=== PATIENT | male | born 1955 | race Caucasian/White ===

== ENCOUNTER 2017-06-29 19:22 | Inpatient (IN) | payer MEDICAID ==
[2017-06-29] MEDS ORDERED: SODIUM CHLORIDE 0.9% 500 ML IV STA (19:36)
[2017-06-29] MEDS ORDERED: MORPHINE SULFATE 4 MG/ML SYRINGE IV STA (19:36)
--- NOTE | 2017-06-29 19:41 | ED ---
Chest Pain HPI <Lit Ndiaye - Last Filed: 06/29/17 22:00> - General Source: EMS, RN notes reviewed, old records reviewed Mode of arrival: EMS Limitations: no limitations <Zaria Junior - Last Filed: 06/29/17 22:45> - General Chief Complaint: Chest Pain Stated Complaint: chest pain Time Seen by Provider: 06/29/17 19:25 - History of Present Illness Initial Comments: 62-year-old male presenting to the emergency Department chief complaint chest pain started this afternoon. Patient reports it started around 3:00. He did take one nitro at home. Patient reports that the edge off of the pain. He states that it still persists. He does wear oxygen consistently and he does have a history of COPD and is consistently short of breath. He states that he feels like he is slightly increased with his labored breathing. He denies any nausea or vomiting. He states he is not diaphoretic. He states that he called EMS and they do given 3 nitro. He states that that did relieve the pain again. Patient also was given oral doses of aspirin. Patient reports that he has a pacer placed by physician in the [facility]. He states that was done in 2012. He also has history of cancer and is undergoing chemo. History of Cancer , chest pain, COPD, diabetes and MIs. History of Left upper lobe lung cancer. Last chemo treatment was at the end of May 2017. (Zaria Junior) - Related Data Home Medications Medication Instructions Recorded Confirmed Aspirin 81 mg PO DAILY 06/29/17 06/29/17 Glucosam/Diogo-Msm1/C/Sahil/Bosw 1 tab PO BID 06/29/17 06/29/17 [Glucosamine-Chondroitin Tablet] Magnesium Oxide [Mag-Ox] 400 mg PO BID 06/29/17 06/29/17 Mometasone/Formoterol [Dulera 200 2 puff INHALATION RT-BID 06/29/17 06/29/17 Mcg/5 Mcg Inhaler] Allergies Allergy/AdvReac Type Severity Reaction Status Date / Time No Known Allergies Allergy Verified 06/29/17 20:44 Review of Systems ROS Other: All systems not noted in ROS Statement are negative. <Lit Ndiaye - Last Filed: 06/29/17 22:00> ROS Other: All systems not noted in ROS Statement are negative. <Zaria Junior - Last Filed: 06/29/17 22:45> ROS Statement: Those systems with pertinent positive or pertinent negative responses have been documented in the HPI. EKG Findings - EKG Comments: EKG Findings:: EKG performed at 1927 shows ventricular paced rhythm. Ventricular rate of 70 bpm. OK interval was undetected. QRS duration 122 ms. QT QTc is 418/451 ms. EKG performed then again at 2048 shows sinus tachycardia with first-degree AV block. Indeterminate axis. Pulmonary disease pattern noted. Right ventricular hypertrophy. ST wave abnormality noted in the inferior leads. Ventricular rate of 114 bpm. OK interval 11/24/1959 milliseconds. QRS duration 14 ms. QT QTc is 2:30/317. <Zaria Junior - Last Filed: 06/29/17 22:45> Past Medical History Past Medical History: Cancer, Chest Pain / Angina, COPD, Diabetes Mellitus, Myocardial Infarction (SD) Additional Past Medical History / Comment(s): stent placed 2009 History of Any Multi-Drug Resistant Organisms: MRSA Past Surgical History: AICD, Pacemaker Past Psychological History: No Psychological Hx Reported Smoking Status: Never smoker Past Alcohol Use History: None Reported Past Drug Use History: None Reported <Zaria Junior - Last Filed: 06/29/17 22:45> General Exam <Lit Ndiaye - Last Filed: 06/29/17 22:00> Limitations: no limitations General appearance: alert, in no apparent distress Head exam: Present: atraumatic, normocephalic, normal inspection Eye exam: Present: normal appearance, PERRL, EOMI. Absent: scleral icterus, conjunctival injection, periorbital swelling ENT exam: Present: normal exam, mucous membranes moist Neck exam: Present: normal inspection. Absent: tenderness, meningismus, lymphadenopathy Respiratory exam: Present: wheezes (bilateral wheezing), other (PT on oxygen. ) . Absent: normal lung sounds bilaterally, respiratory distress, rales, rhonchi , stridor Cardiovascular Exam: Present: regular rate, normal rhythm, normal heart sounds. Absent: systolic murmur, diastolic murmur, rubs, gallop, clicks GI/Abdominal exam: Present: soft, normal bowel sounds. Absent: distended, tenderness, guarding, rebound, rigid Extremities exam: Present: normal inspection, full ROM, normal capillary refill. Absent: tenderness, pedal edema, joint swelling, calf tenderness Back exam: Present: normal inspection Neurological exam: Present: alert, oriented X3, CN II-XII intact Psychiatric exam: Present: normal affect, normal mood Skin exam: Present: warm, dry, intact, normal color. Absent: rash <Zaria Junior - Last Filed: 06/29/17 22:45> - General Exam Comments Initial Comments: 62-year-old male. (Zaria Junior) Chest Pain MDM <Lit Ndiaye - Last Filed: 06/29/17 22:00> <Zaria Junior - Last Filed: 06/29/17 22:45> - [facility] Medical decision-making. Patient has a fever 102.9. History of lung cancer. D -dimer elevated at 4.1, CT to rule out PE pending. Patient presents septic, IV antibiotic started Levaquin, vancomycin. Case discussed with Dr. Mason , hospitalist and discussed the case with Dr. Frazier for ICU management. Dr. Ndiaye (Lit Ndiaye) This 21-year-old male chief complaint of increased chest pain. Patient's laboratory was reviewed. He does have a history of lung cancer. Noted significant anemia of [place] white blood count of 1.4. Patient's hemoglobin of 7.5. Patient was given blood transfusion. Patient's chest x-ray showed no acute cardiopulmonary process. He did have an elevated d-dimer 4.4. He received a CT MOLINA. Patient CT angios chest is negative for PE. Patient's temperature was reevaluated and was 102.9. Patient given Motrin Tylenol. Sepsis protocol was initiated. Patient's case was discussed with Dr. Ndiaye. He reviewed all the EKGs with me. Patient was given multiple rounds of nitro and morphine for the pain. Patient initial troponin was negative. We will admit the patient to ICU. He did request transferring down to [facility] however he is unstable to do so at this time. Patient was started on IV Levaquin and vancomycin. Discussed erythema the patient patient's family. Patient is admitted. He will receive breathing treatments as well. (Zaria Junior) Disposition <Lit Ndiaye - Last Filed: 06/29/17 22:00> Time of Disposition: 22:45 <Zaria Junior - Last Filed: 08/08/17 22:45> Clinical Impression: Sepsis, Anemia, Chest pain, Lung cancer Disposition: ADMITTED IP TO THIS HOSP Condition: Stable Referrals: Nonstaff,Physician [Primary Care Provider] - 1-2 days
[2017-06-29 20:16] LABS: Anisocytosis Moderate; Appearance,Urine Clear (Clear); Bilirubin,Urine Negative (Negative); CH 34.8; CHCM 34.7; Glucose,Urine (UA) 4+ (Negative); HCT 22.5 % (39.0-53.0); HDW 3.87; HGB 7.5 gm/dL (13.0-17.5); Ketones,Urine Trace (Negative); Leukocyte Esterase,Urine Negative (Negative); MCH 33.7 pg (25.0-35.0); MCHC 33.4 g/dL (31.0-37.0); MCV 100.7 fL (80.0-100.0); Macrocytosis Moderate; Mean Platelet Volume 11.4; Nitrite,Urine Negative (Negative); Poikilocytosis Slight; Protein,Urine Trace (Negative); RBC 2.23 m/uL (4.30-5.90); RDW 20.6 % (11.5-15.5); Specific Gravity,Urine 1.021 (1.001-1.035); UA Billing (MACRO vs. MICRO) CHEM; WBC (Perox) 1.34
[2017-06-29 20:18] LABS: WBC 1.4 k/uL (3.8-10.6)
[2017-06-29] MEDS ORDERED: ACETAMINOPHEN TAB 500 MG TAB PO STA (20:25)
[2017-06-29 20:27] LABS: ALT 40 U/L (21-72); AST 23 U/L (17-59); Alkaline Phosphatase 88 U/L (38-126); Anion Gap 12 mmol/L; Blood Urea Nitrogen 14 mg/dL (9-20); Calcium 8.9 mg/dL (8.4-10.2); Carbon Dioxide 21 mmol/L (22-30); Chloride 103 mmol/L (98-107); Glucose 181 mg/dL (74-99); Magnesium 1.1 mg/dL (1.6-2.3); Non-African American GFR(MDRD) >60 (>60 ml/min/1.73 sqM); Potassium 3.7 mmol/L (3.5-5.1); Sodium 136 mmol/L (137-145); Total Bilirubin 1.1 mg/dL (0.2-1.3)
[2017-06-29 20:30] LABS: Add Differential Manual Differential
[2017-06-29] MEDS: SODIUM CHLORIDE 0.9% 500 ML IV SCH ×3 (20:35→23:00)
[2017-06-29 20:40] LABS: Nucleated Red Blood Cells 0 /100 WBC (0-0); Total Cells Counted 100
[2017-06-29 20:41] LABS: Manual Review Performed; Ovalocytes Present; Polychromasia Present
--- NOTE | 2017-06-29 20:42 | XR ---
EXAMINATION TYPE: XR chest 2V DATE OF EXAM: 06/29/2017 COMPARISON: NONE HISTORY: Shortness of breath, chest pain, and fever. History of left upper lobe cancer with last chem otherapy treatment and end of May. History also includes COPD. TECHNIQUE: Frontal and lateral views of the chest are obtained. FINDINGS: Right-sided Mediport is seen with its distal tip in the superior vena cava. Dual lead left -sided cardiac device is noted. The known left upper lobe pulmonary carcinoma is not well visualized on this examination. Copious soft tissues partially obscure the left costophrenic angle is no pleural effusion is seen on the lateral image. There is no focal air space opacity, pleural effusion, or pneumothorax seen. The cardiac silhouette size is mildly enlarged. The osseous structures are intact. Degenerative changes of the glenohumeral joints are noted. IMPRESSION: 1. No acute cardiopulmonary process. 2. Right-sided Mediport terminates in the superior vena cava. 3. Known left upper lobe pulmonary carcinoma is not well visualized on this examination.
[2017-06-29] MEDS ORDERED: IPRATROPIUM-ALBUTEROL 3 ML NEB INHALATION STA (20:46)
[2017-06-29 20:47] LABS: Partial Thromboplastin Time 24.9 sec (22.0-30.0); Prothrombin Time 10.6 sec (9.0-12.0)
[2017-06-29] MEDS ORDERED: NITROGLYCERIN OINT 1 INCH/GM PACKET TOPICAL STA (20:47)
[2017-06-29 20:50] LABS: Creatine Kinase MB 0.9 ng/mL (0.0-2.4); Troponin I 0.015 ng/mL (0.000-0.034)
[2017-06-29] MEDS ORDERED: LEVOFLOXACIN 750MG-D5W PMX 750 MG in DEXTROSE/WATER 1 150ML.BAG IVPB STA (20:53)
[2017-06-29] MEDS ORDERED: RX INFO: IV CONTRAST WAS GIVEN 1 EACH MISC MISCELLANE PRN (21:00)
[2017-06-29] MEDS ORDERED: IV VANCOMYCIN PER PHARMACY 1 EACH MISC MISCELLANE PRN (21:26)
[2017-06-29] MEDS ORDERED: VANCOMYCIN 1,750 MG in SODIUM CHLORIDE 0.9% 250 ML IVPB STA (21:30)
[2017-06-29] MEDS ORDERED: IBUPROFEN 800 MG TAB PO STA (22:00)
[2017-06-29] MEDS ORDERED: NALOXONE 0.4 MG/ML 1 ML VIAL IV PRN (22:31)
[2017-06-29] MEDS ORDERED: IPRATROPIUM-ALBUTEROL 3 ML NEB INHALATION PRN (22:31)
[2017-06-29] MEDS ORDERED: ALPRAZolam 0.25 MG TAB PO PRN (22:31)
[2017-06-29] MEDS ORDERED: NITROGLYCERIN SL TABS 0.4 MG TAB SUBLINGUAL PRN (22:35)
--- NOTE | 2017-06-29 22:35 | CT ---
EXAM: CT Angiography Chest With Intravenous Contrast CLINICAL HISTORY: Reason: Pain TECHNIQUE: Axial computed tomographic angiography images of the chest with intravenous contrast using pulmonary embolism protocol. CTDI is 0.17, 10. 84, 10.84, 15.51 mGy and DLP is 593 mGy-cm. This CT exam was performed using one or more of the following dose reduction techniques: automated exposure control, adjustment of the mA and/or kV according to patient size, and/or use of iterative reconstruction technique. MIP reconstructed images were created and reviewed. COMPARISON: CXR 06/29/2017 FINDINGS: Pulmonary arteries: Unremarkable. No pulmonary embolism. Aorta: Mild atherosclerosis. No dissection or aneurysm. Lungs: No consolidation or mass. Bilateral emphysematous changes. Biapical pleural parenchymal scar. Bilateral peribronchial thickening is compatible with airways disease. Pleural space: Unremarkable. No significant effusion. No pneumothorax. Heart: Unremarkable. No cardiomegaly. No significant pericardial effusion. Bones/joints: No acute osseous abnormality. Mild degenerative changes of the spine. Soft tissues: Unremarkable. Lymph nodes: Unremarkable. No enlarged lymph nodes. Tubes, lines and devices: Left chest wall AICD. IMPRESSION: No pulmonary embolus.
[2017-06-30] MEDS: SODIUM CHLORIDE 0.9% 1,000 ML IV SCH ×3 (00:22→16:23)
[2017-06-30] MEDS: ACETAMINOPHEN TAB 325 MG TAB PO PRN ×3 (00:23→16:20)
[2017-06-30] MEDS ORDERED: Magnesium Replacement Protocol 1 EACH MISC MISCELLANE PRN (00:53)
[2017-06-30] MEDS ORDERED: Potassium Replacement Protocol 1 EACH MISC MISCELLANE PRN (00:54)
[2017-06-30] MEDS ORDERED: POTASSIUM CHLORIDE ER 20 MEQ TAB.ER PO SCH (01:00)
[2017-06-30 01:04] LABS: Glucose,Whole Blood 173 mg/dL (75-99)
[2017-06-30] MEDS: MORPHINE SULFATE 4 MG/ML SYRINGE IV PRN ×4 (01:22→16:19)
[2017-06-30] MEDS: MAGNESIUM SULFATE-D5W PMX 1 GM in DEXTROSE/WATER 1 100ML.BAG IVPB SCH ×3 (01:24→03:22)
[2017-06-30 01:31] VITALS: BMI 34.3
[2017-06-30 01:57] LABS: Creatine Kinase MB 1.6 ng/mL (0.0-2.4)
[2017-06-30 02:03] LABS: Troponin I 0.161 ng/mL (0.000-0.034)
[2017-06-30 05:22] LABS: Anisocytosis Moderate; CH 33.3; HCT 22.4 % (39.0-53.0); HDW 3.79; HGB 7.6 gm/dL (13.0-17.5); MCH 33.6 pg (25.0-35.0); MCHC 34.1 g/dL (31.0-37.0); MCV 98.5 fL (80.0-100.0); Macrocytosis Moderate; Mean Platelet Volume 9.2; Poikilocytosis Slight; RBC 2.27 m/uL (4.30-5.90); RDW 20.6 % (11.5-15.5); WBC (Perox) 1.02
[2017-06-30] MEDS: VANCOMYCIN 1,750 MG in SODIUM CHLORIDE 0.9% 250 ML IVPB SCH ×2 (05:33→18:15)
[2017-06-30 05:40] LABS: Anion Gap 7 mmol/L; Blood Urea Nitrogen 11 mg/dL (9-20); Calcium 8.2 mg/dL (8.4-10.2); Carbon Dioxide 22 mmol/L (22-30); Chloride 109 mmol/L (98-107); Cholesterol 141 mg/dL (<200); Glucose 192 mg/dL (74-99); HDL Cholesterol 40 mg/dL (40-60); Magnesium 1.9 mg/dL (1.6-2.3); Non-African American GFR(MDRD) >60 (>60 ml/min/1.73 sqM); Phosphorous 3.3 mg/dL (2.5-4.5); Potassium 4.3 mmol/L (3.5-5.1); Sodium 138 mmol/L (137-145)
[2017-06-30 05:42] LABS: Add Differential Manual Differential
[2017-06-30 05:49] LABS: Manual Review Performed; Nucleated Red Blood Cells 0 /100 WBC (0-0); Total Cells Counted 200
--- NOTE | 2017-06-30 07:19 | XR ---
EXAMINATION TYPE: XR chest 1V DATE OF EXAM: 06/30/2017 COMPARISON: 06/29/2017 HISTORY: 62-year-old male increasing shortness of breath TECHNIQUE: Single frontal view of the chest is obtained. FINDINGS: Right anterior chest wall injection port with catheter tip seen at least to the level of the mid SVC. Left anterior chest wall AICD generator with right atrial, right ventricular, and coronary sinus brenden ds. There is leftward patient rotation which alters the normal cardial mediastinal contours. Heart ap pears normal to upper limits of normal in size. There appears to be a small left pleural effusion wit h some patchy left basilar opacity on the current exam. Mild relative upper lung lucencies and some s ubtle focal left apical opacity could relate to site of patient's prior lung cancer. IMPRESSION: 1. COPD with increasing small left pleural effusion with adjacent atelectasis and/or consolidation. C orrelate for mild CHF as a possible etiology. 2. Some subtle left apical opacity could represent residual changes of patient's recently treated dennys g cancer.
[2017-06-30 07:43] LABS: Glucose,Whole Blood 173 mg/dL (75-99)
[2017-06-30 07:46] LABS: Creatine Kinase MB 3.4 ng/mL (0.0-2.4)
[2017-06-30 07:48] LABS: Troponin I 0.305 ng/mL (0.000-0.034)
[2017-06-30] MEDS: INSULIN LISPRO (humaLOG) 300 UNIT/3 ML VIAL SQ SCH ×4 (08:39→21:24)
[2017-06-30] MEDS: FAMOTIDINE 20 MG/2 ML VIAL IV SCH ×2 (08:45→21:24)
[2017-06-30] MEDS: DOCUSATE 100 MG CAP PO SCH ×2 (08:45→21:24)
[2017-06-30] MEDS ORDERED: ASPIRIN 325 MG TAB PO SCH (09:00)
--- NOTE | 2017-06-30 09:03 | P.CRDCN ---
History of Present Illness Consult date: 06/30/17 Chief complaint: Chest discomfort History of present illness: This is a pleasant 62-year-old gentleman with a past medical history significant for CAD and prior stenting of the LAD with unknown details at this point where the stent was performed by Dr. Ephraim Holbrook at [facility], and the patient continues to follow-up with him at this point, COPD, and small cell lung cancer currently on chemotherapy, presented to the hospital complaining of chest discomfort. The patient was in his usual state of health where he was visiting his daughter when he developed chest discomfort, in the mid of the chest, as a pressure across the chest, without any radiation to the arm or neck or shoulders and with associated symptoms of shortness of breath and sweating. He clearly states that the discomfort reminded him with what he experienced before his heart attack in the past. Later during his admission, the chest discomfort became is sort of pleuritic kind of discomfort. The d-dimer came in to be abnormal but the CTA of the chest showed no PE. The EKG showed by Biv-pacing with nonspecific changes in the anteroseptal leads. The cardiac enzymes were checked and came in to be unremarkable. The blood work showed what it seems to be pancytopenia. Clinically the patient continues to have mild ongoing chest discomfort. Past Medical History Past Medical History: Cancer, Chest Pain / Angina, COPD, Diabetes Mellitus, Myocardial Infarction ([place]) Additional Past Medical History / Comment(s): stent placed 2008 Last Myocardial Infarction Date:: 2008 History of Any Multi-Drug Resistant Organisms: MRSA Date of last positivie culture/infection: 2003 MDRO Source:: pulmonary MRSA Past Surgical History: AICD, Pacemaker Additional Past Surgical History / Comment(s): AICD 07/2015. 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 cell transplant Past Anesthesia/Blood Transfusion Reactions: No Reported Reaction Type of Cardiac Device: Permanent Pacemaker, AICD Device Placement Date:: 2014 Past Psychological History: No Psychological Hx Reported Smoking Status: Never smoker Past Alcohol Use History: None Reported Past Drug Use History: None Reported Medications and Allergies Home Medications Medication Instructions Recorded Confirmed Type Aspirin 81 mg PO DAILY 06/29/17 06/29/17 History Glucosam/Diogo-Msm1/C/Sahil/Bosw 1 tab PO BID 06/29/17 06/29/17 History [Glucosamine-Chondroitin Tablet] Magnesium Oxide [Mag-Ox] 400 mg PO BID 06/29/17 06/29/17 History Mometasone/Formoterol [Dulera 200 2 puff INHALATION RT-BID 06/29/17 06/29/17 History Mcg/5 Mcg Inhaler] Omeprazole 20 mg PO DAILY 06/30/17 06/30/17 History Allergies Allergy/AdvReac Type Severity Reaction Status Date / [facility] Adv[facility]ac Anaphylaxis Verified 06/30/17 00:20 Physical Exam Vitals: Vital Signs Temp Pulse Resp BP Pulse Ox 06/30/17 07:29 98 06/30/17 07:00 69 24 106/56 99 06/30/17 06:00 69 24 128/60 97 06/30/17 05:00 69 24 117/57 97 06/30/17 04:00 98.1 F 69 23 120/57 97 06/30/17 03:10 98.2 F 69 20 120/57 98 06/30/17 03:00 69 20 119/50 96 06/30/17 02:00 69 20 134/53 96 06/30/17 01:00 101.6 F H 69 24 134/53 97 06/30/17 00:37 101.4 F H 109 H 24 117/58 101 H 06/30/17 00:25 101.6 F H 101 H 24 126/58 99 06/30/17 00:15 102.2 F H 109 H 24 116/53 06/30/17 00:07 102.2 F H 93 24 128/62 99 06/29/17 23:57 101.8 F H 69 24 129/59 100 06/29/17 23:51 100 F H 71 22 124/72 99 06/29/17 23:25 70 06/29/17 23:20 69 06/29/17 22:52 100 F H 92 22 124/57 98 06/29/17 21:43 102.9 F H 72 22 130/60 98 06/29/17 20:45 124 H 06/29/17 20:40 98 22 150/63 100 06/29/17 20:02 69 24 139/60 99 06/29/17 19:48 24 06/29/17 19:25 100.4 F H 70 26 H 135/63 96 Intake and Output 06/29/17 06/30/17 06/30/17 22:59 06:59 14:59 Intake Total 2190 245 Output Total 2200 Balance -10 245 Intake: IV 1495 245 Magnesium Sulfate-D5w Pmx 400 1 gm In Dextrose/Water 1 100ml.bag @ 100 mls/hr IVPB Q1H [facility] Rx#: [id number] Sodium Chloride 0.9% 1, 720 120 000 ml @ 120 mls/hr IV . Q8H20M [facility] Rx#:[id number] Vancomycin 1,750 mg In 375 125 Sodium Chloride 0.9% 250 ml @ 125 mls/hr IVPB Q12H [facility] Rx#:[id number] Blood Product 695 Rc As-3 Unit 310 [id number] Output: Urine 2200 Other: Voiding Method Urinal Weight 98.883 kg 108.6 kg - Constitutional General appearance: no acute distress - Respiratory Respiratory: bilateral: diminished, rales - Cardiovascular Rhythm: regular Heart sounds: normal: S1, S2 Abnormal Heart Sounds: systolic murmur Results 06/30/17 05:00 06/30/17 05:00 Cardiac Enzymes 06/29/17 06/29/17 06/30/17 Range/Units 19:57 19:57 01:13 AST 23 (17-59) U/L CK-MB (CK-2) 0.9 1.6 (0.0-2.4) ng/mL Troponin I 0.015 0.161 H* (0.000-0.034) ng/mL 06/30/17 Range/Units 06:30 AST (17-59) U/L CK-MB (CK-2) 3.4 H* (0.0-2.4) ng/mL Troponin I 0.305 H* (0.000-0.034) ng/mL Coagulation 06/29/17 Range/Units 19:57 PT 10.6 (9.0-12.0) sec APTT 24.9 (22.0-30.0) sec Lipids 06/30/17 Range/Units 05:00 Triglycerides 103 (<150) mg/dL Cholesterol 141 (<200) mg/dL HDL Cholesterol 40 (40-60) mg/dL CBC 06/29/17 06/30/17 Range/Units 19:57 05:00 WBC 1.4 L* 1.0 L* (3.8-10.6) k/uL RBC 2.23 L 2.27 L (4.30-5.90) m/uL Hgb 7.5 L 7.6 L (13.0-17.5) gm/dL Hct 22.5 L 22.4 L (39.0-53.0) % Plt Count 55 L 46 L* (150-450) k/uL Comprehensive Metabolic Panel 06/29/17 06/30/17 Range/Units 19:57 05:00 Sodium 136 L 138 (137-145) mmol/L Potassium 3.7 4.3 (3.5-5.1) mmol/L Chloride 103 109 H (98-107) mmol/L Carbon Dioxide 21 L 22 (22-30) mmol/L BUN 14 11 (9-20) mg/dL Creatinine 0.80 0.80 (0.66-1.25) mg/dL Glucose 181 H 192 H (74-99) mg/dL Calcium 8.9 8.2 L (8.4-10.2) mg/dL AST 23 (17-59) U/L ALT 40 (21-72) U/L Alkaline Phosphatase 88 (38-126) U/L Total Protein 6.0 L (6.3-8.2) g/dL Albumin 3.6 (3.5-5.0) g/dL Current Medications Generic Name Dose Route Start Last Admin Trade Name Freq PRN Reason Stop Dose Admin Acetaminophen 650 mg 06/29/17 22:31 06/30/17 00:23 Tylenol Tab PO 650 mg Q4HR PRN Administration Fever and/or Mild Pain Albuterol/Ipratropium 3 ml 06/29/17 22:31 Duoneb 0.5 Mg-3 Mg/3 Ml Soln INHALATION RT-Q4H PRN Shortness Of Breath Or Wheezing Alprazolam 0.25 mg 06/29/17 22:31 Xanax PO Q6HR PRN Moderate Anxiety Aspirin 325 mg 06/30/17 09:00 06/30/17 08:45 Aspirin PO 325 mg DAILY [facility] Administration Docusate Sodium 100 mg 06/30/17 09:00 06/30/17 08:45 Colace PO 100 mg BID [facility] Administration Famotidine 20 mg 06/30/17 09:00 06/30/17 08:45 Pepcid IV 20 mg Q12HR [facility] Administration Vancomycin HCl 1,750 mg/ 250 mls @ 125 mls/hr 06/30/17 06:00 06/30/17 05:33 Sodium Chloride IVPB 125 mls/hr Q12H [facility] Administration Sodium Chloride 1,000 mls @ 120 mls/hr 06/29/17 22:45 06/30/17 08:46 Saline 0.9% IV 120 mls/hr .Q8H20M [facility] Administration Insulin Human Lispro 0 unit 06/30/17 07:30 06/30/17 08:39 Humalog SQ 2 unit ACHS [facility] Administration Protocol Miscellaneous Information 1 each 06/29/17 21:00 06/29/17 21:15 Rx Info: Iv Contrast Was Given MISCELLANE 07/01/17 21:00 1 each DAILY PRN Administration Per Protocol Miscellaneous Information 1 each 06/30/17 00:53 Magnesium Per Protocol MISCELLANE DAILY PRN Per Protocol Protocol Miscellaneous Information 1 each 06/30/17 00:54 Potassium Per Protocol MISCELLANE DAILY PRN Per Protocol Protocol Morphine Sulfate 4 mg 06/29/17 22:31 06/30/17 08:39 Morphine Sulfate (Inj) IV 4 mg Q2HR PRN Administration Pain Scale 8 to 10 Naloxone HCl 0.2 mg 06/29/17 22:31 Narcan IV Q2M PRN Opioid Reversal Nitroglycerin 0.4 mg 06/29/17 22:35 Nitrostat SUBLINGUAL Q5M PRN Chest Pain Intake and Output 06/29/17 06/30/17 06/30/17 22:59 06:59 14:59 Intake Total 2190 245 Output Total 2200 Balance -10 245 Intake: IV 1495 245 Magnesium Sulfate-D5w Pmx 400 1 gm In Dextrose/Water 1 100ml.bag @ 100 mls/hr IVPB Q1H [facility] Rx#: [id number] Sodium Chloride 0.9% 1, 720 120 000 ml @ 120 mls/hr IV . 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 He was found to have dorado cytopenia. The patient currently is on chemotherapy. The cardiac enzymes were checked and came in to be slightly abnormal and the EKG showed also slight non-specific changes. At this point, and in view of the absence of any severe chest discomfort and the pancytopenia, I recommended proceeding with a conservative medical approach and medical treatment only. I will obtain echocardiogram to assess the LV function and to assess for any wall motion abnormalities. The patient cannot be on any beta ledy in view of the marginally low heart rate as well as marginally low blood pressure. He is on 325 mg by mouth aspirin and I will cut down that in to 81 mg by mouth daily. If the aspirin has to be stopped because of the low platelet count we'll go ahead and do that.
--- NOTE | 2017-06-30 09:15 | P.CONS ---
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 He states his PET scan was clear and he was planned for 2 rounds of chemotherapy and his next one is due next week which will be his last one. Patient resides in [facility] and follows with physicians at [facility] and is wishing to be transferred to that facility. Patient was visiting his daughter in [place] and developed chest pain yesterday afternoon about 3:00. He took one nitroglycerin of his own with some minimal improvement. EMS was called and he was brought into [facility] emergency center for evaluation. EMS did give him 3 nitroglycerin with relief. Patient had some nonspecific changes on his EKG. He is known to have had a myocardial infarction in 2008 and stent placement at that time. He also has history of atrial fibrillation status post AV node ablation and subsequently needed a pacemaker which was upgraded to an AICD in 2015. He denies any problems with his pacemaker site. He does have a port on the right upper anterior chest wall which has not given him any trouble and has been nontender. Patient was found to have a white count of 1.4 and repeat is at 1. Hemoglobin 7.5 and he was transfused 1 unit of packed RBCs. He presented with a temperature of 102.9 and lactic acid was 3.3 and improved to 1.2. Urinalysis was nitrate and leukoesterase negative. Blood cultures are status received. Patient had troponins of 0.015, 0.161, 0.305. Patient has been given 1 dose of IV Levaquin and has been continued on vancomycin. Chest x-ray showed no acute cardiopulmonary process. Patient was admitted to the intensive care unit. Consults are in place with Dr. Frazier for intensive care management, Dr. Dozier from oncology and Dr. Way for cardiology. Patient states that his chest pain has changed in that it is now painful when he takes a deep breath. Review of Systems All systems: negative Constitutional: Denies chills, Denies fever Eyes: denies blurred vision, denies pain Ears, nose, mouth and throat: Denies headache, Denies sore throat Cardiovascular: Reports chest pain, Reports shortness of breath Respiratory: Denies cough Gastrointestinal: Denies abdominal pain, Denies diarrhea, Denies nausea, Denies vomiting Musculoskeletal: Denies myalgias Integumentary: Denies pruritus, Denies rash Neurological: Denies numbness, Denies weakness Psychiatric: Denies anxiety, Denies depression Endocrine: Denies fatigue, Denies weight change Past Medical History Past Medical History: Atrial Fibrillation, Cancer, Chest Pain / Angina, COPD, Diabetes Mellitus, Myocardial Infarction (NH) Additional Past Medical History / Comment(s): stent placed 2008, chronic hypoxic respiratory failure on home O2, Hodgkin's lymphoma status post themselves transplant, atrial fibrillation status post AV node ablation Last Myocardial Infarction Date:: 2008 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 1997 Stem cell transplant, port placement Past Anesthesia/Blood Transfusion Reactions: No Reported Reaction Type of Cardiac Device: Permanent Pacemaker, AICD Device Placement Date:: 2014 Past Psychological History: No Psychological Hx Reported Smoking Status: Former smoker Past Alcohol Use History: None Reported Additional Past Alcohol Use History / Comment(s): patient was a smoker 3 packs per day for 39 years and quit in 2008. He denies any medical marijuana, marijuana, street drug use. He lives at home with his and 3 cats. Past Drug Use History: None Reported Medications and Allergies Home Medications Medication Instructions Recorded Confirmed Type Aspirin 81 mg PO DAILY 06/29/17 06/29/17 History Glucosam/Diogo-Msm1/C/Sahil/Bosw 1 tab PO BID 06/29/17 06/29/17 History [Glucosamine-Chondroitin Tablet] Magnesium Oxide [Mag-Ox] 400 mg PO BID 06/29/17 06/29/17 History Mometasone/Formoterol [Dulera 200 2 puff INHALATION RT-BID 06/29/17 06/29/17 History Mcg/5 Mcg Inhaler] Omeprazole 20 mg PO DAILY 06/30/17 06/30/17 History Allergies Allergy/AdvReac Type Severity Reaction Status Date / Time perflutren [From Definity] AdvReac Anaphylaxis Verified 06/30/17 00:20 Physical Exam Vitals: Vital Signs Temp Pulse Resp BP Pulse Ox 06/30/17 09:00 73 44 H 141/65 97 06/30/17 08:00 69 28 H 128/61 98 06/30/17 07:29 98 06/30/17 07:00 69 24 106/56 99 06/30/17 06:00 69 24 128/60 97 06/30/17 05:00 69 24 117/57 97 06/30/17 04:00 98.1 F 69 23 120/57 97 06/30/17 03:10 98.2 F 69 20 120/57 98 06/30/17 03:00 69 20 119/50 96 06/30/17 02:00 69 20 134/53 96 06/30/17 01:00 101.6 F H 69 24 134/53 97 06/30/17 00:37 101.4 F H 109 H 24 117/58 101 H 06/30/17 00:25 101.6 F H 101 H 24 126/58 99 06/30/17 00:15 102.2 F H 109 H 24 116/53 06/30/17 00:07 102.2 F H 93 24 128/62 99 06/29/17 23:57 101.8 F H 69 24 129/59 100 06/29/17 23:51 100 F H 71 22 124/72 99 06/29/17 23:25 70 06/29/17 23:20 69 06/29/17 22:52 100 F H 92 22 124/57 98 06/29/17 21:43 102.9 F H 72 22 130/60 98 06/29/17 20:45 124 H 06/29/17 20:40 98 22 150/63 100 06/29/17 20:02 69 24 139/60 99 06/29/17 19:48 24 06/29/17 19:25 100.4 F H 70 26 H 135/63 96 Intake and Output 06/29/17 06/30/17 06/30/17 22:59 06:59 14:59 Intake Total 2190 365 Output Total 2200 250 Balance -10 115 Intake: IV 1495 365 Magnesium Sulfate-D5w Pmx 400 1 gm In Dextrose/Water 1 100ml.bag @ 100 mls/hr IVPB Q1H ROSAS Rx#: [id number] Sodium Chloride 0.9% 1, 720 240 000 ml @ 120 mls/hr IV . Q8H20M ROSAS Rx#:[id number] Vancomycin 1,750 mg In 375 125 Sodium Chloride 0.9% 250 ml @ 125 mls/hr IVPB Q12H ROSAS Rx#:[id number] Blood Product 695 Rc As-3 Unit 310 [id number] Output: Urine 2200 250 Other: Voiding Method Urinal Weight 98.883 kg 108.6 kg Gen: This is a 62-year-old male sitting up in the ICU bed. Patient is noted to have [id number] dyspnea with conversation. HEENT: Head is atraumatic, normocephalic. Pupils equal, round. Sclerae is anicteric. conjunctivae slightly pale. Mucous membranes of the mouth are slightly dry. No thrush noted. Dentition is in good order. NECK: short. Supple. No JVD. No lymphadenopathy. No thyromegaly. LUNGS: diminished to the bilateral bases. mild accessory muscle usage and intercostal retractions. HEART: Regular rate and rhythm. No murmur. ABDOMEN: Soft. Bowel sounds are present. No masses. No tenderness. EXTREMITIES: No pedal edema. No calf tenderness.dorsalis pedis is +2 bilaterally.patient has redness to the left forearm just distal to the antecubital area. NEUROLOGICAL: Patient is awake, alert and oriented x3. Cranial nerves 2 through 12 are grossly intact. Results Results: Laboratory Results WBC 1.0 k/uL (3.8-10.6) L* 06/30/17 05:00 RBC 2.27 m/uL (4.30-5.90) L 06/30/17 05:00 Hgb 7.6 gm/dL (13.0-17.5) L 06/30/17 05:00 Hct 22.4 % (39.0-53.0) L 06/30/17 05:00 MCV 98.5 fL (80.0-100.0) 06/30/17 05:00 MCH 33.6 pg (25.0-35.0) 06/30/17 05:00 MCHC 34.1 g/dL (31.0-37.0) 06/30/17 05:00 RDW 20.6 % (11.5-15.5) H 06/30/17 05:00 Plt Count 46 k/uL (150-450) L* 06/30/17 05:00 Neutrophils % (Manual) 6 % 06/30/17 05:00 Band Neutrophils % 16.0 % 06/30/17 05:00 Lymphocytes % (Manual) 60 % 06/30/17 05:00 Monocytes % (Manual) 16 % 06/30/17 05:00 Eosinophils % (Manual) 2 % 06/30/17 05:00 Neutrophils # (Manual) 0.22 k/uL (1.3-7.7) L 06/30/17 05:00 Lymphocytes # (Manual) 0.60 k/uL (1.0-4.8) L 06/30/17 05:00 Monocytes # (Manual) 0.16 k/uL (0-1.0) 06/30/17 05:00 Eosinophils # (Manual) 0.02 k/uL (0-0.7) 06/30/17 05:00 Nucleated RBCs 0 /100 WBC (0-0) 06/30/17 05:00 Manual Slide Review Performed 06/30/17 05:00 Polychromasia Present 06/29/17 19:57 Poikilocytosis Slight 06/30/17 05:00 Poikilocytosis (manual Present 06/30/17 05:00 Anisocytosis Moderate 06/30/17 05:00 Anisocytosis (manual) Present 06/30/17 05:00 Macrocytosis Moderate 06/30/17 05:00 Ovalocytes Present 06/29/17 19:57 PT 10.6 sec (9.0-12.0) 06/29/17 19:57 INR 1.0 (<1.2) 06/29/17 19:57 APTT 24.9 sec (22.0-30.0) 06/29/17 19:57 D-Dimer 4.43 mg/L FEU (<0.60) H 06/29/17 19:57 Sodium 138 mmol/L (137-145) 06/30/17 05:00 Potassium 4.3 mmol/L (3.5-5.1) 06/30/17 05:00 Chloride 109 mmol/L (98-107) H 06/30/17 05:00 Carbon Dioxide 22 mmol/L (22-30) 06/30/17 05:00 Anion Gap 7 mmol/L 06/30/17 05:00 BUN 11 mg/dL (9-20) 06/30/17 05:00 Creatinine 0.80 mg/dL (0.66-1.25) 06/30/17 05:00 Est GFR (MDRD) Af Amer >60 (>60 ml/min/1.73 sqM) 06/30/17 05:00 Est GFR (MDRD) Non-Af >60 (>60 ml/min/1.73 sqM) 06/30/17 05:00 Glucose 192 mg/dL (74-99) H 06/30/17 05:00 POC Glucose (mg/dL) 173 mg/dL (75-99) H 06/30/17 07:40 POC Glu Dobby Loom Fixer ID Hawa Hagen 06/30/17 07:40 Lactic Ac Sepsis Rflx Y 06/29/17 20:29 Plasma Lactic Acid Krystian 1.2 mmol/L (0.7-2.0) 06/30/17 00:00 Calcium 8.2 mg/dL (8.4-10.2) L 06/30/17 05:00 Phosphorus 3.3 mg/dL (2.5-4.5) 06/30/17 05:00 Magnesium 1.9 mg/dL (1.6-2.3) 06/30/17 05:00 Total Bilirubin 1.1 mg/dL (0.2-1.3) 06/29/17 19:57 AST 23 U/L (17-59) 06/29/17 19:57 ALT 40 U/L (21-72) 06/29/17 19:57 Alkaline Phosphatase 88 U/L (38-126) 06/29/17 19:57 Total Creatine Kinase 387 U/L (55-170) H 06/30/17 06:30 CK-MB (CK-2) 3.4 ng/mL (0.0-2.4) H* 06/30/17 06:30 CK-MB (CK-2) Rel Index 0.9 06/30/17 06:30 Troponin I 0.305 ng/mL (0.000-0.034) H* 06/30/17 06:30 NT-Pro-B Natriuret Pep 707 pg/mL 06/29/17 19:57 Total Protein 6.0 g/dL (6.3-8.2) L 06/29/17 19:57 Albumin 3.6 g/dL (3.5-5.0) 06/29/17 19:57 Triglycerides 103 mg/dL (<150) 06/30/17 05:00 Cholesterol 141 mg/dL (<200) 06/30/17 05:00 LDL Cholesterol, Calc 80 mg/dL (0-99) 06/30/17 05:00 HDL Cholesterol 40 mg/dL (40-60) 06/30/17 05:00 Urine Color Yellow 06/29/17 19:57 Urine Appearance Clear (Clear) 06/29/17 19:57 Urine pH 5.0 (5.0-8.0) 06/29/17 19:57 Ur Specific [place] 1.021 (1.001-1.035) 06/29/17 19:57 Urine Protein Trace (Negative) H 06/29/17 19:57 Urine Glucose (UA) 4+ (Negative) H 06/29/17 19:57 Urine Ketones Trace (Negative) H 06/29/17 19:57 Urine Blood Negative (Negative) 06/29/17 19:57 Urine Nitrite Negative (Negative) 06/29/17 19:57 Urine Bilirubin Negative (Negative) 06/29/17 19:57 Urine Urobilinogen 2.0 mg/dL (<2.0) 06/29/17 19:57 Ur Leukocyte Esterase Negative (Negative) 06/29/17 19:57 Blood Type O Positive 06/29/17 19:57 Blood Type Recheck No 06/29/17 19:57 Antibody Screen NEGATIVE 06/29/17 19:57 Crossmatch See Detail 06/29/17 19:57 Spec Expiration Date 07/02/2017 - 5770 06/29/17 19:57 CBC & Chem 7: 06/30/17 05:00 06/30/17 05:00 Labs: Abnormal Lab Results - Last 24 Hours (Table) 06/29/17 06/29/17 06/29/17 Range/Units 19:57 19:57 19:57 WBC 1.4 L* (3.8-10.6) k/uL RBC 2.23 L (4.30-5.90) m/uL Hgb 7.5 L (13.0-17.5) gm/dL Hct 22.5 L (39.0-53.0) % MCV 100.7 H (80.0-100.0) fL RDW 20.6 H (11.5-15.5) % Plt Count 55 L (150-450) k/uL Neutrophils # (Manual) 0.56 L (1.3-7.7) k/uL Lymphocytes # (Manual) 0.70 L (1.0-4.8) k/uL D-Dimer 4.43 H (<0.60) mg/L FEU Sodium 136 L (137-145) mmol/L Chloride (98-107) mmol/L Carbon Dioxide 21 L (22-30) mmol/L Glucose 181 H (74-99) mg/dL POC Glucose (mg/dL) (75-99) mg/dL Plasma Lactic Acid Krystian (0.7-2.0) mmol/L Calcium (8.4-10.2) mg/dL Magnesium 1.1 L (1.6-2.3) mg/dL Total Creatine Kinase (55-170) U/L CK-MB (CK-2) (0.0-2.4) ng/mL Troponin I (0.000-0.034) ng/mL Total Protein 6.0 L (6.3-8.2) g/dL Urine Protein (Negative) Urine Glucose (UA) (Negative) Urine Ketones (Negative) Crossmatch 06/29/17 06/29/17 06/29/17 Range/Units 19:57 19:57 19:57 WBC (3.8-10.6) k/uL RBC (4.30-5.90) m/uL Hgb (13.0-17.5) gm/dL Hct (39.0-53.0) % MCV (80.0-100.0) fL RDW (11.5-15.5) % Plt Count (150-450) k/uL Neutrophils # (Manual) (1.3-7.7) k/uL Lymphocytes # (Manual) (1.0-4.8) k/uL D-Dimer (<0.60) mg/L FEU Sodium (137-145) mmol/L Chloride (98-107) mmol/L Carbon Dioxide (22-30) mmol/L Glucose (74-99) mg/dL POC Glucose (mg/dL) (75-99) mg/dL Plasma Lactic Acid Krystian 3.3 H* (0.7-2.0) mmol/L Calcium (8.4-10.2) mg/dL Magnesium (1.6-2.3) mg/dL Total Creatine Kinase (55-170) U/L CK-MB (CK-2) (0.0-2.4) ng/mL Troponin I (0.000-0.034) ng/mL Total Protein (6.3-8.2) g/dL Urine Protein Trace H (Negative) Urine Glucose (UA) 4+ H (Negative) Urine Ketones Trace H (Negative) Crossmatch See Detail 06/30/17 06/30/17 06/30/17 Range/Units 01:02 01:13 05:00 WBC (3.8-10.6) k/uL RBC (4.30-5.90) m/uL Hgb (13.0-17.5) gm/dL Hct (39.0-53.0) % MCV (80.0-100.0) fL RDW (11.5-15.5) % Plt Count (150-450) k/uL Neutrophils # (Manual) (1.3-7.7) k/uL Lymphocytes # (Manual) (1.0-4.8) k/uL D-Dimer (<0.60) mg/L FEU Sodium (137-145) mmol/L Chloride 109 H (98-107) mmol/L Carbon Dioxide (22-30) mmol/L Glucose 192 H (74-99) mg/dL POC Glucose (mg/dL) 173 H (75-99) mg/dL Plasma Lactic Acid Krystian (0.7-2.0) mmol/L Calcium 8.2 L (8.4-10.2) mg/dL Magnesium (1.6-2.3) mg/dL Total Creatine Kinase 323 H (55-170) U/L CK-MB (CK-2) (0.0-2.4) ng/mL Troponin I 0.161 H* (0.000-0.034) ng/mL Total Protein (6.3-8.2) g/dL Urine Protein (Negative) Urine Glucose (UA) (Negative) Urine Ketones (Negative) Crossmatch 06/30/17 06/30/17 06/30/17 Range/Units 05:00 06:30 07:40 WBC 1.0 L* (3.8-10.6) k/uL RBC 2.27 L (4.30-5.90) m/uL Hgb 7.6 L (13.0-17.5) gm/dL Hct 22.4 L (39.0-53.0) % MCV (80.0-100.0) fL RDW 20.6 H (11.5-15.5) % Plt Count 46 L* (150-450) k/uL Neutrophils # (Manual) 0.22 L (1.3-7.7) k/uL Lymphocytes # (Manual) 0.60 L (1.0-4.8) k/uL D-Dimer (<0.60) mg/L FEU Sodium (137-145) mmol/L Chloride (98-107) mmol/L Carbon Dioxide (22-30) mmol/L Glucose (74-99) mg/dL POC Glucose (mg/dL) 173 H (75-99) mg/dL Plasma Lactic Acid Krystian (0.7-2.0) mmol/L Calcium (8.4-10.2) mg/dL Magnesium (1.6-2.3) mg/dL Total Creatine Kinase 387 H (55-170) U/L CK-MB (CK-2) 3.4 H* (0.0-2.4) ng/mL Troponin I 0.305 H* (0.000-0.034) ng/mL Total Protein (6.3-8.2) g/dL Urine Protein (Negative) Urine Glucose (UA) (Negative) Urine Ketones (Negative) Crossmatch Microbiology - Last 24 Hours (Table) 06/29/17 19:57 Urine Culture - Preliminary Urine,Voided Assessment and Plan Plan: this is a 62-year-old male who presented to the hospital with chest painand followed by tick eradicator. Patient was found to have neutropenic feverwith pancytopenia. Blood culture is in progress as well as urine culture. Patient is currently vancomycin and cefepime added.chest x-ray showing no acute process. There is a consult in place for Dr. Mijares for his small cell lung cancer and he has history of Hodgkin's lymphoma. Continue supportive care. Further recommendations as patient progresses. The above dictated assessment and findings were discussed with Dr. Fritz. The impression and plan of care have been directed as dictated. Charissa Hdz nurse practitioner acting as scribe for Dr. Fritz.
[2017-06-30] MEDS: CEFEPIME 2 GM in SODIUM CHLORIDE 0.9% 50 ML IVPB SCH ×2 (10:22→16:24)
[2017-06-30 11:32] LABS: Glucose,Whole Blood 187 mg/dL (75-99)
[2017-06-30] MEDS: FILGRASTIM-SNDZ 480 MCG/0.8 ML SYRINGE SQ SCH (11:34)
--- NOTE | 2017-06-30 13:44 | P.CNPUL ---
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 The patient apparently has been tolerating his systemic chemotherapy well. According to him he has received 5 sessions of systemic chemotherapy and during the course of the treatment a PET scan was done that showed no significant activity and his lungs. He is known to have COPD. He also has a remote history of Hodgkin's lymphoma stage IV, and was initially treated successfully and ultimately had a recurrence and he underwent a successful stem cell transportation [facility] in [place]. As such she is lymphoma has been essentially treated. He is also known to have coronary artery disease. He has had issues with atrial fibrillation in the past and he has undergone cardiac ablation and currently has a pacer AICD in place and this was inserted thousand and 15. The patient lives and [place] and he was in the area visiting his daughter in [place]. He acutely felt pain across his chest and he also had Reiger's and chills and he came mid with a high-grade temperature to the hospital. He was found to be in profound neutropenia with a white cell count of 1.0. His he was at 7.6 with a platelet count of 46,000. Rest of the electrodes are within normal limits. No headaches. No change in mental status. No cough or sputum production. He has chronic dyspnea related to his COPD. No nausea. No vomiting. No abdominal pain. No dysphagia fevers or urgency. No skin rashes. No open wounds or sores. No cellulitis. He was started on a combination of cefepime and vancomycin. Blood cultures were sent. He remained hemodynamically stable. This morning he is afebrile. He did however have temperatures throughout the night and last temperature spike was earlier this morning when he had a temperature 11.6. No oropharyngeal thrush. He was started on Zarxio regarding his neutropenia. He is also resuscitated IV fluids. He is calm and comfortable. He is resting comfortably in bed. A computed tomography scan of the chest was also done that showed the left upper lobe mass and no previous x-rays or CAT scans are available for comparison. Nondistended adenopathy. No evidence of an acute pneumonia. The patient's EKG was sinus with biventricular pacing. Troponins were minimally elevated at 0.1 and 0.3. Currently is free of any chest pain. Review of Systems Constitutional: Reports fatigue, Reports fever, Reports lethargy, Reports malaise Eyes: denies blurred vision, denies bulging eye, denies decreased vision Ears: deny: decreased hearing, ear discharge, earache Ears, nose, mouth and throat: Denies headache, Denies sore throat Cardiovascular: Reports dyspnea on exertion, Reports shortness of breath Respiratory: Reports dyspnea, Reports wheezing Gastrointestinal: Denies abdominal pain, Denies diarrhea, Denies nausea, Denies vomiting Musculoskeletal: Denies myalgias Musculoskeletal: absent: ankle pain, ankle stiffness, ankle swelling Integumentary: Denies pruritus, Denies rash Neurological: Denies numbness, Denies weakness Psychiatric: Denies anxiety, Denies depression Endocrine: Denies fatigue, Denies weight change Past Medical History Past Medical History: Cancer, Chest Pain / Angina, COPD, Diabetes Mellitus, Myocardial Infarction ([place]) Additional Past Medical History / Comment(s): Small cell lung cancer currently on systemic chemotherapy, Hodgkin's lymphoma status post stem cell transplantation, coronary artery disease with previous coronary stent insertion involving the LAD back in 2008, obesity, COPD, diabetes mellitus, previous history of myocardial infarction, chronic atrial fibrillation and the patient has had cardiac ablation and currently has an AICD in place. Last Myocardial Infarction Date:: 2008 History of Any Multi-Drug Resistant Organisms: MRSA Date of last positivie culture/infection: 2003 MDRO Source:: pulmonary MRSA Past Surgical History: AICD, Pacemaker Additional Past Surgical History / Comment(s): AICD 07/2015. 1997 Stem cell transplant Past Anesthesia/Blood Transfusion Reactions: No Reported Reaction Type of Cardiac Device: Permanent Pacemaker, AICD Device Placement Date:: 2014 Past Psychological History: No Psychological Hx Reported Smoking Status: Never smoker Past Alcohol Use History: None Reported Past Drug Use History: None Reported Medications and Allergies Home Medications Medication Instructions Recorded Confirmed Type Aspirin 81 mg PO DAILY 06/29/17 06/29/17 History Glucosam/Diogo-Msm1/C/Sahil/Bosw 1 tab PO BID 06/29/17 06/29/17 History [Glucosamine-Chondroitin Tablet] Magnesium Oxide [Mag-Ox] 400 mg PO BID 06/29/17 06/29/17 History Mometasone/Formoterol [Dulera 200 2 puff INHALATION RT-BID 06/29/17 06/29/17 History Mcg/5 Mcg Inhaler] Omeprazole 20 mg PO DAILY 06/30/17 06/30/17 History Allergies Allergy/AdvReac Type Severity Reaction Status Date / Time perflutren [From Enabled Employment] AdvReac Anaphylaxis Verified 06/30/17 00:20 Physical Exam Vitals: Vital Signs Temp Pulse Resp BP Pulse Ox 06/30/17 13:00 69 40 H 140/59 94 L 06/30/17 12:00 99.3 F 69 25 H 136/62 95 06/30/17 11:00 98.5 F 69 28 H 171/82 94 L 06/30/17 10:00 70 45 H 153/62 97 06/30/17 09:00 73 44 H 141/65 97 06/30/17 08:00 69 28 H 128/61 98 06/30/17 07:29 98 06/30/17 07:00 69 24 106/56 99 06/30/17 06:00 69 24 128/60 97 06/30/17 05:00 69 24 117/57 97 06/30/17 04:00 98.1 F 69 23 120/57 97 06/30/17 03:10 98.2 F 69 20 120/57 98 06/30/17 03:00 69 20 119/50 96 06/30/17 02:00 69 20 134/53 96 06/30/17 01:00 101.6 F H 69 24 134/53 97 06/30/17 00:37 101.4 F H 109 H 24 117/58 101 H 06/30/17 00:25 101.6 F H 101 H 24 126/58 99 06/30/17 00:15 102.2 F H 109 H 24 116/53 06/30/17 00:07 102.2 F H 93 24 128/62 99 06/29/17 23:57 101.8 F H 69 24 129/59 100 06/29/17 23:51 100 F H 71 22 124/72 99 06/29/17 23:25 70 06/29/17 23:20 69 06/29/17 22:52 100 F H 92 22 124/57 98 06/29/17 21:43 102.9 F H 72 22 130/60 98 06/29/17 20:45 124 H 06/29/17 20:40 98 22 150/63 100 06/29/17 20:02 69 24 139/60 99 06/29/17 19:48 24 06/29/17 19:25 100.4 F H 70 26 H 135/63 96 Intake and Output 06/29/17 06/30/17 06/30/17 22:59 06:59 14:59 Intake Total 2190 1065 Output Total 2200 990 Balance -10 75 Intake: IV 1495 965 Magnesium Sulfate-D5w Pmx 400 1 gm In Dextrose/Water 1 100ml.bag @ 100 mls/hr IVPB Q1H ROSAS Rx#: [id number] Sodium Chloride 0.9% 1, 720 840 000 ml @ 120 mls/hr IV . Q8H20M ROSAS Rx#:[id number] Vancomycin 1,750 mg In 375 125 Sodium Chloride 0.9% 250 ml @ 125 mls/hr IVPB Q12H ROSAS Rx#:[id number] Intake, IV Titration 100 Amount Cefepime 2 gm In Sodium 100 Chloride 0.9% 50 ml @ 100 mls/hr IVPB Q8HR ROSAS Rx# :[id number] Blood Product 695 Rc As-3 Unit 310 [id number] Output: Urine 2200 990 Other: Voiding Method Urinal Urinal Weight 98.883 kg 108.6 kg Patient is obese, comfortable likely distress.Head exam was generally normal. There was no scleral icterus or corneal arcus. Mucous membranes were moist. Neck is short and supple and there is significant crowding of the posterior pharynx. There is no goiter or neck masses.Cardiac exam revealed the PMI to be normally situated and sized. The rhythm was regular and no extrasystoles were noted during several minutes of auscultation. The first and second heart sounds were normal and physiologic splitting of the second heart sound was noted. There were no murmurs, rubs, clicks, or gallops. Lungs sounds are diminished bilaterally along with some prolongation of expiratory phase of breathing. Breath sounds are diminished in the lung bases.Abdominal exam revealed normal bowel sounds. The abdomen was soft, non-tender, and without masses, organomegaly , or appreciable enlargement of the abdominal aorta.Examination of the extremities revealed easily palpable radial, femoral and pedal pulses. There was no cyanosis, clubbing or edema. Results - Laboratory Findings CBC and BMP: 06/30/17 05:00 06/30/17 05:00 PT/INR, D-dimer PT 10.6 sec (9.0-12.0) 06/29/17 19:57 INR 1.0 (<1.2) 06/29/17 19:57 D-Dimer 4.43 mg/L FEU (<0.60) H 06/29/17 19:57 Abnormal lab findings: Abnormal Labs 06/29/17 06/29/17 06/29/17 19:57 19:57 19:57 WBC 1.4 L* RBC 2.23 L Hgb 7.5 L Hct 22.5 L MCV 100.7 H RDW 20.6 H Plt Count 55 L Neutrophils # (Manual) 0.56 L Lymphocytes # (Manual) 0.70 L D-Dimer 4.43 H Sodium 136 L Chloride Carbon Dioxide 21 L Glucose 181 H POC Glucose (mg/dL) Plasma Lactic Acid Krystian Calcium Magnesium 1.1 L Total Creatine Kinase CK-MB (CK-2) Troponin I Total Protein 6.0 L Urine Protein Urine Glucose (UA) Urine Ketones Crossmatch 06/29/17 06/29/17 06/29/17 19:57 19:57 19:57 WBC RBC Hgb Hct MCV RDW Plt Count Neutrophils # (Manual) Lymphocytes # (Manual) D-Dimer Sodium Chloride Carbon Dioxide Glucose POC Glucose (mg/dL) Plasma Lactic Acid Krystian 3.3 H* Calcium Magnesium Total Creatine Kinase CK-MB (CK-2) Troponin I Total Protein Urine Protein Trace H Urine Glucose (UA) 4+ H Urine Ketones Trace H Crossmatch See Detail 06/30/17 06/30/17 06/30/17 01:02 01:13 05:00 WBC RBC Hgb Hct MCV RDW Plt Count Neutrophils # (Manual) Lymphocytes # (Manual) D-Dimer Sodium Chloride 109 H Carbon Dioxide Glucose 192 H POC Glucose (mg/dL) 173 H Plasma Lactic Acid Krystian Calcium 8.2 L Magnesium Total Creatine Kinase 323 H CK-MB (CK-2) Troponin I 0.161 H* Total Protein Urine Protein Urine Glucose (UA) Urine Ketones Crossmatch 06/30/17 06/30/17 06/30/17 05:00 06:30 07:40 WBC 1.0 L* RBC 2.27 L Hgb 7.6 L Hct 22.4 L MCV RDW 20.6 H Plt Count 46 L* Neutrophils # (Manual) 0.22 L Lymphocytes # (Manual) 0.60 L D-Dimer Sodium Chloride Carbon Dioxide Glucose POC Glucose (mg/dL) 173 H Plasma Lactic Acid Krystian Calcium Magnesium Total Creatine Kinase 387 H CK-MB (CK-2) 3.4 H* Troponin I 0.305 H* Total Protein Urine Protein Urine Glucose (UA) Urine Ketones Crossmatch 06/30/17 11:30 WBC RBC Hgb Hct MCV RDW Plt Count Neutrophils # (Manual) Lymphocytes # (Manual) D-Dimer Sodium Chloride Carbon Dioxide Glucose POC Glucose (mg/dL) 187 H Plasma Lactic Acid Krystian Calcium Magnesium Total Creatine Kinase CK-MB (CK-2) Troponin I Total Protein Urine Protein Urine Glucose (UA) Urine Ketones Crossmatch - Diagnostic Findings Chest x-ray: image reviewed CT scan - chest: image reviewed Assessment and Plan Plan: Assessment 1 neutropenic fever, currently under investigation. Rule out underlying septicemia. Cultures of been sent and the patient was started on broad- spectrum antibiotics and currently is on a combination of cefepime and vancomycin. The patient is also on Zarxio. 2 small cell lung cancer currently on systemic chemotherapy 3 COPD 4 coronary artery disease. The patient chest pain at time of admission. Yet his presentation was not typical of an acute cardiac event or an acute myocardial infarction. Troponins were minimally elevated at 0.1 and 0.3 respectively. Currently free of any chest pain. The patient has had previous angioplasty and stenting of the LAD. 5 history of chronic and if ablation status post cardiac ablation, status post placement of a pacer/AICD in 2014 6 obesity 7 hypertension 8 hyperlipidemia 9 Hodgkin's lymphoma status post stem cell transplantation in patient is currently in remission Plan Proceed with fluid resuscitation PEEP proceed with combination of cefepime and vancomycin. Cefepime is being given at 2 g every 8 hours. Pharmacy to dose vancomycin. Blood cultures. Urine cultures. CAT scan of the chest was noted. Oncology consultation. Zarxio for neutropenia. Monitor hemoglobin. Patient showed interest to be transferred to the care of [facility] where his rn bsn and oncologist and lead trainer are present. I do not have any objection for the transfer, and I think the patient is stable for transfer if he wishes to proceed with that.
[2017-06-30 18:03] LABS: Glucose,Whole Blood 180 mg/dL (75-99)
--- NOTE | 2017-06-30 18:26 | P.HPIM ---
History of Present Illness H&P Date: 06/30/17 Chief Complaint: Fever This is a 62-year-old patient of prior. 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 PET scan did not show any other additional activity done recently. Chronic stable medical conditions include atrial fibrillation with ablation, COPD, diabetes, coronary artery the with stent in 2008, home oxygen Hodgkin's lymphoma in the past. Patient's lung cancer stages to a and it is small cell type. Patient felt sharp chest pain and developed fever of fever and chills there's no change in mental status no cough no urinary symptoms hence he was admitted to the hospital patient's found to be significantly neutropenic and admitted to the intensive care unit for close monitoring. GEN.: Diet febrile EYES: None HEENT: None NECK: None RESPIRATORY: Short of breath] CARDIOVASCULAR: None GASTROINTESTINAL: None GENITOURINARY: None MUSCULOSKELETAL: None LYMPHATICS: None HEMATOLOGICAL: None PSYCHIATRY: None NEUROLOGICAL: None Past medical history: Atrial fibrillation with ablation, COPD, diabetes, coronary artery disease with stent in 2008, home oxygen, Hodgkin's lymphoma Past surgical history: AICD, AV herbert ablation later fibrillation, stem cell transplant Social history: Patient smoked 3 packs a day for 39 years stopping 2008. . Family history: Reviewed, noncardiac presentation VITAL SIGNS: 101.6, 69, 24, 134/53, 97% on 3 L GENERAL: Well-built, BMI 34.4, sitting up tired appearing. EYES: Pupils equal. Conjunctiva normal. HEENT: External appearance of nose and ears normal, oral cavity grossly normal. NECK: JVD not raised; masses not palpable. HEART: First and second heart sounds are normal; no edema. LUNGS: Respiratory rate increased, decreased breath sounds. ABDOMEN: Soft, nontender, liver spleen not palpable, no masses palpable. LYMPHATICS: No lymph nodes palpable in the axilla and neck. PSYCH: Alert and oriented x3; mood and affect normal. NEUROLOGICAL: Cranial nerves grossly intact; no facial asymmetry, power and sensation grossly intact. Investigations: White count 1.4, hemoglobin 7.5, platelets 55, potassium 3.7, renal function normal, lactic acid 3.3 Checks x-ray shows hyperinflation Chest CTA shows hyperinflation Assessment: Febrile neutropenia in a patient getting chemotherapy for small cell lung cancer localized to the left lung Underlying atrial fibrillation with paced rhythm -COPD in an ex-smoker -Diabetes mellitus type 2 off medications -Coronary artery disease with stent in 2008 -Chronic hypoxic respiratory failure on home oxygen -Lung cancer left upper lobe stage IIa small cell type -Troponin leak probably where hemodynamic mismatch not acute microinfarction Pancytopenia from chemotherapy Plan: Patient is put on IV cefepime and IV vancomycin. Consultation to ID and pulmonary was done. Care was discussed with the patient. Home medications will be resumed. Past Medical History Past Medical History: Atrial Fibrillation, Cancer, Chest Pain / Angina, COPD, Diabetes Mellitus, Myocardial Infarction ([place]) Additional Past Medical History / Comment(s): stent placed 2008, chronic hypoxic respiratory failure on home O2, Hodgkin's lymphoma status post themselves transplant, atrial fibrillation status post AV node ablation Last Myocardial Infarction Date:: 2008 History of Any Multi-Drug Resistant Organisms: MRSA Date of last positivie culture/infection: 2003 MDRO Source:: pulmonary MRSA Past Surgical History: AICD, Pacemaker Additional Past Surgical History / Comment(s): AV node ablation for atrial fibrillation, pacemaker upgraded to AICD 07/2015. 1997 Stem cell transplant, port placement Past Anesthesia/Blood Transfusion Reactions: No Reported Reaction Type of Cardiac Device: Permanent Pacemaker, AICD Device Placement Date:: 2014 Past Psychological History: No Psychological Hx Reported Smoking Status: Former smoker Past Alcohol Use History: None Reported Additional Past Alcohol Use History / Comment(s): patient was a smoker 3 packs per day for 39 years and quit in 2008. He denies any medical marijuana, marijuana, street drug use. He lives at home with his and 3 cats. Past Drug Use History: None Reported Medications and Allergies Home Medications Medication Instructions Recorded Confirmed Type Aspirin 81 mg PO DAILY 06/29/17 06/29/17 History Glucosam/Diogo-Msm1/C/Sahil/Bosw 1 tab PO BID 06/29/17 06/29/17 History [Glucosamine-Chondroitin Tablet] Magnesium Oxide [Mag-Ox] 400 mg PO BID 06/29/17 06/29/17 History Mometasone/Formoterol [Dulera 200 2 puff INHALATION RT-BID 06/29/17 06/29/17 History Mcg/5 Mcg Inhaler] Omeprazole 20 mg PO DAILY 06/30/17 06/30/17 History Allergies Allergy/AdvReac Type Severity Reaction Status Date / Time perflutren [From Definity] AdvReac Anaphylaxis Verified 06/30/17 00:20 Results CBC & Chem 7: 06/30/17 05:00 06/30/17 05:00 Thrombosis Risk Factor Assmnt - Choose All That Apply Each Factor Represents 1 point: Sepsis (< 1month) Each Risk Factor Represents 2 Points: Age 61-74 years, Central venous access Other congenital or acquired thrombophilia - If yes, enter type in comment: No Thrombosis Risk Factor Assessment Total Risk Factor Score: 5 Thrombosis Risk Factor Assessment Level: High Risk
[2017-06-30] MEDS ORDERED: ONDANSETRON 4 MG/2 ML VIAL IVP PRN (18:33)
--- NOTE | 2017-06-30 19:22 | P.CONS ---
History of Present Illness - Reason for Consult Consult date: 06/30/17 Neutropenic sepsis. Lung cancer on chemotherapy - History of Present Illness The patient is a 62-year-old gentleman, with multiple medical problems. He has a history of Hodgkin's lymphoma, diagnosed many years ago which initially went into remission with chemotherapy. He subsequently had a relapse and was treated with salvage chemotherapy and autologous bone marrow transplant. He was then found to have limited stage small cell lung cancer in December 2016. He was treated with concurrent chemoradiation, with the chemotherapy regimen consisting of SENIOR C SOFTWARE ENGINEER-16 and carboplatin. After completion of concurrent chemo radiation, chemotherapy was continued with the plan for a total of 6 cycles. He has completed 5 cycles with cycle #5 being administered about 11 days ago. The patient is receiving his treatment at [facility] under the care of Dr. Nguyễn. He does not think that he received Neulasta, or Neupogen after his last chemotherapy. The patient came into the emergency room, as he was generally feeling unwell over the last couple of days. He then developed progressive shortness of breath over that same period of time, along with some mid chest discomfort. He then developed a fever with shaking chills. In the emergency room, he was noted to have a T-max of 102.9. White count was 1000. A cardiac enzymes subsequently turned positive, with troponin is 0.3-0.4 range. The patient was also noted to have increasing respiratory rate, and hypoxia. He was therefore admitted to the ICU, after being initiated on IV antibiotics. Consult was placed for further evaluation and recommendations. The patient stated that he has gotten growth factors during his treatment on a when necessary basis. He denies any history of admission for sepsis, during his current treatment regimen. Review of Systems Constitutional: Reports chills, Reports fatigue, Reports fever, Reports poor appetite, Reports weakness Eyes: denies blurred vision, denies pain Ears: deny: decreased hearing, ear discharge, earache, tinnitus Ears, nose, mouth and throat: Denies headache, Denies sore throat Cardiovascular: Reports chest pain, Reports shortness of breath Respiratory: Reports dyspnea, Reports pain Gastrointestinal: Denies abdominal pain, Denies diarrhea, Denies nausea, Denies vomiting Genitourinary: Reports as per HPI (No specific complaints) Musculoskeletal: Reports muscle weakness Integumentary: Denies pruritus, Denies rash Psychiatric: Denies anxiety, Denies depression Endocrine: Denies fatigue, Denies weight change Hematologic/Lymphatic: Reports as per HPI (History of Hodgkin's lymphoma, with treatment course as noted in the HPI) Past Medical History Past Medical History: Atrial Fibrillation, Cancer, Chest Pain / Angina, COPD, Diabetes Mellitus, Myocardial Infarction ([place]) Additional Past Medical History / Comment(s): stent placed 2008, chronic hypoxic respiratory failure on home O2, Hodgkin's lymphoma status post themselves transplant, atrial fibrillation status post AV node ablation Last Myocardial Infarction Date:: 2008 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 1997 Stem cell transplant, port placement Past Anesthesia/Blood Transfusion Reactions: No Reported Reaction Type of Cardiac Device: Permanent Pacemaker, AICD Device Placement Date:: 2014 Past Psychological History: No Psychological Hx Reported Smoking Status: Former smoker Past Alcohol Use History: None Reported Additional Past Alcohol Use History / Comment(s): patient was a smoker 3 packs per day for 39 years and quit in 2008. He denies any medical marijuana, marijuana, street drug use. He lives at home with his and 3 cats. Past Drug Use History: None Reported Medications and Allergies Home Medications Medication Instructions Recorded Confirmed Type Aspirin 81 mg PO DAILY 06/29/17 06/29/17 History Glucosam/Diogo-Msm1/C/Sahil/Bosw 1 tab PO BID 06/29/17 06/29/17 History [Glucosamine-Chondroitin Tablet] Magnesium Oxide [Mag-Ox] 400 mg PO BID 06/29/17 06/29/17 History Mometasone/Formoterol [Dulera 200 2 puff INHALATION RT-BID 06/29/17 06/29/17 History Mcg/5 Mcg Inhaler] Omeprazole 20 mg PO DAILY 06/30/17 06/30/17 History Allergies Allergy/AdvReac Type Severity Reaction Status Date / Time perflutren [From Definity] AdvReac Anaphylaxis Verified 06/30/17 00:20 Physical Exam Vitals: Vital Signs Temp Pulse Resp BP Pulse Ox 06/30/17 17:00 69 30 H 133/65 95 06/30/17 16:37 95 06/30/17 16:00 69 29 H 146/54 95 06/30/17 15:00 69 25 H 128/56 95 06/30/17 14:00 71 28 H 148/65 95 06/30/17 13:00 69 40 H 140/59 94 L 06/30/17 12:00 99.3 F 69 40 H 136/62 95 06/30/17 11:00 98.5 F 69 28 H 171/82 94 L 06/30/17 10:00 70 45 H 153/62 97 06/30/17 09:00 73 44 H 141/65 97 06/30/17 08:00 69 28 H 128/61 98 06/30/17 07:29 98 06/30/17 07:00 69 24 106/56 99 06/30/17 06:00 69 24 128/60 97 06/30/17 05:00 69 24 117/57 97 06/30/17 04:00 98.1 F 69 23 120/57 97 06/30/17 03:10 98.2 F 69 20 120/57 98 06/30/17 03:00 69 20 119/50 96 06/30/17 02:00 69 20 134/53 96 06/30/17 01:00 101.6 F H 69 24 134/53 97 06/30/17 00:37 101.4 F H 109 H 24 117/58 101 H 06/30/17 00:25 101.6 F H 101 H 24 126/58 99 06/30/17 00:15 102.2 F H 109 H 24 116/53 06/30/17 00:07 102.2 F H 93 24 128/62 99 06/29/17 23:57 101.8 F H 69 24 129/59 100 06/29/17 23:51 100 F H 71 22 124/72 99 06/29/17 23:25 70 06/29/17 23:20 69 06/29/17 22:52 100 F H 92 22 124/57 98 06/29/17 21:43 102.9 F H 72 22 130/60 98 06/29/17 20:45 124 H 06/29/17 20:40 98 22 150/63 100 06/29/17 20:02 69 24 139/60 99 06/29/17 19:48 24 06/29/17 19:25 100.4 F H 70 26 H 135/63 96 Intake and Output 06/30/17 06/30/17 06/30/17 06:59 14:59 22:59 Intake Total 2190 1185 360 Output Total 2200 1190 320 Balance -10 -5 40 Intake: IV 1495 1085 240 Magnesium Sulfate-D5w Pmx 400 1 gm In Dextrose/Water 1 100ml.bag @ 100 mls/hr IVPB Q1H ROSAS Rx#: [id number] Sodium Chloride 0.9% 1, 720 960 240 000 ml @ 120 mls/hr IV . Q8H20M ROSAS Rx#:[id number] Vancomycin 1,750 mg In 375 125 Sodium Chloride 0.9% 250 ml @ 125 mls/hr IVPB Q12H ROSAS Rx#:[id number] Intake, IV Titration 100 120 Amount Cefepime 2 gm In Sodium 100 Chloride 0.9% 50 ml @ 100 mls/hr IVPB Q8HR ROSAS Rx# :[id number] Sodium Chloride 0.9% 1, 120 000 ml @ 120 mls/hr IV . Q8H20M ROSAS Rx#:[id number] Blood Product 695 Rc As-3 Unit 310 [id number] Output: Urine 2200 1190 320 Other: Voiding Method Urinal Urinal Urinal Weight 108.6 kg - Constitutional General appearance: mild distress - EENT Eyes: EOMI, PERRLA ENT: hearing grossly normal, normal oropharynx - Neck Neck: no lymphadenopathy - Respiratory Respiratory: bilateral: CTA - Cardiovascular Rhythm: regular Heart sounds: normal: S1, S2 - Gastrointestinal General gastrointestinal: normal bowel sounds, soft - Integumentary Integumentary: normal - Neurologic Neurologic: CNII-XII intact - Musculoskeletal Musculoskeletal: generalized weakness, strength equal bilaterally - Psychiatric Psychiatric: A&O x's 3, appropriate affect Results CBC & Chem 7: 06/30/17 05:00 06/30/17 05:00 Labs: Abnormal Lab Results - Last 24 Hours (Table) 06/29/17 06/29/17 06/29/17 Range/Units 19:57 19:57 19:57 WBC 1.4 L* (3.8-10.6) k/uL RBC 2.23 L (4.30-5.90) m/uL Hgb 7.5 L (13.0-17.5) gm/dL Hct 22.5 L (39.0-53.0) % MCV 100.7 H (80.0-100.0) fL RDW 20.6 H (11.5-15.5) % Plt Count 55 L (150-450) k/uL Neutrophils # (Manual) 0.56 L (1.3-7.7) k/uL Lymphocytes # (Manual) 0.70 L (1.0-4.8) k/uL D-Dimer 4.43 H (<0.60) mg/L FEU Sodium 136 L (137-145) mmol/L Chloride (98-107) mmol/L Carbon Dioxide 21 L (22-30) mmol/L Glucose 181 H (74-99) mg/dL POC Glucose (mg/dL) (75-99) mg/dL Plasma Lactic Acid Krystian (0.7-2.0) mmol/L Calcium (8.4-10.2) mg/dL Magnesium 1.1 L (1.6-2.3) mg/dL Total Creatine Kinase (55-170) U/L CK-MB (CK-2) (0.0-2.4) ng/mL Troponin I (0.000-0.034) ng/mL Total Protein 6.0 L (6.3-8.2) g/dL Urine Protein (Negative) Urine Glucose (UA) (Negative) Urine Ketones (Negative) Crossmatch 06/29/17 06/29/17 06/29/17 Range/Units 19:57 19:57 19:57 WBC (3.8-10.6) k/uL RBC (4.30-5.90) m/uL Hgb (13.0-17.5) gm/dL Hct (39.0-53.0) % MCV (80.0-100.0) fL RDW (11.5-15.5) % Plt Count (150-450) k/uL Neutrophils # (Manual) (1.3-7.7) k/uL Lymphocytes # (Manual) (1.0-4.8) k/uL D-Dimer (<0.60) mg/L FEU Sodium (137-145) mmol/L Chloride (98-107) mmol/L Carbon Dioxide (22-30) mmol/L Glucose (74-99) mg/dL POC Glucose (mg/dL) (75-99) mg/dL Plasma Lactic Acid Krystian 3.3 H* (0.7-2.0) mmol/L Calcium (8.4-10.2) mg/dL Magnesium (1.6-2.3) mg/dL Total Creatine Kinase (55-170) U/L CK-MB (CK-2) (0.0-2.4) ng/mL Troponin I (0.000-0.034) ng/mL Total Protein (6.3-8.2) g/dL Urine Protein Trace H (Negative) Urine Glucose (UA) 4+ H (Negative) Urine Ketones Trace H (Negative) Crossmatch See Detail 06/30/17 06/30/17 06/30/17 Range/Units 01:02 01:13 05:00 WBC (3.8-10.6) k/uL RBC (4.30-5.90) m/uL Hgb (13.0-17.5) gm/dL Hct (39.0-53.0) % MCV (80.0-100.0) fL RDW (11.5-15.5) % Plt Count (150-450) k/uL Neutrophils # (Manual) (1.3-7.7) k/uL Lymphocytes # (Manual) (1.0-4.8) k/uL D-Dimer (<0.60) mg/L FEU Sodium (137-145) mmol/L Chloride 109 H (98-107) mmol/L Carbon Dioxide (22-30) mmol/L Glucose 192 H (74-99) mg/dL POC Glucose (mg/dL) 173 H (75-99) mg/dL Plasma Lactic Acid Krystian (0.7-2.0) mmol/L Calcium 8.2 L (8.4-10.2) mg/dL Magnesium (1.6-2.3) mg/dL Total Creatine Kinase 323 H (55-170) U/L CK-MB (CK-2) (0.0-2.4) ng/mL Troponin I 0.161 H* (0.000-0.034) ng/mL Total Protein (6.3-8.2) g/dL Urine Protein (Negative) Urine Glucose (UA) (Negative) Urine Ketones (Negative) Crossmatch 06/30/17 06/30/17 06/30/17 Range/Units 05:00 06:30 07:40 WBC 1.0 L* (3.8-10.6) k/uL RBC 2.27 L (4.30-5.90) m/uL Hgb 7.6 L (13.0-17.5) gm/dL Hct 22.4 L (39.0-53.0) % MCV (80.0-100.0) fL RDW 20.6 H (11.5-15.5) % Plt Count 46 L* (150-450) k/uL Neutrophils # (Manual) 0.22 L (1.3-7.7) k/uL Lymphocytes # (Manual) 0.60 L (1.0-4.8) k/uL D-Dimer (<0.60) mg/L FEU Sodium (137-145) mmol/L Chloride (98-107) mmol/L Carbon Dioxide (22-30) mmol/L Glucose (74-99) mg/dL POC Glucose (mg/dL) 173 H (75-99) mg/dL Plasma Lactic Acid Krystian (0.7-2.0) mmol/L Calcium (8.4-10.2) mg/dL Magnesium (1.6-2.3) mg/dL Total Creatine Kinase 387 H (55-170) U/L CK-MB (CK-2) 3.4 H* (0.0-2.4) ng/mL Troponin I 0.305 H* (0.000-0.034) ng/mL Total Protein (6.3-8.2) g/dL Urine Protein (Negative) Urine Glucose (UA) (Negative) Urine Ketones (Negative) Crossmatch 06/30/17 06/30/17 Range/Units 11:30 18:01 WBC (3.8-10.6) k/uL RBC (4.30-5.90) m/uL Hgb (13.0-17.5) gm/dL Hct (39.0-53.0) % MCV (80.0-100.0) fL RDW (11.5-15.5) % Plt Count (150-450) k/uL Neutrophils # (Manual) (1.3-7.7) k/uL Lymphocytes # (Manual) (1.0-4.8) k/uL D-Dimer (<0.60) mg/L FEU Sodium (137-145) mmol/L Chloride (98-107) mmol/L Carbon Dioxide (22-30) mmol/L Glucose (74-99) mg/dL POC Glucose (mg/dL) 187 H 180 H (75-99) mg/dL Plasma Lactic Acid Krystian (0.7-2.0) mmol/L Calcium (8.4-10.2) mg/dL Magnesium (1.6-2.3) mg/dL Total Creatine Kinase (55-170) U/L CK-MB (CK-2) (0.0-2.4) ng/mL Troponin I (0.000-0.034) ng/mL Total Protein (6.3-8.2) g/dL Urine Protein (Negative) Urine Glucose (UA) (Negative) Urine Ketones (Negative) Crossmatch Microbiology - Last 24 Hours (Table) 06/29/17 19:57 Urine Culture - Preliminary Urine,Voided Chest x-ray: report reviewed CT scan - chest: report reviewed Assessment and Plan (1) Neutropenic sepsis Narrative/Plan: The patient is presenting with signs of sepsis, with high fever, chills, as well as tachypnea and hypoxia. This is in the setting of significant neutropenia, due to chemotherapy for lung cancer. The patient does not have any localizing symptoms, or signs by clinical exam and radiologic studies. Cultures are negative so far. He has appropriately been started on broad- spectrum antibiotic coverage, with vancomycin (given that he has a port), as well as high-dose Levaquin. Fever pattern is starting to improve. He did not receive growth factors, after his last chemotherapy, and these will be instituted to hasten white cell recovery. Continue to monitor cultures, and adjust antibiotics if needed. Status: Acute (2) Anemia Narrative/Plan: The patient's hemoglobin was 7.6, again due to chemotherapy effect. There is no evidence of any obvious bleeding. Given the patient's symptomatology, with chest pain and increased respiratory rate, as well as positive troponins, it is reasonable to transfuse him. After 1 unit, the patient states that he does feel better. Continue to monitor and transfuse again if needed. Based on his symptoms, we may use a threshold hemoglobin higher than 7 going forward, to initiate transfusion Status: Acute (3) Lung cancer Narrative/Plan: The patient was recently diagnosed with limited stage small cell lung cancer, and was treated with chemoradiation as noted. His regimen is S[employer]ER-16 and carboplatin, and he has completed the, current phase of treatment, as well as 5 out of a planned 6 cycles of chemotherapy. Prior to this episode, he states that his tolerance has been reasonable. It appears that he has had an excellent response, with really no measurable disease noted on chest x-ray or computed tomography scan done this admission. After resolution of the acute problem, he will continue follow-up with Dr. Nguyễn for further management. Status: Acute
[2017-06-30 21:10] LABS: Glucose,Whole Blood 170 mg/dL (75-99)
[2017-06-30] MEDS: MAGNESIUM OXIDE 400 MG TAB PO SCH (21:23)
--- NOTE | 2017-06-30 22:03 | P.CON ---
Consult Note - . Consult date: 06/30/17 Assessment/Plan:: This is a 62-year-old male who has past medical history of Hodgkin's lymphoma stage IV B status post stem cell transplant in the past and most recently he has under treatment for small cell lung cancer of the left upper lobe. He states his PET scan was clear and he was planned for 2 rounds of chemotherapy and his next one is due next week which will be his last one. Patient resides in [facility] and follows with physicians at [facility] and is wishing to be transferred to that facility. Patient was visiting his daughter in [place] and developed chest pain yesterday afternoon about 3:00. He took one nitroglycerin of his own with some minimal improvement. EMS was called and he was brought into [facility] emergency center for evaluation. EMS did give him 3 nitroglycerin with relief. Patient had some nonspecific changes on his EKG. He is known to have had a myocardial infarction in 2008 and stent placement at that time. He also has history of atrial fibrillation status post AV node ablation and subsequently needed a pacemaker which was upgraded to an AICD in 2014. He denies any problems with his pacemaker site. He does have a port on the right upper anterior chest wall which has not given him any trouble and has been nontender. Patient was found to have a white count of 1.4 and repeat is at 1. Hemoglobin 7.5 and he was transfused 1 unit of packed RBCs. He presented with a temperature of 102.9 and lactic acid was 3.3 and improved to 1.2. Urinalysis was nitrate and leukoesterase negative. Blood cultures are status received. Patient had troponins of 0.015, 0.161, 0.305. Patient has been given 1 dose of IV Levaquin and has been continued on vancomycin. Chest x-ray showed no acute cardiopulmonary process. Patient was admitted to the intensive care unit. Consults are in place with Dr. Frazier for intensive care management, Dr. Mijares from oncology and Dr. Way for cardiology. Patient states that his chest pain has changed in that it is now painful when he takes a deep breath. Please see consult note as dictated by nurse practitioner Charissa Wilder. This pleasant 62-year-old male has extensive history as noted. He is status post stem cell transplant for his Hodgkin's lymphoma. Did well until the onset of his lung carcinoma. He is evidence of small cell carcinoma stage IIB and is receiving radiation therapy and chemotherapy. He is around 5 of 6 of his carboplatin and etoposide. He's been tolerating quite well until now the onset of his significant febrile neutropenia. He also had significant chest pain. This has stabilized at this time. The patient does have a pleuritic component to his chest pain. It is possible that he is having pain related to radiation changes to his chest where he had the external beam radiation therapy. Imaging studies do not show juwan pneumonia. Evidence of some changes that are consistent with prior radiation therapy. At this time antibiotic therapy continues with cefepime and vancomycin for his febrile neutropenia without a significant source of infection at this time. He has received growth factors. Hopefully will have rapid recovery of his neutropenia, cultures will be monitored and plans for outpatient antibiotic therapy can be made [place]man in the next 48 hours. I agree with evaluation, assessment and plan as dictated by nurse practitioner Mrs. Charissa Hdz.
[2017-07-01] MEDS: CEFEPIME 2 GM in SODIUM CHLORIDE 0.9% 50 ML IVPB SCH ×4 (01:23→23:36)
[2017-07-01] MEDS: ACETAMINOPHEN TAB 325 MG TAB PO PRN ×3 (02:00→15:43)
[2017-07-01] MEDS: VANCOMYCIN 1,750 MG in SODIUM CHLORIDE 0.9% 250 ML IVPB SCH ×2 (05:49→18:14)
[2017-07-01] MEDS: SYMBICORT 160-4.5 MCG INHALER INHALATION SCH ×2 (07:04→18:52)
--- NOTE | 2017-07-01 07:24 | ECHOF ---
Referral Reason:MT MEASUREMENTS -------- HEIGHT: 182.9 cm WEIGHT: 108.4 kg BP: 141/65 IVSd: 1.2 cm (0.6 - 1.1) LVIDd: 5.5 cm (3.9 - 5.3) LVPWd: 1.2 cm (0.6 - 1.1) IVSs: 1.9 cm LVIDs: 4.6 cm LVPWs: 1.0 cm Ao Diam: 3.3 cm (2.0 - 3.7) AV Cusp: 2.3 cm (1.5 - 2.6) LA Diam: 3.6 cm (2.7 - 3.8) MV EXCURSION: 15.618 mm (> 18.000) MV EF SLOPE: 115 mm/s (70 - 150) EPSS: 0.8 cm MV E Delvin: 1.13 m/s MV DecT: 228 ms MV A Delvin: 0.97 m/s MV E/A Ratio: 1.17 RAP: 15.00 mmHg RVSP: 42.70 mmHg FINDINGS -------- Sinus rhythm with extra systolic beats. This was a technically difficult study with suboptimal views. There is mild concentric left ventricular hypertrophy. There is severe global hypokinesis of LV . Overall left ventricular systolic function is severely impaired with, an EF between 20 - 25 %. The right ventricle is normal in size and function. The left atrium is normal in size. The right atrium is normal in size. Aortic valve is trileaflet and is mildly thickened. The mitral valve leaflets are mildly thickened. Mild mitral regurgitation is present. Mild tricuspid regurgitation present. There is mild pulmonary hypertension. The right ventricular systolic pressure, as measured by Doppler, is 42.70mmHg. Pulmonic valve appears structurally normal. The aortic root size is normal. The inferior vena cava is mildly dilated. There is a small, generalized pericardial effusion present. CONCLUSIONS -------- 1. Sinus rhythm with extra systolic beats. 2. The mitral valve leaflets are mildly thickened. 3. Mild mitral regurgitation is present. 4. Mild tricuspid regurgitation present. 5. There is mild pulmonary hypertension. 6. The right ventricular systolic pressure, as measured by Doppler, is 42.70mmHg. 7. Pulmonic valve appears structurally normal. 8. The aortic root size is normal. 9. The inferior vena cava is mildly dilated. 10. There is a small, generalized pericardial effusion present. 11. This was a technically difficult study with suboptimal views. 12. There is mild concentric left ventricular hypertrophy. 13. There is severe global hypokinesis of LV . 14. Overall left ventricular systolic function is severely impaired with, an EF between 20 - 25 %. 15. The right ventricle is normal in size and function. 16. The left atrium is normal in size. 17. The right atrium is normal in size. 18. Aortic valve is trileaflet and is mildly thickened. CARDIOLOGY NURSE: Fe Sauer RDCS
[2017-07-01] MEDS: PANTOPRAZOLE 40 MG TABLET PO SCH (07:25)
[2017-07-01 07:43] LABS: Glucose,Whole Blood 147 mg/dL (75-99)
[2017-07-01] MEDS: FAMOTIDINE 20 MG/2 ML VIAL IV SCH (08:02)
[2017-07-01] MEDS: ASPIRIN 81 MG CHEW PO SCH (08:03)
[2017-07-01] MEDS: MAGNESIUM OXIDE 400 MG TAB PO SCH ×2 (08:03→21:02)
[2017-07-01] MEDS: DOCUSATE 100 MG CAP PO SCH ×2 (08:03→21:02)
[2017-07-01] MEDS: SODIUM CHLORIDE 0.9% 1,000 ML IV SCH ×2 (08:04→16:17)
[2017-07-01] MEDS: INSULIN LISPRO (humaLOG) 300 UNIT/3 ML VIAL SQ SCH ×4 (08:07→21:02)
[2017-07-01 08:19] LABS: Anion Gap 6 mmol/L; Blood Urea Nitrogen 6 mg/dL (9-20); Calcium 8.5 mg/dL (8.4-10.2); Carbon Dioxide 24 mmol/L (22-30); Chloride 108 mmol/L (98-107); Glucose 139 mg/dL (74-99); Magnesium 1.3 mg/dL (1.6-2.3); Non-African American GFR(MDRD) >60 (>60 ml/min/1.73 sqM); Phosphorous 2.5 mg/dL (2.5-4.5); Potassium 4.1 mmol/L (3.5-5.1); Sodium 138 mmol/L (137-145)
[2017-07-01 08:31] LABS: Anisocytosis Moderate; CH 33.8; CHCM 34.1; HCT 26.6 % (39.0-53.0); HDW 3.77; HGB 8.9 gm/dL (13.0-17.5); MCH 33.3 pg (25.0-35.0); MCHC 33.3 g/dL (31.0-37.0); MCV 99.9 fL (80.0-100.0); Macrocytosis Moderate; Mean Platelet Volume 10.4; Poikilocytosis Slight; RBC 2.66 m/uL (4.30-5.90); RDW 21.1 % (11.5-15.5); WBC 2.3 k/uL (3.8-10.6); WBC (Perox) 2.37
--- NOTE | 2017-07-01 09:55 | XR ---
EXAMINATION TYPE: XR chest 1V DATE OF EXAM: 07/01/2017 COMPARISON: Prior chest x-ray 06/30/2017 HISTORY: Increasing shortness of breath TECHNIQUE: Single frontal view of the chest is obtained. FINDINGS: The patient is rotated. Right-sided Port-A-Cath is again noted. Intracardiac defibrillator leads are stable. Heart size may be accentuated by rotation. No evident pneumothorax or sizable effu summer. Patchy basilar density is stable. Pulmonary vascularity and dada not significantly changed. IMPRESSION: No significant interval change. Emphysema. There may be some basilar atelectasis. Cardio megaly. Follow-up as indicated.
[2017-07-01 10:50] LABS: Add Differential Manual Differential
[2017-07-01 10:58] LABS: Band Neutrophils % 14.5 %; Manual Review Performed; Metamyelocytes % 1 %; Myelocytes % 1 %; Nucleated Red Blood Cells 0 /100 WBC (0-0); Total Cells Counted 200
[2017-07-01] MEDS: FILGRASTIM-SNDZ 480 MCG/0.8 ML SYRINGE SQ SCH (11:30)
[2017-07-01 12:26] LABS: Glucose,Whole Blood 141 mg/dL (75-99)
--- NOTE | 2017-07-01 14:22 | P.PN ---
Subjective This is a pleasant 62-year-old male with a past medical history significant for CAD and prior stenting of the LAD per Dr. Holbrook and [place]. The patient also has an BIV-ICD pacemaker in place. He also is currently undergoing chemotherapy for small cell lung cancer, he just completed radiation last month. He has been worked up and ruled out out of PE. We are seeing today as a follow-up. An echocardiogram was performed and shows a hypokinetic left ventricle with decreased ejection fraction of 20-25%. The patient states his previous echocardiogram indicated an EF of 35%. Upon examination he states he is still having ongoing chest discomfort on deep inspiration and cough. Objective - Vital Signs Vital signs: Vital Signs Temp 99.1 F 07/01/17 07:00 Pulse 69 07/01/17 07:00 Resp 20 07/01/17 07:00 BP 137/68 07/01/17 07:00 Pulse Ox 96 07/01/17 07:00 Intake & Output 06/30/17 07/01/17 07/01/17 18:59 06:59 18:59 Intake Total 1545 240 Output Total 1510 450 600 Balance 35 -210 -600 Intake: IV 1325 Sodium Chloride 0.9% 1, 1200 000 ml @ 120 mls/hr IV . Q8H20M ROSAS Rx#:[id number] Vancomycin 1,750 mg In 125 Sodium Chloride 0.9% 250 ml @ 125 mls/hr IVPB Q12H ROSAS Rx#:[id number] Intake, IV Titration 220 Amount Cefepime 2 gm In Sodium 100 Chloride 0.9% 50 ml @ 100 mls/hr IVPB Q8HR ROSAS Rx# :[id number] Sodium Chloride 0.9% 1, 120 000 ml @ 120 mls/hr IV . Q8H20M ROSAS Rx#:[id number] Oral 240 Output: Urine 1510 450 600 Other: Voiding Method Urinal Urinal Urinal # Voids 1 - Exam GENERAL: Well-appearing, well-nourished and in no acute distress. NECK: Supple without JVD or thyromegaly. LUNGS: Breath sounds diminished bilaterally with no wheezes, rales or rhonchi. HEART: Regular rate and rhythm with systolic murmurs, no rubs or gallops. S1 and S2 heard. ABDOMEN: Soft, nontender, normoactive bowel sounds. EXTREMITIES: Normal range of motion, no edema. No clubbing or cyanosis. Peripheral pulses intact and strong. - Labs CBC & Chem 7: 07/01/17 07:49 07/01/17 07:49 Labs: Abnormal Lab Results - Last 24 Hours (Table) 06/30/17 06/30/17 07/01/17 Range/Units 18:01 20:58 07:34 WBC (3.8-10.6) k/uL RBC (4.30-5.90) m/uL Hgb (13.0-17.5) gm/dL Hct (39.0-53.0) % RDW (11.5-15.5) % Plt Count (150-450) k/uL Neutrophils # (Manual) (1.3-7.7) k/uL Lymphocytes # (Manual) (1.0-4.8) k/uL Chloride (98-107) mmol/L BUN (9-20) mg/dL Glucose (74-99) mg/dL POC Glucose (mg/dL) 180 H 170 H 147 H (75-99) mg/dL Magnesium (1.6-2.3) mg/dL 07/01/17 07/01/17 07/01/17 Range/Units 07:49 07:49 12:20 WBC 2.3 L (3.8-10.6) k/uL RBC 2.66 L (4.30-5.90) m/uL Hgb 8.9 L (13.0-17.5) gm/dL Hct 26.6 L (39.0-53.0) % RDW 21.1 H (11.5-15.5) % Plt Count 59 L (150-450) k/uL Neutrophils # (Manual) 1.06 L (1.3-7.7) k/uL Lymphocytes # (Manual) 0.85 L (1.0-4.8) k/uL Chloride 108 H (98-107) mmol/L BUN 6 L (9-20) mg/dL Glucose 139 H (74-99) mg/dL POC Glucose (mg/dL) 141 H (75-99) mg/dL Magnesium 1.3 L (1.6-2.3) mg/dL Microbiology - Last 24 Hours (Table) 06/29/17 21:44 Blood Culture - Preliminary Blood No Growth after 24 hours 06/29/17 19:57 Urine Culture - Final Urine,Voided 06/29/17 19:57 Blood Culture - Preliminary Blood No Growth after 24 hours Assessment and Plan Plan: ASSESSMENT 1. Known coronary artery disease 2. Small cell lung cancer on home O2 currently undergoing chemotherapy 3. Chronic stable systolic heart failure 4. Pancytopenia PLAN Decreased LV function I would recommend starting Lasix 20 mg by mouth twice a day at this time. We'll decrease his fluid infusion to 50 mL/h. From a cardiac standpoint this patient does not appear to be having an active acute coronary syndrome. His symptoms are most likely secondary to his lung cancer. Upon discharge he should follow-up with Dr. Holbrook. Nurse Practitioner note has been reviewed, I agree with a documented findings and plan of care. Patient was seen and examined.
[2017-07-01] MEDS: FUROSEMIDE 20 MG TAB PO SCH (16:17)
[2017-07-01] MEDS ORDERED: VANCOMYCIN TROUGH DUE 1 EACH MISC MISCELLANE ONE (17:00)
--- NOTE | 2017-07-01 17:13 | P.PN ---
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 The patient apparently has been tolerating his systemic chemotherapy well. According to him he has received 5 sessions of systemic chemotherapy and during the course of the treatment a PET scan was done that showed no significant activity and his lungs. He is known to have COPD. He also has a remote history of Hodgkin's lymphoma stage IV, and was initially treated successfully and ultimately had a recurrence and he underwent a successful stem cell transportation [facility] in [place]. As such she is lymphoma has been essentially treated. He is also known to have coronary artery disease. He has had issues with atrial fibrillation in the past and he has undergone cardiac ablation and currently has a pacer AICD in place and this was inserted thousand and 15. The patient lives and [place] and he was in the area visiting his daughter in [place]. He acutely felt pain across his chest and he also had Reiger's and chills and he came mid with a high-grade temperature to the hospital. He was found to be in profound neutropenia with a white cell count of 1.0. His he was at 7.6 with a platelet count of 46,000. Rest of the electrodes are within normal limits. No headaches. No change in mental status. No cough or sputum production. He has chronic dyspnea related to his COPD. No nausea. No vomiting. No abdominal pain. No dysphagia fevers or urgency. No skin rashes. No open wounds or sores. No cellulitis. He was started on a combination of cefepime and vancomycin. Blood cultures were sent. He remained hemodynamically stable. This morning he is afebrile. He did however have temperatures throughout the night and last temperature spike was earlier this morning when he had a temperature 11.6. No oropharyngeal thrush. He was started on Zarxio regarding his neutropenia. He is also resuscitated IV fluids. He is calm and comfortable. He is resting comfortably in bed. A computed tomography scan of the chest was also done that showed the left upper lobe mass and no previous x-rays or CAT scans are available for comparison. Nondistended adenopathy. No evidence of an acute pneumonia. The patient's EKG was sinus with biventricular pacing. Troponins were minimally elevated at 0.1 and 0.3. Currently is free of any chest pain. The patient was seen again today in follow-up 07/01/2017 on the regular medical floor. He is awake and alert in no acute distress. He is feeling quite a bit better today as compared to yesterday. Blood and urine cultures revealed no growth. White count is improved to 2.3. He was initiated on Zarxio. Hemoglobin 8.9. Platelet count 59,000. He is continued on vancomycin and cefepime. T-max the past 24 hours was 99.3. Currently 99.1. He is maintaining good O2 saturations in the 90s on room air. He has been hemodynamically stable. No tachycardia, no tachypnea. Today's chest x-ray revealed no significant interval change. There is evidence of emphysema some basilar atelectasis. Objective - Vital Signs Vital signs: Vital Signs Temp 99.1 F 07/01/17 07:00 Pulse 69 07/01/17 07:00 Resp 20 07/01/17 07:00 BP 137/68 07/01/17 07:00 Pulse Ox 96 07/01/17 07:00 Intake & Output 06/30/17 07/01/17 07/01/17 18:59 06:59 18:59 Intake Total 1545 240 400 Output Total 1510 450 600 Balance 35 -210 -200 Intake: IV 1325 400 Sodium Chloride 0.9% 1, 1200 400 000 ml @ 50 mls/hr IV . Q20H [facility] Rx#:[id number] Vancomycin 1,750 mg In 125 Sodium Chloride 0.9% 250 ml @ 125 mls/hr IVPB Q12H [facility] Rx#:[id number] Intake, IV Titration 220 Amount Cefepime 2 gm In Sodium 100 Chloride 0.9% 50 ml @ 100 mls/hr IVPB Q8HR [facility] Rx# :[id number] Sodium Chloride 0.9% 1, 120 000 ml @ 50 mls/hr IV . Q20H [facility] Rx#:[id number] Oral 240 Output: Urine 1510 450 600 Other: Voiding Method Urinal Urinal Urinal # Voids 1 3 - Exam Patient is obese, comfortable likely distress.Head exam was generally normal. There was no scleral icterus or corneal arcus. Mucous membranes were moist. Neck is short and supple and there is significant crowding of the posterior pharynx. There is no goiter or neck masses.Cardiac exam revealed the PMI to be normally situated and sized. The rhythm was regular and no extrasystoles were noted during several minutes of auscultation. The first and second heart sounds were normal and physiologic splitting of the second heart sound was noted. There were no murmurs, rubs, clicks, or gallops. Lungs sounds are diminished bilaterally along with some prolongation of expiratory phase of breathing. Breath sounds are diminished in the lung bases.Abdominal exam revealed normal bowel sounds. The abdomen was soft, non-tender, and without masses, organomegaly , or appreciable enlargement of the abdominal aorta.Examination of the extremities revealed easily palpable radial, femoral and pedal pulses. There was no cyanosis, clubbing or edema. - Labs CBC & Chem 7: 07/01/17 07:49 07/01/17 07:49 Labs: Abnormal Lab Results - Last 24 Hours (Table) 06/30/17 06/30/17 07/01/17 Range/Units 18:01 20:58 07:34 WBC (3.8-10.6) k/uL RBC (4.30-5.90) m/uL Hgb (13.0-17.5) gm/dL Hct (39.0-53.0) % RDW (11.5-15.5) % Plt Count (150-450) k/uL Neutrophils # (Manual) (1.3-7.7) k/uL Lymphocytes # (Manual) (1.0-4.8) k/uL Chloride (98-107) mmol/L BUN (9-20) mg/dL Glucose (74-99) mg/dL POC Glucose (mg/dL) 180 H 170 H 147 H (75-99) mg/dL Magnesium (1.6-2.3) mg/dL 07/01/17 07/01/17 07/01/17 Range/Units 07:49 07:49 12:20 WBC 2.3 L (3.8-10.6) k/uL RBC 2.66 L (4.30-5.90) m/uL Hgb 8.9 L (13.0-17.5) gm/dL Hct 26.6 L (39.0-53.0) % RDW 21.1 H (11.5-15.5) % Plt Count 59 L (150-450) k/uL Neutrophils # (Manual) 1.06 L (1.3-7.7) k/uL Lymphocytes # (Manual) 0.85 L (1.0-4.8) k/uL Chloride 108 H (98-107) mmol/L BUN 6 L (9-20) mg/dL Glucose 139 H (74-99) mg/dL POC Glucose (mg/dL) 141 H (75-99) mg/dL Magnesium 1.3 L (1.6-2.3) mg/dL Microbiology - Last 24 Hours (Table) 06/29/17 21:44 Blood Culture - Preliminary Blood No Growth after 24 hours 06/29/17 19:57 Urine Culture - Final Urine,Voided 06/29/17 19:57 Blood Culture - Preliminary Blood No Growth after 24 hours Assessment and Plan Plan: Assessment 1 neutropenic fever, currently under investigation. Rule out underlying septicemia. Cultures revealed no growth to date, the patient was started on broad-spectrum antibiotics and currently is on a combination of cefepime and vancomycin. The patient is also on Zarxio. 2 small cell lung cancer currently on systemic chemotherapy 3 COPD 4 coronary artery disease. The patient chest pain at time of admission. Yet his presentation was not typical of an acute cardiac event or an acute myocardial infarction. Troponins were minimally elevated at 0.1 and 0.3 respectively. Currently free of any chest pain. The patient has had previous angioplasty and stenting of the LAD. He has noted to have significant only impaired left ventricular systolic function with estimated ejection fraction 20- 25%. There is severe global hypokinesia. Mild pulmonary hypertension with an RVSP 42.7 mmHg. 5 history of chronic atrial fibrillation status post cardiac ablation, status post placement of a pacer/AICD in 2014 6 obesity 7 hypertension 8 hyperlipidemia 9 Hodgkin's lymphoma status post stem cell transplantation in patient is currently in remission Plan: The patient was seen and evaluated by Dr. Frazier. The patient is improved today as compared to yesterday. He is currently stable from the pulmonary and critical care standpoint. ID is on the case regarding his antibiotics. Oncology is on the case as well. Cardiology is on the case as well. Upon discharge the patient plans to follow with his healthcare providers in the [facility].
[2017-07-01 17:55] LABS: Glucose,Whole Blood 153 mg/dL (75-99)
--- NOTE | 2017-07-01 18:41 | P.PN ---
Subjective Date of service 07/01/2017. Progress Note being dictated for Dr. Coley. Interval history: This is a 62-year-old gentleman admitted with febrile neutropenia, COPD, in a patient with recent diagnosis of small cell lung CA, receiving chemotherapy and multiple other medical issues. Yesterday, started on Zarxio. WBC increased to 2.3, hemoglobin 8.9, platelets 59,000. T-max 99.3. Maintained on vancomycin and cefepime .Echo suboptimal, reporting severe global hypokinesis of LV , EF 20-25%. Reports left-sided chest pressure upon coughing, denies chest pain or palpitations. Evaluated by cardiology with recommendations noted. Chest x-ray reporting no significant change, bibasilar atelectasis, emphysema. Objective - Vital Signs Vital signs: Vital Signs Temp 97.9 F 07/01/17 15:00 Pulse 69 07/01/17 15:00 Resp 20 07/01/17 15:00 BP 143/76 07/01/17 15:00 Pulse Ox 97 07/01/17 15:00 Intake & Output 06/30/17 07/01/17 07/01/17 18:59 06:59 18:59 Intake Total 1545 240 400 Output Total 1510 450 600 Balance 35 -210 -200 Intake: IV 1325 400 Sodium Chloride 0.9% 1, 1200 400 000 ml @ 50 mls/hr IV . Q20H [facility] Rx#:[id number] Vancomycin 1,750 mg In 125 Sodium Chloride 0.9% 250 ml @ 125 mls/hr IVPB Q12H [facility] Rx#:[id number] Intake, IV Titration 220 Amount Cefepime 2 gm In Sodium 100 Chloride 0.9% 50 ml @ 100 mls/hr IVPB Q8HR [facility] Rx# :[id number] Sodium Chloride 0.9% 1, 120 000 ml @ 50 mls/hr IV . Q20H [facility] Rx#:[id number] Oral 240 Output: Urine 1510 450 600 Other: Voiding Method Urinal Urinal Urinal # Voids 1 3 - Exam PHYSICAL EXAM: VITAL SIGNS: As above GENERAL: [Sitting up in bed, no acute distress] HEENT: [Pupils equal conjunctiva normal. Oral membranes moist] NECK: [Supple, no JVD] RESPIRATORY EFFORT:[ Normal,] LUNGS: [Diminished, occasional expiratory wheezing,] CARDIOVASCULAR[ regular S1 and S2, no murmurs rubs or gallops, no edema] GI: [Abdomen soft, nontender, positive bowel sounds.] PSYCH: [Alert and oriented -3, mood and affect normal.] NEURO: No focal deficits - Labs CBC & Chem 7: 07/01/17 07:49 07/01/17 07:49 Labs: Abnormal Lab Results - Last 24 Hours (Table) 06/30/17 07/01/17 07/01/17 Range/Units 20:58 07:34 07:49 WBC 2.3 L (3.8-10.6) k/uL RBC 2.66 L (4.30-5.90) m/uL Hgb 8.9 L (13.0-17.5) gm/dL Hct 26.6 L (39.0-53.0) % RDW 21.1 H (11.5-15.5) % Plt Count 59 L (150-450) k/uL Neutrophils # (Manual) 1.06 L (1.3-7.7) k/uL Lymphocytes # (Manual) 0.85 L (1.0-4.8) k/uL Chloride (98-107) mmol/L BUN (9-20) mg/dL Glucose (74-99) mg/dL POC Glucose (mg/dL) 170 H 147 H (75-99) mg/dL Magnesium (1.6-2.3) mg/dL 07/01/17 07/01/17 07/01/17 Range/Units 07:49 12:20 17:51 WBC (3.8-10.6) k/uL RBC (4.30-5.90) m/uL Hgb (13.0-17.5) gm/dL Hct (39.0-53.0) % RDW (11.5-15.5) % Plt Count (150-450) k/uL Neutrophils # (Manual) (1.3-7.7) k/uL Lymphocytes # (Manual) (1.0-4.8) k/uL Chloride 108 H (98-107) mmol/L BUN 6 L (9-20) mg/dL Glucose 139 H (74-99) mg/dL POC Glucose (mg/dL) 141 H 153 H (75-99) mg/dL Magnesium 1.3 L (1.6-2.3) mg/dL Microbiology - Last 24 Hours (Table) 06/29/17 21:44 Blood Culture - Preliminary Blood No Growth after 24 hours 06/29/17 19:57 Urine Culture - Final Urine,Voided 06/29/17 19:57 Blood Culture - Preliminary Blood No Growth after 24 hours Assessment and Plan Plan: Febrile neutropenia in a patient getting chemotherapy for small cell lung cancer localized to the left lung Underlying atrial fibrillation with paced rhythm -COPD in an ex-smoker -Diabetes mellitus type 2 off medications -Coronary artery disease with stent in 2008 -Chronic hypoxic respiratory failure on home oxygen -Lung cancer left upper lobe stage IIa small cell type -Troponin leak probably where hemodynamic mismatch not acute mi Pancytopenia from chemotherapy Plan: Continue on current medication regime ,monitoring and symptomatic treatment. IV fluids decreased. Antibiotics as per infectious disease. Discharge planning in progress pending clearance from ID,pulmonary. Further recommendations to follow. The impression and plan of care has been dictated as directed. : I performed a H&P examination of this patient and discussed the same with the dictator. I agree with the dictator's note. Any additional findings/opinions/ etc. will be noted.
[2017-07-01 20:30] LABS: Glucose,Whole Blood 178 mg/dL (75-99)
--- NOTE | 2017-07-01 20:55 | P.PN ---
Subjective Principal diagnosis: Sepsis This is a 62-year-old male who has past medical history of Hodgkin's lymphoma stage IV B status post stem cell transplant in the past and most recently he has under treatment for small cell lung cancer of the left upper lobe. He states his PET scan was clear and he was planned for 2 rounds of chemotherapy and his next one is due next week which will be his last one. Patient resides in [facility] and follows with physicians at [facility] and is wishing to be transferred to that facility. Patient was visiting his daughter in [place] and developed chest pain yesterday afternoon about 3:00. He took one nitroglycerin of his own with some minimal improvement. EMS was called and he was brought into [facility] emergency [facility] for evaluation. EMS did give him 3 nitroglycerin with relief. Patient had some nonspecific changes on his EKG. He is known to have had a myocardial infarction in 2008 and stent placement at that time. He also has history of atrial fibrillation status post AV node ablation and subsequently needed a pacemaker which was upgraded to an AICD in 2014. He denies any problems with his pacemaker site. He does have a port on the right upper anterior chest wall which has not given him any trouble and has been nontender. Patient was found to have a white count of 1.4 and repeat is at 1. Hemoglobin 7.5 and he was transfused 1 unit of packed RBCs. He presented with a temperature of 102.9 and lactic acid was 3.3 and improved to 1.2. Urinalysis was nitrate and leukoesterase negative. Blood cultures are status received. Patient had troponins of 0.015, 0.161, 0.305. Patient has been given 1 dose of IV Levaquin and has been continued on vancomycin. Chest x-ray showed no acute cardiopulmonary process. Patient was admitted to the intensive care unit. Consults are in place with Dr. Frazier for intensive care management, Dr. Mijares from oncology and Dr. Vasquez for cardiology. Patient states that his chest pain has changed in that it is now painful when he takes a deep breath. He is improved further today. His white blood cell count has increased to 2.3. Fevers have resolved. His other new acute complaints. Cardiology and pulmonary critical care follow-up are in process. Objective - Vital Signs Vital signs: Vital Signs Temp 97.9 F 08/10/17 15:00 Pulse 69 07/01/17 15:00 Resp 20 07/01/17 15:00 BP 143/76 07/01/17 15:00 Pulse Ox 97 07/01/17 15:00 Intake & Output 07/01/17 07/01/17 07/02/17 06:59 18:59 06:59 Intake Total 240 400 Output Total 450 600 Balance -210 -200 Intake: IV 400 Sodium Chloride 0.9% 1, 400 000 ml @ 50 mls/hr IV . Q20H [facility] Rx#:[id number] Oral 240 Output: Urine 450 600 Other: Voiding Method Urinal Urinal # Voids 1 3 - Exam Gen: This is a 62-year-old male sitting up in the ICU bed. Patient is noted to have [id number] dyspnea with conversation. HEENT: Head is atraumatic, normocephalic. Pupils equal, round. Sclerae is anicteric. conjunctivae slightly pale. Mucous membranes of the mouth are slightly dry. No thrush noted. Dentition is in good order. NECK: short. Supple. No JVD. No lymphadenopathy. No thyromegaly. LUNGS: diminished to the bilateral bases. Evidence of good symmetrical air entry few crackles to the left posterior upper zone are noted HEART: Regular rate and rhythm. No murmur. ABDOMEN: Soft. Bowel sounds are present. No masses. No tenderness. EXTREMITIES: No pedal edema. No calf tenderness.dorsalis pedis is +2 bilaterally.patient has redness to the left forearm just distal to the antecubital area. NEUROLOGICAL: Patient is awake, alert and oriented x3. - Labs CBC & Chem 7: 07/01/17 07:49 07/01/17 07:49 Labs: Abnormal Lab Results - Last 24 Hours (Table) 06/30/17 07/01/17 07/01/17 Range/Units 20:58 07:34 07:49 WBC 2.3 L (3.8-10.6) k/uL RBC 2.66 L (4.30-5.90) m/uL Hgb 8.9 L (13.0-17.5) gm/dL Hct 26.6 L (39.0-53.0) % RDW 21.1 H (11.5-15.5) % Plt Count 59 L (150-450) k/uL Neutrophils # (Manual) 1.06 L (1.3-7.7) k/uL Lymphocytes # (Manual) 0.85 L (1.0-4.8) k/uL Chloride (98-107) mmol/L BUN (9-20) mg/dL Glucose (74-99) mg/dL POC Glucose (mg/dL) 170 H 147 H (75-99) mg/dL Magnesium (1.6-2.3) mg/dL 07/01/17 07/01/17 07/01/17 Range/Units 07:49 12:20 17:51 WBC (3.8-10.6) k/uL RBC (4.30-5.90) m/uL Hgb (13.0-17.5) gm/dL Hct (39.0-53.0) % RDW (11.5-15.5) % Plt Count (150-450) k/uL Neutrophils # (Manual) (1.3-7.7) k/uL Lymphocytes # (Manual) (1.0-4.8) k/uL Chloride 108 H (98-107) mmol/L BUN 6 L (9-20) mg/dL Glucose 139 H (74-99) mg/dL POC Glucose (mg/dL) 141 H 153 H (75-99) mg/dL Magnesium 1.3 L (1.6-2.3) mg/dL 07/01/17 Range/Units 20:28 WBC (3.8-10.6) k/uL RBC (4.30-5.90) m/uL Hgb (13.0-17.5) gm/dL Hct (39.0-53.0) % RDW (11.5-15.5) % Plt Count (150-450) k/uL Neutrophils # (Manual) (1.3-7.7) k/uL Lymphocytes # (Manual) (1.0-4.8) k/uL Chloride (98-107) mmol/L BUN (9-20) mg/dL Glucose (74-99) mg/dL POC Glucose (mg/dL) 178 H (75-99) mg/dL Magnesium (1.6-2.3) mg/dL Microbiology - Last 24 Hours (Table) 06/29/17 21:44 Blood Culture - Preliminary Blood No Growth after 24 hours 06/29/17 19:57 Urine Culture - Final Urine,Voided 06/29/17 19:57 Blood Culture - Preliminary Blood No Growth after 24 hours Laboratory Results WBC 2.3 k/uL (3.8-10.6) L 07/01/17 07:49 RBC 2.66 m/uL (4.30-5.90) L 07/01/17 07:49 Hgb 8.9 gm/dL (13.0-17.5) L 07/01/17 07:49 Hct 26.6 % (39.0-53.0) L 07/01/17 07:49 MCV 99.9 fL (80.0-100.0) 07/01/17 07:49 MCH 33.3 pg (25.0-35.0) 07/01/17 07:49 MCHC 33.3 g/dL (31.0-37.0) 07/01/17 07:49 RDW 21.1 % (11.5-15.5) H 07/01/17 07:49 Plt Count 59 k/uL (150-450) L 07/01/17 07:49 Neutrophils % (Manual) 32 % 07/01/17 07:49 Band Neutrophils % 14.5 % 07/01/17 07:49 Lymphocytes % (Manual) 37 % 07/01/17 07:49 Monocytes % (Manual) 13 % 07/01/17 07:49 Eosinophils % (Manual) 2 % 07/01/17 07:49 Basophils % (Manual) 1 % 07/01/17 07:49 Metamyelocytes % 1 % 07/01/17 07:49 Myelocytes % 1 % 07/01/17 07:49 Neutrophils # (Manual) 1.06 k/uL (1.3-7.7) L 07/01/17 07:49 Lymphocytes # (Manual) 0.85 k/uL (1.0-4.8) L 07/01/17 07:49 Monocytes # (Manual) 0.30 k/uL (0-1.0) 07/01/17 07:49 Eosinophils # (Manual) 0.05 k/uL (0-0.7) 07/01/17 07:49 Basophils # (Manual) 0.02 k/uL (0-0.2) 07/01/17 07:49 Nucleated RBCs 0 /100 WBC (0-0) 07/01/17 07:49 Manual Slide Review Performed 07/01/17 07:49 Polychromasia Present 06/29/17 19:57 Poikilocytosis Slight 07/01/17 07:49 Poikilocytosis (manual Present 07/01/17 07:49 Anisocytosis Moderate 07/01/17 07:49 Anisocytosis (manual) Present 06/30/17 05:00 Macrocytosis Moderate 07/01/17 07:49 Ovalocytes Present 06/29/17 19:57 PT 10.6 sec (9.0-12.0) 06/29/17 19:57 INR 1.0 (<1.2) 06/29/17 19:57 APTT 24.9 sec (22.0-30.0) 06/29/17 19:57 D-Dimer 4.43 mg/L FEU (<0.60) H 06/29/17 19:57 Sodium 138 mmol/L (137-145) 07/01/17 07:49 Potassium 4.1 mmol/L (3.5-5.1) 07/01/17 07:49 Chloride 108 mmol/L (98-107) H 07/01/17 07:49 Carbon Dioxide 24 mmol/L (22-30) 07/01/17 07:49 Anion Gap 6 mmol/L 07/01/17 07:49 BUN 6 mg/dL (9-20) L 07/01/17 07:49 Creatinine 0.78 mg/dL (0.66-1.25) 07/01/17 07:49 Est GFR (MDRD) Af Amer >60 (>60 ml/min/1.73 sqM) 07/01/17 07:49 Est GFR (MDRD) Non-Af >60 (>60 ml/min/1.73 sqM) 07/01/17 07:49 Glucose 139 mg/dL (74-99) H 07/01/17 07:49 POC Glucose (mg/dL) 178 mg/dL (75-99) H 07/01/17 20:28 POC Glu Project Manager ID Reid, Shira 07/01/17 20:28 Lactic Ac Sepsis Rflx Y 06/29/17 20:29 Plasma Lactic Acid Krystian 1.2 mmol/L (0.7-2.0) 06/30/17 00:00 Calcium 8.5 mg/dL (8.4-10.2) 07/01/17 07:49 Phosphorus 2.5 mg/dL (2.5-4.5) 07/01/17 07:49 Magnesium 1.3 mg/dL (1.6-2.3) L 07/01/17 07:49 Total Bilirubin 1.1 mg/dL (0.2-1.3) 06/29/17 19:57 AST 23 U/L (17-59) 06/29/17 19:57 ALT 40 U/L (21-72) 06/29/17 19:57 Alkaline Phosphatase 88 U/L (38-126) 06/29/17 19:57 Total Creatine Kinase 387 U/L (55-170) H 06/30/17 06:30 CK-MB (CK-2) 3.4 ng/mL (0.0-2.4) H* 06/30/17 06:30 CK-MB (CK-2) Rel Index 0.9 06/30/17 06:30 Troponin I 0.305 ng/mL (0.000-0.034) H* 06/30/17 06:30 NT-Pro-B Natriuret Pep 707 pg/mL 06/29/17 19:57 Total Protein 6.0 g/dL (6.3-8.2) L 06/29/17 19:57 Albumin 3.6 g/dL (3.5-5.0) 06/29/17 19:57 Triglycerides 103 mg/dL (<150) 06/30/17 05:00 Cholesterol 141 mg/dL (<200) 06/30/17 05:00 LDL Cholesterol, Calc 80 mg/dL (0-99) 06/30/17 05:00 HDL Cholesterol 40 mg/dL (40-60) 06/30/17 05:00 Urine Color Yellow 06/29/17 19:57 Urine Appearance Clear (Clear) 06/29/17 19:57 Urine pH 5.0 (5.0-8.0) 06/29/17 19:57 Ur Specific [place] 1.021 (1.001-1.035) 06/29/17 19:57 Urine Protein Trace (Negative) H 06/29/17 19:57 Urine Glucose (UA) 4+ (Negative) H 06/29/17 19:57 Urine Ketones Trace (Negative) H 06/29/17 19:57 Urine Blood Negative (Negative) 06/29/17 19:57 Urine Nitrite Negative (Negative) 06/29/17 19:57 Urine Bilirubin Negative (Negative) 06/29/17 19:57 Urine Urobilinogen 2.0 mg/dL (<2.0) 06/29/17 19:57 Ur Leukocyte Esterase Negative (Negative) 06/29/17 19:57 Vancomycin Trough 12.0 ug/mL 07/01/17 17:13 Blood Type O Positive 06/29/17 19:57 Blood Type Recheck No 06/29/17 19:57 Antibody Screen NEGATIVE 06/29/17 19:57 Crossmatch See Detail 06/29/17 19:57 Spec Expiration Date 07/02/2017 - 2346 06/29/17 19:57 Microbiology 06/29/17 21:44 Blood Blood Culture - Preliminary No Growth after 24 hours 06/29/17 19:57 Urine,Voided Urine Culture - Final 06/29/17 19:57 Blood Blood Culture - Preliminary No Growth after 24 hours Assessment and Plan (1) Neutropenic sepsis Narrative/Plan: Pleasant 62-year-old male who has a history of prior Hodgkin's lymphoma status post stem cell transplantation is developed small cell lung carcinoma. He is in the midst of his chemotherapy from an outside facility. He received 5 of the 6 cycles of chemotherapy. Was doing well but did have a dose reduction. Is ready completed his prior radiation therapy. At presentation he had significant pancytopenia and fever. At this time he is having some improvement. Fevers resolved. By blood cell count has increased to 2.3. With an absolute neutrophil count above 1000. The patient is improving. His chest discomforts which are pleuritic in nature have improved since yesterday. He is being followed by cardiology and pulmonary critical care. Once he is cleared as long as his fevers resolved tomorrow he can be discharged on oral levofloxacin at 500 mg daily for 7 days. Follow up with his oncologist after discharge. Status: Acute
[2017-07-02] MEDS: SODIUM CHLORIDE 0.9% 1,000 ML IV SCH ×2 (04:13→05:37)
[2017-07-02] MEDS: ACETAMINOPHEN TAB 325 MG TAB PO PRN ×2 (04:16→14:11)
[2017-07-02] MEDS: VANCOMYCIN 1,750 MG in SODIUM CHLORIDE 0.9% 250 ML IVPB SCH (05:37)
[2017-07-02 07:13] LABS: Glucose,Whole Blood 166 mg/dL (75-99)
--- NOTE | 2017-07-02 07:33 | XR ---
EXAMINATION TYPE: XR chest 1V DATE OF EXAM: 07/02/2017 CLINICAL HISTORY: Difficulty breathing progress study. TECHNIQUE: Single AP portable upright view of the chest is obtained. COMPARISON: Chest x-ray from one day earlier. FINDINGS: There is persistent cardiomegaly with multi lead pacemaker/AICD. There is stable right int ernal jugular Mediport catheter. Cardiac silhouette size is stable and upper limits of normal with at herosclerotic thoracic aorta. There is chronic parenchymal change with elevated left hemidiaphragm. T here is no suspicious new focal airspace opacity, pleural effusion, or pneumothorax seen bilaterally. Osseous structures are demineralized. Degenerative changes bilateral glenohumeral joints are noted. IMPRESSION: Overall stable findings, chronic parenchymal change and cardiomegaly without acute pulm onary process.
[2017-07-02 07:36] VITALS: BP 131/65; PULSE 71; RESP 16; TEMP 98.3
[2017-07-02] MEDS: INSULIN LISPRO (humaLOG) 300 UNIT/3 ML VIAL SQ SCH ×2 (08:01→12:32)
[2017-07-02] MEDS: PANTOPRAZOLE 40 MG TABLET PO SCH (08:02)
[2017-07-02] MEDS: MAGNESIUM OXIDE 400 MG TAB PO SCH (08:02)
[2017-07-02] MEDS: FUROSEMIDE 20 MG TAB PO SCH ×2 (08:02→16:44)
[2017-07-02] MEDS: ASPIRIN 81 MG CHEW PO SCH (08:03)
[2017-07-02] MEDS: CEFEPIME 2 GM in SODIUM CHLORIDE 0.9% 50 ML IVPB SCH (08:03)
[2017-07-02] MEDS: DOCUSATE 100 MG CAP PO SCH (08:03)
[2017-07-02 08:08] LABS: Anisocytosis Moderate; CH 33.7; HCT 24.9 % (39.0-53.0); HDW 3.89; HGB 8.3 gm/dL (13.0-17.5); Immature Gran Flag Marked; MCH 33.2 pg (25.0-35.0); MCHC 33.2 g/dL (31.0-37.0); MCV 99.9 fL (80.0-100.0); Macrocytosis Moderate; Mean Platelet Volume 11.2; Poikilocytosis Slight; RBC 2.49 m/uL (4.30-5.90); RDW 20.8 % (11.5-15.5); WBC (Perox) 4.76
[2017-07-02 08:20] LABS: Anion Gap 9 mmol/L; Blood Urea Nitrogen 9 mg/dL (9-20); Calcium 8.5 mg/dL (8.4-10.2); Carbon Dioxide 25 mmol/L (22-30); Chloride 104 mmol/L (98-107); Glucose 155 mg/dL (74-99); Magnesium 1.2 mg/dL (1.6-2.3); Non-African American GFR(MDRD) >60 (>60 ml/min/1.73 sqM); Phosphorous 2.8 mg/dL (2.5-4.5); Potassium 3.7 mmol/L (3.5-5.1); Sodium 138 mmol/L (137-145)
[2017-07-02 09:14] LABS: Add Differential Manual Differential
[2017-07-02 09:19] LABS: Metamyelocytes % 1 %; Nucleated Red Blood Cells 3 /100 WBC (0-0); Total Cells Counted 200; WBC 4.7 k/uL (3.8-10.6)
[2017-07-02 09:20] LABS: Dohle Bodies Present; Manual Review Performed; Polychromasia Present; Toxic Granulation Present
[2017-07-02] MEDS: SYMBICORT 160-4.5 MCG INHALER INHALATION SCH (11:07)
[2017-07-02 11:38] LABS: Glucose,Whole Blood 228 mg/dL (75-99)
--- NOTE | 2017-07-02 12:08 | P.DS ---
Providers Date of admission: 06/29/17 23:40 Attending physician: Ed Mason Consults: 06/29/17 22:31 Consult Physician Stat Consulting Provider: Salina Frazier Consult Reason/Comments: ICU, LUNG Cancer, Sepsis, Anemia Do you want consulting provider notified?: Already Contacted Consult Physician Stat Consulting Provider: Ray Fritz Consult Reason/Comments: Sepsis, Lung Cancer Do you want consulting provider notified?: Yes, Notify in am 06/30/17 06:27 Consult Physician Urgent Consulting Provider: Van Mijares Consult Reason/Comments: lung ca Do you want consulting provider notified?: Yes 06/30/17 06:28 Consult Physician Urgent Consulting Provider: Spenser Jerez Consult Reason/Comments: elevated troponins Do you want consulting provider notified?: Yes Primary care physician: Physician Nonstaff Hospital Course: This is a 62-year-old gentleman admitted with febrile neutropenia, COPD, in a patient with recent diagnosis of small cell lung CA, receiving chemotherapy and multiple other medical issues. Yesterday, started on Zarxio. WBC increased to 2.3, hemoglobin 8.9, platelets 59,000. T-max 99.3. Maintained on vancomycin and cefepime .Echo suboptimal, reporting severe global hypokinesis of LV , EF 20 -25%. Reports left-sided chest pressure upon coughing, denies chest pain or palpitations. Evaluated by cardiology with recommendations noted. Chest x-ray reporting no significant change, bibasilar atelectasis, emphysema. 07/02/2017 Patient is feeling much better today that is all the cultures are negative patient will be discharged on levofloxacin 500 daily. Does wear 2 L of onset at home. PHYSICAL EXAMINATION: GENERAL: The patient is alert and oriented x3, not in any acute distress. Well developed, well nourished. HEENT: Pupils are round and equally reacting to light. EOMI. No scleral icterus. No conjunctival pallor. Normocephalic, atraumatic. No pharyngeal erythema. No thyromegaly. CARDIOVASCULAR: S1 and S2 present. No murmurs, rubs, or gallops. PULMONARY: Chest is clear to auscultation, no wheezing or crackles. ABDOMEN: Soft, nontender, nondistended, normoactive bowel sounds. No palpable organomegaly. MUSCULOSKELETAL: No joint swelling or deformity. EXTREMITIES: No cyanosis, clubbing, or pedal edema. NEUROLOGICAL: Gross neurological examination did not reveal any focal deficits. SKIN: No rashes. Febrile neutropenia in a patient getting chemotherapy for small cell lung cancer localized to the left lung Underlying atrial fibrillation with paced rhythm -COPD in an ex-smoker -Diabetes mellitus type 2 off medications -Coronary artery disease with stent in 2008 -Chronic hypoxic respiratory failure on home oxygen -Lung cancer left upper lobe stage IIa small cell type -Troponin leak probably where hemodynamic mismatch not acute mi Pancytopenia from chemotherapy Patient Condition at Discharge: Stable Plan - Discharge Summary New Discharge Prescriptions: New Furosemide [Lasix] 20 mg PO BID@0900,1600 #30 tab Potassium Chloride ER [K-Dur 20] 20 meq PO DAILY #30 tab Albuterol Inhaler [Ventolin Hfa Inhaler] 1 - 2 puff INHALATION Q6HR PRN #1 inhaler PRN Reason: Shortness Of Breath Or Wheezing Tiotropium Napa [Spiriva] 1 cap INHALATION DAILY #1 device Levofloxacin [Levaquin] 500 mg PO DAILY #7 tab Continue Magnesium Oxide [Mag-Ox] 400 mg PO BID Mometasone/Formoterol [Dulera 200 Mcg/5 Mcg Inhaler] 2 puff INHALATION RT-BID Aspirin 81 mg PO DAILY Glucosam/Diogo-Msm1/C/Sahil/Bosw [Glucosamine-Chondroitin Tablet] 1 tab PO BID Omeprazole 20 mg PO DAILY Discharge Medication List Aspirin 81 mg PO DAILY 06/29/17 [History] Glucosam/Diogo-Msm1/C/Sahil/Bosw [Glucosamine-Chondroitin Tablet] 1 tab PO BID 07/08 [History] Magnesium Oxide [Mag-Ox] 400 mg PO BID 06/29/17 [History] Mometasone/Formoterol [Dulera 200 Mcg/5 Mcg Inhaler] 2 puff INHALATION RT-BID [History] Omeprazole 20 mg PO DAILY 06/30/17 [History] Albuterol Inhaler [Ventolin Hfa Inhaler] 1 - 2 puff INHALATION Q6HR PRN #1 inhaler 07/02/17 [Rx] Furosemide [Lasix] 20 mg PO BID@0900,1600 #30 tab 07/02/17 [Rx] Levofloxacin [Levaquin] 500 mg PO DAILY #7 tab 07/02/17 [Rx] Potassium Chloride ER [K-Dur 20] 20 meq PO DAILY #30 tab 07/02/17 [Rx] Tiotropium Napa [Spiriva] 1 cap INHALATION DAILY #1 device 07/02/17 [Rx] Follow up Appointment(s)/Referral(s): Nonstaff,Physician [Primary Care Provider] - 3 Days Activity/Diet/Wound Care/Special Instructions: Antibiotics as per ID. Discharge Disposition: HOME SELF-CARE
[2017-07-02] MEDS: MAGNESIUM SULFATE-D5W PMX 1 GM in DEXTROSE/WATER 1 100ML.BAG IVPB SCH ×3 (12:31→15:11)
[2017-07-02] MEDS: FILGRASTIM-SNDZ 480 MCG/0.8 ML SYRINGE SQ SCH (14:13)
--- NOTE | 2017-07-02 15:09 | P.PN ---
Subjective 62-year-old male patient with a recent diagnosis of small cell lung cancer of the lung, was being treated with systemic chemotherapy through [facility]. The patient apparently has been tolerating his systemic chemotherapy well. According to him he has received 5 sessions of systemic chemotherapy and during the course of the treatment a PET scan was done that showed no significant activity and his lungs. He is known to have COPD. He also has a remote history of Hodgkin's lymphoma stage IV, and was initially treated successfully and ultimately had a recurrence and he underwent a successful stem cell transportation [facility] in [place]. As such she is lymphoma has been essentially treated. He is also known to have coronary artery disease. He has had issues with atrial fibrillation in the past and he has undergone cardiac ablation and currently has a pacer AICD in place and this was inserted thousand and 15. The patient lives and [place] and he was in the area visiting his daughter in [place]. He acutely felt pain across his chest and he also had Reiger's and chills and he came mid with a high-grade temperature to the hospital. He was found to be in profound neutropenia with a white cell count of 1.0. His he was at 7.6 with a platelet count of 46,000. Rest of the electrodes are within normal limits. No headaches. No change in mental status. No cough or sputum production. He has chronic dyspnea related to his COPD. No nausea. No vomiting. No abdominal pain. No dysphagia fevers or urgency. No skin rashes. No open wounds or sores. No cellulitis. He was started on a combination of cefepime and vancomycin. Blood cultures were sent. He remained hemodynamically stable. This morning he is afebrile. He did however have temperatures throughout the night and last temperature spike was earlier this morning when he had a temperature 11.6. No oropharyngeal thrush. He was started on Zarxio regarding his neutropenia. He is also resuscitated IV fluids. He is calm and comfortable. He is resting comfortably in bed. A computed tomography scan of the chest was also done that showed the left upper lobe mass and no previous x-rays or CAT scans are available for comparison. Nondistended adenopathy. No evidence of an acute pneumonia. The patient's EKG was sinus with biventricular pacing. Troponins were minimally elevated at 0.1 and 0.3. Currently is free of any chest pain. The patient was seen again today in follow-up 07/01/2017 on the regular medical floor. He is awake and alert in no acute distress. He is feeling quite a bit better today as compared to yesterday. Blood and urine cultures revealed no growth. White count is improved to 2.3. He was initiated on Zarxio. Hemoglobin 8.9. Platelet count 59,000. He is continued on vancomycin and cefepime. T-max the past 24 hours was 99.3. Currently 99.1. He is maintaining good O2 saturations in the 90s on room air. He has been hemodynamically stable. No tachycardia, no tachypnea. Today's chest x-ray revealed no significant interval change. There is evidence of emphysema some basilar atelectasis. The patient is seen again today 07/02/2017 in follow-up on the regular medical floor. He is awake and alert in no acute distress. He is maintaining good O2 saturations in the high 90s on 2 L/m per nasal cannula. He is afebrile. Hemodynamically stable. His magnesium is being replaced. His current white count is 4.7. Hemoglobin 8.3. Platelet count 64,000. He is feeling nearly back to his baseline. Objective - Vital Signs Vital signs: Vital Signs Temp 98.3 F 07/02/17 07:00 Pulse 71 07/02/17 07:00 Resp 16 07/02/17 07:00 BP 131/65 07/02/17 07:00 Pulse Ox 97 07/02/17 07:00 Intake & Output 07/01/17 07/02/17 07/02/17 18:59 06:59 18:59 Intake Total 400 675 Output Total 600 1700 300 Balance -200 -1025 -300 Intake: IV 400 625 Sodium Chloride 0.9% 1, 400 375 000 ml @ 50 mls/hr IV . Q20H ROSAS Rx#:[id number] Vancomycin 1,750 mg In 250 Sodium Chloride 0.9% 250 ml @ 125 mls/hr IVPB Q12H ROSAS Rx#:[id number] Intake, IV Titration 50 Amount Cefepime 2 gm In Sodium 50 Chloride 0.9% 50 ml @ 100 mls/hr IVPB Q8HR ROSAS Rx# :[id number] Output: Urine 600 1700 300 Other: Voiding Method Urinal Urinal Urinal # Voids 3 - Exam Patient is obese, comfortable likely distress.Head exam was generally normal. There was no scleral icterus or corneal arcus. Mucous membranes were moist. Neck is short and supple and there is significant crowding of the posterior pharynx. There is no goiter or neck masses.Cardiac exam revealed the PMI to be normally situated and sized. The rhythm was regular and no extrasystoles were noted during several minutes of auscultation. The first and second heart sounds were normal and physiologic splitting of the second heart sound was noted. There were no murmurs, rubs, clicks, or gallops. Lungs sounds are diminished bilaterally along with some prolongation of expiratory phase of breathing. Breath sounds are diminished in the lung bases.Abdominal exam revealed normal bowel sounds. The abdomen was soft, non-tender, and without masses, organomegaly , or appreciable enlargement of the abdominal aorta.Examination of the extremities revealed easily palpable radial, femoral and pedal pulses. There was no cyanosis, clubbing or edema. - Labs CBC & Chem 7: 07/02/17 07:05 07/02/17 07:05 Labs: Abnormal Lab Results - Last 24 Hours (Table) 07/01/17 07/01/17 07/02/17 Range/Units 17:51 20:28 07:05 RBC 2.49 L (4.30-5.90) m/uL Hgb 8.3 L (13.0-17.5) gm/dL Hct 24.9 L (39.0-53.0) % RDW 20.8 H (11.5-15.5) % Plt Count 64 L (150-450) k/uL Nucleated RBCs 3 H (0-0) /100 WBC Glucose (74-99) mg/dL POC Glucose (mg/dL) 153 H 178 H (75-99) mg/dL Magnesium (1.6-2.3) mg/dL 07/02/17 07/02/17 07/02/17 Range/Units 07:05 07:08 11:30 RBC (4.30-5.90) m/uL Hgb (13.0-17.5) gm/dL Hct (39.0-53.0) % RDW (11.5-15.5) % Plt Count (150-450) k/uL Nucleated RBCs (0-0) /100 WBC Glucose 155 H (74-99) mg/dL POC Glucose (mg/dL) 166 H 228 H (75-99) mg/dL Magnesium 1.2 L (1.6-2.3) mg/dL Microbiology - Last 24 Hours (Table) 06/29/17 21:44 Blood Culture - Preliminary Blood No Growth after 48 hours 06/29/17 19:57 Blood Culture - Preliminary Blood No Growth after 48 hours Assessment and Plan Plan: Assessment 1 neutropenic fever, currently under investigation. Rule out underlying septicemia. Cultures revealed no growth to date, the patient was started on broad-spectrum antibiotics and currently is on a combination of cefepime and vancomycin. The patient is also on Zarxio. 2 small cell lung cancer currently on systemic chemotherapy 3 COPD, currently inactive and stable. 4 coronary artery disease. The patient chest pain at time of admission. Yet his presentation was not typical of an acute cardiac event or an acute myocardial infarction. Troponins were minimally elevated at 0.1 and 0.3 respectively. Currently free of any chest pain. The patient has had previous angioplasty and stenting of the LAD. He has noted to have significant only impaired left ventricular systolic function with estimated ejection fraction 20- 25%. There is severe global hypokinesia. Mild pulmonary hypertension with an RVSP 42.7 mmHg. 5 history of chronic atrial fibrillation status post cardiac ablation, status post placement of a pacer/AICD in 2014 6 obesity 7 hypertension 8 hyperlipidemia 9 Hodgkin's lymphoma status post stem cell transplantation in patient is currently in remission Plan: The patient was seen and evaluated by Dr. Frazier. He is currently stable from the pulmonary and critical care standpoint. He is cleared for discharge from the pulmonary standpoint. He'll continue to follow-up with his physicians out of [place].
--- NOTE | 2017-07-07 07:55 | CDI ---
In responding to this query, please exercise your independent professional judgment. The [facility] Coding Staff and Clinical Documentation Specialists appreciate your assistance in clarifying documentation, maintaining compliance with coding guidelines, accurately documenting patients condition and capturing severity of illness. The fact that a question is asked does not imply that any particular answer is desired or expected. Communication forms are a method of clarifying documentation and are not made part of the Legal Health Record. Thank you in advance for your clarification. Last Revision, September 2015 [facility] [address] [facility] [place] [address] Documentation Clarification Form Date: 07/07/2017 7:29:00 AM From: Neetu Royer Admit Date: 06/29/2017 11:40:00 PM Patient Name: Robby Crowder Visit Number: [id number] Discharge Date: 07/02/17 Dr. Tana Coley Conflicting documentation has been found in the medical record. Pulmonary, Infectious Disease, Hematology consults all document neutropenic sepsis. History/Risk Factors: Neutropenia due to chemo, Small cell lung cancer undergoing chemotherapy, A Fib, COPD, chronic hypoxic respiratory failure on home oxygen, DM, CAD w stent, Hx Hodgkin's lymphoma Clinical Indicators: Developed fever and chills and neutropenia. 100.4, 70, 26, 135/63. White count 1.4, hgb 7.5. plts 55, lactic acid 3.3 Treatment: IV Vancomycin and Cefepime In your opinion what is the most clinically appropriate diagnosis for this patient? Neutropenic sepsis Febrile Neutropenia due to chemotherapy OTHER explanation of clinical findings Unable to determine (no explanation for clinical findings) Please document addendum in your discharge summary in order to capture severity of illness and risk of mortality. Include clinical findings that support your diagnosis. FYI: Press F11 to launch patient chart. If you have a question about this query, please contact Mony Wick, Device Processing Engineer, [place] at [phone] between 8am and 5pm. BRUCE
== END 2017-07-02 17:40 | disposition home or self-care (01) | DRG 872 ==
LOC: EC 19:22 → 6ICU 23:40 → 5MS5E 06-30 19:06
PROVIDERS: ADMIT Hospitalist; ATTEND Hospitalist
DX: A41.9 Sepsis, unspecified organism (principal); J96.11 Chronic respiratory failure with hypoxia; I27.2 Other secondary pulmonary hypertension; D70.1 Agranulocytosis secondary to cancer chemotherapy; Z94.84 Stem cells transplant status; I50.22 Chronic systolic (congestive) heart failure; I11.0 Hypertensive heart disease with heart failure; C34.12 Malignant neoplasm of upper lobe, left bronchus or lung; J98.11 Atelectasis; Z99.81 Dependence on supplemental oxygen; D70.3 Neutropenia due to infection; I48.2 Chronic atrial fibrillation; R50.81 Fever presenting with conditions classified elsewhere; J44.9 Chronic obstructive pulmonary disease, unspecified; I25.10 Atherosclerotic heart disease of native coronary artery without angina pectoris; T45.1X5A Adverse effect of antineoplastic and immunosuppressive drugs, initial encounter; E78.5 Hyperlipidemia, unspecified; E11.9 Type 2 diabetes mellitus without complications; E66.9 Obesity, unspecified; I25.2 Old myocardial infarction; Z68.34 Body mass index [BMI] 34.0-34.9, adult; Z79.82 Long term (current) use of aspirin; Z79.899 Other long term (current) drug therapy; Z85.71 Personal history of Hodgkin lymphoma; Z95.810 Presence of automatic (implantable) cardiac defibrillator; Z95.5 Presence of coronary angioplasty implant and graft; Z92.3 Personal history of irradiation; Z92.21 Personal history of antineoplastic chemotherapy; Z87.891 Personal history of nicotine dependence
CPT/HCPCS: 36415; 71010; 71020; 71275; 80048; 80053; 80061; 80202; 81003; 82550; 82553; 83605; 83735; 83880; 84100; 84484; 85025; 85379; 85610; 85730; 86850; 86900; 86901; 86920; 87040; 87086; 93005; 93306; 94640

== ENCOUNTER 2022-01-22 10:27 | Inpatient (IN) | payer MEDICAID, MEDICARE ==
--- NOTE | 2022-01-22 11:01 | ED ---
General Adult HPI - General Chief complaint: Shortness of Breath Stated complaint: CHARITY Time Seen by Provider: 01/22/22 10:30 Source: patient, RN notes reviewed, old records reviewed Mode of arrival: EMS Limitations: no limitations - History of Present Illness Initial comments: This is a 67-year-old male presents emergency Department complaining of diffi culty breathing. 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 Patient comes in today stating difficulty breathing and getting a little bit worse he has a history of COPD. Patient denies any chest pain or palpitations. Patient denies any fever chills or cough. Patient denies any abdominal pain patient denies any lightheadedness or dizziness. Patient denies any swelling to his legs or calf tenderness. - Related Data Home Medications Medication Instructions Recorded Confirmed Aspirin 81 mg PO DAILY 06/29/17 01/22/22 Omeprazole 20 mg PO DAILY 06/30/17 01/22/22 Cyclobenzaprine [Flexeril] 10 mg PO HS 01/22/22 01/22/22 Metoprolol Succinate [Toprol XL] 25 mg PO DAILY 01/22/22 01/22/22 Polyethylene Glycol 3350 [Miralax] 17 gm PO DAILY PRN 01/22/22 01/22/22 Pravastatin Sodium [Pravachol] 40 mg PO HS 01/22/22 01/22/22 Sertraline [Zoloft] See Taper PO DAILY 01/22/22 01/22/22 Spironolactone 25 mg PO DAILY 01/22/22 01/22/22 Temazepam [Restoril] 15 mg PO HS 01/22/22 01/22/22 Allergies Allergy/AdvReac Type Severity Reaction Status Date / Time perflutren [From Definity] AdvReac Anaphylaxis Verified 01/22/22 11:40 piperacillin [From Zosyn] AdvReac Anaphylaxis Verified 01/22/22 11:40 tazobactam [From Zosyn] AdvReac Anaphylaxis Verified 01/22/22 11:40 Review of Systems ROS Statement: Those systems with pertinent positive or pertinent negative responses have been documented in the HPI. ROS Other: All systems not noted in ROS Statement are negative. Past Medical History Past Medical History: Atrial Fibrillation, Cancer, Chest Pain / Angina, COPD, Diabetes Mellitus, Myocardial Infarction ([place]) Additional Past Medical History / Comment(s): stent placed 2008, chronic hypoxic respiratory failure on home O2, Hodgkin's lymphoma status post themselves transplant, atrial fibrillation status post AV node ablation Last Myocardial Infarction Date:: 2008 History of Any Multi-Drug Resistant Organisms: MRSA Date of last positivie culture/infection: 2003 MDRO Source:: pulmonary MRSA Past Surgical History: AICD, Pacemaker Additional Past Surgical History / Comment(s): AV node ablation for atrial fibrillation, pacemaker upgraded to AICD 07/2015. 1997 Stem cell transplant, port placement Past Anesthesia/Blood Transfusion Reactions: No Reported Reaction Type of Cardiac Device: Permanent Pacemaker, AICD Device Placement Date:: 2014 Past Psychological History: No Psychological Hx Reported Smoking Status: Former smoker Past Alcohol Use History: None Reported Past Drug Use History: None Reported General Exam - General Exam Comments Initial Comments: GENERAL: Patient is well-developed and well-nourished. Patient is nontoxic and well- hydrated and is in no acute distress. ENT: Neck is soft and supple. No significant lymphadenopathy is noted. Oropharynx is clear. Moist mucous membranes. Neck has full range of motion without eliciting any pain. EYES: The sclera were anicteric and conjunctiva were pink and moist. Extraocular movements were intact and pupils were equal round and reactive to light. Eyelids were unremarkable. PULMONARY: Unlabored respirations. Good breath sounds bilaterally. No audible rales rhonchi or wheezing was noted. CARDIOVASCULAR: There is a regular rate and rhythm without any murmurs gallops or rubs. ABDOMEN: Soft and nontender with normal bowel sounds. SKIN: Skin is clear with no lesions or rashes and otherwise unremarkable. NEUROLOGIC: Patient is alert and oriented x3. Cranial nerves II through XII are grossly intact. Motor and sensory are also intact. Normal speech, volume and content. Symmetrical smile. MUSCULOSKELETAL: Normal extremities with adequate strength and full range of motion. No lower extremity swelling or edema. No calf tenderness. LYMPHATICS: No significant lymphadenopathy is noted PSYCHIATRIC: Normal psychiatric evaluation. Limitations: no limitations Course Vital Signs 01/22/22 01/22/22 10:30 10:36 Temperature 97.9 F Pulse Rate 71 Respiratory 20 20 Rate Blood Pressure 127/99 O2 Sat by Pulse 96 Oximetry Medical Decision Making - Medical Decision Making EKG shows a paced rhythm at a very poor quality EKG at a rate of 69 bpm QRS is 120 QT intervals 419 QTC is 439. Chest x-ray shows pneumonia. Computed tomography scan shows no PE but does show infiltrates consistent with pneumonia. Patient received antibodies emergency department. I spoke with the [facility] hospitalist agreed to admit the patient admitted the patient wrote admitting orders. - Lab Data Result diagrams: 01/22/22 10:53 01/22/22 10:53 Lab Results 01/22/22 01/22/22 01/22/22 Range/Units 10:53 10:53 10:53 WBC 7.2 (3.8-10.6) k/uL RBC 2.86 L (4.30-5.90) m/uL Hgb 10.3 L (13.0-17.5) gm/dL Hct 30.4 L (39.0-53.0) % MCV 106.3 H (80.0-100.0) fL MCH 36.1 H (25.0-35.0) pg MCHC 34.0 (31.0-37.0) g/dL RDW 16.7 H (11.5-15.5) % Plt Count 160 (150-450) k/uL MPV 8.9 Neutrophils % 80 % Lymphocytes % 10 % Monocytes % 5 % Eosinophils % 2 % Basophils % 0 % Neutrophils # 5.7 (1.3-7.7) k/uL Lymphocytes # 0.7 L (1.0-4.8) k/uL Monocytes # 0.4 (0-1.0) k/uL Eosinophils # 0.1 (0-0.7) k/uL Basophils # 0.0 (0-0.2) k/uL Manual Slide Review Performed Hypochromasia Slight Poikilocytosis Slight Anisocytosis Slight Macrocytosis Marked A PT 11.5 (9.0-12.0) sec INR 1.1 (<1.2) APTT 28.9 (22.0-30.0) sec D-Dimer 4.09 H (<0.60) mg/L FEU Sodium (137-145) mmol/L Potassium (3.5-5.1) mmol/L Chloride (98-107) mmol/L Carbon Dioxide (22-30) mmol/L Anion Gap mmol/L BUN (9-20) mg/dL Creatinine (0.66-1.25) mg/dL Est GFR (CKD-EPI)AfAm (>60 ml/min/1.73 sqM) Est GFR (CKD-EPI)NonAf (>60 ml/min/1.73 sqM) Glucose (74-99) mg/dL Lactic Ac Sepsis Rflx Plasma Lactic Acid Krystian (0.7-2.0) mmol/L Calcium (8.4-10.2) mg/dL Magnesium (1.6-2.3) mg/dL Total Bilirubin (0.2-1.3) mg/dL AST (17-59) U/L ALT (4-49) U/L Alkaline Phosphatase (38-126) U/L Troponin I (0.000-0.034) ng/mL Total Protein (6.3-8.2) g/dL Albumin (3.5-5.0) g/dL Coronavirus (PCR) Not Detected (Not Detectd) 01/22/22 01/22/22 01/22/22 Range/Units 10:53 10:53 10:53 WBC (3.8-10.6) k/uL RBC (4.30-5.90) m/uL Hgb (13.0-17.5) gm/dL Hct (39.0-53.0) % MCV (80.0-100.0) fL MCH (25.0-35.0) pg MCHC (31.0-37.0) g/dL RDW (11.5-15.5) % Plt Count (150-450) k/uL MPV Neutrophils % % Lymphocytes % % Monocytes % % Eosinophils % % Basophils % % Neutrophils # (1.3-7.7) k/uL Lymphocytes # (1.0-4.8) k/uL Monocytes # (0-1.0) k/uL Eosinophils # (0-0.7) k/uL Basophils # (0-0.2) k/uL Manual Slide Review Hypochromasia Poikilocytosis Anisocytosis Macrocytosis PT (9.0-12.0) sec INR (<1.2) APTT (22.0-30.0) sec D-Dimer (<0.60) mg/L FEU Sodium 126 L (137-145) mmol/L Potassium 4.7 (3.5-5.1) mmol/L Chloride 94 L (98-107) mmol/L Carbon Dioxide 23 (22-30) mmol/L Anion Gap 9 mmol/L BUN 16 (9-20) mg/dL Creatinine 0.79 (0.66-1.25) mg/dL Est GFR (CKD-EPI)AfAm >90 (>60 ml/min/1.73 sqM) Est GFR (CKD-EPI)NonAf >90 (>60 ml/min/1.73 sqM) Glucose 190 H (74-99) mg/dL Lactic Ac Sepsis Rflx Plasma Lactic Acid Krystian 2.6 H* (0.7-2.0) mmol/L Calcium 8.6 (8.4-10.2) mg/dL Magnesium 1.1 L (1.6-2.3) mg/dL Total Bilirubin 1.3 (0.2-1.3) mg/dL AST 33 (17-59) U/L ALT 22 (4-49) U/L Alkaline Phosphatase 97 (38-126) U/L Troponin I 0.012 (0.000-0.034) ng/mL Total Protein 6.4 (6.3-8.2) g/dL Albumin 3.3 L (3.5-5.0) g/dL Coronavirus (PCR) (Not Detectd) 01/22/22 Range/Units 11:30 WBC (3.8-10.6) k/uL RBC (4.30-5.90) m/uL Hgb (13.0-17.5) gm/dL Hct (39.0-53.0) % MCV (80.0-100.0) fL MCH (25.0-35.0) pg MCHC (31.0-37.0) g/dL RDW (11.5-15.5) % Plt Count (150-450) k/uL MPV Neutrophils % % Lymphocytes % % Monocytes % % Eosinophils % % Basophils % % Neutrophils # (1.3-7.7) k/uL Lymphocytes # (1.0-4.8) k/uL Monocytes # (0-1.0) k/uL Eosinophils # (0-0.7) k/uL Basophils # (0-0.2) k/uL Manual Slide Review Hypochromasia Poikilocytosis Anisocytosis Macrocytosis PT (9.0-12.0) sec INR (<1.2) APTT (22.0-30.0) sec D-Dimer (<0.60) mg/L FEU Sodium (137-145) mmol/L Potassium (3.5-5.1) mmol/L Chloride (98-107) mmol/L Carbon Dioxide (22-30) mmol/L Anion Gap mmol/L BUN (9-20) mg/dL Creatinine (0.66-1.25) mg/dL Est GFR (CKD-EPI)AfAm (>60 ml/min/1.73 sqM) Est GFR (CKD-EPI)NonAf (>60 ml/min/1.73 sqM) Glucose (74-99) mg/dL Lactic Ac Sepsis Rflx Y Plasma Lactic Acid Krystian (0.7-2.0) mmol/L Calcium (8.4-10.2) mg/dL Magnesium (1.6-2.3) mg/dL Total Bilirubin (0.2-1.3) mg/dL AST (17-59) U/L ALT (4-49) U/L Alkaline Phosphatase (38-126) U/L Troponin I (0.000-0.034) ng/mL Total Protein (6.3-8.2) g/dL Albumin (3.5-5.0) g/dL Coronavirus (PCR) (Not Detectd) Disposition Clinical Impression: Pneumonia, Hyponatremia, Dyspnea Disposition: ADMITTED IP TO THIS HOSP Referrals: Maddi Renteria DO [Primary Care Provider] - 1-2 days Time of Disposition: 14:20
[2022-01-22 11:12] LABS: Anisocytosis Slight; Basophils % (A) 0 %; Eosinophils # (A) 0.1 k/uL (0-0.7); Eosinophils % (A) 2 %; HCT 30.4 % (39.0-53.0); HGB 10.3 gm/dL (13.0-17.5); Hypochromasia Slight; Lymphocytes # (A) 0.7 k/uL (1.0-4.8); Lymphocytes % (A) 10 %; MCH 36.1 pg (25.0-35.0); MCV 106.3 fL (80.0-100.0); Macrocytosis Marked; Mean Platelet Volume 8.9; Monocytes # (A) 0.4 k/uL (0-1.0); Monocytes % (A) 5 %; Neutrophils # (A) 5.7 k/uL (1.3-7.7); Neutrophils % (A) 80 %; Platelet Count 160 k/uL (150-450); Poikilocytosis Slight; RBC 2.86 m/uL (4.30-5.90); RDW 16.7 % (11.5-15.5); WBC 7.2 k/uL (3.8-10.6)
--- NOTE | 2022-01-22 11:27 | XR ---
EXAMINATION TYPE: XR chest 2V DATE OF EXAM: 01/22/2022 COMPARISON: X-ray dated 07/02/2017 HISTORY: Difficulty breathing TECHNIQUE: Frontal and lateral views of the chest are obtained. FINDINGS: Left upper chest wall triple lead pacemaker. Heterogeneous patchy opacities are seen in the right low er lung zone and to a lesser extent the lateral aspect of the right midlung zone with a smaller opaci ty in the left upper lung zone. This may suggest pneumonia, please correlate clinically. Follow-up to complete resolution is advised. No sizable pleural effusion or definite pneumothorax. Suspected fibrotic changes in the left lung ape x. Increased cardiac transverse diameter. Right-sided Port-A-Cath with the tip is likely within the S VC. Aortic atherosclerotic calcifications. Degenerative changes of the glenohumeral articulations. IMPRESSION: Bilateral pulmonary infiltration most evident in the right lower lung zone as described above suggest john of pneumonia. Recommend follow-up to complete resolution after proper treatment in 6 weeks. Other incidental findings as described above.
[2022-01-22] MEDS ORDERED: cefTRIAXone IN SWFI 1,000 MG/10 ML SYRINGE IVP STA (11:30)
[2022-01-22 11:31] LABS: ALT 22 U/L (4-49); AST 33 U/L (17-59); African American GFR (CKD) >90 (>60 ml/min/1.73 sqM); Albumin 3.3 g/dL (3.5-5.0); Alkaline Phosphatase 97 U/L (38-126); Anion Gap 9 mmol/L; Blood Urea Nitrogen 16 mg/dL (9-20); Calcium 8.6 mg/dL (8.4-10.2); Carbon Dioxide 23 mmol/L (22-30); Chloride 94 mmol/L (98-107); Glucose 190 mg/dL (74-99); Magnesium 1.1 mg/dL (1.6-2.3); Non-African American GFR(CKD) >90 (>60 ml/min/1.73 sqM); Potassium 4.7 mmol/L (3.5-5.1); Sodium 126 mmol/L (137-145); Total Bilirubin 1.3 mg/dL (0.2-1.3); Total Protein 6.4 g/dL (6.3-8.2)
[2022-01-22] MEDS ORDERED: SODIUM CHLORIDE 0.9% 1,000 ML IV ONE (11:35)
[2022-01-22 11:47] LABS: INR 1.1 (<1.2); Partial Thromboplastin Time 28.9 sec (22.0-30.0); Prothrombin Time 11.5 sec (9.0-12.0)
--- NOTE | 2022-01-22 14:06 | CT ---
EXAMINATION TYPE: CT chest angio for PE DATE OF EXAM: 01/22/2022 COMPARISON: CT dated 06/29/2017 HISTORY: CHARITY, Elevated D-dimer CT DLP: 356.9 mGy.cm. Automated Exposure Control for Dose Reduction was Utilized. TECHNIQUE AND CONTRAST: CTA scan of the thorax is performed with IV Contrast, patient injected with 75 mL of Isovue 370, pulm onary embolism protocol. MIP Images are created on CT scanner and reviewed. FINDINGS: No definite filling defect within the pulmonary trunk, main pulmonary arteries, lobar, segmental and subsegmental branches to suggest pulmonary embolism. Distal subsegmental branches are suboptimally as sessed. The pulmonary trunk measures 3.5 cm suggestive of pulmonary hypertension. Cardiomediastinal shift to the left side with suspected cardiomegaly, please correlate with echocardi ographic results. Left upper chest wall triple lead pacemaker with right-sided Port-A-Cath. Scattered arterial atherosclerotic calcifications with coronary arterial calcifications. Background of severe COPD changes and emphysematous changes. Newly seen multiple areas of pulmonary c onsolidation/infiltration, largest in the posterior aspect of the left upper lobe, along the right hi lum, left lung base and at the central portion of the right middle lobe and adjacent portion of the r ight lower lobe. Other scattered smaller areas of consolidation and reticular nodular infiltrates. Th is could be related to acute inflammatory/infectious process however underlying neoplastic process ca nnot be excluded. Tracheobronchial irregularity yet still patent. No pleural or pericardial effusion. Subcentimeter hil ar and mediastinal lymph nodes, slightly more prominent compared to the previous CT scan, attention f ollow-up. No axillary lymphadenopathy. Fatty infiltration of the pancreas. Diffuse osteopenia. Degene rative changes of the right glenohumeral articulation. Chronic unhealed nondisplaced fracture of the posterior aspect of the right seventh rib. IMPRESSION: No evidence of pulmonary embolism. Severe COPD changes with dilated pulmonary trunk suggestive of pul monary hypertension. The described bilateral pulmonary infiltrations and areas of consolidation could be related to acute inflammatory/infectious process like pneumonia however underlying neoplastic process cannot be exclud ed. If the presentation is that of pneumonia, follow-up to complete resolution should be considered. If n o presentation of pneumonia, further PET scan assessment should be considered. Other incidental findi ngs as described above.
[2022-01-22] MEDS ORDERED: PNEUMONIA PROTOCOL UTILIZED 1 EACH MISC PO PRN (14:20)
[2022-01-22] MEDS ORDERED: AZITHROMYCIN 500 MG in SODIUM CHLORIDE 0.9% 250 ML IVPB STA (14:24)
[2022-01-22] MEDS ORDERED: polyethylene glycoL 3350 17 GM POWD.PACK PO PRN (14:31)
[2022-01-22] MEDS ORDERED: SODIUM CHLORIDE 0.9% 1,000 ML IV STA (14:36)
--- NOTE | 2022-01-22 15:44 | P.HPIM ---
History of Present Illness H&P Date: 01/22/22 Chief Complaint: CHARITY Patient is a 67-year-old male with a known history of esophageal cancer status post radiation treatment, Hodgkin's lymphoma with history of stem cell dewitt splant in 1997 with remission, diabetes type 2 diet-controlled, history of [place], atrial fibrillation status post ablation, chronic CHF with systolic dysfunction ejection fraction 30 to 35% status post AICD placement in 2014, coronary disease with history of stent placement and previous history of smoking presents to ER with complaints of difficulty breathing started overnight. Patient woke up in the morning and felt very short of breath and had trouble catching of breath and shortness of breath with minimal exertion. Denied chest pain. Patient otherwise did have pleuritic pain with deep breathing. Denied any complaints of cough or sputum production. No fever no chills. No headache or dizziness or lightheadedness. Denied leg swelling. Patient was recently admitted to the [facility] and was treated for pneumonia with cephalosporins. Patient was discharged home on 01/10/2022. Chest x-ray showed bilateral pulmonary infiltration most evident in the right lower zone suggestive of pneumonia. CT angiogram of the chest was done showed no evidence of PE. Severe COPD changes with a dilated pulmonary trunk suggestive of pulmonary hypertension. Bilateral pulmonary infiltrates could relate to acute inflammatory/infectious process like pneumonia however underlying neoplastic process cannot be excluded. 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 Laboratory data showed WBC 7.2 hemoglobin 10.3 and MCV 106.3 platelets 160. D-dimer level is 4.09 Sodium 126 potassium 4.7 chloride 94 bicarb is 23 BUN 16 and creatinine 0.79 Lactic acid 2.6 and magnesium 1.1 troponin 0 0.012 and albumin 3.3 liver enzymes are not elevated COVID-19 PCR not detected. Patient is vaccinated against COVID-19. Review of Systems Constitutional: Patient denies any fever or chills . No generalized weakness or weight loss. Abdomen: Patient denied nausea vomiting and diarrhea and abdominal pain. Cardiovascular: Patient denies any chest pain . Positive short of breath no palpitations. No leg swelling Respiratory: Occasional cough with thick whitish sputum production. Does have shortness of breath Neurologic: Patient denied any numbness or tingling headache. Musculoskeletal: Patient denies any complaints of joint swelling or deformity. Skin: Negative Psychiatric: Negative Endocrine: No heat or cold intolerance. No recent weight gain. Genitourinary: No dysuria or hematuria. All other 14 point ROS negative except the above Past Medical History Past Medical History: Atrial Fibrillation, Cancer, Chest Pain / Angina, COPD, Diabetes Mellitus, Myocardial Infarction (TN) Additional Past Medical History / Comment(s): stent placed 2008, chronic hypoxic respiratory failure on home O2, Hodgkin's lymphoma status post themselves transplant, atrial fibrillation status post AV node ablation Last Myocardial Infarction Date:: 2008 History of Any Multi-Drug Resistant Organisms: MRSA Date of last positivie culture/infection: 2003 MDRO Source:: pulmonary MRSA Past Surgical History: AICD, Pacemaker Additional Past Surgical History / Comment(s): AV node ablation for atrial fibr illation, pacemaker upgraded to AICD 07/2015. 1997 Stem cell transplant, port placement Past Anesthesia/Blood Transfusion Reactions: No Reported Reaction Type of Cardiac Device: Permanent Pacemaker, AICD Device Placement Date:: 2014 Past Psychological History: No Psychological Hx Reported Smoking Status: Former smoker Past Alcohol Use History: None Reported Past Drug Use History: None Reported Medications and Allergies Home Medications Medication Instructions Recorded Confirmed Type Aspirin 81 mg PO DAILY 06/29/17 01/22/22 History Omeprazole 20 mg PO DAILY 06/30/17 01/22/22 History Cyclobenzaprine [Flexeril] 10 mg PO HS 01/22/22 01/22/22 History Metoprolol Succinate [Toprol XL] 25 mg PO DAILY 01/22/22 01/22/22 History Polyethylene Glycol 3350 [Miralax] 17 gm PO DAILY PRN 01/22/22 01/22/22 History Pravastatin Sodium [Pravachol] 40 mg PO HS 01/22/22 01/22/22 History Sertraline [Zoloft] See Taper PO DAILY 01/22/22 01/22/22 History Spironolactone 25 mg PO DAILY 01/22/22 01/22/22 History Temazepam [Restoril] 15 mg PO HS 01/22/22 01/22/22 History Allergies Allergy/AdvReac Type Severity Reaction Status Date / Time perflutren [From Definity] AdvReac Anaphylaxis Verified 01/22/22 11:40 piperacillin [From Zosyn] AdvReac Anaphylaxis Verified 01/22/22 11:40 tazobactam [From Zosyn] AdvReac Anaphylaxis Verified 01/22/22 11:40 Physical Exam Vitals: Vital Signs Temp Pulse Resp BP Pulse Ox 01/22/22 10:36 20 01/22/22 10:30 97.9 F 71 20 127/99 96 Intake and Output 01/21/22 01/22/22 01/22/22 22:59 06:59 14:59 Other: Weight 77.111 kg PHYSICAL EXAMINATION: Patient is lying in the bed comfortably, no acute distress, awake alert and oriented.. HEENT: Normocephalic. Neck is supple. Pupils reactive. Nostrils clear. Oral cavity is moist. Neck reveals no JVD, carotid bruits, or thyromegaly. CHEST EXAMINATION: Trachea is central. Symmetrical expansion. Bilateral scattered crackles. No wheezing or rhonchi. Nonlabored breathing.. CARDIAC: Normal S1, S2 with no gallops. No murmurs ABDOMEN: Soft. Bowel sounds normal. No organomegaly. No abdominal bruits. Extremities: reveal no edema. No clubbing or cyanosis Neurologically awake, alert, oriented x3 with well-coordinated movements. No fo sana deficits noted Skin: No rash or skin lesions. Psychiatric: Coperative. Nonsuicidal Musculoskeletal: No joint swelling or deformity. Normal range of motion. Results CBC & Chem 7: 01/22/22 10:53 01/22/22 10:53 Labs: Abnormal Lab Results - Last 24 Hours (Table) 01/22/22 01/22/22 01/22/22 Range/Units 10:53 10:53 10:53 RBC 2.86 L (4.30-5.90) m/uL Hgb 10.3 L (13.0-17.5) gm/dL Hct 30.4 L (39.0-53.0) % MCV 106.3 H (80.0-100.0) fL MCH 36.1 H (25.0-35.0) pg RDW 16.7 H (11.5-15.5) % Lymphocytes # 0.7 L (1.0-4.8) k/uL Macrocytosis Marked A D-Dimer 4.09 H (<0.60) mg/L FEU Sodium 126 L (137-145) mmol/L Chloride 94 L (98-107) mmol/L Glucose 190 H (74-99) mg/dL Plasma Lactic Acid Krystian (0.7-2.0) mmol/L Magnesium 1.1 L (1.6-2.3) mg/dL Albumin 3.3 L (3.5-5.0) g/dL 01/22/22 Range/Units 10:53 RBC (4.30-5.90) m/uL Hgb (13.0-17.5) gm/dL Hct (39.0-53.0) % MCV (80.0-100.0) fL MCH (25.0-35.0) pg RDW (11.5-15.5) % Lymphocytes # (1.0-4.8) k/uL Macrocytosis D-Dimer (<0.60) mg/L FEU Sodium (137-145) mmol/L Chloride (98-107) mmol/L Glucose (74-99) mg/dL Plasma Lactic Acid Krystian 2.6 H* (0.7-2.0) mmol/L Magnesium (1.6-2.3) mg/dL Albumin (3.5-5.0) g/dL Thrombosis Risk Factor Assmnt - DVT/VTE Prophylaxis DVT/VTE Prophylaxis: Pharmacologic Prophylaxis ordered Assessment and Plan Assessment: Shortness of breath likely due to COPD and interstitial infiltrates. Bilateral infiltrates possible pneumonia. Hypovolemic hyponatremia chronic hypoxic respiratory failure History of esophageal cancer status post radiation History of Hodgkin's lymphoma status post stem cell transplant. Chronic atrial fibrillation. Patient was taken off anticoagulation due to low platelets as per patient. Coronary artery disease history of stent placement Chronic systolic CHF ejection fraction 30 to 35% Diabetes type 2 diet controlled History of [place] Previous history of smoking GI and DVT prophylaxis with PPI, heparin subcu Plan: Patient was admitted to hospital with difficulty in breathing with symptoms started overnight. CT angiogram was negative for any pulmonary embolism. Continue with antibiotics in the form of ceftriaxone and azithromycin and follow-up procalcitonin and BNP level. Continue with oxygen supplementation. Patient be continued on home medications including aspirin, statin, metoprolol and Aldactone. Prognosis is guarded. Discussed with the patient and his family at bedside in detail. Time with Patient: Greater than 30
[2022-01-22] MEDS: MAGNESIUM SULFATE-D5W PMX 1 GM in DEXTROSE/WATER 1 100ML.BAG IVPB SCH ×3 (16:23→18:16)
[2022-01-22 16:58] LABS: Glucose,Whole Blood 275 mg/dL (75-99)
[2022-01-22] MEDS: HEPARIN SODIUM,PORCINE/PF 5,000 UNIT/0.5 ML SYRINGE SQ SCH ×2 (17:05→23:20)
[2022-01-22] MEDS: TEMAZEPAM 15 MG CAP PO SCH (19:56)
[2022-01-22] MEDS: PRAVASTATIN SODIUM 40 MG TAB PO SCH (19:56)
[2022-01-23 06:33] LABS: Glucose,Whole Blood 117 mg/dL (75-99)
[2022-01-23] MEDS: INSULIN ASPART (NovoLOG) 100 UNIT/ML VIAL SQ SCH ×4 (06:35→21:31)
[2022-01-23] MEDS: PANTOPRAZOLE 40 MG TABLET PO SCH (06:36)
--- NOTE | 2022-01-23 07:20 | XR ---
EXAMINATION TYPE: XR chest 2V DATE OF EXAM: 01/23/2022 COMPARISON: 01/22/2022 HISTORY: Shortness of breath TECHNIQUE: Frontal and lateral views of the chest are obtained. FINDINGS: Scattered senescent parenchymal changes noted. Hyperinflation compatible with COPD. Patchy right lower lobe infiltrate as well as increased density left suprahilar region. Overall no si gnificant change appreciated. Heart size is stable. Mediastinal structures are stable and grossly unremarkable. No evidence for hilar prominence. Degenerative changes dorsal spine. IMPRESSION: 1. Patchy right lower lobe infiltrate as well as increased density left suprahilar region. Overall no significant change appreciated.
[2022-01-23 07:39] LABS: Basophils % (A) 0 %; Eosinophils % (A) 0 %; HCT 27.4 % (39.0-53.0); HGB 9.3 gm/dL (13.0-17.5); Hypochromasia Slight; Lymphocytes # (A) 0.7 k/uL (1.0-4.8); Lymphocytes % (A) 12 %; MCH 35.9 pg (25.0-35.0); MCHC 33.9 g/dL (31.0-37.0); MCV 105.7 fL (80.0-100.0); Macrocytosis Moderate; Mean Platelet Volume 9.2; Monocytes # (A) 0.4 k/uL (0-1.0); Monocytes % (A) 7 %; Neutrophils # (A) 4.7 k/uL (1.3-7.7); Neutrophils % (A) 78 %; Platelet Count 149 k/uL (150-450); Poikilocytosis Moderate; RBC 2.59 m/uL (4.30-5.90); RDW 15.7 % (11.5-15.5); WBC 6.1 k/uL (3.8-10.6)
[2022-01-23 07:44] LABS: African American GFR (CKD) >90 (>60 ml/min/1.73 sqM); Anion Gap 7 mmol/L; Blood Urea Nitrogen 14 mg/dL (9-20); Calcium 8.5 mg/dL (8.4-10.2); Carbon Dioxide 24 mmol/L (22-30); Chloride 98 mmol/L (98-107); Glucose 116 mg/dL (74-99); Magnesium 1.8 mg/dL (1.6-2.3); Non-African American GFR(CKD) >90 (>60 ml/min/1.73 sqM); Potassium 4.8 mmol/L (3.5-5.1); Sodium 129 mmol/L (137-145)
[2022-01-23] MEDS: IPRATROPIUM-ALBUTEROL 3 ML NEB INHALATION PRN ×2 (07:50→19:43)
[2022-01-23] MEDS ORDERED: AZITHROMYCIN 500 MG in SODIUM CHLORIDE 0.9% 250 ML IVPB SCH (09:00)
[2022-01-23] MEDS: METOPROLOL SUCCINATE (ER) 25 MG TAB.ER.24H PO SCH (09:44)
[2022-01-23] MEDS: ASPIRIN 81 MG PO SCH (09:44)
[2022-01-23] MEDS: HEPARIN SODIUM,PORCINE/PF 5,000 UNIT/0.5 ML SYRINGE SQ SCH ×2 (09:44→16:45)
[2022-01-23] MEDS: SERTRALINE 50 MG TAB PO SCH (09:44)
[2022-01-23] MEDS: SPIRONOLACTONE 25 MG TAB PO SCH (09:44)
[2022-01-23 11:16] LABS: % Iron Saturation 23.61 (15.00-50.00)
[2022-01-23 11:53] LABS: Glucose,Whole Blood 139 mg/dL (75-99)
[2022-01-23] MEDS: CEFEPIME 2 GM in SODIUM CHLORIDE 0.9% 100 ML IVPB SCH ×2 (12:40→21:30)
--- NOTE | 2022-01-23 14:00 | P.CNPUL ---
History of Present Illness Consult date: 01/23/22 Reason for consult: dyspnea History of present illness: This is a 67-year-old male patient and I recently met this patient during a hospitalization at [facility] on 01/07/2022 when he came in with a left lower lobe pneumonia. The patient was treated and the patient was discharged home and he was staying with his daughter in town when he woke up and he felt short of breath and he had trouble catching his breath and he was getting short of breath with minimal amount of activity. Denies having any chest pain. He had some pleurisy. Limited cough. No significant sputum production. No fever. No chills. No headache. No altered mentation. No swelling lower extremities. No Pain or tenderness. He came into the emergency where he was found otherwise second of 7.2 with hemoglobin of 10.3 and a platelet of 160. D-dimer was at 4.09. His sodium level was at 126 with a potassium level of 4.7, chloride is 94 with a bicarb level of 23. Creatinine is at 0.7. Lactic acid level was at 2.6. Troponin was at 0.012. LFTs were nonelevated. COVID 19 testing was negative. The patient has been already vaccinated for COVID 19. The patient was given Rocephin and Zithromax. Chest x-ray showed bilateral pulmonary infiltration and for that reason a computed tomography scan of the chest was done. This was a CT angiogram that showed no evidence of any pulmonary embolism. There was background COPD with some dil atation of the pulmonary trunk suggestive of pulmonary hypertension. There was bilateral pulmonary infiltrates related to infectious or postinfectious changes mainly in the left lower lobe. Some on the right side. There was an area of nodular scar in the left upper lobe probably related to previous malignancy treatment. In summary, this patient is a complicated history. All this physicians are from [facility]. The patient has previous history of lung cancer treated with chemoradiation therapy and the patient continued to have a consolidation mass in the left upper lobe and this was noted on various CAT scans done. Patient also has history of Hodgkin's lymphoma undergone previous bone marrow transplantation and he has been in remission since. 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 He suffers from chronic atrial fibrillation, hyperlipidemia and diabetes mellitus. Furthermore, the the patient was diagnosed having esophageal adenocarcinoma and the patient was treated with a combination of chemoradiation therapy and his last ch emotherapy was approximately 4 weeks ago. The patient was subsequently hospitalized at [facility] where he was presented with worsening shortness of breath and the CAT scan of the chest that was done at that time showed an irregular masslike consolidation of the left upper lobe measuring 2.9 x 3.9 cm in size extending towards the left suprahilar area and there was also consolidation of left lower lobe along with air bronchograms is a small left- sided pleural effusion and some mediastinal lymphadenopathy that was essentially small. The patient had an elevated TROPONIN level. The patient was given IV antibiotics and the patient was covered with IV cefepime and subsequently the patient was discharged home on Ceftin. He took antibiotic for a total of 5 days and then stop. He also completed a prednisone burst taper. I reviewed the most recent CAT scan that was done during this current admission and a compared to today earlier CAT scan of the chest and I appreciate improvement in the left lower lobe consolidation and the various inflammatory changes compared to the previous CAT scans was done at [facility] on 01/06/2022. Patient is currently on 3 L approximately nasal cannula. No chest pain. No significant shortness of breath. Hemodynamically stable. Afebrile. Review of Systems Constitutional: Reports fatigue, Reports poor appetite, Reports weakness, Reports weight loss Eyes: denies as per HPI, denies blurred vision, denies bulging eye, denies decreased vision, denies diplopia, denies discharge, denies dry eye, denies irritation, denies itching, denies pain, denies photophobia, denies loss of peripheral vision, denies loss of vision, denies tunnel vision/blind spots Ears: deny: decreased hearing, ear discharge, earache, tinnitus Ears, nose, mouth and throat: Reports as per HPI Cardiovascular: Reports decreased exercise tolerance, Reports dyspnea on exertion Gastrointestinal: Reports as per HPI, Reports dyspepsia, Reports loss of appetite Genitourinary: Reports as per HPI Musculoskeletal: Reports as per HPI Musculoskeletal: absent: ankle pain, ankle stiffness, ankle swelling Integumentary: Reports as per HPI Neurological: Reports as per HPI Psychiatric: Reports as per HPI Endocrine: Reports as per HPI, Reports fatigue Hematologic/Lymphatic: Reports as per HPI Allergic/Immunologic: Reports as per HPI Past Medical History Past Medical History: Atrial Fibrillation, Cancer, Chest Pain / Angina, COPD, Diabetes Mellitus, Myocardial Infarction ([place]) Additional Past Medical History / Comment(s): stent placed 2008, chronic hypoxic respiratory failure on home O2, Hodgkin's lymphoma status post themselves transplant, atrial fibrillation status post AV node ablation Last Myocardial Infarction Date:: 2008 History of Any Multi-Drug Resistant Organisms: MRSA Date of last positivie culture/infection: 2003 MDRO Source:: pulmonary MRSA Past Surgical History: AICD, Pacemaker Additional Past Surgical History / Comment(s): AV node ablation for atrial fibrillation, pacemaker upgraded to AICD 07/2015. 1997 Stem cell transplant, por t placement Past Anesthesia/Blood Transfusion Reactions: No Reported Reaction Additional Past Anesthesia/Blood Transfusion Reaction / Comment(s): Pt has received blood without reaction. Type of Cardiac Device: Permanent Pacemaker, AICD Device Placement Date:: 2014 Past Psychological History: No Psychological Hx Reported Smoking Status: Former smoker Past Alcohol Use History: None Reported Past Drug Use History: None Reported - Past Family History Father Family Medical History: Hypertension, Myocardial Infarction ([place]), Vascular Disorder Additional Family Medical History / Comment(s): Aortic aneurysm. Mother Family Medical History: Cancer Additional Family Medical History / Comment(s): Pt thinks uterine cancer and colon cancer. Medications and Allergies Home Medications Medication Instructions Recorded Confirmed Type Aspirin 81 mg PO DAILY 06/29/17 01/22/22 History Omeprazole 20 mg PO DAILY 06/30/17 01/22/22 History Cyclobenzaprine [Flexeril] 10 mg PO HS 01/22/22 01/22/22 History Metoprolol Succinate [Toprol XL] 25 mg PO DAILY 01/22/22 01/22/22 History Polyethylene Glycol 3350 [Miralax] 17 gm PO DAILY PRN 01/22/22 01/22/22 History Pravastatin Sodium [Pravachol] 40 mg PO HS 01/22/22 01/22/22 History Sertraline [Zoloft] See Taper PO DAILY 01/22/22 01/22/22 History Spironolactone 25 mg PO DAILY 01/22/22 01/22/22 History Temazepam [Restoril] 15 mg PO HS 01/22/22 01/22/22 History Allergies Allergy/AdvReac Type Severity Reaction Status Date / Time perflutren [From Definity] AdvReac Anaphylaxis Verified 01/22/22 11:40 piperacillin [From Zosyn] AdvReac Anaphylaxis Verified 01/22/22 11:40 tazobactam [From Zosyn] AdvReac Anaphylaxis Verified 01/22/22 11:40 Physical Exam Vitals: Vital Signs Temp Pulse Pulse Resp BP BP Pulse Ox 01/23/22 11:53 98.2 F 63 19 128/74 95 01/23/22 08:05 84 01/23/22 08:00 98.0 F 70 19 114/63 97 01/23/22 07:51 80 01/23/22 06:45 94 L 01/23/22 04:00 97.9 F 70 18 115/67 96 01/23/22 02:00 69 18 01/23/22 00:00 98.1 F 69 18 135/73 97 01/22/22 20:00 98.2 F 72 16 122/73 96 01/22/22 17:13 98.3 F 70 17 123/82 95 01/22/22 15:19 69 18 127/75 100 Intake and Output 01/22/22 01/23/22 01/23/22 22:59 06:59 14:59 Intake Total 240 Output Total 850 Balance -850 240 Intake: Oral 240 Output: Urine 850 Other: Voiding Method Urinal Urinal Urinal Weight 77.111 kg 77.111 kg Gen. appearance the patient is calm comfortable likely distress, currently on 3 liters O2 nasal cannula Head exam was generally normal. There was no scleral icterus or corneal arcus. Mucous membranes were moist. Neck was supple and without jugular venous distension, thyromegaly, or carotid bruits. Carotids were easily palpable bilaterally. There was no adenopathy. Lungs sounds are diminished and the patient has few rales in the lung bases bilaterally more so on the left Abdominal exam revealed normal bowel sounds. The abdomen was soft, non-tender, and without masses, organomegaly, or appreciable enlargement of the abdominal aorta. Examination of the extremities revealed easily palpable radial, femoral and pedal pulses. There was no cyanosis, clubbing or edema. Examination of the skin revealed no evidence of significant rashes, suspicious appearing nevi or other concerning lesions. Neurologically, the patient has weakness in all 4 extremities. He is able to ambulate. No focal neurological deficits. Awake and alert and following commands and answering questions appropriately. Results - Laboratory Findings CBC and BMP: 01/23/22 07:11 01/23/22 07:11 PT/INR, D-dimer PT 11.5 sec (9.0-12.0) 01/22/22 10:53 INR 1.1 (<1.2) 01/22/22 10:53 D-Dimer 4.09 mg/L FEU (<0.60) H 01/22/22 10:53 Abnormal lab findings: Abnormal Labs 01/22/22 01/22/22 01/22/22 10:53 10:53 10:53 RBC 2.86 L Hgb 10.3 L Hct 30.4 L MCV 106.3 H MCH 36.1 H RDW 16.7 H Plt Count Lymphocytes # 0.7 L Macrocytosis Marked A D-Dimer 4.09 H Sodium 126 L Chloride 94 L Glucose 190 H POC Glucose (mg/dL) Plasma Lactic Acid Krystian Magnesium 1.1 L Iron TIBC Transferrin Albumin 3.3 L Procalcitonin 01/22/22 01/22/22 01/22/22 10:53 10:53 16:56 RBC Hgb Hct MCV MCH RDW Plt Count Lymphocytes # Macrocytosis D-Dimer Sodium Chloride Glucose POC Glucose (mg/dL) 275 H Plasma Lactic Acid Krystian 2.6 H* Magnesium Iron TIBC Transferrin Albumin Procalcitonin 0.16 H 01/23/22 01/23/22 01/23/22 06:31 07:11 07:11 RBC 2.59 L Hgb 9.3 L Hct 27.4 L MCV 105.7 H MCH 35.9 H RDW 15.7 H Plt Count 149 L Lymphocytes # 0.7 L Macrocytosis D-Dimer Sodium 129 L Chloride Glucose 116 H POC Glucose (mg/dL) 117 H Plasma Lactic Acid Krystian Magnesium Iron TIBC Transferrin Albumin Procalcitonin 01/23/22 01/23/22 07:11 11:52 RBC Hgb Hct MCV MCH RDW Plt Count Lymphocytes # Macrocytosis D-Dimer Sodium Chloride Glucose POC Glucose (mg/dL) 139 H Plasma Lactic Acid Krystian Magnesium Iron 52 L TIBC 220 L Transferrin 157.0 L Albumin Procalcitonin - Diagnostic Findings Chest x-ray: image reviewed CT scan - chest: image reviewed Assessment and Plan Plan: 1 left lower lobe pneumonia, with some residual pulmonary infiltrates improving compared to the earlier evaluation and the CAT scan of the chest that was done on 01/06/2022 at [facility]. The patient likely had a bacterial infection/pneumonia/aspiration knowing that the patient's pro- calcitonin level was elevated and the patient was given antibiotics and he was discharged home on oral antibiotics with Ceftin. Currently on 3 L of oxygen by nasal cannula. I with his overall condition improved over this past few weeks and the exact reason for recurrent decompensation is not clear. CT abdomen showed no evidence of any pulmonary embolism. Pulmonary infiltrations especially the one in the left lower lobes improving 2 hypoxic respiratory failure, acute currently on 3 L about 2 by nasal cannula 3 COPD currently inactive in stable 4 esophageal cancer post-chemo radiation therapy 5 remote history of lung cancer treated with chemoradiation therapy. The patient has a consolidating mass in the left upper lobe as noted a CAT scan of the chest and there are no previous CAT scan of the chest for comparison. Nevertheless, this abnormality has remained stable since December 2021.. This is likely an area of scar 6 congestion heart failure, post-AICD placement 7 chronic atrial fibrillation 8 hyperlipidemia 9 diabetes mellitus 10 chronic anemia with normocytic treva, likely secondary to systemic chemotherapy 11 chronic hyponatremia 12 history of Hodgkin's lymphoma status post systemic chemotherapy will followed by bone marrow transportation Plan My impression is partially treated left lower lobe pneumonia. Pulmonary infiltration left lung base improved in comparison yet not has not fully recovered. There is likely secondary to bacterial pneumonia/aspiration. Patient has responded to Ceftin in the past. Will do the same treatment for now. Resume all medications. We'll continue to follow.
[2022-01-23 16:30] LABS: Glucose,Whole Blood 164 mg/dL (75-99)
[2022-01-23 20:02] LABS: Glucose,Whole Blood 173 mg/dL (75-99)
[2022-01-23] MEDS: TEMAZEPAM 15 MG CAP PO SCH (21:31)
[2022-01-23] MEDS: PRAVASTATIN SODIUM 40 MG TAB PO SCH (21:31)
--- NOTE | 2022-01-24 01:02 | P.PN ---
Subjective Progress Note Date: 01/23/22 67-year-old male with a known history of esophageal cancer status post radiation treatment, Hodgkin's lymphoma with history of stem cell transplant in 1997 with remission, diabetes type 2 diet-controlled, history of [place], atrial fibrillation status post ablation, chronic CHF with systolic dysfunction ejection fraction 30 to 35% status post AICD placement in 2014, coronary disease with history of stent placement and previous history of smoking presents to ER with complaints of difficulty breathing started overnight. Patient woke up in the morning and felt very short of breath and had trouble catching of breath and shortness of breath with minimal exertion. Denied chest pain. Patient otherwise did have pleuritic pain with deep breathing. Denied any complaints of cough or sputum production. No fever no chills. No headache or dizziness or lightheadedness. Denied leg swelling. Patient was recently admitted to the [facility] and was treated for pneumonia with cephalosporins. Patient was discharged home on 01/10/2022. Chest x-ray showed bilateral pulmonary infiltration most evident in the right lower zone suggestive of pneumonia. CT angiogram of the chest was done showed no evidence of PE. Severe COPD changes with a dilated pulmonary trunk suggestive of pulmonary hypertension. Bilateral pulmonary infiltrates could relate to acute inflammatory/infectious process like pneumonia however underlying neoplastic process cannot be excluded. Objective - Vital Signs Vital signs: Vital Signs Temp 98.0 F 01/23/22 08:00 Pulse 84 01/23/22 08:05 Resp 19 01/23/22 08:00 BP 114/63 01/23/22 08:00 Pulse Ox 97 01/23/22 08:00 Intake & Output 01/22/22 01/23/22 01/23/22 18:59 06:59 18:59 Intake Total 240 Output Total 850 Balance -850 240 Weight 77.111 kg Intake: Oral 240 Output: Urine 850 Other: Voiding Method Urinal Urinal - Exam Patient is lying in the bed comfortably, no acute distress, awake alert and oriented.. HEENT: Normocephalic. Neck is supple. Pupils reactive. Nostrils clear. Oral cavity is moist. Neck reveals no JVD, carotid bruits, or thyromegaly. CHEST EXAMINATION: Trachea is central. Symmetrical expansion. Bilateral scattered crackles. No wheezing or rhonchi. Nonlabored breathing.. CARDIAC: Normal S1, S2 with no gallops. No murmurs ABDOMEN: Soft. Bowel sounds normal. No organomegaly. No abdominal bruits. Extremities: reveal no edema. No clubbing or cyanosis Neurologically awake, alert, oriented x3 with well-coordinated movements. No focal deficits noted Skin: No rash or skin lesions. - Labs CBC & Chem 7: 01/23/22 07:11 01/23/22 07:11 Labs: Abnormal Lab Results - Last 24 Hours (Table) 01/22/22 01/22/22 01/22/22 Range/Units 10:53 10:53 10:53 RBC 2.86 L (4.30-5.90) m/uL Hgb 10.3 L (13.0-17.5) gm/dL Hct 30.4 L (39.0-53.0) % MCV 106.3 H (80.0-100.0) fL MCH 36.1 H (25.0-35.0) pg RDW 16.7 H (11.5-15.5) % Plt Count (150-450) k/uL Lymphocytes # 0.7 L (1.0-4.8) k/uL Macrocytosis Marked A D-Dimer 4.09 H (<0.60) mg/L FEU Sodium 126 L (137-145) mmol/L Chloride 94 L (98-107) mmol/L Glucose 190 H (74-99) mg/dL POC Glucose (mg/dL) (75-99) mg/dL Plasma Lactic Acid Krystian (0.7-2.0) mmol/L Magnesium 1.1 L (1.6-2.3) mg/dL Albumin 3.3 L (3.5-5.0) g/dL Procalcitonin (0.02-0.09) ng/mL 01/22/22 01/22/22 01/22/22 Range/Units 10:53 10:53 16:56 RBC (4.30-5.90) m/uL Hgb (13.0-17.5) gm/dL Hct (39.0-53.0) % MCV (80.0-100.0) fL MCH (25.0-35.0) pg RDW (11.5-15.5) % Plt Count (150-450) k/uL Lymphocytes # (1.0-4.8) k/uL Macrocytosis D-Dimer (<0.60) mg/L FEU Sodium (137-145) mmol/L Chloride (98-107) mmol/L Glucose (74-99) mg/dL POC Glucose (mg/dL) 275 H (75-99) mg/dL Plasma Lactic Acid Krystian 2.6 H* (0.7-2.0) mmol/L Magnesium (1.6-2.3) mg/dL Albumin (3.5-5.0) g/dL Procalcitonin 0.16 H (0.02-0.09) ng/mL 01/23/22 01/23/22 01/23/22 Range/Units 06:31 07:11 07:11 RBC 2.59 L (4.30-5.90) m/uL Hgb 9.3 L (13.0-17.5) gm/dL Hct 27.4 L (39.0-53.0) % MCV 105.7 H (80.0-100.0) fL MCH 35.9 H (25.0-35.0) pg RDW 15.7 H (11.5-15.5) % Plt Count 149 L (150-450) k/uL Lymphocytes # 0.7 L (1.0-4.8) k/uL Macrocytosis D-Dimer (<0.60) mg/L FEU Sodium 129 L (137-145) mmol/L Chloride (98-107) mmol/L Glucose 116 H (74-99) mg/dL POC Glucose (mg/dL) 117 H (75-99) mg/dL Plasma Lactic Acid Krystian (0.7-2.0) mmol/L Magnesium (1.6-2.3) mg/dL Albumin (3.5-5.0) g/dL Procalcitonin (0.02-0.09) ng/mL Assessment and Plan Assessment: Shortness of breath likely due to COPD and interstitial infiltrates. Bilateral infiltrates possible pneumonia. Hypovolemic hyponatremia chronic hypoxic respiratory failure History of esophageal cancer status post radiation History of Hodgkin's lymphoma status post stem cell transplant. Chronic atrial fibrillation. Patient was taken off anticoagulation due to low platelets as per patient. Coronary artery disease history of stent placement Chronic systolic CHF ejection fraction 30 to 35% Diabetes type 2 diet controlled History of [place] Previous history of smoking GI and DVT prophylaxis with PPI, heparin subcu Plan: Patient was admitted to hospital with difficulty in breathing with symptoms started overnight. CT angiogram was negative for any pulmonary embolism. Continue with antibiotics in the form of ceftriaxone and azithromycin and follow-up procalcitonin and BNP level. Continue with oxygen supplementation. Patient be continued on home medications including aspirin, statin, metoprolol and Aldactone. Prognosis is guarded.
[2022-01-24] MEDS: HEPARIN SODIUM,PORCINE/PF 5,000 UNIT/0.5 ML SYRINGE SQ SCH ×4 (02:58→23:54)
[2022-01-24] MEDS: CEFEPIME 2 GM in SODIUM CHLORIDE 0.9% 100 ML IVPB SCH ×3 (04:12→20:04)
[2022-01-24 06:03] LABS: Glucose,Whole Blood 113 mg/dL (75-99)
[2022-01-24] MEDS: INSULIN ASPART (NovoLOG) 100 UNIT/ML VIAL SQ SCH ×4 (06:05→20:00)
[2022-01-24] MEDS: PANTOPRAZOLE 40 MG TABLET PO SCH (06:21)
[2022-01-24] MEDS: IPRATROPIUM-ALBUTEROL 3 ML NEB INHALATION PRN (07:57)
[2022-01-24] MEDS: SPIRONOLACTONE 25 MG TAB PO SCH (09:00)
[2022-01-24] MEDS: ASPIRIN 81 MG PO SCH (09:00)
[2022-01-24] MEDS: SERTRALINE 50 MG TAB PO SCH (09:00)
[2022-01-24] MEDS: METOPROLOL SUCCINATE (ER) 25 MG TAB.ER.24H PO SCH (09:00)
[2022-01-24] MEDS: IPRATROPIUM-ALBUTEROL 3 ML NEB INHALATION SCH ×2 (11:20→21:20)
[2022-01-24 11:36] LABS: Glucose,Whole Blood 206 mg/dL (75-99)
[2022-01-24] MEDS ORDERED: IPRATROPIUM-ALBUTEROL 3 ML NEB INHALATION SCH (12:00)
[2022-01-24] MEDS: guaiFENesin 600 MG TABLET.ER PO SCH ×2 (12:18→20:04)
--- NOTE | 2022-01-24 14:15 | P.PN ---
<Lacie Waldrop - Last Filed: 01/24/22 14:06> Subjective Progress Note Date: 01/24/22 This is a 67-year-old male patient and I recently met this patient during a hospitalization at [facility] on 01/07/2022 when he came in with a left lower lobe pneumonia. The patient was treated and the patient was discharged home and he was staying with his daughter in town when he woke up and he felt short of breath and he had trouble catching his breath and he was getting short of breath with minimal amount of activity. Denies having any chest pain. He had some pleurisy. Limited cough. No significant sputum production. No fever. No chills. No headache. No altered mentation. No swelling lower extremities. No Pain or tenderness. He came into the emergency where he was found otherwise second of 7.2 with hemoglobin of 10.3 and a platelet of 160. D-dimer was at 4.09. His sodium level was at 126 with a potassium level of 4.7, chloride is 94 with a bicarb level of 23. Creatinine is at 0.7. Lactic acid level was at 2.6. Troponin was at 0.012. LFTs were nonelevated. COVID 19 testing was negative. The patient has been already vaccinated for COVID 19. The patient was given Rocephin and Zithromax. Chest x-ray showed bilateral pulmonary infiltration and for that reason a computed tomography scan of the chest was done. This was a CT angiogram that showed no evidence of any pulmonary embolism. There was background COPD with some dilatation of the pulmonary trunk suggestive of pulmonary hypertension. There was bilateral pulmonary infiltrates related to infectious or postinfectious changes mainly in the left lower lobe. Some on the right side. There was an area of nodular scar in the left upper lobe probably related to previous malignancy treatment. In summary, this patient is a complicated history. All this physicians are from [facility]. The patient has previous history of lung cancer treated with chemoradiation therapy and the patient continued to have a consolidation mass in the left upper lobe and this was noted on various CAT scans done. Patient also has history of Hodgkin's lymphoma undergone previous bone marrow transplantation and he has been in remission since. 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 He suffers from chronic atrial fibrillation, hyperlipidemia and diabetes mellitus. Furthermore, the the patient was diagnosed having esophageal adenocarcinoma and the patient was treated with a combination of chemoradiation therapy and his last chemotherapy was approximately 4 weeks ago. The patient was subsequently hospitalized at [facility] where he was presented with worsening s hortness of breath and the CAT scan of the chest that was done at that time showed an irregular masslike consolidation of the left upper lobe measuring 2.9 x 3.9 cm in size extending towards the left suprahilar area and there was also consolidation of left lower lobe along with air bronchograms is a small left- sided pleural effusion and some mediastinal lymphadenopathy that was essentially small. The patient had an elevated TROPONIN level. The patient was given IV antibiotics and the patient was covered with IV cefepime and subsequently the patient was discharged home on Ceftin. He took antibiotic for a total of 5 days and then stop. He also completed a prednisone burst taper. I reviewed the most recent CAT scan that was done during this current admission and a compared to today earlier CAT scan of the chest and I appreciate improvement in the left lower lobe consolidation and the various inflammatory changes compared to the previous CAT scans was done at [facility] on 01/06/2022. Patient is currently on 3 L approximately nasal cannula. No chest pain. No significant shortness of breath. Hemodynamically stable. Afebrile. The patient is seen today 01/24/2022 in follow-up on the selective care unit. He is currently sitting up in a chair at the bedside. We've no acute distress. Breathing a bit easier today compared to yesterday. His main complaint is that of lower extremity weakness. Blood culture reveals no growth to date. Sputum culture reveals no growth. Glucose 113. He is continued on DuoNeb inhalations, Mucinex. Antibiotics in the form of cefepime. Heparin for DVT prophylaxis. Objective - Vital Signs Vital signs: Vital Signs Temp 97.7 F 01/23/22 20:00 Pulse 76 01/24/22 07:57 Resp 16 01/24/22 04:00 BP 114/66 01/24/22 04:00 Pulse Ox 90 L 01/24/22 07:57 Intake & Output 01/23/22 01/24/22 01/24/22 18:59 06:59 18:59 Intake Total 240 1125 358 Output Total 600 1250 200 Balance -360 -125 158 Weight 77.111 kg Intake: Intake, IV Titration 100 Amount Cefepime 2 gm In Sodium 100 Chloride 0.9% 100 ml @ 25 mls/hr IVPB Q8H [facility] Rx#: [id number] Oral 240 1025 358 Output: Urine 600 1250 200 Other: Voiding Method Urinal Urinal # Voids 2 - Exam GENERAL EXAM: Alert, pleasant 67-year-old gentleman, up in a chair at the bedside, on room air, comfortable in no apparent distress. HEAD: Normocephalic. EYES: Normal reaction of pupils, equal size. NOSE: Clear with pink turbinates. THROAT: No erythema or exudates. NECK: No masses, no JVD. CHEST: No chest wall deformity. LUNGS: Equal air entry with bilateral scattered rhonchi. CVS: S1 and S2 normal with no audible murmur, regular rhythm. ABDOMEN: No hepatosplenomegaly, normal bowel sounds, no guarding or rigidity. SPINE: No scoliosis or deformity SKIN: No rashes CENTRAL NERVOUS SYSTEM: No focal deficits, tone is normal in all 4 extremities. EXTREMITIES: There is no peripheral edema. No clubbing, no cyanosis. Peripheral pulses are intact. - Labs CBC & Chem 7: 01/23/22 07:11 01/23/22 07:11 Labs: Abnormal Lab Results - Last 24 Hours (Table) 01/23/22 01/23/22 01/24/22 Range/Units 16:22 19:58 06:02 POC Glucose (mg/dL) 164 H 173 H 113 H (75-99) mg/dL 01/24/22 Range/Units 11:34 POC Glucose (mg/dL) 206 H (75-99) mg/dL Microbiology - Last 24 Hours (Table) 01/22/22 10:53 Blood Culture - Preliminary Blood No Growth after 48 hours 01/22/22 11:00 Blood Culture - Preliminary Blood No Growth after 48 hours 01/23/22 07:57 Gram Stain - Preliminary Sputum Sputum Culture - Preliminary Assessment and Plan Assessment: 1 left lower lobe pneumonia, with some residual pulmonary infiltrates improving compared to the earlier evaluation and the CAT scan of the chest that was done on 01/06/2022 at [facility]. The patient likely had a bacterial infection/pneumonia/aspiration knowing that the patient's pro- calcitonin level was elevated and the patient was given antibiotics and he was discharged home on oral antibiotics with Ceftin. Currently on 3 L of oxygen by nasal cannula. In regards to his overall condition improved over this past few weeks and the exact reason for recurrent decompensation is not clear. CT abdomen showed no evidence of any pulmonary embolism. Pulmonary infiltrations especially the one in the left lower lobes improving 2 hypoxic respiratory failure, acute currently on 3 L about 2 by nasal cannula 3 COPD currently inactive in stable 4 esophageal cancer post-chemo radiation therapy 5 remote history of lung cancer treated with chemoradiation therapy. The patient has a consolidating mass in the left upper lobe as noted a CAT scan of the chest and there are no previous CAT scan of the chest for comparison. Nevertheless, this abnormality has remained stable since December 2021. This is likely an area of scar 6 congestion heart failure, post-AICD placement 7 chronic atrial fibrillation 8 hyperlipidemia 9 diabetes mellitus 10 chronic anemia with normocytic treva, likely secondary to systemic chemotherapy 11 chronic hyponatremia 12 history of Hodgkin's lymphoma status post systemic chemotherapy will followed by bone marrow transportation Plan: The patient was seen and evaluated Improved from the pulmonary standpoint Continues with generalized weakness Increase his activity as tolerated Continue cefepime, bronchodilators Follow-up chest x-ray in a.m. The patient does have [facility] home care We will continue to follow I have personally seen and examined the patient, performed the documentation and the assessment and plan as written. Number of minutes spent on the visit: 10. <Salina Frazier - Last Filed: 01/24/22 14:41> Objective - Vital Signs Vital signs: Vital Signs Temp 97.7 F 01/23/22 20:00 Pulse 76 01/24/22 07:57 Resp 16 01/24/22 04:00 BP 114/66 01/24/22 04:00 Pulse Ox 90 L 01/24/22 07:57 Intake & Output 01/23/22 01/24/22 01/24/22 18:59 06:59 18:59 Intake Total 240 1125 358 Output Total 600 1250 200 Balance -360 -125 158 Weight 77.111 kg Intake: Intake, IV Titration 100 Amount Cefepime 2 gm In Sodium 100 Chloride 0.9% 100 ml @ 25 mls/hr IVPB Q8H [facility] Rx#: [id number] Oral 240 1025 358 Output: Urine 600 1250 200 Other: Voiding Method Urinal Urinal # Voids 2 - Labs CBC & Chem 7: 01/23/22 07:11 01/23/22 07:11 Labs: Abnormal Lab Results - Last 24 Hours (Table) 01/23/22 01/23/22 01/24/22 Range/Units 16:22 19:58 06:02 POC Glucose (mg/dL) 164 H 173 H 113 H (75-99) mg/dL 01/24/22 Range/Units 11:34 POC Glucose (mg/dL) 206 H (75-99) mg/dL Microbiology - Last 24 Hours (Table) 01/22/22 10:53 Blood Culture - Preliminary Blood No Growth after 48 hours 01/22/22 11:00 Blood Culture - Preliminary Blood No Growth after 48 hours 01/23/22 07:57 Gram Stain - Preliminary Sputum Sputum Culture - Preliminary Assessment and Plan Assessment: I have personally seen and examined the patient and reviewed the documentation. I performed a joint evaluation with the nurse practitioner in this evaluation was done more than 20 minutes. I fully agree with the documentation above and the plan of care.
--- NOTE | 2022-01-24 15:59 | P.PN ---
Subjective Principal diagnosis: Left lower lobe pneumonia Acute hypoxic respiratory failure 67-year-old male with a known history of esophageal cancer status post radiation treatment, Hodgkin's lymphoma with history of stem cell transplant in 1997 with remission, diabetes type 2 diet-controlled, history of VT, atrial fibrillation status post ablation, chronic CHF with systolic dysfunction ejection fraction 30 to 35% status post AICD placement in 2014, coronary disease with history of stent placement and previous history of smoking presents to ER with complaints of difficulty breathing started overnight. Patient woke up in the morning and felt very short of breath and had trouble catching of breath and shortness of breath with minimal exertion. Denied chest pain. Patient otherwise did have pleuritic pain with deep breathing. Denied any complaints of cough or sputum production. No fever no chills. No headache or dizziness or lightheadedness. Denied leg swelling. Patient was recently admitted to the [facility] and was treated for pneumonia with cephalosporins. Patient was discharged home on 01/10/2022. Chest x-ray showed bilateral pulmonary infiltration most evident in the right lower zone suggestive of pneumonia. CT angiogram of the chest was done showed no evidence of PE. Severe COPD changes with a dilated pulmonary trunk suggestive of pulmonary hypertension. Bilateral pulmonary infiltrates could relate to acute inflammatory/infectious process like pneumonia however underlying neoplastic process cannot be excluded. 01/24/2022 Patient is seen and evaluated in room at bedside in selective care unit; continues to complain of shortness of breath Vital signs are reviewed temperature 97.7, pulse 76, respirations 16 and blood pressure 114/66; O2 saturation of 90% Blood culture reveals no growth to date. Sputum culture reveals no growth. Glucose 113. He is continued on DuoNeb inhalations, Mucinex. Antibiotics in the form of cefepime. Heparin for DVT prophylaxis. Pulmonary on board and recommending repeat chest x-ray; recommendations to foll ow Patient continues to complain of lower extremity weakness; we will consult PT and OT for evaluation and recommendations Objective - Vital Signs Vital signs: Vital Signs Temp 97.7 F 01/23/22 20:00 Pulse 76 01/24/22 07:57 Resp 16 01/24/22 04:00 BP 114/66 01/24/22 04:00 Pulse Ox 90 L 01/24/22 07:57 Intake & Output 01/23/22 01/24/22 01/24/22 18:59 06:59 18:59 Intake Total 240 1125 118 Output Total 600 1250 Balance -360 -125 118 Weight 77.111 kg Intake: Intake, IV Titration 100 Amount Cefepime 2 gm In Sodium 100 Chloride 0.9% 100 ml @ 25 mls/hr IVPB Q8H [facility] Rx#: [id number] Oral 240 1025 118 Output: Urine 600 1250 Other: Voiding Method Urinal Urinal # Voids 2 - Exam Patient is lying in the bed comfortably, no acute distress, awake alert and oriented.. HEENT: Normocephalic. Neck is supple. Pupils reactive. Nostrils clear. Oral cavity is moist. Neck reveals no JVD, carotid bruits, or thyromegaly. CHEST EXAMINATION: Trachea is central. Symmetrical expansion. Bilateral scattered crackles. No wheezing or rhonchi. Nonlabored breathing.. CARDIAC: Normal S1, S2 with no gallops. No murmurs ABDOMEN: Soft. Bowel sounds normal. No organomegaly. No abdominal bruits. Extremities: reveal no edema. No clubbing or cyanosis Neurologically awake, alert, oriented x3 with well-coordinated movements. No focal deficits noted Skin: No rash or skin lesions. - Labs CBC & Chem 7: 01/23/22 07:11 01/23/22 07:11 Labs: Abnormal Lab Results - Last 24 Hours (Table) 01/23/22 01/23/22 01/23/22 Range/Units 11:52 16:22 19:58 POC Glucose (mg/dL) 139 H 164 H 173 H (75-99) mg/dL 01/24/22 Range/Units 06:02 POC Glucose (mg/dL) 113 H (75-99) mg/dL Microbiology - Last 24 Hours (Table) 01/23/22 07:57 Gram Stain - Preliminary Sputum Sputum Culture - Preliminary 01/22/22 10:53 Blood Culture - Preliminary Blood No Growth after 24 hours 01/22/22 11:00 Blood Culture - Preliminary Blood No Growth after 24 hours Assessment and Plan Assessment: Shortness of breath likely due to COPD and interstitial infiltrates. Bilateral infiltrates possible pneumonia. Hypovolemic hyponatremia chronic hypoxic respiratory failure History of esophageal cancer status post radiation History of Hodgkin's lymphoma status post stem cell transplant. Chronic atrial fibrillation. Patient was taken off anticoagulation due to low platelets as per patient. Coronary artery disease history of stent placement Chronic systolic CHF ejection fraction 30 to 35% Diabetes type 2 diet controlled History of VT Previous history of smoking GI and DVT prophylaxis with PPI, heparin subcu Plan: Patient was admitted to hospital with difficulty in breathing with symptoms started overnight. CT angiogram was negative for any pulmonary embolism. Continue with antibiotics in the form of ceftriaxone and azithromycin and fo llow-up procalcitonin and BNP level. Continue with oxygen supplementation. Patient be continued on home medications including aspirin, statin, metoprolol and Aldactone. Prognosis is guarded.
[2022-01-24 16:19] LABS: Glucose,Whole Blood 99 mg/dL (75-99)
[2022-01-24] MEDS: TEMAZEPAM 15 MG CAP PO SCH (20:04)
[2022-01-24] MEDS: PRAVASTATIN SODIUM 40 MG TAB PO SCH (20:04)
[2022-01-24 20:20] LABS: Glucose,Whole Blood 142 mg/dL (75-99)
[2022-01-25] MEDS: CEFEPIME 2 GM in SODIUM CHLORIDE 0.9% 100 ML IVPB SCH ×3 (04:26→21:18)
[2022-01-25] MEDS: INSULIN ASPART (NovoLOG) 100 UNIT/ML VIAL SQ SCH ×4 (05:48→21:19)
[2022-01-25 05:52] LABS: Glucose,Whole Blood 124 mg/dL (75-99)
[2022-01-25] MEDS: PANTOPRAZOLE 40 MG TABLET PO SCH (06:32)
[2022-01-25] MEDS: IPRATROPIUM-ALBUTEROL 3 ML NEB INHALATION SCH ×3 (07:42→19:02)
[2022-01-25] MEDS: SPIRONOLACTONE 25 MG TAB PO SCH (08:51)
[2022-01-25] MEDS: guaiFENesin 600 MG TABLET.ER PO SCH ×2 (08:51→21:19)
[2022-01-25] MEDS: SERTRALINE 50 MG TAB PO SCH (08:51)
[2022-01-25] MEDS: HEPARIN SODIUM,PORCINE/PF 5,000 UNIT/0.5 ML SYRINGE SQ SCH ×2 (08:51→16:53)
[2022-01-25] MEDS: ASPIRIN 81 MG PO SCH (08:51)
[2022-01-25] MEDS: METOPROLOL SUCCINATE (ER) 25 MG TAB.ER.24H PO SCH (08:52)
[2022-01-25 08:57] LABS: Glucose,Whole Blood 196 mg/dL (75-99)
[2022-01-25 09:16] LABS: HCT 28.9 % (39.0-53.0); Hypochromasia Slight; MCH 35.8 pg (25.0-35.0); MCHC 34.6 g/dL (31.0-37.0); MCV 103.6 fL (80.0-100.0); Macrocytosis Slight; Mean Platelet Volume 9.7; Platelet Count 158 k/uL (150-450); Poikilocytosis Moderate; RBC 2.79 m/uL (4.30-5.90); RDW 15.9 % (11.5-15.5); WBC 4.7 k/uL (3.8-10.6)
[2022-01-25 09:34] LABS: African American GFR (CKD) >90 (>60 ml/min/1.73 sqM); Anion Gap 9 mmol/L; Blood Urea Nitrogen 12 mg/dL (9-20); Calcium 8.5 mg/dL (8.4-10.2); Carbon Dioxide 19 mmol/L (22-30); Chloride 96 mmol/L (98-107); Glucose 164 mg/dL (74-99); Non-African American GFR(CKD) >90 (>60 ml/min/1.73 sqM); Potassium 4.6 mmol/L (3.5-5.1); Sodium 124 mmol/L (137-145)
[2022-01-25] MEDS: SODIUM CHLORIDE 0.9% 1,000 ML IV SCH ×2 (10:35→21:19)
--- NOTE | 2022-01-25 10:41 | CT ---
EXAMINATION TYPE: CT brain wo con DATE OF EXAM: 01/25/2022 COMPARISON: None HISTORY: altered mental status, Concern for CVA vs Brain mets. Lymphoma CT DLP: [address] of the brain was performed. The ventricles, basal cisterns and sulci overlying the cerebral convexities demonstrate mild enlargem ent. There is no evidence for intracranial hemorrhage or sulcal effacement. There is decreased attenuation about the periventricular white matter and deep white matter of both c erebral hemispheres, compatible with chronic small vessel ischemia. Differential diagnosis does inclu de demyelination. No mass effects are seen.No midline shift. Osseous calvarium is intact. If symptoms persist consider MRI. IMPRESSION: 1. Age related atrophic and chronic small vessel ischemic change without acute intracranial process s een at this time.
--- NOTE | 2022-01-25 10:42 | CT ---
EXAMINATION TYPE: CT angio head neck DATE OF EXAM: 01/25/2022 COMPARISON: None HISTORY: altered mental status, Concern for CVA vs Brain mets. Lymphoma CT DLP: 458.4 mGycm CONTRAST: Performed with IV Contrast, patient injected with 65 mL of Isovue 370. Combination Contrast CTA cervical carotids and [place] CTA cervical carotids with 3-D recons truction Contrast CTA of the cervical carotids was performed 3-D reconstruction imaging obtained at a separate workstation. Right carotid system: Mild plaque is seen of the right common carotid artery. There is mild plaque a lso noted at the carotid bulb and proximal ICA. No significant diameter reduction. ECA is patent. Right vertebral artery appears unremarkable. Left carotid system: Mild plaque is seen of the left common carotid artery. There is mild plaque als o noted at the carotid bulb and proximal ICA. No significant diameter reduction. ECA is patent. Lef t vertebral artery appears unremarkable. Left upper lobe infiltrate of uncertain etiology. IMPRESSION: 1. No significant diameter reduction to account for the patient's symptoms. CTA [place] with 3-D reconstruction Contrast CTA of the [place] was performed 3-D reconstruction imaging obtained at a separate workstation. Vertebrobasilar system as well as intracranial portions of the internal carotid arteries and their ma janay tributaries are patent. I do not see evidence for sizable aneurysm or vascular malformation. Pl ease note MRI provides greater sensitivity and specificity. Visualized brain appears grossly unremar kable. IMPRESSION: 1. No significant abnormality. NASCET criteria was used in interpretation of this exam?
[2022-01-25 10:54] LABS: ABG Base Excess 1.4 mmol/L; ABG HCO3 23 mmol/L (21-25); ABG PCO2 23 mmHg (35-45); ABG TCO2 24 mmol/L (19-24); Allen Test Performed? Yes
[2022-01-25 10:59] LABS: Basophils # (M) 0.05 k/uL (0-0.2); Eosinophils # (M) 0.14 k/uL (0-0.7); Lymphocytes # (M) 0.94 k/uL (1.0-4.8); Monocytes # (M) 0.52 k/uL (0-1.0); Myelocytes # (M) 0.05 k/uL (0); Myelocytes % 1 %; Neutrophils % (M) 66 %; Nucleated Red Blood Cells 0 /100 WBC (0-0); Total Cells Counted 200
[2022-01-25 11:02] LABS: ABG PO2 124 mmHg (83-108)
[2022-01-25 11:27] LABS: Glucose,Whole Blood 144 mg/dL (75-99)
--- NOTE | 2022-01-25 12:14 | XR ---
EXAMINATION TYPE: XR chest 1V DATE OF EXAM: 01/25/2022 HISTORY: Shortness of breath. COMPARISON: 01/23/2022 TECHNIQUE: Single view of the chest is submitted. FINDINGS: Demonstrated are scattered senescent parenchymal change. Improving reticulonodular densities right lower lobe. The heart is stable. Hilar and mediastinal structures are within normal limits. Degenerative changes are seen of the dorsal spine. IMPRESSION: 1. Improving reticulonodular densities right lower lobe.
--- NOTE | 2022-01-25 13:07 | P.PN ---
Subjective Progress Note Date: 01/25/22 This is a 67-year-old male patient and I recently met this patient during a hospitalization at [facility] on 01/07/2022 when he came in with a left lower lobe pneumonia. The patient was treated and the patient was discharged home and he was staying with his daughter in town when he woke up and he felt short of breath and he had trouble catching his breath and he was getting short of breath with minimal amount of activity. Denies having any chest pain. He had some pleurisy. Limited cough. No significant sputum production. No fever. No chills. No headache. No altered mentation. No swelling lower extremities. No Pain or tenderness. He came into the emergency where he was found otherwise second of 7.2 with hemoglobin of 10.3 and a platelet of 160. D-dimer was at 4.09. His sodium level was at 126 with a potassium level of 4.7, chloride is 94 with a bicarb level of 23. Creatinine is at 0.7. Lactic acid level was at 2.6. Troponin was at 0.012. LFTs were none levated. COVID 19 testing was negative. The patient has been already vaccinated for COVID 19. The patient was given Rocephin and Zithromax. Chest x-ray showed bilateral pulmonary infiltration and for that reason a computed tomography scan of the chest was done. This was a CT angiogram that showed no evidence of any pulmonary embolism. There was background COPD with some dilatation of the pulmonary trunk suggestive of pulmonary hypertension. There was bilateral pulmonary infiltrates related to infectious or postinfectious changes mainly in the left lower lobe. Some on the right side. There was an area of nodular scar in the left upper lobe probably related to previous malignancy treatment. In summary, this patient is a complicated history. All this physicians are from [facility]. The patient has previous history of lung cancer treated with chemoradiation therapy and the patient continued to have a consolidation mass in the left upper lobe and this was noted on various CAT scans done. Patient also has history of Hodgkin's lymphoma undergone previous bone marrow tr ansplantation and he has been in remission since. 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 He suffers from chronic atrial fibrillation, hyperlipidemia and diabetes mellitus. Furthermore, the the patient was diagnosed having esophageal adenocarcinoma and the patient was treated with a combination of chemoradiation therapy and his last chemotherapy was approximately 4 weeks ago. The patient was subsequently hospitalized at [facility] where he was presented with worsening shortness of breath and the CAT scan of the chest that was done at that time showed an irregular masslike consolidation of the left upper lobe measuring 2.9 x 3.9 cm in size extending towards the left suprahilar area and there was also consolidation of left lower lobe along with air bronchograms is a small left- sided pleural effusion and some mediastinal lymphadenopathy that was essentially small. The patient had an elevated TROPONIN level. The patient was given IV antibiotics and the patient was covered with IV cefepime and subsequently the patient was discharged home on Ceftin. He took antibiotic for a total of 5 days and then stop. He also completed a prednisone burst taper. I reviewed the most recent CAT scan that was done during this current admission and a compared to today earlier CAT scan of the chest and I appreciate improvement in the left l ower lobe consolidation and the various inflammatory changes compared to the previous CAT scans was done at [facility] on 01/06/2022. Patient is currently on 3 L approximately nasal cannula. No chest pain. No significant shortness of breath. Hemodynamically stable. Afebrile. The patient is seen today 01/24/2022 in follow-up on the selective care unit. He is currently sitting up in a chair at the bedside. We've no acute distress. Breathing a bit easier today compared to yesterday. His main complaint is that of lower extremity weakness. Blood culture reveals no growth to date. Sputum culture reveals no growth. Glucose 113. He is continued on DuoNeb inhalations, Mucinex. Antibiotics in the form of cefepime. Heparin for DVT prophylaxis. . 01/25/2022, the patient is essentially the same. Relatively doing well. No significant complaints in terms of his breathing. Nevertheless, the patient is having generalized weakness and fatigue. The same time, his sodium level has dropped as the patient has underlying CHF. His sodium level was down to 124. Based on that, the patient was on IV fluids by the medical team. Patient is currently on normal saline infusion at the rate of 75 mL an hour. I think it's low sodium level is probably due to his underlying cardiomyopathy. 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 He remains on IV cefepime as broad-spectrum antibiotic coverage. I ordered a repeat chest x-ray on this patient and a chest x-ray showed improvement in the lung densities specially in the lung bases. There are degenerative changes of the dorsal spine. Objective - Vital Signs Vital signs: Vital Signs Temp 98.0 F 01/25/22 12:38 Pulse 73 01/25/22 12:38 Resp 19 01/25/22 12:38 BP 110/64 01/25/22 12:38 Pulse Ox 97 01/25/22 12:38 Intake & Output 01/24/22 01/25/22 01/25/22 18:59 06:59 18:59 Intake Total 598 485 236 Output Total 200 950 175 Balance 398 -465 61 Intake: Oral 598 485 236 Output: Urine 200 950 175 Other: Voiding Method Urinal Urinal # Voids 1 # Bowel Movements 1 - Exam GENERAL EXAM: Alert, pleasant 67-year-old gentleman, up in a chair at the bedside, on room air, comfortable in no apparent distress. The patient remains on 2 L of oxygen by nasal cannula HEAD: Normocephalic. EYES: Normal reaction of pupils, equal size. NOSE: Clear with pink turbinates. THROAT: No erythema or exudates. NECK: No masses, no JVD. CHEST: No chest wall deformity. LUNGS: Equal air entry with bilateral scattered rhonchi. CVS: S1 and S2 normal with no audible murmur, regular rhythm. ABDOMEN: No hepatosplenomegaly, normal bowel sounds, no guarding or rigidity. SPINE: No scoliosis or deformity SKIN: No rashes CENTRAL NERVOUS SYSTEM: No focal deficits, tone is normal in all 4 extremities. EXTREMITIES: There is no peripheral edema. No clubbing, no cyanosis. Peripheral pulses are intact. - Labs CBC & Chem 7: 01/25/22 08:41 01/25/22 11:42 Labs: Abnormal Lab Results - Last 24 Hours (Table) 01/24/22 01/25/22 01/25/22 Range/Units 20:00 05:44 08:41 RBC 2.79 L (4.30-5.90) m/uL Hgb 10.0 L (13.0-17.5) gm/dL Hct 28.9 L (39.0-53.0) % MCV 103.6 H (80.0-100.0) fL MCH 35.8 H (25.0-35.0) pg RDW 15.9 H (11.5-15.5) % Lymphocytes # (Manual) 0.94 L (1.0-4.8) k/uL Myelocytes # (Manual) 0.05 H (0) k/uL ABG pH (7.35-7.45) ABG pCO2 (35-45) mmHg ABG pO2 (83-108) mmHg ABG O2 Saturation (94-97) % Sodium (137-145) mmol/L Chloride (98-107) mmol/L Carbon Dioxide (22-30) mmol/L Glucose (74-99) mg/dL POC Glucose (mg/dL) 142 H 124 H (75-99) mg/dL 01/25/22 01/25/22 01/25/22 Range/Units 08:41 08:55 10:41 RBC (4.30-5.90) m/uL Hgb (13.0-17.5) gm/dL Hct (39.0-53.0) % MCV (80.0-100.0) fL MCH (25.0-35.0) pg RDW (11.5-15.5) % Lymphocytes # (Manual) (1.0-4.8) k/uL Myelocytes # (Manual) (0) k/uL ABG pH 7.60 H* (7.35-7.45) ABG pCO2 23 L (35-45) mmHg ABG pO2 124 H (83-108) mmHg ABG O2 Saturation 100.0 H (94-97) % Sodium 124 L (137-145) mmol/L Chloride 96 L (98-107) mmol/L Carbon Dioxide 19 L (22-30) mmol/L Glucose 164 H (74-99) mg/dL POC Glucose (mg/dL) 196 H (75-99) mg/dL 01/25/22 01/25/22 Range/Units 11:26 11:42 RBC (4.30-5.90) m/uL Hgb (13.0-17.5) gm/dL Hct (39.0-53.0) % MCV (80.0-100.0) fL MCH (25.0-35.0) pg RDW (11.5-15.5) % Lymphocytes # (Manual) (1.0-4.8) k/uL Myelocytes # (Manual) (0) k/uL ABG pH (7.35-7.45) ABG pCO2 (35-45) mmHg ABG pO2 (83-108) mmHg ABG O2 Saturation (94-97) % Sodium 123 L (137-145) mmol/L Chloride (98-107) mmol/L Carbon Dioxide (22-30) mmol/L Glucose (74-99) mg/dL POC Glucose (mg/dL) 144 H (75-99) mg/dL Microbiology - Last 24 Hours (Table) 01/23/22 07:57 Gram Stain - Final Sputum Sputum Culture - Final 01/22/22 10:53 Blood Culture - Preliminary Blood No Growth after 48 hours 01/22/22 11:00 Blood Culture - Preliminary Blood No Growth after 48 hours Assessment and Plan Plan: 1 left lower lobe pneumonia, with some residual pulmonary infiltrates improving compared to the earlier evaluation and the CAT scan of the chest that was done on 01/06/2022 at [facility]. The patient likely had a bacterial infection/pneumonia/aspiration knowing that the patient's pro- calcitonin level was elevated and the patient was given antibiotics and he was discharged home on oral antibiotics with Ceftin. Currently on 2 L of oxygen by nasal cannula. I with his overall condition improved over this past few weeks and the exact reason for recurrent decompensation is not clear. CT angiogram showed no evidence of any pulmonary embolism. Pulmonary infiltrations espec ially the one in the left lower lobes improving. The patient's chest x-ray from today is further showing improvement in the bibasilar pulmonary infiltrates. The patient remains on O2 at 2 L per minute nasal cannula. The patient remains on IV cefepime. No reported aspiration. 2 acute hypoxic respiratory failure, on 2 L O2 nasal cannula 3 COPD currently inactive in stable 4 esophageal cancer post-chemo radiation therapy 5 remote history of lung cancer treated with chemoradiation therapy. The patient has a consolidating mass in the left upper lobe as noted a CAT scan of the chest and there are no previous CAT scan of the chest for comparison. Nevertheless, this abnormality has remained stable since December 2021.. This is likely an area of scar 6 congestion heart failure, post-AICD placement 7 chronic atrial fibrillation 8 hyperlipidemia 9 diabetes mellitus 10 chronic anemia with normocytic treva, likely secondary to systemic chemotherapy 11 chronic hyponatremia, sodium level down to 124 12 history of Hodgkin's lymphoma status post systemic chemotherapy will followed by bone marrow transportation Plan Fluid restriction Continue IV cefepime Increase mobility as tolerated Aspiration precautions and monitor sodium level We'll follow
--- NOTE | 2022-01-25 14:32 | P.CNNES ---
History of Present Illness Consult date: 01/25/22 Requesting physician: Rose Marie Macias Reason for Consult: altered mental status History of Present Illness: This is a 67-year-old gentleman with medical history of lung cacer and had chemothrapy and radiation therapy, Hodgkin's lymphoma undergone bone marrow transplantation and chemotherapy, chemotherapy induced CHF and cardiomypathy, AICD, atrial fibrillation, DM, hyperlpidemia, chronic hyponatremia who presented to the emergency department on 01/22/2022 for difficulty breathing. Neurologist consulted for altered mental status. It seems that the patient had recent pneumonia at an outside facility on 01/06/2022 and that presented the complaining of difficulty breathing. The nurse felt there was a delay in patient answering questions and the left pupil was larger than left but both were reactive. No seizure like activity. Nurse stated she did not notice any focal weakness. Per the patient he denies of any focal weakness, numbness, difficulty getting his medication out. He denies of any headache, nausea or vomiting. He did state that he took his sleeping medication (Temazepam) overnight that is why he was somewhat sleepy today in the AM but feels more awake today. Regarding his left eye being more dilated than right is that he said he had cataract surgery on left and was not told if his left eye was more dilated but denies of visual disturbance or deficit. Patient is on home medication of aspirin 81 mg, spironolactone, Flexeril and pravastatin 40mg qhs. In this hospital stay it was felt that the patient has left lower lobe pneumonia. As a result the patient the altered mentation imaging is ordered by primary team. 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 CT angiography of the head and neck was reported as no significant abnormality. It seems that the patient has history of lung cancer and received chemotherapy and radiation therapy in the past as well as the patient has esophageal cancer post chemotherapy and radiation therapy patient also has history of Hodgkin's lymphoma status post systemic chemotherapy followed by bone marrow transplantation. Some of the other work-up in the hospital consisted of: Initial Vitals: BP 127/99, HR 71, RR 20, temp 97.9F oral, and pulse oxygen 96% on 4L NC. Patient has been afebrile during this visit. Wbc is 7.2. No leukocytosis during this visit. Sodium is 126 on presenation and most current is 123. HbA1c is 4.5 ammonia level <9.0 Vitamin B12: 548 TSH: 2.860 Coronavirus PCR is not detected. PT, PTT and INR is within normal. NIH stroke scale is 0 per nurse. Review of Systems Review of system: The 12 point system was reviewed and apparent positive and negative per HPI. Past Medical History Past Medical History: Atrial Fibrillation, Cancer, Chest Pain / Angina, COPD, Diabetes Mellitus, Myocardial Infarction (NH) Additional Past Medical History / Comment(s): stent placed 2008, chronic hypoxic respiratory failure on home O2, Hodgkin's lymphoma status post themselves transplant, atrial fibrillation status post AV node ablation Last Myocardial Infarction Date:: 2008 History of Any Multi-Drug Resistant Organisms: MRSA Date of last positivie culture/infection: 2003 MDRO Source:: pulmonary MRSA Past Surgical History: AICD, Pacemaker Additional Past Surgical History / Comment(s): AV node ablation for atrial fibrillation, pacemaker upgraded to AICD 07/2015. 1997 Stem cell transplant, port placement Past Anesthesia/Blood Transfusion Reactions: No Reported Reaction Additional Past Anesthesia/Blood Transfusion Reaction / Comment(s): Pt has received blood without reaction. Type of Cardiac Device: Permanent Pacemaker, AICD Device Placement Date:: 2014 Past Psychological History: No Psychological Hx Reported Smoking Status: Former smoker Past Alcohol Use History: None Reported Past Drug Use History: None Reported - Past Family History Father Family Medical History: Hypertension, Myocardial Infarction (NH), Vascular Disorder Additional Family Medical History / Comment(s): Aortic aneurysm. Mother Family Medical History: Cancer Additional Family Medical History / Comment(s): Pt thinks uterine cancer and colon cancer. Medications and Allergies Home Medications Medication Instructions Recorded Confirmed Type Aspirin 81 mg PO DAILY 06/29/17 01/22/22 History Omeprazole 20 mg PO DAILY 06/30/17 01/22/22 History Cyclobenzaprine [Flexeril] 10 mg PO HS 01/22/22 01/22/22 History Metoprolol Succinate [Toprol XL] 25 mg PO DAILY 01/22/22 01/22/22 History Polyethylene Glycol 3350 [Miralax] 17 gm PO DAILY PRN 01/22/22 01/22/22 History Pravastatin Sodium [Pravachol] 40 mg PO HS 01/22/22 01/22/22 History Sertraline [Zoloft] See Taper PO DAILY 01/22/22 01/22/22 History Spironolactone 25 mg PO DAILY 01/22/22 01/22/22 History Temazepam [Restoril] 15 mg PO HS 01/22/22 01/22/22 History Allergies Allergy/AdvReac Type Severity Reaction Status Date / Time perflutren [From Definity] AdvReac Anaphylaxis Verified 01/22/22 11:40 piperacillin [From Zosyn] AdvReac Anaphylaxis Verified 01/22/22 11:40 tazobactam [From Zosyn] AdvReac Anaphylaxis Verified 01/22/22 11:40 Physical Examination - Vital Signs Vital Signs: Vital Signs Temp Pulse Pulse Resp BP Pulse Ox 01/25/22 12:38 98.0 F 73 19 110/64 97 01/25/22 11:18 76 01/25/22 11:06 76 01/25/22 07:54 72 01/25/22 07:42 72 01/25/22 04:00 70 16 119/73 91 L 01/25/22 00:00 67 16 115/66 90 L 01/24/22 21:30 80 01/24/22 21:20 76 92 L 01/24/22 20:00 98.2 F 69 16 120/74 94 L 01/24/22 16:00 97.6 F 76 16 116/64 95 01/24/22 14:00 94 L Intake and Output 01/24/22 01/25/22 01/25/22 22:59 06:59 14:59 Intake Total 725 118 Output Total 300 650 175 Balance 425 -650 -57 Intake: Oral 725 118 Output: Urine 300 650 175 Other: Voiding Method Urinal Urinal # Voids 1 # Bowel Movements 1 GENERAL: The patient is lying in bed and is not in acute distress. CHEST: The heart rate is regular rate rhythm. No murmurs to auscultation. LUNG: Clear to auscultation bilaterally no wheezing noted throughout. Not labored breathing. ABDOMEN/GI: Bowel sounds present in all 4 quadrants. No tenderness to palpation throughout. NEUROLOGICAL: Higher mental function: The patient is awake, alert, oriented to self, place and time. Able to identify objects correctly (watch, pen and phone). Patient is following simple commands. No aphasia and no neglect. Cranial nerves: The pupils are round, right is 2-3 while left is 4, and reactive to light. Visual mon are full to confrontation throughout. Extraocular movement, is intact no nystagmus is noted. I did appreciated the residual outcome of his left eye surgery and there appears some juggle movement that is brief with looking to left and was not nystagmus and was able to track throughout. Facial sensation is normal to touch throughout. The facial strength is normal throughout. Hearing is moderately decreased bilaterally to hand rub. Tongue is midline and moved [id number] without any difficulty. No dysarthria is noted. Shoulder shrug is normal bilaterally. Motor: The strength is 5 over 5 throughout. Normal tone and bulk. Cerebellum: Normal finger to nose heel to bateman bilaterally. Sensation: Sensation is normal to touch throughout. Reflexes (right/left): 1+ throughout. Plantars are mute bilaterally. Results - Laboratory Findings CBC and BMP: 01/25/22 08:41 01/25/22 11:42 Abnormal Lab Findings: Abnormal Labs 01/22/22 01/22/22 01/22/22 10:53 10:53 10:53 RBC 2.86 L Hgb 10.3 L Hct 30.4 L MCV 106.3 H MCH 36.1 H RDW 16.7 H Plt Count Lymphocytes # 0.7 L Lymphocytes # (Manual) Myelocytes # (Manual) Macrocytosis Marked A D-Dimer 4.09 H ABG pH ABG pCO2 ABG pO2 ABG O2 Saturation Sodium 126 L Chloride 94 L Carbon Dioxide Glucose 190 H POC Glucose (mg/dL) Plasma Lactic Acid Krystian Magnesium 1.1 L Iron TIBC Transferrin Albumin 3.3 L Procalcitonin 01/22/22 01/22/22 01/22/22 10:53 10:53 16:56 RBC Hgb Hct MCV MCH RDW Plt Count Lymphocytes # Lymphocytes # (Manual) Myelocytes # (Manual) Macrocytosis D-Dimer ABG pH ABG pCO2 ABG pO2 ABG O2 Saturation Sodium Chloride Carbon Dioxide Glucose POC Glucose (mg/dL) 275 H Plasma Lactic Acid Krystian 2.6 H* Magnesium Iron TIBC Transferrin Albumin Procalcitonin 0.16 H 01/23/22 01/23/22 01/23/22 06:31 07:11 07:11 RBC 2.59 L Hgb 9.3 L Hct 27.4 L MCV 105.7 H MCH 35.9 H RDW 15.7 H Plt Count 149 L Lymphocytes # 0.7 L Lymphocytes # (Manual) Myelocytes # (Manual) Macrocytosis D-Dimer ABG pH ABG pCO2 ABG pO2 ABG O2 Saturation Sodium 129 L Chloride Carbon Dioxide Glucose 116 H POC Glucose (mg/dL) 117 H Plasma Lactic Acid Krystian Magnesium Iron TIBC Transferrin Albumin Procalcitonin 01/23/22 01/23/22 01/23/22 07:11 11:52 16:22 RBC Hgb Hct MCV MCH RDW Plt Count Lymphocytes # Lymphocytes # (Manual) Myelocytes # (Manual) Macrocytosis D-Dimer ABG pH ABG pCO2 ABG pO2 ABG O2 Saturation Sodium Chloride Carbon Dioxide Glucose POC Glucose (mg/dL) 139 H 164 H Plasma Lactic Acid Krystian Magnesium Iron 52 L TIBC 220 L Transferrin 157.0 L Albumin Procalcitonin 01/23/22 01/24/22 01/24/22 19:58 06:02 11:34 RBC Hgb Hct MCV MCH RDW Plt Count Lymphocytes # Lymphocytes # (Manual) Myelocytes # (Manual) Macrocytosis D-Dimer ABG pH ABG pCO2 ABG pO2 ABG O2 Saturation Sodium Chloride Carbon Dioxide Glucose POC Glucose (mg/dL) 173 H 113 H 206 H Plasma Lactic Acid Krystian Magnesium Iron TIBC Transferrin Albumin Procalcitonin 01/24/22 01/25/22 01/25/22 20:00 05:44 08:41 RBC 2.79 L Hgb 10.0 L Hct 28.9 L MCV 103.6 H MCH 35.8 H RDW 15.9 H Plt Count Lymphocytes # Lymphocytes # (Manual) 0.94 L Myelocytes # (Manual) 0.05 H Macrocytosis D-Dimer ABG pH ABG pCO2 ABG pO2 ABG O2 Saturation Sodium Chloride Carbon Dioxide Glucose POC Glucose (mg/dL) 142 H 124 H Plasma Lactic Acid Krystian Magnesium Iron TIBC Transferrin Albumin Procalcitonin 01/25/22 01/25/22 01/25/22 08:41 08:55 10:41 RBC Hgb Hct MCV MCH RDW Plt Count Lymphocytes # Lymphocytes # (Manual) Myelocytes # (Manual) Macrocytosis D-Dimer ABG pH 7.60 H* ABG pCO2 23 L ABG pO2 124 H ABG O2 Saturation 100.0 H Sodium 124 L Chloride 96 L Carbon Dioxide 19 L Glucose 164 H POC Glucose (mg/dL) 196 H Plasma Lactic Acid Krystian Magnesium Iron TIBC Transferrin Albumin Procalcitonin 01/25/22 01/25/22 11:26 11:42 RBC Hgb Hct MCV MCH RDW Plt Count Lymphocytes # Lymphocytes # (Manual) Myelocytes # (Manual) Macrocytosis D-Dimer ABG pH ABG pCO2 ABG pO2 ABG O2 Saturation Sodium 123 L Chloride Carbon Dioxide Glucose POC Glucose (mg/dL) 144 H Plasma Lactic Acid Krystian Magnesium Iron TIBC Transferrin Albumin Procalcitonin Assessment and Plan Assessment: * Questionalble Altered mental status seems (delay in response per nurse in AM) due to likely medication effect (he was sleepy since had Temazepam) but on my examination he was appropriate and posssible a component metabolic encephalopathy as well as underlying pneumonia * Left pupils is mildly dilated than right (1-2mm more) but is reactive and denies of headache: Is likely due underlying eye surgery or chemotherapy/radiation therapy. CTA is negative for aneurysm and currently HbA1c is 4.5 * Left lower lobe pneumonia * Chronic Hyponatremia. Not sure about patient baseline sodium but possibly acute on chronic hyponatremia * History of Lung cacer and had chemothrapy and radiation therapy * History of Hodgkin's lymphoma undergone bone marrow transplantation and chemotherapy * chemotherapy induced CHF and cardiomypathy s/p AICD * atrial fibrillation not on anticoagulant * DM * Hyperlpidemia Plan: He had a CT and CTA to review of the head and neck as that which is unremarkable. I will not repeat any imaging since patient was doing well. Cannot get MRI since he has AICD If he does have repeated confusion recommend repeat CT head and routine EEG. Regarding his anisocoria (left > right): Patient is asymptomatic and possible surgical effect vs result of chemotherapy and radiation. Recommend to follow-up with Ophthamology as outpatient. Pulmonology team is on board We'll defer the rest of the medical management to the primary team The plan is discussed with the patient and his nurse. Thank you for the consultation. There is no further neurological work-up. Dr. Morillo will start neurology coverage tomorrow. Please notify him if any further concerns. Christian Aldridge M.D. Neuro-Hospitalist Time with Patient: Greater than 30
[2022-01-25 16:31] LABS: Glucose,Whole Blood 173 mg/dL (75-99)
[2022-01-25 19:25] LABS: Glucose,Whole Blood 205 mg/dL (75-99)
[2022-01-25] MEDS: PRAVASTATIN SODIUM 40 MG TAB PO SCH (21:19)
[2022-01-25] MEDS: TEMAZEPAM 15 MG CAP PO SCH (21:19)
--- NOTE | 2022-01-25 23:49 | P.PN ---
Subjective Progress Note Date: 01/25/22 Principal diagnosis: Left lower lobe pneumonia Acute hypoxic respiratory failure 67-year-old male with a known history of esophageal cancer status post radiation treatment, Hodgkin's lymphoma with history of stem cell transplant in 1997 with remission, diabetes type 2 diet-controlled, history of KS, atrial fibrillation status post ablation, chronic CHF with systolic dysfunction ejection fraction 30 to 35% status post AICD placement in 2014, coronary disease with history of stent placement and previous history of smoking presents to ER with complaints of difficulty breathing started overnight. Patient woke up in the morning and felt very short of breath and had trouble catching of breath and shortness of breath with minimal exertion. Denied chest pain. Patient otherwise did have pleuritic pain with deep breathing. Denied any complaints of cough or sputum production. No fever no chills. No headache or dizziness or lightheadedness. Denied leg swelling. Patient was recently admitted to the [facility] and was treated for pneumonia with cephalosporins. Patient was discharged home on 01/10/2022. Chest x-ray showed bilateral pulmonary infiltration most evident in the right lower zone suggestive of pneumonia. CT angiogram of the chest was done showed no evidence of PE. Severe COPD changes with a dilated pulmonary trunk suggestive of pulmonary hypertension. Bilateral pulmonary infiltrates could relate to acute inflammatory/infectious process like pneumonia however underlying neoplastic process cannot be excluded. 01/24/2022 Patient is seen and evaluated in room at bedside in selective care unit; continues to complain of shortness of breath Vital signs are reviewed temperature 97.7, pulse 76, respirations 16 and blood pressure 114/66; O2 saturation of 90% Blood culture reveals no growth to date. Sputum culture reveals no growth. Glucose 113. He is continued on DuoNeb inhalations, Mucinex. Antibiotics in the form of cefepime. Heparin for DVT prophylaxis. Pulmonary on board and recommending repeat chest x-ray; recommendations to follow Patient continues to complain of lower extremity weakness; we will consult PT and OT for evaluation and recommendations 01/25/2022 Patient is seen and evaluated and discussed with nursing staff Change in mental status is reported by the nursing staff; stat CT head and CTA head and neck is completed and is unremarkable Lba review shows a drop in sodium level down to 123 this morning. Patientw ill be placed on fluid restriction at 1500 cc per 24 hours, start IV fluids IVF in form of NS at 75 cc's per hour; we ell monitor electrolytes closely Neurology consolation is requested for further evaluation in mental status change; Patient remains on IV cefepime for pneumonia; pulmonary recommending continue current antibiotics. Repeat chest ex ray shows improvement Objective - Vital Signs Vital signs: Vital Signs Temp 97.8 F 01/25/22 15:45 Pulse 78 01/25/22 19:12 Resp 19 01/25/22 12:38 BP 130/76 01/25/22 15:45 Pulse Ox 97 01/25/22 15:45 Intake & Output 01/25/22 01/25/22 01/26/22 06:59 18:59 06:59 Intake Total 485 476 Output Total 950 175 0 Balance -465 301 0 Intake: Oral 485 476 Output: Urine 950 175 0 Other: Voiding Method Urinal Urinal # Voids 1 # Bowel Movements 1 - Exam Patient is lying in the bed comfortably, no acute distress, awake alert and oriented.. HEENT: Normocephalic. Neck is supple. Pupils reactive. Nostrils clear. Oral cavity is moist. Neck reveals no JVD, carotid bruits, or thyromegaly. CHEST EXAMINATION: Trachea is central. Symmetrical expansion. Bilateral scattered crackles. No wheezing or rhonchi. Nonlabored breathing.. CARDIAC: Normal S1, S2 with no gallops. No murmurs ABDOMEN: Soft. Bowel sounds normal. No organomegaly. No abdominal bruits. Extremities: reveal no edema. No clubbing or cyanosis Neurologically awake, alert, oriented x3 with well-coordinated movements. No focal deficits noted Skin: No rash or skin lesions. - Labs CBC & Chem 7: 01/25/22 08:41 01/25/22 11:42 Labs: Abnormal Lab Results - Last 24 Hours (Table) 01/25/22 01/25/22 01/25/22 Range/Units 05:44 08:41 08:41 RBC 2.79 L (4.30-5.90) m/uL Hgb 10.0 L (13.0-17.5) gm/dL Hct 28.9 L (39.0-53.0) % MCV 103.6 H (80.0-100.0) fL MCH 35.8 H (25.0-35.0) pg RDW 15.9 H (11.5-15.5) % Lymphocytes # (Manual) 0.94 L (1.0-4.8) k/uL Myelocytes # (Manual) 0.05 H (0) k/uL ABG pH (7.35-7.45) ABG pCO2 (35-45) mmHg ABG pO2 (83-108) mmHg ABG O2 Saturation (94-97) % Sodium 124 L (137-145) mmol/L Chloride 96 L (98-107) mmol/L Carbon Dioxide 19 L (22-30) mmol/L Glucose 164 H (74-99) mg/dL POC Glucose (mg/dL) 124 H (75-99) mg/dL 01/25/22 01/25/22 01/25/22 Range/Units 08:55 10:41 11:26 RBC (4.30-5.90) m/uL Hgb (13.0-17.5) gm/dL Hct (39.0-53.0) % MCV (80.0-100.0) fL MCH (25.0-35.0) pg RDW (11.5-15.5) % Lymphocytes # (Manual) (1.0-4.8) k/uL Myelocytes # (Manual) (0) k/uL ABG pH 7.60 H* (7.35-7.45) ABG pCO2 23 L (35-45) mmHg ABG pO2 124 H (83-108) mmHg ABG O2 Saturation 100.0 H (94-97) % Sodium (137-145) mmol/L Chloride (98-107) mmol/L Carbon Dioxide (22-30) mmol/L Glucose (74-99) mg/dL POC Glucose (mg/dL) 196 H 144 H (75-99) mg/dL 01/25/22 01/25/22 01/25/22 Range/Units 11:42 16:30 19:24 RBC (4.30-5.90) m/uL Hgb (13.0-17.5) gm/dL Hct (39.0-53.0) % MCV (80.0-100.0) fL MCH (25.0-35.0) pg RDW (11.5-15.5) % Lymphocytes # (Manual) (1.0-4.8) k/uL Myelocytes # (Manual) (0) k/uL ABG pH (7.35-7.45) ABG pCO2 (35-45) mmHg ABG pO2 (83-108) mmHg ABG O2 Saturation (94-97) % Sodium 123 L (137-145) mmol/L Chloride (98-107) mmol/L Carbon Dioxide (22-30) mmol/L Glucose (74-99) mg/dL POC Glucose (mg/dL) 173 H 205 H (75-99) mg/dL Microbiology - Last 24 Hours (Table) 01/22/22 10:53 Blood Culture - Preliminary Blood No Growth after 72 hours 01/22/22 11:00 Blood Culture - Preliminary Blood No Growth after 72 hours 01/23/22 07:57 Gram Stain - Final Sputum Sputum Culture - Final Assessment and Plan Assessment: Shortness of breath likely due to COPD and interstitial infiltrates. Bilateral infiltrates possible pneumonia. Hypovolemic hyponatremia chronic hypoxic respiratory failure History of esophageal cancer status post radiation History of Hodgkin's lymphoma status post stem cell transplant. Chronic atrial fibrillation. Patient was taken off anticoagulation due to low platelets as per patient. Coronary artery disease history of stent placement Chronic systolic CHF ejection fraction 30 to 35% Diabetes type 2 diet controlled History of KS Previous history of smoking GI and DVT prophylaxis with PPI, heparin subcu Plan: Patient was admitted to hospital with difficulty in breathing with symptoms started overnight. CT angiogram was negative for any pulmonary embolism. Continue with antibiotics in the form of ceftriaxone and azithromycin and follow-up procalcitonin and BNP level. Continue with oxygen supplementation. Patient be continued on home medications including aspirin, statin, metoprolol and Aldactone. Prognosis is guarded.
[2022-01-26] MEDS: HEPARIN SODIUM,PORCINE/PF 5,000 UNIT/0.5 ML SYRINGE SQ SCH ×4 (01:07→23:07)
[2022-01-26] MEDS: CEFEPIME 2 GM in SODIUM CHLORIDE 0.9% 100 ML IVPB SCH ×3 (04:11→20:48)
[2022-01-26 05:10] LABS: Glucose,Whole Blood 144 mg/dL (75-99)
[2022-01-26] MEDS: INSULIN ASPART (NovoLOG) 100 UNIT/ML VIAL SQ SCH ×4 (06:57→20:48)
[2022-01-26] MEDS: PANTOPRAZOLE 40 MG TABLET PO SCH (06:59)
[2022-01-26] MEDS: SPIRONOLACTONE 25 MG TAB PO SCH (08:38)
[2022-01-26] MEDS: guaiFENesin 600 MG TABLET.ER PO SCH ×2 (08:38→20:48)
[2022-01-26] MEDS: ASPIRIN 81 MG PO SCH (08:38)
[2022-01-26] MEDS: SERTRALINE 50 MG TAB PO SCH (08:38)
[2022-01-26] MEDS: METOPROLOL SUCCINATE (ER) 25 MG TAB.ER.24H PO SCH (08:38)
[2022-01-26 08:54] LABS: African American GFR (CKD) >90 (>60 ml/min/1.73 sqM); Anion Gap 7 mmol/L; Blood Urea Nitrogen 11 mg/dL (9-20); Calcium 8.8 mg/dL (8.4-10.2); Carbon Dioxide 20 mmol/L (22-30); Chloride 95 mmol/L (98-107); Glucose 122 mg/dL (74-99); Magnesium 1.2 mg/dL (1.6-2.3); Non-African American GFR(CKD) >90 (>60 ml/min/1.73 sqM); Potassium 5.1 mmol/L (3.5-5.1); Sodium 122 mmol/L (137-145)
[2022-01-26] MEDS: IPRATROPIUM-ALBUTEROL 3 ML NEB INHALATION SCH ×3 (09:04→19:39)
[2022-01-26 09:06] LABS: Basophils # (A) 0.1 k/uL (0-0.2); Basophils % (A) 1 %; Eosinophils # (A) 0.3 k/uL (0-0.7); Eosinophils % (A) 4 %; HCT 29.8 % (39.0-53.0); HGB 10.2 gm/dL (13.0-17.5); Hypochromasia Slight; Lymphocytes # (A) 1.1 k/uL (1.0-4.8); Lymphocytes % (A) 16 %; MCHC 34.4 g/dL (31.0-37.0); MCV 104.5 fL (80.0-100.0); Macrocytosis Moderate; Mean Platelet Volume 9.8; Monocytes # (A) 0.6 k/uL (0-1.0); Monocytes % (A) 8 %; Neutrophils % (A) 70 %; Platelet Count 184 k/uL (150-450); Poikilocytosis Slight; RBC 2.85 m/uL (4.30-5.90); RDW 15.8 % (11.5-15.5); WBC 7.1 k/uL (3.8-10.6)
[2022-01-26] MEDS ORDERED: Magnesium Replacement Protocol 1 EACH MISC MISCELLANE PRN (09:40)
[2022-01-26] MEDS ORDERED: TEMAZEPAM 7.5 MG CAP PO PRN (10:12)
[2022-01-26] MEDS ORDERED: PROMETHAZINE 25 MG TAB PO PRN (10:14)
[2022-01-26] MEDS: MAGNESIUM SULFATE-D5W PMX 1 GM in DEXTROSE/WATER 1 100ML.BAG IVPB SCH ×3 (10:18→12:30)
[2022-01-26 10:35] LABS: Polychromasia Present
[2022-01-26 12:04] LABS: Glucose,Whole Blood 168 mg/dL (75-99)
--- NOTE | 2022-01-26 12:30 | US ---
EXAMINATION TYPE: US venous doppler duplex LE DATE OF EXAM: 01/26/2022 12:05 PM COMPARISON: NONE CLINICAL HISTORY: leg swelling. Pt denies leg issues, no known prior DVT SIDE PERFORMED: Bilateral TECHNIQUE: The lower extremity deep venous system is examined utilizing real time linear array sonog vitaliy with graded compression, doppler sonography and color-flow sonography. VESSELS IMAGED: Common Femoral Vein Deep Femoral Vein Greater Saphenous Vein * Femoral Vein Popliteal Vein Small Saphenous Vein * Proximal Calf Veins (* superficial vessels) There is normal flow, compressibility, vascular waveforms. Right Leg: Negative for DVT Left Leg: Negative for DVT IMPRESSION: No evident deep venous thrombosis within the lower extremities from the level of the knee s centrally
--- NOTE | 2022-01-26 13:46 | P.PN ---
Subjective Progress Note Date: 01/26/22 Principal diagnosis: Pneumonia. 01/25/2022, the patient is essentially the same. Relatively doing well. No significant complaints in terms of his breathing. Nevertheless, the patient is having generalized weakness and fatigue. The same time, his sodium level has dropped as the patient has underlying CHF. His sodium level was down to 124. Based on that, the patient was on IV fluids by the medical team. Patient is currently on normal saline infusion at the rate of 75 mL an hour. I think it's low sodium level is probably due to his underlying cardiomyopathy. 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 He remains on IV cefepime as broad-spectrum antibiotic coverage. I ordered a repeat chest x-ray on this patient and a chest x-ray showed improvement in the lung densities specially in the lung bases. There are degenerative changes of the dorsal spine. Progress note dated 01/26/2022. 67-year-old male, seen in room 369. The patient has been here in the hospital now for 4 days. The patient states that he is feeling a bit better. He does have generalized weakness and fatigue. He denies any issues with his breathing. He's currently on 2 L with a saturation of 97%. Blood pressure stable 125/54 with a mean of 77. Heart rate 70, respiratory rate 20, and temperature is normal. White count 7.1, hemoglobin 10.2, hematocrit 29.8, platelet count 184,000. Sodium 122, potassium 5.1, chlorides 95, CO2 20, anion gap 7, BUN 11, creatinine 0.74. Microbiologic studies are negative. Dopplers of bilateral lower extremities were negative. Chest x-ray from yesterday shows improving infiltrates, and the right lower lobe. Objective - Vital Signs Vital signs: Vital Signs Temp 98.1 F 01/26/22 12:15 Pulse 74 01/26/22 13:01 Resp 20 01/26/22 12:15 BP 125/54 01/26/22 12:15 Pulse Ox 97 01/26/22 12:15 Intake & Output 01/25/22 01/26/22 01/26/22 18:59 06:59 18:59 Intake Total 476 580 Output Total 175 225 Balance 301 -225 580 Weight 70.8 kg Intake: Intake, IV Titration 100 Amount Cefepime 2 gm In Sodium 100 Chloride 0.9% 100 ml @ 25 mls/hr IVPB Q8H [facility] Rx#: [id number] Oral 476 480 Output: Urine 175 225 Other: Voiding Method Urinal Urinal Urinal # Bowel Movements 1 - Exam No acute distress, oriented 3. Currently on 2 L. Saturations are excellent. No respiratory distress. HEENT examination is grossly unremarkable. Neck supple. Full range of motion. No adenopathy thyromegaly or neck vein distention. Cardiovascular examination reveals regular rhythm rate. S1-S2 normal. No S3 or S4. No discernible murmur noted. Heart sounds are distant. Heart rate 74 bpm. Lungs reveal clear breath sounds. Breath sounds are equal bilaterally. No adventitious lung sounds including wheezes rhonchi or crackles. Abdomen soft bowel sounds are heard. No masses or tenderness. Extremities are intact. No cyanosis clubbing or edema. Skin is without rash or lesion. Neurologic examination is brief but nonfocal. - Labs CBC & Chem 7: 01/26/22 07:08 01/26/22 07:08 Labs: Abnormal Lab Results - Last 24 Hours (Table) 01/25/22 01/25/22 01/26/22 Range/Units 16:30 19:24 04:56 RBC (4.30-5.90) m/uL Hgb (13.0-17.5) gm/dL Hct (39.0-53.0) % MCV (80.0-100.0) fL MCH (25.0-35.0) pg RDW (11.5-15.5) % Sodium (137-145) mmol/L Chloride (98-107) mmol/L Carbon Dioxide (22-30) mmol/L Glucose (74-99) mg/dL POC Glucose (mg/dL) 173 H 205 H 144 H (75-99) mg/dL Osmolality (280-301) mosm/kg Magnesium (1.6-2.3) mg/dL 01/26/22 01/26/22 01/26/22 Range/Units 07:08 07:08 07:08 RBC 2.85 L (4.30-5.90) m/uL Hgb 10.2 L (13.0-17.5) gm/dL Hct 29.8 L (39.0-53.0) % MCV 104.5 H (80.0-100.0) fL MCH 36.0 H (25.0-35.0) pg RDW 15.8 H (11.5-15.5) % Sodium 122 L (137-145) mmol/L Chloride 95 L (98-107) mmol/L Carbon Dioxide 20 L (22-30) mmol/L Glucose 122 H (74-99) mg/dL POC Glucose (mg/dL) (75-99) mg/dL Osmolality 258 L (280-301) mosm/kg Magnesium 1.2 L (1.6-2.3) mg/dL 01/26/22 Range/Units 12:03 RBC (4.30-5.90) m/uL Hgb (13.0-17.5) gm/dL Hct (39.0-53.0) % MCV (80.0-100.0) fL MCH (25.0-35.0) pg RDW (11.5-15.5) % Sodium (137-145) mmol/L Chloride (98-107) mmol/L Carbon Dioxide (22-30) mmol/L Glucose (74-99) mg/dL POC Glucose (mg/dL) 168 H (75-99) mg/dL Osmolality (280-301) mosm/kg Magnesium (1.6-2.3) mg/dL Microbiology - Last 24 Hours (Table) 01/22/22 10:53 Blood Culture - Preliminary Blood No Growth after 96 hours 01/22/22 11:00 Blood Culture - Preliminary Blood No Growth after 96 hours 01/23/22 07:57 Gram Stain - Final Sputum Sputum Culture - Final Assessment and Plan Assessment: History of left lower lobe pneumonia, with recent admission to [facility]. No evidence of pulmonary embolism on CT angiogram. Mild acute hypoxemic respiratory failure, currently on 2 L O2. COPD, inactive. Esophageal cancer, status post chemoradiation. Remote history of lung cancer, treated with chemoradiation. History of CHF, status post AICD placement. Chronic atrial fibrillation. Hyperlipidemia. Diabetes mellitus. Chronic anemia. Chronic hyponatremia. History of Hodgkin's lymphoma, status post systemic chemotherapy followed by black ne marrow transplantation. Plan: Plan dated 01/26/2022. Currently, the patient appears to be doing reasonably well. Chest x-ray from yesterday shows improving infiltrates. Dopplers of the bilateral lower extremities were negative for DVT. The patient remains on antibiotics in the f orm of cefepime. We will continue to follow make recommendations where appropriate. Prognosis is guarded. The patient does have an extensive past medical history. Time with Patient: Less than 30
[2022-01-26 16:51] LABS: Glucose,Whole Blood 163 mg/dL (75-99)
[2022-01-26] MEDS: SODIUM CHLORIDE 0.9% 1,000 ML IV SCH (17:52)
[2022-01-26 20:31] LABS: Glucose,Whole Blood 158 mg/dL (75-99)
[2022-01-26] MEDS: MELATONIN 5 MG TABLET PO SCH (20:48)
[2022-01-26] MEDS: PRAVASTATIN SODIUM 40 MG TAB PO SCH (20:48)
--- NOTE | 2022-01-26 23:44 | P.PN ---
Subjective 67-year-old male with a known history of esophageal cancer status post radiation treatment, Hodgkin's lymphoma with history of stem cell transplant in 1997 with remission, diabetes type 2 diet-controlled, history of MT, atrial fibrillation status post ablation, chronic CHF with systolic dysfunction ejection fraction 30 to 35% status post AICD placement in 2014, coronary disease with history of stent placement and previous history of smoking presents to ER with complaints of difficulty breathing started overnight. Patient woke up in the morning and felt very short of breath and had trouble catching of breath and shortness of breath with minimal exertion. Denied chest pain. Patient otherwise did have pleuritic pain with deep breathing. Denied any complaints of cough or sputum production. No fever no chills. No headache or dizziness or lightheadedness. Denied leg swelling. Patient was recently admitted to the [facility] and was treated for pneumonia with cephalosporins. Patient was discharged home on 01/10/2022. Chest x-ray showed bilateral pulmonary infiltration most evident in the right lower zone suggestive of pneumonia. CT angiogram of the chest was done showed no evidence of PE. Severe COPD changes with a dilated pulmonary trunk suggestive of pulmonary hypertension. Bilateral pulmonary infiltrates could relate to acute inflammatory/infectious process like pneumonia however underlying neoplastic process cannot be excluded. 01/24/2022 Patient is seen and evaluated in room at bedside in selective care unit; continues to complain of shortness of breath Vital signs are reviewed temperature 97.7, pulse 76, respirations 16 and blood pressure 114/66; O2 saturation of 90% Blood culture reveals no growth to date. Sputum culture reveals no growth. Glucose 113. He is continued on DuoNeb inhalations, Mucinex. Antibiotics in the form of cefepime. Heparin for DVT prophylaxis. Pulmonary on board and recommending repeat chest x-ray; recommendations to follow Patient continues to complain of lower extremity weakness; we will consult PT and OT for evaluation and recommendations 01/25/2022 Patient is seen and evaluated and discussed with nursing staff Change in mental status is reported by the nursing staff; stat CT head and CTA head and neck is completed and is unremarkable Lba review shows a drop in sodium level down to 123 this morning. Patientw ill be placed on fluid restriction at 1500 cc per 24 hours, start IV fluids IVF in form of NS at 75 cc's per hour; we ell monitor electrolytes closely Neurology consolation is requested for further evaluation in mental status change; Patient remains on IV cefepime for pneumonia; pulmonary recommending continue current antibiotics. Repeat chest ex ray shows improvement Subjective: This is the first day I am taking care of the patient. 01/26/2022 Patient is a pleasant 67 years old male who presents with right lower lobe pneumonia versus bilateral pneumonia suspected secondary to aspiration currently covered with cefepime 2 g with pulmonary team about the case and patient reasonably doing well regarding his respiratory status, he has history of esophageal cancer status post chemoradiotherapy and remote history of lung cancer, patient informed with the importance of outpatient follow-up with his clinical veterinarian to make sure resolution of pneumonia, pleasant looking excluded and patient informed and he agrees. He had periods of confusion overnight, so Restoril was stopped and placed on melatonin as needed. Also Phenergan is given for nausea. 2. Sodium is 122, urine OSMOLALITY and sodium were ordered and showed elevated at concentrated urine which was likely go with SIADH therefore I felt it was stopped at the patient was placed on fluid restriction with nephrology team consulted. Monitor sodium of the morning Patient is with mental status changes improvement however he still confused, he knows he is in [facility] but he could not tell the date. He knows the month and year and the president name.. Patient has chronic left pupil dilatation with possible previ ous eye surgery. Patient is with little diarrhea and is not eating well. Patient is not on home oxygen. Patient states last time she was able to walk fine was October 2021, Asst. she has exertional dyspnea which restricts his movement Patient follow-up with clinical veterinarian Dr. underwood and ventricular enema, as well as his oncologist Dr.rona bradley (pt is not sure of spelling!!). Patient has the contact information at home. Objective - Vital Signs Vital signs: Vital Signs Temp 98.1 F 01/26/22 12:15 Pulse 74 01/26/22 13:01 Resp 20 01/26/22 12:15 BP 125/54 01/26/22 12:15 Pulse Ox 97 01/26/22 12:15 Intake & Output 01/25/22 01/26/22 01/26/22 18:59 06:59 18:59 Intake Total 476 580 Output Total 175 225 Balance 301 -225 580 Weight 70.8 kg Intake: Intake, IV Titration 100 Amount Cefepime 2 gm In Sodium 100 Chloride 0.9% 100 ml @ 25 mls/hr IVPB Q8H [facility] Rx#: [id number] Oral 476 480 Output: Urine 175 225 Other: Voiding Method Urinal Urinal Urinal # Bowel Movements 1 - Exam GENERAL: The patient is alert and oriented x3, not in any acute distress. Well developed, well nourished. HEENT: Pupils are round and equally reacting to light. EOMI. No scleral icterus. No conjunctival pallor. Normocephalic, atraumatic. No pharyngeal erythema. No thyromegaly. CARDIOVASCULAR: S1 and S2 present. No murmurs, rubs, or gallops. PULMONARY: Chest is clear to auscultation, no wheezing or crackles. ABDOMEN: Soft, nontender, nondistended, normoactive bowel sounds. No palpable organomegaly. MUSCULOSKELETAL: No joint swelling or deformity. EXTREMITIES: No cyanosis, clubbing, or pedal edema. NEUROLOGICAL: Gross neurological examination did not reveal any focal deficits. SKIN: No rashes. no petechiae. - Labs CBC & Chem 7: 01/26/22 07:08 01/26/22 07:08 Labs: Abnormal Lab Results - Last 24 Hours (Table) 01/25/22 01/26/22 01/26/22 Range/Units 19:24 04:56 07:08 RBC 2.85 L (4.30-5.90) m/uL Hgb 10.2 L (13.0-17.5) gm/dL Hct 29.8 L (39.0-53.0) % MCV 104.5 H (80.0-100.0) fL MCH 36.0 H (25.0-35.0) pg RDW 15.8 H (11.5-15.5) % Sodium (137-145) mmol/L Chloride (98-107) mmol/L Carbon Dioxide (22-30) mmol/L Glucose (74-99) mg/dL POC Glucose (mg/dL) 205 H 144 H (75-99) mg/dL Osmolality (280-301) mosm/kg Magnesium (1.6-2.3) mg/dL 01/26/22 01/26/22 01/26/22 Range/Units 07:08 07:08 12:03 RBC (4.30-5.90) m/uL Hgb (13.0-17.5) gm/dL Hct (39.0-53.0) % MCV (80.0-100.0) fL MCH (25.0-35.0) pg RDW (11.5-15.5) % Sodium 122 L (137-145) mmol/L Chloride 95 L (98-107) mmol/L Carbon Dioxide 20 L (22-30) mmol/L Glucose 122 H (74-99) mg/dL POC Glucose (mg/dL) 168 H (75-99) mg/dL Osmolality 258 L (280-301) mosm/kg Magnesium 1.2 L (1.6-2.3) mg/dL Microbiology - Last 24 Hours (Table) 01/22/22 10:53 Blood Culture - Preliminary Blood No Growth after 96 hours 01/22/22 11:00 Blood Culture - Preliminary Blood No Growth after 96 hours Assessment and Plan Assessment: Bilateral infiltrates possible pneumonia. Aspiration pneumonia suspected hyponatremia, most likely secondary to SIADH chronic hypoxic respiratory failure History of esophageal cancer status post radiation Remote history of lung cancer History of Hodgkin's lymphoma status post stem cell transplant. History of Chronic atrial fibrillation. Patient not on anticoagulation Coronary artery disease history of stent placement Chronic systolic CHF ejection fraction 30 to 35% Diabetes type 2 diet controlled History of MT Previous history of smoking Plan: 67 years old male who presents with bilateral pneumonia on antibiotic with history of esophageal cancer and hyponatremia Continue with antibiotic and pulmonary team on the case. currently he is on cefepime. Discontinue normal saline, with the patient on a fluid restriction, monitor so dium. Nephrology consult. Continue with aspirin 81 mg subcu heparin Neurology consult on the case. Labs and medication were reviewed.. Continue same treatment. Continue with symptomatic treatment. Resume home medication. Monitor lytes and vitals. DVT and GI prophylaxis. Further recommendations as per clinical course of the patient DVT prophylaxis: Subcutaneous heparin GI Prophylaxis: Ppi PT/OT: Pending Prognosis is guarded
[2022-01-27] MEDS: CEFEPIME 2 GM in SODIUM CHLORIDE 0.9% 100 ML IVPB SCH ×3 (03:48→22:34)
[2022-01-27 06:19] LABS: Glucose,Whole Blood 94 mg/dL (75-99)
[2022-01-27] MEDS: INSULIN ASPART (NovoLOG) 100 UNIT/ML VIAL SQ SCH ×4 (06:22→20:20)
[2022-01-27] MEDS: PANTOPRAZOLE 40 MG TABLET PO SCH (06:23)
[2022-01-27] MEDS: IPRATROPIUM-ALBUTEROL 3 ML NEB INHALATION SCH ×3 (07:55→20:35)
[2022-01-27] MEDS: SERTRALINE 50 MG TAB PO SCH (09:11)
[2022-01-27] MEDS: SPIRONOLACTONE 25 MG TAB PO SCH (09:12)
[2022-01-27] MEDS: guaiFENesin 600 MG TABLET.ER PO SCH (09:12)
[2022-01-27] MEDS: HEPARIN SODIUM,PORCINE/PF 5,000 UNIT/0.5 ML SYRINGE SQ SCH ×3 (09:12→23:27)
[2022-01-27] MEDS: ASPIRIN 81 MG PO SCH (09:12)
[2022-01-27] MEDS: METOPROLOL SUCCINATE (ER) 25 MG TAB.ER.24H PO SCH (09:12)
[2022-01-27 09:31] LABS: African American GFR (CKD) >90 (>60 ml/min/1.73 sqM); Anion Gap 5 mmol/L; Blood Urea Nitrogen 10 mg/dL (9-20); Calcium 8.3 mg/dL (8.4-10.2); Carbon Dioxide 22 mmol/L (22-30); Chloride 92 mmol/L (98-107); Glucose 104 mg/dL (74-99); Magnesium 1.4 mg/dL (1.6-2.3); Non-African American GFR(CKD) >90 (>60 ml/min/1.73 sqM); Potassium 4.8 mmol/L (3.5-5.1)
[2022-01-27 09:33] LABS: Basophils # (A) 0.1 k/uL (0-0.2); Basophils % (A) 1 %; Eosinophils # (A) 0.3 k/uL (0-0.7); Eosinophils % (A) 5 %; HCT 30.8 % (39.0-53.0); HGB 10.5 gm/dL (13.0-17.5); Hypochromasia Slight; Lymphocytes % (A) 16 %; MCH 35.5 pg (25.0-35.0); MCHC 34.1 g/dL (31.0-37.0); MCV 104.1 fL (80.0-100.0); Macrocytosis Moderate; Mean Platelet Volume 9.4; Monocytes # (A) 0.6 k/uL (0-1.0); Monocytes % (A) 10 %; Neutrophils # (A) 4.2 k/uL (1.3-7.7); Neutrophils % (A) 66 %; Platelet Count 172 k/uL (150-450); Poikilocytosis Moderate; RBC 2.96 m/uL (4.30-5.90); RDW 15.9 % (11.5-15.5); WBC 6.4 k/uL (3.8-10.6)
[2022-01-27 09:38] LABS: Sodium 119 mmol/L (137-145)
[2022-01-27 11:39] LABS: Glucose,Whole Blood 136 mg/dL (75-99)
--- NOTE | 2022-01-27 11:42 | P.PN ---
Subjective Progress Note Date: 01/27/22 Principal diagnosis: Pneumonia. 01/25/2022, the patient is essentially the same. Relatively doing well. No significant complaints in terms of his breathing. Nevertheless, the patient is having generalized weakness and fatigue. The same time, his sodium level has dropped as the patient has underlying CHF. His sodium level was down to 124. Based on that, the patient was on IV fluids by the medical team. Patient is currently on normal saline infusion at the rate of 75 mL an hour. I think it's low sodium level is probably due to his underlying cardiomyopathy. 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 He remains on IV cefepime as broad-spectrum antibiotic coverage. I ordered a repeat chest x-ray on this patient and a chest x-ray showed improvement in the lung densities specially in the lung bases. There are degenerative changes of the dorsal spine. Progress note dated 01/26/2022. 67-year-old male, seen in room 369. The patient has been here in the hospital now for 4 days. The patient states that he is feeling a bit better. He does have generalized weakness and fatigue. He denies any issues with his breathing. He's currently on 2 L with a saturation of 97%. Blood pressure stable 125/54 with a mean of 77. Heart rate 70, respiratory rate 20, and temperature is normal. White count 7.1, hemoglobin 10.2, hematocrit 29.8, platelet count 184,000. Sodium 122, potassium 5.1, chlorides 95, CO2 20, anion gap 7, BUN 11, creatinine 0.74. Microbiologic studies are negative. Dopplers of bilateral lower extremities were negative. Chest x-ray from yesterday shows improving infiltrates, and the right lower lobe. Progress note dated 01/27/2022. 67-year-old male, again seen in room 369. Currently, the patient's on 2 L nasal cannula. Is getting saline at 10 mL an hour. The patient is stable from the pulmonary standpoint. He is complaining of nausea. I did ask for his nurse, Makenna, to come see him and give him something for nausea. He denies any chest pain or chest discomfort. He denies being short of breath. White count 6.4, hemoglobin 10.5, hematocrit 30.8, and platelet count 172,000. Sodium 119, potassium 4.8, chlorides 92, CO2 22, anion gap 5, BUN 10, creatinine 0.61. The patient is currently on cefepime, and did receive Tolvaptan by nephrology. Microbiology is currently on negative. Venous Doppler studies of lower extremities, were negative. Objective - Vital Signs Vital signs: Vital Signs Temp 98.6 F 01/27/22 04:00 Pulse 72 01/27/22 08:06 Resp 18 01/27/22 04:00 BP 129/81 01/27/22 04:00 Pulse Ox 98 01/27/22 04:00 Intake & Output 01/26/22 01/27/22 01/27/22 18:59 06:59 18:59 Intake Total 1360 240 Output Total 225 550 Balance 1135 -550 240 Intake: Intake, IV Titration 400 Amount Cefepime 2 gm In Sodium 100 Chloride 0.9% 100 ml @ 25 mls/hr IVPB Q8H ROSAS Rx#: [id number] Magnesium Sulfate-D5w Pmx 300 1 gm In Dextrose/Water 1 100ml.bag @ 100 mls/hr IVPB Q1H ROSAS Rx#: [id number] Oral 960 240 Output: Urine 225 550 Other: Voiding Method Urinal # Voids 1 1 # Bowel Movements 1 - Exam No acute distress, oriented 3. Currently on 2 L. Saturations are excellent. No respiratory distress. Saturations are 98%. HEENT examination is grossly unremarkable. Neck supple. Full range of motion. No adenopathy thyromegaly or neck vein distention. Cardiovascular examination reveals regular rhythm rate. S1-S2 normal. No S3 or S4. No discernible murmur noted. Heart sounds are distant. Heart rate 72 bpm. Lungs reveal clear breath sounds. Breath sounds are equal bilaterally. No adventitious lung sounds including wheezes rhonchi or crackles. Abdomen soft bowel sounds are heard. No masses or tenderness. Extremities are intact. No cyanosis clubbing or edema. Skin is without rash or lesion. Neurologic examination is brief but nonfocal. - Labs CBC & Chem 7: 01/27/22 08:20 01/27/22 08:20 Labs: Abnormal Lab Results - Last 24 Hours (Table) 01/23/22 01/26/22 01/26/22 Range/Units 07:11 07:08 12:03 RBC (4.30-5.90) m/uL Hgb (13.0-17.5) gm/dL Hct (39.0-53.0) % MCV (80.0-100.0) fL MCH (25.0-35.0) pg RDW (11.5-15.5) % Sodium (137-145) mmol/L Chloride (98-107) mmol/L Creatinine (0.66-1.25) mg/dL Glucose (74-99) mg/dL POC Glucose (mg/dL) 168 H (75-99) mg/dL Osmolality 258 L (280-301) mosm/kg Calcium (8.4-10.2) mg/dL Magnesium (1.6-2.3) mg/dL RBC Folate 793 H (280 - 791) ng/mL 01/26/22 01/26/22 01/27/22 Range/Units 16:50 20:30 08:20 RBC (4.30-5.90) m/uL Hgb (13.0-17.5) gm/dL Hct (39.0-53.0) % MCV (80.0-100.0) fL MCH (25.0-35.0) pg RDW (11.5-15.5) % Sodium 119 L* (137-145) mmol/L Chloride 92 L (98-107) mmol/L Creatinine 0.61 L (0.66-1.25) mg/dL Glucose 104 H (74-99) mg/dL POC Glucose (mg/dL) 163 H 158 H (75-99) mg/dL Osmolality (280-301) mosm/kg Calcium 8.3 L (8.4-10.2) mg/dL Magnesium 1.4 L (1.6-2.3) mg/dL RBC Folate (280 - 791) ng/mL 01/27/22 Range/Units 08:20 RBC 2.96 L (4.30-5.90) m/uL Hgb 10.5 L (13.0-17.5) gm/dL Hct 30.8 L (39.0-53.0) % MCV 104.1 H (80.0-100.0) fL MCH 35.5 H (25.0-35.0) pg RDW 15.9 H (11.5-15.5) % Sodium (137-145) mmol/L Chloride (98-107) mmol/L Creatinine (0.66-1.25) mg/dL Glucose (74-99) mg/dL POC Glucose (mg/dL) (75-99) mg/dL Osmolality (280-301) mosm/kg Calcium (8.4-10.2) mg/dL Magnesium (1.6-2.3) mg/dL RBC Folate (280 - 791) ng/mL Microbiology - Last 24 Hours (Table) 01/22/22 10:53 Blood Culture - Preliminary Blood No Growth after 96 hours 01/22/22 11:00 Blood Culture - Preliminary Blood No Growth after 96 hours Assessment and Plan Assessment: History of left lower lobe pneumonia, with recent admission to [facility]. No evidence of pulmonary embolism on CT angiogram. Mild acute hypoxemic respiratory failure, currently on 2 L O2. COPD, inactive. Esophageal cancer, status post chemoradiation. Remote history of lung cancer, treated with chemoradiation. History of CHF, status post AICD placement. Chronic atrial fibrillation. Hyperlipidemia. Diabetes mellitus. Chronic anemia. Chronic hyponatremia, being evaluated and treated by nephrology. History of Hodgkin's lymphoma, status post systemic chemotherapy followed by bone marrow transplantation. Plan: Plan dated 01/26/2022. Currently, the patient appears to be doing reasonably well. Chest x-ray from yesterday shows improving infiltrates. Dopplers of the bilateral lower extremities were negative for DVT. The patient remains on antibiotics in the form of cefepime. We will continue to follow make recommendations where appropriate. Prognosis is guarded. The patient does have an extensive past medical history. Plan dated 01/27/2022. Currently, from the pulmonary standpoint, the patient's doing well. His saturations are 98% on 2 L. The patient is on saline at 10 mL an hour. His complaint today was that of nausea. He was given Tolvaptan by nephrology, for his chronic hyponatremia. Labs, x-rays, and medications are reviewed. The patient remains on cefepime. Microbiologic studies are thus far negative. We will continue to follow make recommendations where appropriate. Time with Patient: Less than 30
[2022-01-27] MEDS ORDERED: TOLVAPTAN 15 MG 1/2 TABLET PO ONE (12:00)
--- NOTE | 2022-01-27 14:20 | P.PN ---
Subjective 67-year-old male with a known history of esophageal cancer status post radiation treatment, Hodgkin's lymphoma with history of stem cell transplant in 1997 with remission, diabetes type 2 diet-controlled, history of DE, atrial fibrillation status post ablation, chronic CHF with systolic dysfunction ejection fraction 30 to 35% status post AICD placement in 2014, coronary disease with history of stent placement and previous history of smoking presents to ER with complaints of difficulty breathing started overnight. Patient woke up in the morning and felt very short of breath and had trouble catching of breath and shortness of breath with minimal exertion. Denied chest pain. Patient otherwise did have pleuritic pain with deep breathing. Denied any complaints of cough or sputum production. No fever no chills. No headache or dizziness or lightheadedness. Denied leg swelling. Patient was recently admitted to the [facility] and was treated for pneumonia with cephalosporins. Patient was discharged home on 01/10/2022. Chest x-ray showed bilateral pulmonary infiltration most evident in the right lower zone suggestive of pneumonia. CT angiogram of the chest was done showed no evidence of PE. Severe COPD changes with a dilated pulmonary trunk suggestive of pulmonary hypertension. Bilateral pulmonary infiltrates could relate to acute inflammatory/infectious process like pneumonia however underlying neoplastic process cannot be excluded. 01/24/2022 Patient is seen and evaluated in room at bedside in selective care unit; continues to complain of shortness of breath Vital signs are reviewed temperature 97.7, pulse 76, respirations 16 and blood pressure 114/66; O2 saturation of 90% Blood culture reveals no growth to date. Sputum culture reveals no growth. Glucose 113. He is continued on DuoNeb inhalations, Mucinex. Antibiotics in the form of cefepime. Heparin for DVT prophylaxis. Pulmonary on board and recommending repeat chest x-ray; recommendations to follow Patient continues to complain of lower extremity weakness; we will consult PT and OT for evaluation and recommendations 01/25/2022 Patient is seen and evaluated and discussed with nursing staff Change in mental status is reported by the nursing staff; stat CT head and CTA head and neck is completed and is unremarkable Lba review shows a drop in sodium level down to 123 this morning. Patientw ill be placed on fluid restriction at 1500 cc per 24 hours, start IV fluids IVF in form of NS at 75 cc's per hour; we ell monitor electrolytes closely Neurology consolation is requested for further evaluation in mental status change; Patient remains on IV cefepime for pneumonia; pulmonary recommending continue current antibiotics. Repeat chest ex ray shows improvement Subjective: This is the first day I am taking care of the patient. 01/26/2022 Patient is a pleasant 67 years old male who presents with right lower lobe pneumonia versus bilateral pneumonia suspected secondary to aspiration currently covered with cefepime 2 g with pulmonary team about the case and patient reasonably doing well regarding his respiratory status, he has history of esophageal cancer status post chemoradiotherapy and remote history of lung cancer, patient informed with the importance of outpatient follow-up with his piece goods packer to make sure resolution of pneumonia, pleasant looking excluded and patient informed and he agrees. He had periods of confusion overnight, so Restoril was stopped and placed on melatonin as needed. Also Phenergan is given for nausea. 2. Sodium is 122, urine OSMOLALITY and sodium were ordered and showed elevated at concentrated urine which was likely go with SIADH therefore I felt it was stopped at the patient was placed on fluid restriction with nephrology team consulted. Monitor sodium of the morning Patient is with mental status changes improvement however he still confused, he knows he is in [facility] but he could not tell the date. He knows the month and year and the president name.. Patient has chronic left pupil dilatation with possible previ ous eye surgery. Patient is with little diarrhea and is not eating well. Patient is not on home oxygen. Patient states last time she was able to walk fine was October 2021, Asst. she has exertional dyspnea which restricts his movement Patient follow-up with piece goods packer Dr. underwood and ventricular enema, as well as his oncologist Dr.rona bradley (pt is not sure of spelling!!). Patient has the contact information at home. 01/27/2022 Patient is complaining of from nausea with no vomiting, he states that prevents him from eating. No abdominal pain. No diarrhea. Actually his last bowel m ovement was 2-3 days ago. He is fully awake and oriented and looks like her mentation is back to baseline. No dyspnea or coughing. No chest pain. No fever. Remains on cefepime for possible pneumonia with pulmonary team on the case. Sodium today is up to 119, otr hazmat company driver input is appreciated, he was given 1 dose of the samsca, we will keep monitoring sodium closely today and tomorrow Objective - Vital Signs Vital signs: Vital Signs Temp 98.6 F 01/27/22 04:00 Pulse 72 01/27/22 08:06 Resp 18 01/27/22 04:00 BP 129/81 01/27/22 04:00 Pulse Ox 98 01/27/22 04:00 Intake & Output 01/26/22 01/27/22 01/27/22 18:59 06:59 18:59 Intake Total 1360 240 Output Total 225 550 Balance 1135 -550 240 Intake: Intake, IV Titration 400 Amount Cefepime 2 gm In Sodium 100 Chloride 0.9% 100 ml @ 25 mls/hr IVPB Q8H ROSAS Rx#: [id number] Magnesium Sulfate-D5w Pmx 300 1 gm In Dextrose/Water 1 100ml.bag @ 100 mls/hr IVPB Q1H ROSAS Rx#: [id number] Oral 960 240 Output: Urine 225 550 Other: Voiding Method Urinal # Voids 1 1 # Bowel Movements 1 - Exam GENERAL: The patient is alert and oriented x3, not in any acute distress. Well developed, well nourished. HEENT: Pupils are round and equally reacting to light. EOMI. No scleral icterus. No conjunctival pallor. Normocephalic, atraumatic. No pharyngeal erythema. No thyromegaly. CARDIOVASCULAR: S1 and S2 present. No murmurs, rubs, or gallops. PULMONARY: Chest is clear to auscultation, no wheezing or crackles. ABDOMEN: Soft, nontender, nondistended, normoactive bowel sounds. No palpable organomegaly. MUSCULOSKELETAL: No joint swelling or deformity. EXTREMITIES: No cyanosis, clubbing, or pedal edema. NEUROLOGICAL: Gross neurological examination did not reveal any focal deficits. SKIN: No rashes. no petechiae. - Labs CBC & Chem 7: 01/27/22 08:20 01/27/22 08:20 Labs: Abnormal Lab Results - Last 24 Hours (Table) 01/23/22 01/26/22 01/26/22 Range/Units 07:11 07:08 12:03 RBC (4.30-5.90) m/uL Hgb (13.0-17.5) gm/dL Hct (39.0-53.0) % MCV (80.0-100.0) fL MCH (25.0-35.0) pg RDW (11.5-15.5) % Sodium (137-145) mmol/L Chloride (98-107) mmol/L Creatinine (0.66-1.25) mg/dL Glucose (74-99) mg/dL POC Glucose (mg/dL) 168 H (75-99) mg/dL Osmolality 258 L (280-301) mosm/kg Calcium (8.4-10.2) mg/dL Magnesium (1.6-2.3) mg/dL RBC Folate 793 H (280 - 791) ng/mL 01/26/22 01/26/22 01/27/22 Range/Units 16:50 20:30 08:20 RBC (4.30-5.90) m/uL Hgb (13.0-17.5) gm/dL Hct (39.0-53.0) % MCV (80.0-100.0) fL MCH (25.0-35.0) pg RDW (11.5-15.5) % Sodium 119 L* (137-145) mmol/L Chloride 92 L (98-107) mmol/L Creatinine 0.61 L (0.66-1.25) mg/dL Glucose 104 H (74-99) mg/dL POC Glucose (mg/dL) 163 H 158 H (75-99) mg/dL Osmolality (280-301) mosm/kg Calcium 8.3 L (8.4-10.2) mg/dL Magnesium 1.4 L (1.6-2.3) mg/dL RBC Folate (280 - 791) ng/mL 01/27/22 Range/Units 08:20 RBC 2.96 L (4.30-5.90) m/uL Hgb 10.5 L (13.0-17.5) gm/dL Hct 30.8 L (39.0-53.0) % MCV 104.1 H (80.0-100.0) fL MCH 35.5 H (25.0-35.0) pg RDW 15.9 H (11.5-15.5) % Sodium (137-145) mmol/L Chloride (98-107) mmol/L Creatinine (0.66-1.25) mg/dL Glucose (74-99) mg/dL POC Glucose (mg/dL) (75-99) mg/dL Osmolality (280-301) mosm/kg Calcium (8.4-10.2) mg/dL Magnesium (1.6-2.3) mg/dL RBC Folate (280 - 791) ng/mL Microbiology - Last 24 Hours (Table) 01/22/22 10:53 Blood Culture - Preliminary Blood No Growth after 96 hours 01/22/22 11:00 Blood Culture - Preliminary Blood No Growth after 96 hours Assessment and Plan Assessment: Bilateral infiltrates possible pneumonia. Aspiration pneumonia suspected hyponatremia, most likely secondary to SIADH chronic hypoxic respiratory failure History of esophageal cancer status post radiation Remote history of lung cancer History of Hodgkin's lymphoma status post stem cell transplant. History of Chronic atrial fibrillation. Patient not on anticoagulation Coronary artery disease history of stent placement Chronic systolic CHF ejection fraction 30 to 35% Diabetes type 2 diet controlled History of DE Previous history of smoking Plan: 67 years old male who presents with bilateral pneumonia on antibiotic with history of esophageal cancer and hyponatremia Continue with antibiotic and pulmonary team on the case. currently he is on cefepime. Patient will need to follow up with piece goods packer upon discharge. Risks including but not limited cancer are explained to the patient He is status post [facility] 1, otr hazmat company driver on the case. Monitor sodium closely. Keep off IV fluids Continue with aspirin 81 mg subcu heparin Neurology consult on the case. Labs and medication were reviewed.. Continue same treatment. Continue with symptomatic treatment. Resume home medication. Monitor lytes and vitals. DVT and GI prophylaxis. Further recommendations as per clinical course of the patient DVT prophylaxis: Subcutaneous heparin GI Prophylaxis: Ppi PT/OT: Home health care, ordered Prognosis is guarded
--- NOTE | 2022-01-27 16:19 | CONS ---
CONSULTATION REASON FOR CONSULT: Hyponatremia. HISTORY OF PRESENT ILLNESS: Patient is a 67-year-old male who was admitted to the hospital with complaints of he was recently treated for pneumonia about 2 to 3 weeks ago. Patient was noted to have serum sodium of 126 on initial admission. It appears that he received IV fluids, and sodium had improved to 129, but further decreased to 124, and today it is 119. Blood pressure has not been low, mostly staying about 130 to 120 mmHg. Review of previous labs shows no hyponatremia previously. Patient has an underlying history of esophageal cancer, status post radiation therapy, history of non-Hodgkin's lymphoma with a stem cell transplant in 1997 with remission. PAST MEDICAL HISTORY: Atrial fibrillation, COPD, type 2 diabetes, coronary artery disease, history of PR, chronic hypoxic respiratory failure, maintained on home O2, history of Hodgkin's lymphoma, status post stem cell transplant, history of atrial fibrillation, status post AV node ablation and pacemaker placement. SOCIAL HISTORY: Patient is a former smoker. No history of drug abuse or alcohol abuse. MEDICATIONS: Medications prior to admission included aspirin, omeprazole, Flexeril, Toprol, MiraLAX, Pravachol, Zoloft, spironolactone, Restoril. ALLERGIES: ALLERGIES INCLUDE ZOSYN (causes anaphylaxis) and PERFLUTREN (also causes anaphylaxis). PHYSICAL EXAMINATION: Patient is comfortable, awake. He is not in any acute distress. Blood pressure is 129/81 this morning, heart rate 72 per minute. Patient is afebrile. Examination of the heart: S1, S2. Examination of the lungs: Bilateral breath sounds are heard. Abdomen is soft, nontender. Examination of lower extremities shows no significant edema. STUDENT WORKER exam grossly intact. Labs show sodium of 119, potassium 4.8, chloride 92, BUN 10, serum creatinine 0.6, hemoglobin 10.5 g/dL. Magnesium 1.4. Urine osmolality 615. ASSESSMENT: 1. Hyponatremia, currently euvolemic and suggestive of SIADH with elevated urine osmolality of 615. Serum sodium also worsened after saline administration, which goes along with SIADH. Patient may have been hypovolemic on initial admission, at which time the sodium had improved from 126 to 129 with saline administration. I will continue to maintain patient off of IV fluids and will give him a dose of tolvaptan and repeat sodium later on today. Patient will be maintained on fluid restriction. 1. Hypomagnesemia. Will replace. 2. History of esophageal cancer . PLAN: Tolvaptan p.o. x1. Repeat sodium later on today. Continue off of IV fluids. Maintain patient on fluid restriction. Encourage increased oral intake, particularly protein. Thank you for this consultation. Will continue to follow the patient with you during his hospitalization. MMODL / IJN: [id number] /
[2022-01-27 16:48] LABS: Glucose,Whole Blood 141 mg/dL (75-99)
[2022-01-27] MEDS: MAGNESIUM SULFATE-D5W PMX 1 GM in DEXTROSE/WATER 1 100ML.BAG IVPB SCH ×3 (18:50→21:33)
[2022-01-27 20:03] LABS: Glucose,Whole Blood 197 mg/dL (75-99)
[2022-01-27] MEDS: PRAVASTATIN SODIUM 40 MG TAB PO SCH (20:20)
[2022-01-27] MEDS: MELATONIN 5 MG TABLET PO SCH (20:20)
[2022-01-28] MEDS: CEFEPIME 2 GM in SODIUM CHLORIDE 0.9% 100 ML IVPB SCH ×3 (04:50→20:22)
[2022-01-28 06:22] LABS: Glucose,Whole Blood 141 mg/dL (75-99)
[2022-01-28] MEDS: PANTOPRAZOLE 40 MG TABLET PO SCH (06:30)
[2022-01-28] MEDS: INSULIN ASPART (NovoLOG) 100 UNIT/ML VIAL SQ SCH ×4 (06:30→20:24)
[2022-01-28 06:57] LABS: Anisocytosis Slight; HCT 32.3 % (39.0-53.0); HGB 10.7 gm/dL (13.0-17.5); Hypochromasia Slight; MCH 35.1 pg (25.0-35.0); MCHC 33.2 g/dL (31.0-37.0); MCV 105.8 fL (80.0-100.0); Macrocytosis Moderate; Mean Platelet Volume 8.7; Platelet Count 197 k/uL (150-450); Poikilocytosis Moderate; RBC 3.05 m/uL (4.30-5.90); RDW 16.7 % (11.5-15.5); WBC 6.5 k/uL (3.8-10.6)
[2022-01-28 07:07] LABS: ALT 15 U/L (4-49); AST 18 U/L (17-59); African American GFR (CKD) >90 (>60 ml/min/1.73 sqM); Albumin 3.3 g/dL (3.5-5.0); Alkaline Phosphatase 104 U/L (38-126); Anion Gap 6 mmol/L; Blood Urea Nitrogen 11 mg/dL (9-20); Calcium 8.9 mg/dL (8.4-10.2); Carbon Dioxide 21 mmol/L (22-30); Chloride 97 mmol/L (98-107); Glucose 124 mg/dL (74-99); Magnesium 1.9 mg/dL (1.6-2.3); Non-African American GFR(CKD) >90 (>60 ml/min/1.73 sqM); Potassium 4.7 mmol/L (3.5-5.1); Sodium 124 mmol/L (137-145); Total Bilirubin 1.1 mg/dL (0.2-1.3); Total Protein 6.4 g/dL (6.3-8.2)
[2022-01-28] MEDS: IPRATROPIUM-ALBUTEROL 3 ML NEB INHALATION SCH ×3 (07:53→20:09)
[2022-01-28] MEDS ORDERED: TOLVAPTAN 15 MG 1/2 TABLET PO ONE (10:00)
[2022-01-28] MEDS: ASPIRIN 81 MG PO SCH (10:09)
[2022-01-28] MEDS: SPIRONOLACTONE 25 MG TAB PO SCH (10:09)
[2022-01-28] MEDS: METOPROLOL SUCCINATE (ER) 25 MG TAB.ER.24H PO SCH (10:09)
[2022-01-28] MEDS: HEPARIN SODIUM,PORCINE/PF 5,000 UNIT/0.5 ML SYRINGE SQ SCH (10:09)
[2022-01-28 10:56] LABS: Eosinophils # (M) 0.13 k/uL (0-0.7); Lymphocytes # (M) 0.52 k/uL (1.0-4.8); Monocytes # (M) 0.46 k/uL (0-1.0); Neutrophils % (M) 83 %; Nucleated Red Blood Cells 0 /100 WBC (0-0); Total Cells Counted 100
[2022-01-28 11:50] LABS: Glucose,Whole Blood 128 mg/dL (75-99)
--- NOTE | 2022-01-28 11:57 | P.PN ---
Subjective Patient is seen for follow-up for hyponatremia. It appears to be mostly SIADH and is currently improved status post tolvaptan which was given yesterday. No significant complaints today. Sodium improved from 120 to 124 today Patient remains off of IV fluids Urine osmolality was 6:15. Objective - Vital Signs Vital signs: Vital Signs Temp 98.0 F 01/28/22 09:50 Pulse 72 01/28/22 11:19 Resp 20 01/28/22 09:50 BP 110/72 01/28/22 09:50 Pulse Ox 97 01/28/22 09:50 Intake & Output 01/27/22 01/28/22 01/28/22 18:59 06:59 18:59 Intake Total 1440 200 50 Output Total 100 600 700 Balance 1340 -400 -650 Weight 70.8 kg 63.5 kg Intake: IV 240 .9@20 240 Oral 1200 200 50 Output: Urine 100 600 700 Other: Voiding Method Urinal Urinal Urinal # Bowel Movements 1 - Exam Patient is comfortable awake not in any acute distress. No significant lower extremity edema noted. - Labs CBC & Chem 7: 01/28/22 06:26 01/28/22 06:26 Labs: Abnormal Lab Results - Last 24 Hours (Table) 01/27/22 01/27/22 01/27/22 Range/Units 15:59 16:44 20:02 RBC (4.30-5.90) m/uL Hgb (13.0-17.5) gm/dL Hct (39.0-53.0) % MCV (80.0-100.0) fL MCH (25.0-35.0) pg RDW (11.5-15.5) % Lymphocytes # (Manual) (1.0-4.8) k/uL Sodium 120 L (137-145) mmol/L Chloride (98-107) mmol/L Carbon Dioxide (22-30) mmol/L Glucose (74-99) mg/dL POC Glucose (mg/dL) 141 H 197 H (75-99) mg/dL Albumin (3.5-5.0) g/dL 01/28/22 01/28/22 01/28/22 Range/Units 06:20 06:26 06:26 RBC 3.05 L (4.30-5.90) m/uL Hgb 10.7 L (13.0-17.5) gm/dL Hct 32.3 L (39.0-53.0) % MCV 105.8 H (80.0-100.0) fL MCH 35.1 H (25.0-35.0) pg RDW 16.7 H (11.5-15.5) % Lymphocytes # (Manual) 0.52 L (1.0-4.8) k/uL Sodium 124 L (137-145) mmol/L Chloride 97 L (98-107) mmol/L Carbon Dioxide 21 L (22-30) mmol/L Glucose 124 H (74-99) mg/dL POC Glucose (mg/dL) 141 H (75-99) mg/dL Albumin 3.3 L (3.5-5.0) g/dL 01/28/22 Range/Units 11:48 RBC (4.30-5.90) m/uL Hgb (13.0-17.5) gm/dL Hct (39.0-53.0) % MCV (80.0-100.0) fL MCH (25.0-35.0) pg RDW (11.5-15.5) % Lymphocytes # (Manual) (1.0-4.8) k/uL Sodium (137-145) mmol/L Chloride (98-107) mmol/L Carbon Dioxide (22-30) mmol/L Glucose (74-99) mg/dL POC Glucose (mg/dL) 128 H (75-99) mg/dL Albumin (3.5-5.0) g/dL Microbiology - Last 24 Hours (Table) 01/22/22 10:53 Blood Culture - Preliminary Blood No Growth after 120 hours 01/22/22 11:00 Blood Culture - Preliminary Blood No Growth after 120 hours Assessment and Plan Assessment: 1. Hyponatremia euvolemic secondary to SIADH with high urine osmolality of 6:15 and worsening of serum sodium after saline administration. Status post Samsca yesterday we'll repeat another dose today. 2. Hypomagnesemia status post replacement 3. History of esophageal cancer status post chemoradiation therapy 4. History of recent left lower lobe pneumonia Plan: Repeat Samsca today. Repeat sodium this afternoon Maintain fluid restriction Encourage increased oral intake particularly protein
--- NOTE | 2022-01-28 12:00 | P.CRDCN ---
History of Present Illness History of present illness: This is a pleasant 67-year-old gentleman with a past medical history significant for CAD and prior stenting of the LAD 2008, persistent atrial fibrillation s/p AV herbert ablation (Not anticoagulation due to thrombocytopenia, Eliquis was discontinued in October 2021), ischemic cardiomyopathy with known EF 20-25% s/p AICD, chronic heart failure with reduced EF, hyperlipidemia, type 2 diabetes mellitus, lung cancer treated with chemoradiation therapy, Hodgkin's lymphoma undergone previous bone marrow transplantation, esophageal adenocarcinoma and the patient was treated with a combination of chemoradiation therapy, cataract surgery on left. Last chemotherapy 4 weeks ago. He follows with Dr. Ephraim Holbrook at [facility]. We have been consulted for chest pain and anticoagulation for atrial fibrillation. Patient initially presented to the emergency department with worsening shortness of breath. Daughter at bedside, she states her father was with her and he has progressively getting more short of breath over the past 2 weeks, worsening shortness of breath morning of admission, dyspnea on exertion and increased generalized fatigue, weight loss. Brought to the ER for further evaluation. Patient has been evaluated by Pulmonary. Diagnosed with left lower lobe pneumonia. Per pulmonary residual pulmonary infiltrates improving compared to the earlier evaluation and the CAT scan of the chest that was done on 01/06/2022 at [facility]. 01/25/2022 neurology was consulted because nursing scheduling patient answering questions and the left pupil was larger than the left but both are reactive. Neurology evaluated the patient and the patient's delayed response was related due to likely medication effect after Temazepam and possible component of metabolic encephalopathy. Eye dilated on the left due to underlying eye surgery vs chemotherapy/radiation. CT was unremarkable. Neurology signed off. In terms of his chest pain, he has anterior bilateral chest discomfort when he takes a deep breath. It is non-radiating, non exertional. It can also be slightl y aggravated by a cough. He denies any diaphoresis, nausea, lightheadedness, dizziness. Troponin was drawn and was <0.012. Of note, patient states he was on Entresto however discontinued per Dr. Holbrook due to hypotension. DIAGNOSTICS EKG reveals V paced rhythm Telemetry V paced HR 60s-70s Laboratory reviewed, WBC 6.5, hemoglobin 10.7, platelets 197, sodium 124, potassium 4.7, BUN 11, serum 0.6, troponin negative 2, magnesium 1.9 Current cardiac medications include metoprolol succinate 25 mg daily, pravastatin 40 mg nightly, spironolactone 25 mg daily REVIEW OF SYSTEMS At the time of my exam: CONSTITUTIONAL: Denies fever or chills. CARDIOVASCULAR: Denies chest pain, shortness of breath, orthopnea, PND or palpitations. RESPIRATORY: Denies cough. GASTROINTESTINAL: Denies abdominal pain, diarrhea, constipation, nausea or vomiting. MUSCULOSKELETAL: Denies myalgias. NEUROLOGIC: Denies numbness, tingling, headacbe or weakness. ENDOCRINE: Denies fatigue, weight change, polydipsia or polyurina. GENITOURINARY: Denies burning, hematuria or urgency with micturation. HEMATOLOGIC: Denies history of anemia or bleeding. PHYSICAL EXAMINATION Blood [id number] HR 63, afebrile, SpO2 95% on 4L nasal cannula CONSTITUTIONAL: No apparent distress. HEENT: Head is normocephalic. Pupils are equal, round. Sclerae anicteric. Mucous membranes of the mouth are moist. No JVD. CHEST EXAMINATION: Lungs are diminished left lower and upper lobe, clear to auscultation on the right upper and lower lobes to auscultation.There is chest wall tenderness is noted with deep breathing. HEART EXAMINATION: Regular rate and rhythm. S1, S2 heard. Systolic ejection mumur at apex ABDOMEN: Soft, nontender. Positive bowel sounds. EXTREMITIES: 2+ peripheral pulses, no lower extremity edema and no calf tenderness. NEUROLOGIC EXAMINATION: Patient is awake, alert and oriented x3. ASSESSMENT Chest pain, appears pleuritic in nature Left lower lobe Pneumonia Persistent atrial fibrillation [id number] score 4, Eliquis held in October due to thrombocytopenia s/p prior AV herbert ablation Lung cancer treated with chemoradiation therapy Hodgkin's lymphoma undergone previous bone marrow transplantation Esophageal adenocarcinoma and the patient was treated with a combination of chemoradiation therapy Coronary artery disease and prior stenting of the LAD 2008, Ischemic cardiomyopathy with known EF 20-25% s/p AICD Chronic heart failure with reduced EF Hyperlipidemia Type 2 diabetes mellitus Hyponatremia, evaluated by nephrology likely SIADH Anemia, stable PLAN Patient had a recent echocardiogram in 08/2021, will obtain records, patient is allergic to definity. Will obtain records Hemoglobin is stable, Plts within normal limits. We will restart Eliquis 5mg BID and monitor patient We recommend patient follow up with Dr. Holbrook in regards to restarting Entresto. He states he is scheduled to see Dr. Holbrook on Wednesday Pulmonary following Further recommendations based on clinical course Nurse practitioner note has been reviewed by physician. Signing provider agrees with the documented findings, assessment, and plan of care. Past Medical History Past Medical History: Atrial Fibrillation, Cancer, Chest Pain / Angina, COPD, Diabetes Mellitus, Myocardial Infarction (AL) Additional Past Medical History / Comment(s): stent placed 2008, chronic hypoxic respiratory failure on home O2, Hodgkin's lymphoma status post themselves transplant, atrial fibrillation status post AV node ablation Last Myocardial Infarction Date:: 2008 History of Any Multi-Drug Resistant Organisms: MRSA Date of last positivie culture/infection: 2003 MDRO Source:: pulmonary MRSA Past Surgical History: AICD, Pacemaker Additional Past Surgical History / Comment(s): AV node ablation for atrial fibrillation, pacemaker upgraded to AICD 07/2015. 1997 Stem cell transplant, port placement Past Anesthesia/Blood Transfusion Reactions: No Reported Reaction Additional Past Anesthesia/Blood Transfusion Reaction / Comment(s): Pt has received blood without reaction. Type of Cardiac Device: Permanent Pacemaker, AICD Device Placement Date:: 2014 Past Psychological History: No Psychological Hx Reported Smoking Status: Former smoker Past Alcohol Use History: None Reported Past Drug Use History: None Reported - Past Family History Father Family Medical History: Hypertension, Myocardial Infarction (AL), Vascular Disorder Additional Family Medical History / Comment(s): Aortic aneurysm. Mother Family Medical History: Cancer Additional Family Medical History / Comment(s): Pt thinks uterine cancer and colon cancer. Medications and Allergies Home Medications Medication Instructions Recorded Confirmed Type Aspirin 81 mg PO DAILY 06/29/17 01/22/22 History Omeprazole 20 mg PO DAILY 06/30/17 01/22/22 History Cyclobenzaprine [Flexeril] 10 mg PO HS 01/22/22 01/22/22 History Metoprolol Succinate [Toprol XL] 25 mg PO DAILY 01/22/22 01/22/22 History Polyethylene Glycol 3350 [Miralax] 17 gm PO DAILY PRN 01/22/22 01/22/22 History Pravastatin Sodium [Pravachol] 40 mg PO HS 01/22/22 01/22/22 History Sertraline [Zoloft] See Taper PO DAILY 01/22/22 01/22/22 History Spironolactone 25 mg PO DAILY 01/22/22 01/22/22 History Temazepam [Restoril] 15 mg PO HS 01/22/22 01/22/22 History Allergies Allergy/AdvReac Type Severity Reaction Status Date / Time perflutren [From Definity] AdvReac Anaphylaxis Verified 01/22/22 11:40 piperacillin [From Zosyn] AdvReac Anaphylaxis Verified 01/22/22 11:40 tazobactam [From Zosyn] AdvReac Anaphylaxis Verified 01/22/22 11:40 Physical Exam Vitals: Vital Signs Temp Pulse Pulse Resp BP Pulse Ox 01/28/22 08:05 96 01/28/22 07:54 100 01/28/22 04:00 98 F 68 20 146/60 98 01/28/22 00:00 71 18 114/71 97 01/27/22 20:20 98.4 F 71 20 135/70 97 01/27/22 18:03 98.1 F 70 22 130/69 100 01/27/22 18:02 100 01/27/22 14:00 70 01/27/22 12:00 97.2 F L 70 146/70 97 Intake and Output 01/27/22 01/28/22 01/28/22 22:59 06:59 14:59 Intake Total 720 200 50 Output Total 600 700 Balance 720 -400 -650 Intake: IV 240 .9@20 240 Oral 480 200 50 Output: Urine 600 700 Other: Voiding Method Urinal Weight 63.5 kg Results 01/28/22 06:26 01/28/22 06:26 Cardiac Enzymes 01/28/22 Range/Units 06:26 AST 18 (17-59) U/L CBC 01/27/22 01/28/22 Range/Units 08:20 06:26 WBC 6.4 6.5 (3.8-10.6) k/uL RBC 2.96 L 3.05 L (4.30-5.90) m/uL Hgb 10.5 L 10.7 L (13.0-17.5) gm/dL Hct 30.8 L 32.3 L (39.0-53.0) % Plt Count 172 197 (150-450) k/uL Comprehensive Metabolic Panel 01/27/22 01/27/22 01/28/22 Range/Units 08:20 15:59 06:26 Sodium 119 L* 120 L 124 L (137-145) mmol/L Potassium 4.8 4.7 (3.5-5.1) mmol/L Chloride 92 L 97 L (98-107) mmol/L Carbon Dioxide 22 21 L (22-30) mmol/L BUN 10 11 (9-20) mg/dL Creatinine 0.61 L 0.66 (0.66-1.25) mg/dL Glucose 104 H 124 H (74-99) mg/dL Calcium 8.3 L 8.9 (8.4-10.2) mg/dL AST 18 (17-59) U/L ALT 15 (4-49) U/L Alkaline Phosphatase 104 (38-126) U/L Total Protein 6.4 (6.3-8.2) g/dL Albumin 3.3 L (3.5-5.0) g/dL Current Medications Generic Name Dose Route Start Last Admin Trade Name Freq PRN Reason Stop Dose Admin Albuterol/Ipratropium 3 ml 01/24/22 13:00 01/28/22 07:53 Ipratropium-Albuterol 3 Ml Neb INHALATION 3 ml RT-TID ROSAS Administration Aspirin 81 mg 01/23/22 09:00 01/27/22 09:12 Aspirin 81 Mg PO 81 mg DAILY ROSAS Administration Heparin Sodium (Porcine) 5,000 unit 01/22/22 16:00 01/27/22 23:27 Heparin Sodium,Porcine/Pf 5,000 Unit/0.5 Ml Syringe SQ 5,000 unit Q8HR ROSAS Administration Cefepime HCl 2 gm/ Sodium 100 mls @ 25 mls/hr 01/23/22 12:00 01/28/22 04:50 Chloride IVPB 25 mls/hr Q8H ROSAS Administration Protocol Insulin Aspart 0 unit 01/23/22 07:30 01/28/22 06:30 Insulin Aspart (Novolog) 100 Unit/Ml Vial SQ 1 unit ACHS ROSAS Administration Protocol Melatonin 5 mg 01/26/22 21:00 01/27/22 20:20 Melatonin 5 Mg Tablet PO 5 mg HS ROSAS Administration Metoprolol Succinate 25 mg 01/23/22 09:00 01/27/22 09:12 Metoprolol Succinate (Er) 25 Mg Tab.Er.24h PO 25 mg DAILY ROSAS Administration Miscellaneous Information 1 each 01/22/22 14:20 Pneumonia Protocol Utilized 1 Each Misc PO ONCE PRN Per Protocol Miscellaneous Information 1 each 01/26/22 09:40 Magnesium Replacement Protocol 1 Each Misc MISCELLANE DAILY PRN Per Protocol Protocol Pantoprazole Sodium 40 mg 01/23/22 07:30 01/28/22 06:30 Pantoprazole 40 Mg Tablet PO 40 mg [id number] ROSAS Administration Polyethylene Glycol 17 gm 01/22/22 14:31 Polyethylene Glycol 3350 17 Gm Powd.Pack PO DAILY PRN Constipation Pravastatin Sodium 40 mg 01/22/22 21:00 01/27/22 20:20 Pravastatin Sodium 40 Mg Tab PO 40 mg HS ROSAS Administration Promethazine HCl 12.5 mg 01/26/22 10:14 01/27/22 10:40 Promethazine 25 Mg Tab PO 12.5 mg Q6HR PRN Administration Nausea Spironolactone 25 mg 01/23/22 09:00 01/27/22 09:12 Spironolactone 25 Mg Tab PO 25 mg DAILY ROSAS Administration Tolvaptan 15 mg 01/28/22 09:21 Tolvaptan 15 Mg 1/2 Tablet PO 01/28/22 09:22 ONCE ONE Intake and Output 01/27/22 01/28/22 01/28/22 22:59 06:59 14:59 Intake Total 720 200 50 Output Total 600 700 Balance 720 -400 -650 Intake: IV 240 .9@20 240 Oral 480 200 50 Output: Urine 600 700 Other: Voiding Method Urinal Weight 63.5 kg 01/28/22 06:26 01/28/22 06:26
--- NOTE | 2022-01-28 12:26 | P.PN ---
Subjective Progress Note Date: 01/28/22 Principal diagnosis: Pneumonia. 01/25/2022, the patient is essentially the same. Relatively doing well. No significant complaints in terms of his breathing. Nevertheless, the patient is having generalized weakness and fatigue. The same time, his sodium level has dropped as the patient has underlying CHF. His sodium level was down to 124. Based on that, the patient was on IV fluids by the medical team. Patient is currently on normal saline infusion at the rate of 75 mL an hour. I think it's low sodium level is probably due to his underlying cardiomyopathy. 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 He remains on IV cefepime as broad-spectrum antibiotic coverage. I ordered a repeat chest x-ray on this patient and a chest x-ray showed improvement in the lung densities specially in the lung bases. There are degenerative changes of the dorsal spine. Progress note dated 01/26/2022. 67-year-old male, seen in room 369. The patient has been here in the hospital now for 4 days. The patient states that he is feeling a bit better. He does have generalized weakness and fatigue. He denies any issues with his breathing. He's currently on 2 L with a saturation of 97%. Blood pressure stable 125/54 with a mean of 77. Heart rate 70, respiratory rate 20, and temperature is normal. White count 7.1, hemoglobin 10.2, hematocrit 29.8, platelet count 184,000. Sodium 122, potassium 5.1, chlorides 95, CO2 20, anion gap 7, BUN 11, creatinine 0.74. Microbiologic studies are negative. Dopplers of bilateral lower extremities were negative. Chest x-ray from yesterday shows improving infiltrates, and the right lower lobe. Progress note dated 01/27/2022. 67-year-old male, again seen in room 369. Currently, the patient's on 2 L nasal cannula. Is getting saline at 10 mL an hour. The patient is stable from the pulmonary standpoint. He is complaining of nausea. I did ask for his nurse, Makenna, to come see him and give him something for nausea. He denies any chest pain or chest discomfort. He denies being short of breath. White count 6.4, hemoglobin 10.5, hematocrit 30.8, and platelet count 172,000. Sodium 119, potassium 4.8, chlorides 92, CO2 22, anion gap 5, BUN 10, creatinine 0.61. The patient is currently on cefepime, and did receive Tolvaptan by nephrology. Microbiology is currently on negative. Venous Doppler studies of lower extremities, were negative. Progress note dated 01/28/2022. 67-year-old male, again seen in room 369. His daughter is at the bedside. Currently, he's on between 2-3 L nasal cannula. He's not receiving any IV fluids. He appears to be relatively comfortable in his breathing. He did admit to some shortness of breath earlier in the day. White count 6.5, hemoglobin 10.7, hematocrit 32.3, platelet count 197,000. Sodium 124, potassium 4.7, chlorides 97, CO2 21, anion gap 6, BUN 11, creatinine 0.66. Doppler studies of the lower semis were negative. Microbiologic studies including blood and sputum sampling has been negative thus far. Objective - Vital Signs Vital signs: Vital Signs Temp 98.0 F 01/28/22 09:50 Pulse 72 01/28/22 11:19 Resp 16 01/28/22 11:10 BP 120/71 01/28/22 11:10 Pulse Ox 95 01/28/22 11:10 Intake & Output 01/27/22 01/28/22 01/28/22 18:59 06:59 18:59 Intake Total 1440 200 50 Output Total 100 600 700 Balance 1340 -400 -650 Weight 70.8 kg 63.5 kg Intake: IV 240 .9@20 240 Oral 1200 200 50 Output: Urine 100 600 700 Other: Voiding Method Urinal Urinal Urinal # Bowel Movements 1 - Exam No acute distress, oriented 3. Currently on 3 L. Saturations are excellent. No respiratory distress. Saturations are 95 %. HEENT examination is grossly unremarkable. Neck supple. Full range of motion. No adenopathy thyromegaly or neck vein distention. Cardiovascular examination reveals regular rhythm rate. S1-S2 normal. No S3 or S4. No discernible murmur noted. Heart sounds are distant. Heart rate 72 bpm. Lungs reveal mostly clear breath sounds. Breath sounds are equal bilaterally. Mild scattered rhonchi are noted. No wheezes or crackles. Abdomen soft bowel sounds are heard. No masses or tenderness. Extremities are intact. No cyanosis clubbing or edema. Skin is without rash or lesion. Neurologic examination is brief but nonfocal. - Labs CBC & Chem 7: 01/28/22 06:26 01/28/22 06:26 Labs: Abnormal Lab Results - Last 24 Hours (Table) 01/27/22 01/27/22 01/27/22 Range/Units 15:59 16:44 20:02 RBC (4.30-5.90) m/uL Hgb (13.0-17.5) gm/dL Hct (39.0-53.0) % MCV (80.0-100.0) fL MCH (25.0-35.0) pg RDW (11.5-15.5) % Lymphocytes # (Manual) (1.0-4.8) k/uL Sodium 120 L (137-145) mmol/L Chloride (98-107) mmol/L Carbon Dioxide (22-30) mmol/L Glucose (74-99) mg/dL POC Glucose (mg/dL) 141 H 197 H (75-99) mg/dL Albumin (3.5-5.0) g/dL 01/28/22 01/28/22 01/28/22 Range/Units 06:20 06:26 06:26 RBC 3.05 L (4.30-5.90) m/uL Hgb 10.7 L (13.0-17.5) gm/dL Hct 32.3 L (39.0-53.0) % MCV 105.8 H (80.0-100.0) fL MCH 35.1 H (25.0-35.0) pg RDW 16.7 H (11.5-15.5) % Lymphocytes # (Manual) 0.52 L (1.0-4.8) k/uL Sodium 124 L (137-145) mmol/L Chloride 97 L (98-107) mmol/L Carbon Dioxide 21 L (22-30) mmol/L Glucose 124 H (74-99) mg/dL POC Glucose (mg/dL) 141 H (75-99) mg/dL Albumin 3.3 L (3.5-5.0) g/dL 01/28/22 Range/Units 11:48 RBC (4.30-5.90) m/uL Hgb (13.0-17.5) gm/dL Hct (39.0-53.0) % MCV (80.0-100.0) fL MCH (25.0-35.0) pg RDW (11.5-15.5) % Lymphocytes # (Manual) (1.0-4.8) k/uL Sodium (137-145) mmol/L Chloride (98-107) mmol/L Carbon Dioxide (22-30) mmol/L Glucose (74-99) mg/dL POC Glucose (mg/dL) 128 H (75-99) mg/dL Albumin (3.5-5.0) g/dL Microbiology - Last 24 Hours (Table) 01/22/22 10:53 Blood Culture - Preliminary Blood No Growth after 120 hours 01/22/22 11:00 Blood Culture - Preliminary Blood No Growth after 120 hours Assessment and Plan Assessment: History of left lower lobe pneumonia, with recent admission to [facility]. No evidence of pulmonary embolism on CT angiogram. Mild acute hypoxemic respiratory failure, currently on 3 L O2. COPD, inactive. Esophageal cancer, status post chemoradiation. Remote history of lung cancer, treated with chemoradiation. History of CHF, status post AICD placement. Chronic atrial fibrillation. Hyperlipidemia. Diabetes mellitus. Chronic anemia. Chronic hyponatremia, being evaluated and treated by nephrology. History of Hodgkin's lymphoma, status post systemic chemotherapy followed by bone marrow transplantation. Plan: Plan dated 01/26/2022. Currently, the patient appears to be doing reasonably well. Chest x-ray from yesterday shows improving infiltrates. Dopplers of the bilateral lower extremities were negative for DVT. The patient remains on antibiotics in the form of cefepime. We will continue to follow make recommendations where appropriate. Prognosis is guarded. The patient does have an extensive past medical history. Plan dated 01/27/2022. Currently, from the pulmonary standpoint, the patient's doing well. His saturations are 98% on 2 L. The patient is on saline at 10 mL an hour. His complaint today was that of nausea. He was given Tolvaptan by nephrology, for his chronic hyponatremia. Labs, x-rays, and medications are reviewed. The patient remains on cefepime. Microbiologic studies are thus far negative. We will continue to follow make recommendations where appropriate. Plan dated 01/28/2022. Currently, his respiratory status appears to be stable. He did mention that he was a bit short of breath earlier today. His sodium has come up nicely. He remains on antibiotics in the form of cefepime. The patient was started on antibiotics on January 23. To follow make recommendations where appropriate. Most recent chest x-ray showed improvement. A follow-up chest x-ray will be ordered. Additional recommendations and suggestions are forthcoming. Time with Patient: Less than 30
[2022-01-28 16:41] LABS: Glucose,Whole Blood 145 mg/dL (75-99)
--- NOTE | 2022-01-28 18:21 | XR ---
EXAMINATION TYPE: XR chest 2V DATE OF EXAM: 01/28/2022 COMPARISON: 01/25/2022 HISTORY: CHF/dyspnea. TECHNIQUE: Frontal and lateral views of the chest are obtained. FINDINGS: There is unchanged mild right basilar reticulonodular opacity. Stable right IJ catheter an d left AICD. Left upper lobe scarring again seen. No pleural effusion, or pneumothorax seen. The car diac silhouette size is within normal limits. The osseous structures are intact. IMPRESSION: No significant interval change. Persistent mild right basilar reticulonodular opacity.
[2022-01-28] MEDS: APIXABAN 5 MG TAB PO SCH (20:22)
[2022-01-28] MEDS: MELATONIN 5 MG TABLET PO SCH (20:22)
[2022-01-28] MEDS: PRAVASTATIN SODIUM 40 MG TAB PO SCH (20:22)
[2022-01-28 20:24] LABS: Glucose,Whole Blood 192 mg/dL (75-99)
--- NOTE | 2022-01-28 21:20 | P.PN ---
Subjective 67-year-old male with a known history of esophageal cancer status post radiation treatment, Hodgkin's lymphoma with history of stem cell transplant in 1997 with remission, diabetes type 2 diet-controlled, history of NH, atrial fibrillation status post ablation, chronic CHF with systolic dysfunction ejection fraction 30 to 35% status post AICD placement in 2014, coronary disease with history of stent placement and previous history of smoking presents to ER with complaints of difficulty breathing started overnight. Patient woke up in the morning and felt very short of breath and had trouble catching of breath and shortness of breath with minimal exertion. Denied chest pain. Patient otherwise did have pleuritic pain with deep breathing. Denied any complaints of cough or sputum production. No fever no chills. No headache or dizziness or lightheadedness. Denied leg swelling. Patient was recently admitted to the [facility] and was treated for pneumonia with cephalosporins. Patient was discharged home on 01/10/2022. Chest x-ray showed bilateral pulmonary infiltration most evident in the right lower zone suggestive of pneumonia. CT angiogram of the chest was done showed no evidence of PE. Severe COPD changes with a dilated pulmonary trunk suggestive of pulmonary hypertension. Bilateral pulmonary infiltrates could relate to acute inflammatory/infectious process like pneumonia however underlying neoplastic process cannot be excluded. 01/24/2022 Patient is seen and evaluated in room at bedside in selective care unit; continues to complain of shortness of breath Vital signs are reviewed temperature 97.7, pulse 76, respirations 16 and blood pressure 114/66; O2 saturation of 90% Blood culture reveals no growth to date. Sputum culture reveals no growth. Glucose 113. He is continued on DuoNeb inhalations, Mucinex. Antibiotics in the form of cefepime. Heparin for DVT prophylaxis. Pulmonary on board and recommending repeat chest x-ray; recommendations to follow Patient continues to complain of lower extremity weakness; we will consult PT and OT for evaluation and recommendations 01/25/2022 Patient is seen and evaluated and discussed with nursing staff Change in mental status is reported by the nursing staff; stat CT head and CTA head and neck is completed and is unremarkable Lba review shows a drop in sodium level down to 123 this morning. Patientw ill be placed on fluid restriction at 1500 cc per 24 hours, start IV fluids IVF in form of NS at 75 cc's per hour; we ell monitor electrolytes closely Neurology consolation is requested for further evaluation in mental status change; Patient remains on IV cefepime for pneumonia; pulmonary recommending continue current antibiotics. Repeat chest ex ray shows improvement Subjective: This is the first day I am taking care of the patient. 01/26/2022 Patient is a pleasant 67 years old male who presents with right lower lobe pneumonia versus bilateral pneumonia suspected secondary to aspiration currently covered with cefepime 2 g with pulmonary team about the case and patient reasonably doing well regarding his respiratory status, he has history of esophageal cancer status post chemoradiotherapy and remote history of lung cancer, patient informed with the importance of outpatient follow-up with his welfare supervisor to make sure resolution of pneumonia, pleasant looking excluded and patient informed and he agrees. He had periods of confusion overnight, so Restoril was stopped and placed on melatonin as needed. Also Phenergan is given for nausea. 2. Sodium is 122, urine OSMOLALITY and sodium were ordered and showed elevated at concentrated urine which was likely go with SIADH therefore I felt it was stopped at the patient was placed on fluid restriction with nephrology team consulted. Monitor sodium of the morning Patient is with mental status changes improvement however he still confused, he knows he is in [facility] but he could not tell the date. He knows the month and year and the president name.. Patient has chronic left pupil dilatation with possible previ ous eye surgery. Patient is with little diarrhea and is not eating well. Patient is not on home oxygen. Patient states last time she was able to walk fine was October 2021, Asst. she has exertional dyspnea which restricts his movement Patient follow-up with welfare supervisor Dr. underwood and ventricular enema, as well as his oncologist Dr.rona bradley (pt is not sure of spelling!!). Patient has the contact information at home. 01/27/2022 Patient is complaining of from nausea with no vomiting, he states that prevents him from eating. No abdominal pain. No diarrhea. Actually his last bowel m ovement was 2-3 days ago. He is fully awake and oriented and looks like her mentation is back to baseline. No dyspnea or coughing. No chest pain. No fever. Remains on cefepime for possible pneumonia with pulmonary team on the case. Sodium today is up to 119, combat systems engineer input is appreciated, he was given 1 dose of the samsca, we will keep monitoring sodium closely today and tomorrow 01/28/2022 Patient was feeling weak this morning and tired, his daughters are at bedside was there and discussed the case with her upon patient recommendation. We discussed his problem of hyponatremia, they agreed. Also had some pressure in his chest and he has history of A. fib on Eliquis which was held 2 months ago because of thrombocytopenia, currently platelet count is normal and Eliquis is retracted per cardiology's recommendation. He remains on cefepime for pneumonia which looks improving per pulmonary team. Objective - Vital Signs Vital signs: Vital Signs Temp 98.0 F 01/28/22 09:50 Pulse 72 01/28/22 11:19 Resp 20 01/28/22 09:50 BP 110/72 01/28/22 09:50 Pulse Ox 97 01/28/22 09:50 Intake & Output 01/27/22 01/28/22 01/28/22 18:59 06:59 18:59 Intake Total 1440 200 50 Output Total 100 600 700 Balance 1340 -400 -650 Weight 70.8 kg 63.5 kg Intake: IV 240 .9@20 240 Oral 1200 200 50 Output: Urine 100 600 700 Other: Voiding Method Urinal Urinal Urinal # Bowel Movements 1 - Exam GENERAL: The patient is alert and oriented x3, not in any acute distress. Well developed, well nourished. HEENT: Pupils are round and equally reacting to light. EOMI. No scleral icterus. No conjunctival pallor. Normocephalic, atraumatic. No pharyngeal erythema. No thyromegaly. CARDIOVASCULAR: S1 and S2 present. No murmurs, rubs, or gallops. PULMONARY: Chest is clear to auscultation, no wheezing or crackles. ABDOMEN: Soft, nontender, nondistended, normoactive bowel sounds. No palpable organomegaly. MUSCULOSKELETAL: No joint swelling or deformity. EXTREMITIES: No cyanosis, clubbing, or pedal edema. NEUROLOGICAL: Gross neurological examination did not reveal any focal deficits. SKIN: No rashes. no petechiae. - Labs CBC & Chem 7: 01/28/22 06:26 01/28/22 15:53 Labs: Abnormal Lab Results - Last 24 Hours (Table) 01/27/22 01/27/22 01/27/22 Range/Units 11:36 15:59 16:44 RBC (4.30-5.90) m/uL Hgb (13.0-17.5) gm/dL Hct (39.0-53.0) % MCV (80.0-100.0) fL MCH (25.0-35.0) pg RDW (11.5-15.5) % Lymphocytes # (Manual) (1.0-4.8) k/uL Sodium 120 L (137-145) mmol/L Chloride (98-107) mmol/L Carbon Dioxide (22-30) mmol/L Glucose (74-99) mg/dL POC Glucose (mg/dL) 136 H 141 H (75-99) mg/dL Albumin (3.5-5.0) g/dL 01/27/22 01/28/22 01/28/22 Range/Units 20:02 06:20 06:26 RBC (4.30-5.90) m/uL Hgb (13.0-17.5) gm/dL Hct (39.0-53.0) % MCV (80.0-100.0) fL MCH (25.0-35.0) pg RDW (11.5-15.5) % Lymphocytes # (Manual) (1.0-4.8) k/uL Sodium 124 L (137-145) mmol/L Chloride 97 L (98-107) mmol/L Carbon Dioxide 21 L (22-30) mmol/L Glucose 124 H (74-99) mg/dL POC Glucose (mg/dL) 197 H 141 H (75-99) mg/dL Albumin 3.3 L (3.5-5.0) g/dL 01/28/22 Range/Units 06:26 RBC 3.05 L (4.30-5.90) m/uL Hgb 10.7 L (13.0-17.5) gm/dL Hct 32.3 L (39.0-53.0) % MCV 105.8 H (80.0-100.0) fL MCH 35.1 H (25.0-35.0) pg RDW 16.7 H (11.5-15.5) % Lymphocytes # (Manual) 0.52 L (1.0-4.8) k/uL Sodium (137-145) mmol/L Chloride (98-107) mmol/L Carbon Dioxide (22-30) mmol/L Glucose (74-99) mg/dL POC Glucose (mg/dL) (75-99) mg/dL Albumin (3.5-5.0) g/dL Microbiology - Last 24 Hours (Table) 01/22/22 10:53 Blood Culture - Preliminary Blood No Growth after 120 hours 01/22/22 11:00 Blood Culture - Preliminary Blood No Growth after 120 hours Assessment and Plan Assessment: Bilateral infiltrates possible pneumonia. Aspiration pneumonia suspected hyponatremia, most likely secondary to SIADH chronic hypoxic respiratory failure History of esophageal cancer status post radiation Remote history of lung cancer History of Hodgkin's lymphoma status post stem cell transplant. History of Chronic atrial fibrillation. Patient not on anticoagulation Coronary artery disease history of stent placement Chronic systolic CHF ejection fraction 30 to 35% Diabetes type 2 diet controlled History of NH Previous history of smoking Plan: 67 years old male who presents with bilateral pneumonia on antibiotic with history of esophageal cancer and hyponatremia Continue with antibiotic and pulmonary team on the case. currently he is on cefepime. Patient will need to follow up with welfare supervisor upon discharge. Risks including but not limited cancer are explained to the patient He is status post [facility] 2, combat systems engineer on the case. Monitor sodium closely. Keep off IV fluids Continue with aspirin 81 mg andsubcu heparin Neurology consult on the case. Labs and medication were reviewed.. Continue same treatment. Continue with symptomatic treatment. Resume home medication. Monitor lytes and vitals. DVT and GI prophylaxis. Further recommendations as per clinical course of the patient DVT prophylaxis: Subcutaneous heparin GI Prophylaxis: Ppi PT/OT: Home health care, ordered Prognosis is guarded
[2022-01-29] MEDS: CEFEPIME 2 GM in SODIUM CHLORIDE 0.9% 100 ML IVPB SCH ×3 (03:48→20:27)
[2022-01-29 06:28] LABS: Glucose,Whole Blood 129 mg/dL (75-99)
[2022-01-29] MEDS: PANTOPRAZOLE 40 MG TABLET PO SCH (06:31)
[2022-01-29] MEDS: INSULIN ASPART (NovoLOG) 100 UNIT/ML VIAL SQ SCH ×4 (06:32→20:28)
[2022-01-29] MEDS: IPRATROPIUM-ALBUTEROL 3 ML NEB INHALATION SCH ×3 (08:33→19:51)
[2022-01-29 09:03] LABS: HCT 32.2 % (39.0-53.0); HGB 10.4 gm/dL (13.0-17.5); Hypochromasia Moderate; MCH 34.7 pg (25.0-35.0); MCHC 32.4 g/dL (31.0-37.0); Macrocytosis Moderate; Mean Platelet Volume 9.1; Platelet Count 185 k/uL (150-450); Poikilocytosis Moderate; RBC 3.01 m/uL (4.30-5.90); RDW 15.9 % (11.5-15.5); WBC 6.3 k/uL (3.8-10.6)
[2022-01-29] MEDS: SPIRONOLACTONE 25 MG TAB PO SCH (09:07)
[2022-01-29] MEDS: APIXABAN 5 MG TAB PO SCH ×2 (09:07→20:27)
[2022-01-29] MEDS: METOPROLOL SUCCINATE (ER) 25 MG TAB.ER.24H PO SCH (09:07)
[2022-01-29 09:23] LABS: African American GFR (CKD) >90 (>60 ml/min/1.73 sqM); Anion Gap 8 mmol/L; Blood Urea Nitrogen 17 mg/dL (9-20); Calcium 9.4 mg/dL (8.4-10.2); Carbon Dioxide 20 mmol/L (22-30); Chloride 100 mmol/L (98-107); Glucose 116 mg/dL (74-99); Non-African American GFR(CKD) >90 (>60 ml/min/1.73 sqM); Potassium 5.5 mmol/L (3.5-5.1); Sodium 128 mmol/L (137-145)
[2022-01-29] MEDS ORDERED: TOLVAPTAN 15 MG 1/2 TABLET PO ONE (09:29)
[2022-01-29] MEDS ORDERED: SODIUM ZIRCONIUM CYCLOSILICATE 10 GM PACKET PO ONE (09:45)
[2022-01-29] MEDS: ALPRAZolam 0.25 MG TAB PO PRN (11:30)
[2022-01-29 11:50] LABS: Glucose,Whole Blood 232 mg/dL (75-99)
--- NOTE | 2022-01-29 12:03 | P.PN ---
Subjective Patient is seen for follow-up for hyponatremia. It appears to be mostly SIADH and is currently improved status post tolvaptan. No significant complaints today. Patient is feeling depressed. Sodium improved to 128 today Patient remains off of IV fluids Urine osmolality was 615. Objective - Vital Signs Vital signs: Vital Signs Temp 98.4 F 01/29/22 07:46 Pulse 72 01/29/22 11:54 Resp 18 01/29/22 07:46 BP 117/63 01/29/22 07:46 Pulse Ox 98 01/29/22 08:33 Intake & Output 01/28/22 01/29/22 01/29/22 18:59 06:59 18:59 Intake Total 150 260 Output Total 900 325 Balance -750 -65 Weight 73.8 kg Intake: IV 160 .9@20 160 Intake, IV Titration 100 Amount Cefepime 2 gm In Sodium 100 Chloride 0.9% 100 ml @ 25 mls/hr IVPB Q8H ROSAS Rx#: [id number] Oral 150 Output: Urine 900 325 Other: Voiding Method Urinal Urinal # Voids 1 - Exam Patient is comfortable awake not in any acute distress. Examination of the heart S1 and S2 Examination lungs bilateral breath sounds are heard Abdomen is soft nontender No significant lower extremity edema noted. OPERATIONS SPECIALIST exam shows patient is moving all 4 extremities - Labs CBC & Chem 7: 01/29/22 07:55 01/29/22 07:55 Labs: Abnormal Lab Results - Last 24 Hours (Table) 01/28/22 01/28/22 01/28/22 Range/Units 15:53 16:40 20:22 RBC (4.30-5.90) m/uL Hgb (13.0-17.5) gm/dL Hct (39.0-53.0) % MCV (80.0-100.0) fL RDW (11.5-15.5) % Sodium 126 L (137-145) mmol/L Potassium (3.5-5.1) mmol/L Carbon Dioxide (22-30) mmol/L Glucose (74-99) mg/dL POC Glucose (mg/dL) 145 H 192 H (75-99) mg/dL 01/29/22 01/29/22 01/29/22 Range/Units 06:27 07:55 07:55 RBC 3.01 L (4.30-5.90) m/uL Hgb 10.4 L (13.0-17.5) gm/dL Hct 32.2 L (39.0-53.0) % MCV 107.0 H (80.0-100.0) fL RDW 15.9 H (11.5-15.5) % Sodium 128 L (137-145) mmol/L Potassium 5.5 H (3.5-5.1) mmol/L Carbon Dioxide 20 L (22-30) mmol/L Glucose 116 H (74-99) mg/dL POC Glucose (mg/dL) 129 H (75-99) mg/dL 01/29/22 Range/Units 11:49 RBC (4.30-5.90) m/uL Hgb (13.0-17.5) gm/dL Hct (39.0-53.0) % MCV (80.0-100.0) fL RDW (11.5-15.5) % Sodium (137-145) mmol/L Potassium (3.5-5.1) mmol/L Carbon Dioxide (22-30) mmol/L Glucose (74-99) mg/dL POC Glucose (mg/dL) 232 H (75-99) mg/dL Microbiology - Last 24 Hours (Table) 01/22/22 10:53 Blood Culture - Final Blood No Growth after 144 hours 01/22/22 11:00 Blood Culture - Final Blood No Growth after 144 hours Assessment and Plan Assessment: 1. Hyponatremia euvolemic secondary to SIADH with high urine osmolality of 6:15 and worsening of serum sodium after saline administration. Status post Samsca. 2. Hypomagnesemia status post replacement 3. History of esophageal cancer status post chemoradiation therapy 4. History of recent left lower lobe pneumonia 5. Hyperkalemia, blood sugars are not significantly elevated. Rule out urine retention. No active GI bleed noted. Serum creatinine remains at 0.8 mg/dL. Also check random cortisol level to rule out adrenal insufficiency Plan: Repeat Samsca today. Lokelma 10 g by mouth today for hyperkalemia Maintain fluid restriction Encourage increased oral intake particularly protein
--- NOTE | 2022-01-29 12:10 | P.PN ---
Subjective 67-year-old male with a known history of esophageal cancer status post radiation treatment, Hodgkin's lymphoma with history of stem cell transplant in 1997 with remission, diabetes type 2 diet-controlled, history of [place], atrial fibrillation status post ablation, chronic CHF with systolic dysfunction ejection fraction 30 to 35% status post AICD placement in 2014, coronary disease with history of stent placement and previous history of smoking presents to ER with complaints of difficulty breathing started overnight. Patient woke up in the morning and felt very short of breath and had trouble catching of breath and shortness of breath with minimal exertion. Denied chest pain. Patient otherwise did have pleuritic pain with deep breathing. Denied any complaints of cough or sputum production. No fever no chills. No headache or dizziness or lightheadedness. Denied leg swelling. Patient was recently admitted to the [facility] and was treated for pneumonia with cephalosporins. Patient was discharged home on 01/10/2022. Chest x-ray showed bilateral pulmonary infiltration most evident in the right lower zone suggestive of pneumonia. CT angiogram of the chest was done showed no evidence of PE. Severe COPD changes with a dilated pulmonary trunk suggestive of pulmonary hypertension. Bilateral pulmonary infiltrates could relate to acute inflammatory/infectious process like pneumonia however underlying neoplastic process cannot be excluded. 01/24/2022 Patient is seen and evaluated in room at bedside in selective care unit; continues to complain of shortness of breath Vital signs are reviewed temperature 97.7, pulse 76, respirations 16 and blood pressure 114/66; O2 saturation of 90% Blood culture reveals no growth to date. Sputum culture reveals no growth. Glucose 113. He is continued on DuoNeb inhalations, Mucinex. Antibiotics in the form of cefepime. Heparin for DVT prophylaxis. Pulmonary on board and recommending repeat chest x-ray; recommendations to follow Patient continues to complain of lower extremity weakness; we will consult PT and OT for evaluation and recommendations 01/25/2022 Patient is seen and evaluated and discussed with nursing staff Change in mental status is reported by the nursing staff; stat CT head and CTA head and neck is completed and is unremarkable Lba review shows a drop in sodium level down to 123 this morning. Patientw ill be placed on fluid restriction at 1500 cc per 24 hours, start IV fluids IVF in form of NS at 75 cc's per hour; we ell monitor electrolytes closely Neurology consolation is requested for further evaluation in mental status change; Patient remains on IV cefepime for pneumonia; pulmonary recommending continue current antibiotics. Repeat chest ex ray shows improvement Subjective: This is the first day I am taking care of the patient. 01/26/2022 Patient is a pleasant 67 years old male who presents with right lower lobe pneumonia versus bilateral pneumonia suspected secondary to aspiration currently covered with cefepime 2 g with pulmonary team about the case and patient reasonably doing well regarding his respiratory status, he has history of esophageal cancer status post chemoradiotherapy and remote history of lung cancer, patient informed with the importance of outpatient follow-up with his advanced developer to make sure resolution of pneumonia, pleasant looking excluded and patient informed and he agrees. He had periods of confusion overnight, so Restoril was stopped and placed on melatonin as needed. Also Phenergan is given for nausea. 2. Sodium is 122, urine OSMOLALITY and sodium were ordered and showed elevated at concentrated urine which was likely go with SIADH therefore I felt it was stopped at the patient was placed on fluid restriction with nephrology team consulted. Monitor sodium of the morning Patient is with mental status changes improvement however he still confused, he knows he is in [facility] but he could not tell the date. He knows the month and year and the president name.. Patient has chronic left pupil dilatation with possible previ ous eye surgery. Patient is with little diarrhea and is not eating well. Patient is not on home oxygen. Patient states last time she was able to walk fine was October 2021, Asst. she has exertional dyspnea which restricts his movement Patient follow-up with advanced developer Dr. underwood and ventricular enema, as well as his oncologist Dr.rona bradley (pt is not sure of spelling!!). Patient has the contact information at home. 01/27/2022 Patient is complaining of from nausea with no vomiting, he states that prevents him from eating. No abdominal pain. No diarrhea. Actually his last bowel m ovement was 2-3 days ago. He is fully awake and oriented and looks like her mentation is back to baseline. No dyspnea or coughing. No chest pain. No fever. Remains on cefepime for possible pneumonia with pulmonary team on the case. Sodium today is up to 119, window repairer input is appreciated, he was given 1 dose of the samsca, we will keep monitoring sodium closely today and tomorrow 01/28/2022 Patient was feeling weak this morning and tired, his daughters are at bedside was there and discussed the case with her upon patient recommendation. We discussed his problem of hyponatremia, they agreed. Also had some pressure in his chest and he has history of A. fib on Eliquis which was held 2 months ago because of thrombocytopenia, currently platelet count is normal and Eliquis is retracted per cardiology's recommendation. He remains on cefepime for pneumonia which looks improving per pulmonary team. 01/30/2012 Patient more awake and alert today looks more comfortable than yesterday, he still looks anxious although better than yesterday. Small dose of Xanax is provided when necessary for him. He denies any chest pain or dyspnea or coughing. He states that he feels generally weak so we ask physical therapy to reexamine him again today. His potassium improving slowly up to 128 which is still not normal yet are close to normal therefore received 1 dose of samsca today as well as one dose of lokelma for high K 5.5 today as well. Cardiology input is appreciated he is resumed back on Eliquis Pulmonary team on the case and chest x-ray yesterday showed persistent basilar opacity, definitely patient is recommended to follow-up with his advanced developer as an outpatient, both the patient and daughter are aware risk of cancer recurrence. First daughter wants to consult oncology however later on she agrees him following up with his own oncologist as an outpatient. Objective - Vital Signs Vital signs: Vital Signs Temp 98.4 F 01/29/22 07:46 Pulse 72 01/29/22 11:54 Resp 18 01/29/22 07:46 BP 117/63 01/29/22 07:46 Pulse Ox 98 01/29/22 08:33 Intake & Output 01/28/22 01/29/22 01/29/22 18:59 06:59 18:59 Intake Total 150 260 Output Total 900 325 Balance -750 -65 Weight 73.8 kg Intake: IV 160 .9@20 160 Intake, IV Titration 100 Amount Cefepime 2 gm In Sodium 100 Chloride 0.9% 100 ml @ 25 mls/hr IVPB Q8H ROSAS Rx#: [id number] Oral 150 Output: Urine 900 325 Other: Voiding Method Urinal Urinal # Voids 1 - Exam GENERAL: The patient is alert and oriented x3, not in any acute distress. Well developed, well nourished. HEENT: Pupils are round and equally reacting to light. EOMI. No scleral icterus. No conjunctival pallor. Normocephalic, atraumatic. No pharyngeal erythema. No thyromegaly. CARDIOVASCULAR: S1 and S2 present. No murmurs, rubs, or gallops. PULMONARY: Chest is clear to auscultation, no wheezing or crackles. ABDOMEN: Soft, nontender, nondistended, normoactive bowel sounds. No palpable organomegaly. MUSCULOSKELETAL: No joint swelling or deformity. EXTREMITIES: No cyanosis, clubbing, or pedal edema. NEUROLOGICAL: Gross neurological examination did not reveal any focal deficits. SKIN: No rashes. no petechiae. - Labs CBC & Chem 7: 01/29/22 07:55 01/29/22 07:55 Labs: Abnormal Lab Results - Last 24 Hours (Table) 01/28/22 01/28/22 01/28/22 Range/Units 15:53 16:40 20:22 RBC (4.30-5.90) m/uL Hgb (13.0-17.5) gm/dL Hct (39.0-53.0) % MCV (80.0-100.0) fL RDW (11.5-15.5) % Sodium 126 L (137-145) mmol/L Potassium (3.5-5.1) mmol/L Carbon Dioxide (22-30) mmol/L Glucose (74-99) mg/dL POC Glucose (mg/dL) 145 H 192 H (75-99) mg/dL 01/29/22 01/29/22 01/29/22 Range/Units 06:27 07:55 07:55 RBC 3.01 L (4.30-5.90) m/uL Hgb 10.4 L (13.0-17.5) gm/dL Hct 32.2 L (39.0-53.0) % MCV 107.0 H (80.0-100.0) fL RDW 15.9 H (11.5-15.5) % Sodium 128 L (137-145) mmol/L Potassium 5.5 H (3.5-5.1) mmol/L Carbon Dioxide 20 L (22-30) mmol/L Glucose 116 H (74-99) mg/dL POC Glucose (mg/dL) 129 H (75-99) mg/dL 01/29/22 Range/Units 11:49 RBC (4.30-5.90) m/uL Hgb (13.0-17.5) gm/dL Hct (39.0-53.0) % MCV (80.0-100.0) fL RDW (11.5-15.5) % Sodium (137-145) mmol/L Potassium (3.5-5.1) mmol/L Carbon Dioxide (22-30) mmol/L Glucose (74-99) mg/dL POC Glucose (mg/dL) 232 H (75-99) mg/dL Microbiology - Last 24 Hours (Table) 01/22/22 10:53 Blood Culture - Final Blood No Growth after 144 hours 01/22/22 11:00 Blood Culture - Final Blood No Growth after 144 hours Assessment and Plan Assessment: Bilateral infiltrates possible pneumonia. Aspiration pneumonia suspected hyponatremia, most likely secondary to SIADH chronic hypoxic respiratory failure History of esophageal cancer status post radiation Remote history of lung cancer History of Hodgkin's lymphoma status post stem cell transplant. History of Chronic atrial fibrillation. Patient not on anticoagulation Coronary artery disease history of stent placement Chronic systolic CHF ejection fraction 30 to 35% Diabetes type 2 diet controlled History of [place] Previous history of smoking Plan: 67 years old male who presents with bilateral pneumonia on antibiotic with history of esophageal cancer and hyponatremia Continue with antibiotic and pulmonary team on the case. currently he is on cefepime. Patient will need to follow up with advanced developer upon discharge. Risks including but not limited cancer are explained to the patient He is [facility] and [facility] , follow up Na and K levels, window repairer on the case. Keep off IV fluids Ne reevaluation by physical therapist is requested nurology consult on the case. Labs and medication were reviewed.. Continue same treatment. Continue with symptomatic treatment. Resume home medication. Monitor lytes and vitals. DVT and GI prophylaxis. Further recommendations as per clinical course of the patient DVT prophylaxis: Subcutaneous heparin GI Prophylaxis: Ppi PT/OT: Home health care, ordered Prognosis is guarded
--- NOTE | 2022-01-29 12:31 | P.PN ---
Subjective This is a pleasant 67-year-old gentleman with a past medical history significant for CAD and prior stenting of the LAD 2008, persistent atrial fibrillation s/p AV herbert ablation (Not anticoagulation due to thrombocytopenia, Eliquis was discontinued in October 2021), ischemic cardiomyopathy with known EF 20-25% s/p AICD, chronic heart failure with reduced EF, hyperlipidemia, type 2 diabetes mellitus, lung cancer treated with chemoradiation therapy, Hodgkin's lymphoma undergone previous bone marrow transplantation, esophageal adenocarcinoma and the patient was treated with a combination of chemoradiation therapy, cataract surgery on left. Last chemotherapy 4 weeks ago. He follows with Dr. Ephraim Holbrook at [facility]. We have been consulted for chest pain and anticoagulation for atrial fibrillation. Patient initially presented to the emergency department with worsening shortness of breath. Daughter at bedside, she states her father was with her and he has progressively getting more short of breath over the past 2 weeks, worsening shortness of breath morning of admission, dyspnea on exertion and increased generalized fatigue, weight loss. Brought to the ER for further evaluation. Patient has been evaluated by Pulmonary. Diagnosed with left lower lobe pneumonia. Per pulmonary residual pulmonary infiltrates improving compared to the earlier evaluation and the CAT scan of the chest that was done on 01/06/2022 at [facility]. 01/25/2022 neurology was consulted because nursing scheduling patient answering questions and the left pupil was larger than the left but both are reactive. Neurology evaluated the patient and the patient's delayed response was related due to likely medication effect after Temazepam and possible component of metabolic encephalopathy. Eye dilated on the left due to underlying eye surgery vs chemotherapy/radiation. CT was unremarkable. Neurology signed off. In terms of his chest pain, he has anterior bilateral chest discomfort when he takes a deep breath. It is non-radiating, non exertional. It can also be slightly aggravated by a cough. He denies any diaphoresis, nausea, lightheadedness, dizziness. Troponin was drawn and was <0.012. Of note, patient states he was on Entresto however discontinued per Dr. Holbrook due to hypotension. 01/29/2022 Patient seen and examined at bedside, continues to feel short of breath especially with activity. No chest pain. Eliquis has been restarted. Records obtained from [employer] [employer] [facility]: Echocardiogram 12/09/2021 revealed an EF of 3540%, trace mitral regurgitation, mild tricuspid regurgi tation Labs, WBC 6.3, hemoglobin 10.4, platelets 185, sodium 128, potassium 5.5, BUN 17, serum creatinine 0.8 PHYSICAL EXAMINATION Vitals reviewed CONSTITUTIONAL: No apparent distress. HEENT: Neck Supple. No JVD. CHEST EXAMINATION: Lungs are diminished left lower and upper lobe, clear to auscultation on the right upper and lower lobes to auscultation HEART EXAMINATION: Regular rate and rhythm. S1, S2 heard. Systolic ejection mumur at apex ABDOMEN: Soft, nontender. Positive bowel sounds. EXTREMITIES: 2+ peripheral pulses, no lower extremity edema and no calf tenderness. NEUROLOGIC EXAMINATION: Patient is awake, alert and oriented x3. ASSESSMENT Chest pain, appears pleuritic in nature Left lower lobe Pneumonia Persistent atrial fibrillation [id number] score 4, Eliquis held in October due to thrombocytopenia s/p prior AV herbert ablation in 2014 History of inappropriate AICD discharge as a result of A fib with RVR Lung cancer treated with chemoradiation therapy Hodgkin's lymphoma undergone previous bone marrow transplantation Esophageal adenocarcinoma and the patient was treated with a combination of chemoradiation therapy Coronary artery disease and prior stenting of the LAD 2008, Ischemic cardiomyopathy s/p AICD Chronic heart failure with reduced EF Hyperlipidemia Type 2 diabetes mellitus Hyponatremia, evaluated by nephrology likely SIADH, improving Anemia, stable PLAN Patient had a recent echocardiogram in 12/09/2021, revealed an EF of 3540% Hemoglobin is stable, Plts within normal limits. We will continue Eliquis 5mg BID We recommend patient follow up with Dr. Holbrook in regards to restarting Entresto. Pulmonary following No changes at this time from a cardiology perspective Nurse practitioner note has been reviewed by physician. Signing provider agrees with the documented findings, assessment, and plan of care. Objective - Vital Signs Vital signs: Vital Signs Temp 98.4 F 01/29/22 07:46 Pulse 72 01/29/22 11:54 Resp 18 01/29/22 07:46 BP 117/63 01/29/22 07:46 Pulse Ox 98 01/29/22 08:33 Intake & Output 01/28/22 01/29/22 01/29/22 18:59 06:59 18:59 Intake Total 150 260 120 Output Total 900 325 Balance -750 -65 120 Weight 73.8 kg Intake: IV 160 .9@20 160 Intake, IV Titration 100 Amount Cefepime 2 gm In Sodium 100 Chloride 0.9% 100 ml @ 25 mls/hr IVPB Q8H [facility] Rx#: [id number] Oral 150 120 Output: Urine 900 325 Other: Voiding Method Urinal Urinal # Voids 1 1 - Labs CBC & Chem 7: 01/29/22 07:55 01/29/22 07:55 Labs: Abnormal Lab Results - Last 24 Hours (Table) 01/28/22 01/28/22 01/28/22 Range/Units 15:53 16:40 20:22 RBC (4.30-5.90) m/uL Hgb (13.0-17.5) gm/dL Hct (39.0-53.0) % MCV (80.0-100.0) fL RDW (11.5-15.5) % Sodium 126 L (137-145) mmol/L Potassium (3.5-5.1) mmol/L Carbon Dioxide (22-30) mmol/L Glucose (74-99) mg/dL POC Glucose (mg/dL) 145 H 192 H (75-99) mg/dL 01/29/22 01/29/22 01/29/22 Range/Units 06:27 07:55 07:55 RBC 3.01 L (4.30-5.90) m/uL Hgb 10.4 L (13.0-17.5) gm/dL Hct 32.2 L (39.0-53.0) % MCV 107.0 H (80.0-100.0) fL RDW 15.9 H (11.5-15.5) % Sodium 128 L (137-145) mmol/L Potassium 5.5 H (3.5-5.1) mmol/L Carbon Dioxide 20 L (22-30) mmol/L Glucose 116 H (74-99) mg/dL POC Glucose (mg/dL) 129 H (75-99) mg/dL 01/29/22 Range/Units 11:49 RBC (4.30-5.90) m/uL Hgb (13.0-17.5) gm/dL Hct (39.0-53.0) % MCV (80.0-100.0) fL RDW (11.5-15.5) % Sodium (137-145) mmol/L Potassium (3.5-5.1) mmol/L Carbon Dioxide (22-30) mmol/L Glucose (74-99) mg/dL POC Glucose (mg/dL) 232 H (75-99) mg/dL Microbiology - Last 24 Hours (Table) 01/22/22 10:53 Blood Culture - Final Blood No Growth after 144 hours 01/22/22 11:00 Blood Culture - Final Blood No Growth after 144 hours
--- NOTE | 2022-01-29 12:46 | P.PN ---
Subjective Progress Note Date: 01/29/22 Principal diagnosis: Pneumonia. 01/25/2022, the patient is essentially the same. Relatively doing well. No significant complaints in terms of his breathing. Nevertheless, the patient is having generalized weakness and fatigue. The same time, his sodium level has dropped as the patient has underlying CHF. His sodium level was down to 124. Based on that, the patient was on IV fluids by the medical team. Patient is currently on normal saline infusion at the rate of 75 mL an hour. I think it's low sodium level is probably due to his underlying cardiomyopathy. 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 He remains on IV cefepime as broad-spectrum antibiotic coverage. I ordered a repeat chest x-ray on this patient and a chest x-ray showed improvement in the lung densities specially in the lung bases. There are degenerative changes of the dorsal spine. Progress note dated 01/26/2022. 67-year-old male, seen in room 369. The patient has been here in the hospital now for 4 days. The patient states that he is feeling a bit better. He does have generalized weakness and fatigue. He denies any issues with his breathing. He's currently on 2 L with a saturation of 97%. Blood pressure stable 125/54 with a mean of 77. Heart rate 70, respiratory rate 20, and temperature is normal. White count 7.1, hemoglobin 10.2, hematocrit 29.8, platelet count 184,000. Sodium 122, potassium 5.1, chlorides 95, CO2 20, anion gap 7, BUN 11, creatinine 0.74. Microbiologic studies are negative. Dopplers of bilateral lower extremities were negative. Chest x-ray from yesterday shows improving infiltrates, and the right lower lobe. Progress note dated 01/27/2022. 67-year-old male, again seen in room 369. Currently, the patient's on 2 L nasal cannula. Is getting saline at 10 mL an hour. The patient is stable from the pulmonary standpoint. He is complaining of nausea. I did ask for his nurse, Makenna, to come see him and give him something for nausea. He denies any chest pain or chest discomfort. He denies being short of breath. White count 6.4, hemoglobin 10.5, hematocrit 30.8, and platelet count 172,000. Sodium 119, potassium 4.8, chlorides 92, CO2 22, anion gap 5, BUN 10, creatinine 0.61. The patient is currently on cefepime, and did receive Tolvaptan by nephrology. Microbiology is currently on negative. Venous Doppler studies of lower extremities, were negative. Progress note dated 01/28/2022. 67-year-old male, again seen in room 369. His daughter is at the bedside. Currently, he's on between 2-3 L nasal cannula. He's not receiving any IV fluids. He appears to be relatively comfortable in his breathing. He did admit to some shortness of breath earlier in the day. White count 6.5, hemoglobin 10.7, hematocrit 32.3, platelet count 197,000. Sodium 124, potassium 4.7, chlorides 97, CO2 21, anion gap 6, BUN 11, creatinine 0.66. Doppler studies of the lower semis were negative. Microbiologic studies including blood and sputum sampling has been negative thus far. Progress note dated 01/29/2022. 67-year-old male, again seen in room 369 currently, the patient's on room air. Saturations are 93-94%. The patient is not receiving any IV fluids. He does admit to being short of breath on exertion. Current laboratory data includes a white count 6.3, hemoglobin 10.4, hematocrit 32.2, and platelet count 185,000. Sodium 128, improved from 124, potassium 5.5, chlorides 100, CO2 20, anion gap 8, BUN 17, and creatinine 0.86. Cortisol level was quite low at 13. Microbiologic studies are thus far all negative. Chest x-ray continues to show a minimal infiltrate at the right base. The patient remains on Maxipime. Objective - Vital Signs Vital signs: Vital Signs Temp 98.4 F 01/29/22 07:46 Pulse 72 01/29/22 11:54 Resp 18 01/29/22 07:46 BP 117/63 01/29/22 07:46 Pulse Ox 98 01/29/22 08:33 Intake & Output 01/28/22 01/29/22 01/29/22 18:59 06:59 18:59 Intake Total 150 260 120 Output Total 900 325 Balance -750 -65 120 Weight 73.8 kg Intake: IV 160 .9@20 160 Intake, IV Titration 100 Amount Cefepime 2 gm In Sodium 100 Chloride 0.9% 100 ml @ 25 mls/hr IVPB Q8H [facility] Rx#: [id number] Oral 150 120 Output: Urine 900 325 Other: Voiding Method Urinal Urinal # Voids 1 1 - Exam No acute distress, oriented 3. Currently on room air. Saturations are in the low 90s. No respiratory distress. HEENT examination is grossly unremarkable. Neck supple. Full range of motion. No adenopathy thyromegaly or neck vein distention. Cardiovascular examination reveals regular rhythm rate. S1-S2 normal. No S3 or S4. No discernible murmur noted. Heart sounds are distant. Heart rate 80 bpm. Lungs reveal mostly clear breath sounds. Breath sounds are equal bilaterally. Mild scattered rhonchi are noted. No wheezes or crackles. Abdomen soft bowel sounds are heard. No masses or tenderness. Extremities are intact. No cyanosis clubbing or edema. Skin is without rash or lesion. Neurologic examination is brief but nonfocal. - Labs CBC & Chem 7: 01/29/22 07:55 01/29/22 07:55 Labs: Abnormal Lab Results - Last 24 Hours (Table) 01/28/22 01/28/22 01/28/22 Range/Units 15:53 16:40 20:22 RBC (4.30-5.90) m/uL Hgb (13.0-17.5) gm/dL Hct (39.0-53.0) % MCV (80.0-100.0) fL RDW (11.5-15.5) % Sodium 126 L (137-145) mmol/L Potassium (3.5-5.1) mmol/L Carbon Dioxide (22-30) mmol/L Glucose (74-99) mg/dL POC Glucose (mg/dL) 145 H 192 H (75-99) mg/dL 01/29/22 01/29/22 01/29/22 Range/Units 06:27 07:55 07:55 RBC 3.01 L (4.30-5.90) m/uL Hgb 10.4 L (13.0-17.5) gm/dL Hct 32.2 L (39.0-53.0) % MCV 107.0 H (80.0-100.0) fL RDW 15.9 H (11.5-15.5) % Sodium 128 L (137-145) mmol/L Potassium 5.5 H (3.5-5.1) mmol/L Carbon Dioxide 20 L (22-30) mmol/L Glucose 116 H (74-99) mg/dL POC Glucose (mg/dL) 129 H (75-99) mg/dL 01/29/22 Range/Units 11:49 RBC (4.30-5.90) m/uL Hgb (13.0-17.5) gm/dL Hct (39.0-53.0) % MCV (80.0-100.0) fL RDW (11.5-15.5) % Sodium (137-145) mmol/L Potassium (3.5-5.1) mmol/L Carbon Dioxide (22-30) mmol/L Glucose (74-99) mg/dL POC Glucose (mg/dL) 232 H (75-99) mg/dL Microbiology - Last 24 Hours (Table) 01/22/22 10:53 Blood Culture - Final Blood No Growth after 144 hours 01/22/22 11:00 Blood Culture - Final Blood No Growth after 144 hours Assessment and Plan Assessment: History of left lower lobe pneumonia, with recent admission to [facility]. No evidence of pulmonary embolism on CT angiogram. Possible adrenal insufficiency. Mild acute hypoxemic respiratory failure, currently on 3 L O2. COPD, inactive. Esophageal cancer, status post chemoradiation. Remote history of lung cancer, treated with chemoradiation. History of CHF, status post AICD placement. Chronic atrial fibrillation. Hyperlipidemia. Diabetes mellitus. Chronic anemia. Chronic hyponatremia, being evaluated and treated by nephrology. History of Hodgkin's lymphoma, status post systemic chemotherapy followed by bone marrow transplantation. Plan: Plan dated 01/26/2022. Currently, the patient appears to be doing reasonably well. Chest x-ray from yesterday shows improving infiltrates. Dopplers of the bilateral lower extremities were negative for DVT. The patient remains on antibiotics in the form of cefepime. We will continue to follow make recommendations where appropriate. Prognosis is guarded. The patient does have an extensive past medical history. Plan dated 01/27/2022. Currently, from the pulmonary standpoint, the patient's doing well. His saturations are 98% on 2 L. The patient is on saline at 10 mL an hour. His complaint today was that of nausea. He was given Tolvaptan by nephrology, for his chronic hyponatremia. Labs, x-rays, and medications are reviewed. The patient remains on cefepime. Microbiologic studies are thus far negative. We will continue to follow make recommendations where appropriate. Plan dated 01/28/2022. Currently, his respiratory status appears to be stable. He did mention that he was a bit short of breath earlier today. His sodium has come up nicely. He remains on antibiotics in the form of cefepime. The patient was started on antibiotics on January 23. To follow make recommendations where appropriate. Most recent chest x-ray showed improvement. A follow-up chest x-ray will be ordered. Additional recommendations and suggestions are forthcoming. Plan dated 01/29/2022. The patient remains on cefepime. Chest x-ray reveals a minimal infiltrate and/or atelectasis at the right lung base. The patient's sodium has come up very nicely. The patient on room air, saturating about 92 or 93%. His most recent chest x-ray was reviewed. We will continue to follow make recommendations where appropriate. Because of his very low cortisol level, I'll add Cortef, 20 mg in the morning, and 10 mg in the evening. The patient may have a component of adrenal sufficiency. Time with Patient: Less than 30
[2022-01-29 16:36] LABS: Glucose,Whole Blood 116 mg/dL (75-99)
[2022-01-29 20:27] LABS: Glucose,Whole Blood 202 mg/dL (75-99)
[2022-01-29] MEDS: HYDROCORTISONE 10 MG TAB PO SCH (20:27)
[2022-01-29] MEDS: PRAVASTATIN SODIUM 40 MG TAB PO SCH (20:27)
[2022-01-29] MEDS: MELATONIN 5 MG TABLET PO SCH (20:27)
[2022-01-30] MEDS: CEFEPIME 2 GM in SODIUM CHLORIDE 0.9% 100 ML IVPB SCH (04:09)
[2022-01-30 06:02] LABS: Glucose,Whole Blood 141 mg/dL (75-99)
[2022-01-30] MEDS: PANTOPRAZOLE 40 MG TABLET PO SCH (06:02)
[2022-01-30] MEDS: ALPRAZolam 0.25 MG TAB PO PRN (06:02)
[2022-01-30] MEDS: INSULIN ASPART (NovoLOG) 100 UNIT/ML VIAL SQ SCH ×2 (06:05→13:25)
[2022-01-30 08:05] LABS: African American GFR (CKD) >90 (>60 ml/min/1.73 sqM); Anion Gap 8 mmol/L; Blood Urea Nitrogen 17 mg/dL (9-20); Calcium 9.6 mg/dL (8.4-10.2); Carbon Dioxide 24 mmol/L (22-30); Chloride 101 mmol/L (98-107); Glucose 125 mg/dL (74-99); Magnesium 1.3 mg/dL (1.6-2.3); Non-African American GFR(CKD) 83 (>60 ml/min/1.73 sqM); Potassium 5.2 mmol/L (3.5-5.1); Sodium 133 mmol/L (137-145)
[2022-01-30] MEDS: IPRATROPIUM-ALBUTEROL 3 ML NEB INHALATION SCH ×2 (08:54→11:55)
[2022-01-30] MEDS: APIXABAN 5 MG TAB PO SCH (10:11)
[2022-01-30] MEDS: METOPROLOL SUCCINATE (ER) 25 MG TAB.ER.24H PO SCH (10:11)
[2022-01-30] MEDS: SPIRONOLACTONE 25 MG TAB PO SCH (10:11)
[2022-01-30] MEDS: HYDROCORTISONE 10 MG TAB PO SCH (10:12)
[2022-01-30] MEDS: MAGNESIUM SULFATE-D5W PMX 1 GM in DEXTROSE/WATER 1 100ML.BAG IVPB SCH ×2 (10:12→13:24)
--- NOTE | 2022-01-30 10:57 | P.PN ---
Subjective Progress Note Date: 01/30/22 Principal diagnosis: Pneumonia. 01/25/2022, the patient is essentially the same. Relatively doing well. No significant complaints in terms of his breathing. Nevertheless, the patient is having generalized weakness and fatigue. The same time, his sodium level has dropped as the patient has underlying CHF. His sodium level was down to 124. Based on that, the patient was on IV fluids by the medical team. Patient is currently on normal saline infusion at the rate of 75 mL an hour. I think it's low sodium level is probably due to his underlying cardiomyopathy. 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 He remains on IV cefepime as broad-spectrum antibiotic coverage. I ordered a repeat chest x-ray on this patient and a chest x-ray showed improvement in the lung densities specially in the lung bases. There are degenerative changes of the dorsal spine. Progress note dated 01/26/2022. 67-year-old male, seen in room 369. The patient has been here in the hospital now for 4 days. The patient states that he is feeling a bit better. He does have generalized weakness and fatigue. He denies any issues with his breathing. He's currently on 2 L with a saturation of 97%. Blood pressure stable 125/54 with a mean of 77. Heart rate 70, respiratory rate 20, and temperature is normal. White count 7.1, hemoglobin 10.2, hematocrit 29.8, platelet count 184,000. Sodium 122, potassium 5.1, chlorides 95, CO2 20, anion gap 7, BUN 11, creatinine 0.74. Microbiologic studies are negative. Dopplers of bilateral lower extremities were negative. Chest x-ray from yesterday shows improving infiltrates, and the right lower lobe. Progress note dated 01/27/2022. 67-year-old male, again seen in room 369. Currently, the patient's on 2 L nasal cannula. Is getting saline at 10 mL an hour. The patient is stable from the pulmonary standpoint. He is complaining of nausea. I did ask for his nurse, Makenna, to come see him and give him something for nausea. He denies any chest pain or chest discomfort. He denies being short of breath. White count 6.4, hemoglobin 10.5, hematocrit 30.8, and platelet count 172,000. Sodium 119, potassium 4.8, chlorides 92, CO2 22, anion gap 5, BUN 10, creatinine 0.61. The patient is currently on cefepime, and did receive Tolvaptan by nephrology. Microbiology is currently on negative. Venous Doppler studies of lower extremities, were negative. Progress note dated 01/28/2022. 67-year-old male, again seen in room 369. His daughter is at the bedside. Currently, he's on between 2-3 L nasal cannula. He's not receiving any IV fluids. He appears to be relatively comfortable in his breathing. He did admit to some shortness of breath earlier in the day. White count 6.5, hemoglobin 10.7, hematocrit 32.3, platelet count 197,000. Sodium 124, potassium 4.7, chlorides 97, CO2 21, anion gap 6, BUN 11, creatinine 0.66. Doppler studies of the lower semis were negative. Microbiologic studies including blood and sputum sampling has been negative thus far. Progress note dated 01/29/2022. 67-year-old male, again seen in room 369 currently, the patient's on room air. Saturations are 93-94%. The patient is not receiving any IV fluids. He does admit to being short of breath on exertion. Current laboratory data includes a white count 6.3, hemoglobin 10.4, hematocrit 32.2, and platelet count 185,000. Sodium 128, improved from 124, potassium 5.5, chlorides 100, CO2 20, anion gap 8, BUN 17, and creatinine 0.86. Cortisol level was quite low at 13. Microbiologic studies are thus far all negative. Chest x-ray continues to show a minimal infiltrate at the right base. The patient remains on Maxipime. Progress note dated 01/30/2022. 67-year-old male, again seen in room 369. The patient's currently on room air. He is getting saline at 20 mL an hour. The nurse tells me, that the patient could be discharged home today. He denies shortness breath, cough, wheezing, or phlegm production. He also denies any chest pain or chest discomfort. Labs today include a sodium 133, potassium 5.2, chlorides 101, CO2 24, anion gap 8, BUN 17, and creatinine 0.96. Magnesium is a bit low at 1.3. Sputum and blood sampling are negative. Objective - Vital Signs Vital signs: Vital Signs Temp 97.4 F L 01/30/22 09:57 Pulse 70 01/30/22 09:57 Resp 16 01/30/22 09:57 BP 137/68 01/30/22 09:57 Pulse Ox 94 L 01/30/22 09:57 Intake & Output 01/29/22 01/30/22 01/30/22 18:59 06:59 18:59 Intake Total 248 260 Output Total 300 300 Balance -52 -40 Weight 73.8 kg Intake: IV 10 160 .9@20 160 Invasive Line 1 10 Intake, IV Titration 100 Amount Cefepime 2 gm In Sodium 100 Chloride 0.9% 100 ml @ 25 mls/hr IVPB Q8H [facility] Rx#: [id number] Oral 238 Output: Urine 300 300 Other: Voiding Method Urinal # Voids 1 1 # Bowel Movements 1 - Exam No acute distress, oriented 3. Currently on room air. Saturation is 94%. No conversational dyspnea or use of accessory muscles. HEENT examination is grossly unremarkable. Neck supple. Full range of motion. No adenopathy thyromegaly or neck vein distention. Cardiovascular examination reveals regular rhythm rate. S1-S2 normal. No S3 or S4. No discernible murmur noted. Heart sounds are distant. Heart rate 70 bpm. Lungs reveal mostly clear breath sounds. Breath sounds are equal bilaterally. Mild scattered rhonchi are noted. No wheezes or crackles. Abdomen soft bowel sounds are heard. No masses or tenderness. Extremities are intact. No cyanosis clubbing or edema. Skin is without rash or lesion. Neurologic examination is brief but nonfocal. - Labs CBC & Chem 7: 01/29/22 07:55 01/30/22 06:58 Labs: Abnormal Lab Results - Last 24 Hours (Table) 01/29/22 01/29/22 01/29/22 Range/Units 11:49 16:32 20:25 Sodium (137-145) mmol/L Potassium (3.5-5.1) mmol/L Glucose (74-99) mg/dL POC Glucose (mg/dL) 232 H 116 H 202 H (75-99) mg/dL Magnesium (1.6-2.3) mg/dL 01/30/22 01/30/22 Range/Units 06:01 06:58 Sodium 133 L (137-145) mmol/L Potassium 5.2 H (3.5-5.1) mmol/L Glucose 125 H (74-99) mg/dL POC Glucose (mg/dL) 141 H (75-99) mg/dL Magnesium 1.3 L (1.6-2.3) mg/dL Assessment and Plan Assessment: History of left lower lobe pneumonia, with recent admission to [facility]. No evidence of pulmonary embolism on CT angiogram. Possible adrenal insufficiency. Mild acute hypoxemic respiratory failure, currently on 3 L O2. COPD, inactive. Esophageal cancer, status post chemoradiation. Remote history of lung cancer, treated with chemoradiation. History of CHF, status post AICD placement. Chronic atrial fibrillation. Hyperlipidemia. Diabetes mellitus. Chronic anemia. Chronic hyponatremia, being evaluated and treated by nephrology. History of Hodgkin's lymphoma, status post systemic chemotherapy followed by bone marrow transplantation. Plan: Plan dated 01/26/2022. Currently, the patient appears to be doing reasonably well. Chest x-ray from yesterday shows improving infiltrates. Dopplers of the bilateral lower e xtremities were negative for DVT. The patient remains on antibiotics in the form of cefepime. We will continue to follow make recommendations where appropriate. Prognosis is guarded. The patient does have an extensive past medical history. Plan dated 01/27/2022. Currently, from the pulmonary standpoint, the patient's doing well. His saturations are 98% on 2 L. The patient is on saline at 10 mL an hour. His complaint today was that of nausea. He was given Tolvaptan by nephrology, for his chronic hyponatremia. Labs, x-rays, and medications are reviewed. The patient remains on cefepime. Microbiologic studies are thus far negative. We will continue to follow make recommendations where appropriate. Plan dated 01/28/2022. Currently, his respiratory status appears to be stable. He did mention that he was a bit short of breath earlier today. His sodium has come up nicely. He r emains on antibiotics in the form of cefepime. The patient was started on antibiotics on January 23. To follow make recommendations where appropriate. Most recent chest x-ray showed improvement. A follow-up chest x-ray will be ordered. Additional recommendations and suggestions are forthcoming. Plan dated 01/29/2022. The patient remains on cefepime. Chest x-ray reveals a minimal infiltrate an d/or atelectasis at the right lung base. The patient's sodium has come up very nicely. The patient on room air, saturating about 92 or 93%. His most recent chest x-ray was reviewed. We will continue to follow make recommendations where appropriate. Because of his very low cortisol level, I'll add Cortef, 20 mg in the morning, and 10 mg in the evening. The patient may have a component of adre nal sufficiency. Plan dated 01/30/2022. The patient appears to be doing much better. He is on room air. Saturations are 94%. Yesterday, we added Cortef, 10 mg twice a day, because of a low cortis ol level. The patient may have adrenal insufficiency. The patient is doing much better. Clinically he looks much better. The patient has been on cefepime since January 23. Antibiotics can be discontinued. We will continue to follow up should the patient not be discharged. Overall prognosis remains guarded. No additional recommendations are made at this time. Time with Patient: Less than 30
[2022-01-30 11:37] LABS: Glucose,Whole Blood 219 mg/dL (75-99)
[2022-01-30 12:15] VITALS: PULSE 70
[2022-01-30] MEDS ORDERED: MULTIVITAMINS, THERA 1 EACH TAB PO SCH (12:15)
--- NOTE | 2022-01-30 13:07 | P.PN ---
Subjective This is a pleasant 67-year-old gentleman with a past medical history significant for CAD and prior stenting of the LAD 2008, persistent atrial fibrillation s/p AV herbert ablation (Not anticoagulation due to thrombocytopenia, Eliquis was discontinued in October 2021), ischemic cardiomyopathy with known EF 20-25% s/p AICD, chronic heart failure with reduced EF, hyperlipidemia, type 2 diabetes mellitus, lung cancer treated with chemoradiation therapy, Hodgkin's lymphoma undergone previous bone marrow transplantation, esophageal adenocarcinoma and the patient was treated with a combination of chemoradiation therapy, cataract surgery on left. Last chemotherapy 4 weeks ago. He follows with Dr. Ephraim Holbrook at [facility]. We have been consulted for chest pain and anticoagulation for atrial fibrillation. Patient initially presented to the emergency department with worsening shortness of breath. Daughter at bedside, she states her father was with her and he has progressively getting more short of breath over the past 2 weeks, worsening shortness of breath morning of admission, dyspnea on exertion and increased generalized fatigue, weight loss. Brought to the ER for further evaluation. Patient has been evaluated by Pulmonary. Diagnosed with left lower lobe pneumonia. Per pulmonary residual pulmonary infiltrates improving compared to the earlier evaluation and the CAT scan of the chest that was done on 01/06/2022 at [facility]. 01/25/2022 neurology was consulted because nursing scheduling patient answering questions and the left pupil was larger than the left but both are reactive. Neurology evaluated the patient and the patient's delayed response was related due to likely medication effect after Temazepam and possible component of metabolic encephalopathy. Eye dilated on the left due to underlying eye surgery vs chemotherapy/radiation. CT was unremarkable. Neurology signed off. In terms of his chest pain, he has anterior bilateral chest discomfort when he takes a deep breath. It is non-radiating, non exertional. It can also be slightly aggravated by a cough. He denies any diaphoresis, nausea, lightheadedness, dizziness. Troponin was drawn and was <0.012. Of note, patient states he was on Entresto however discontinued per Dr. Holbrook due to hypotension. 01/30/2022 Patient seen and examined at bedside, feeling better this morning. Breathing improved. No chest pain. Eliquis has been restarted. He has been weaned to room air. Records obtained from [employer] [facility]: Echocardiogram 12/09/2021 revealed an EF of 3540%, trace mitral regurgitation, mild tricuspid regurgitation Labs, sodium 133, potassium 5.2, BUN 17, serum creatinine 0.9, magnesium 1.30 PHYSICAL EXAMINATION Vitals reviewed CONSTITUTIONAL: No apparent distress. HEENT: Neck Supple. No JVD. CHEST EXAMINATION: Lungs are diminished left lower and upper lobe, clear to auscultation on the right upper and lower lobes to auscultation HEART EXAMINATION: Regular rate and rhythm. S1, S2 heard. Systolic ejection mumur at apex ABDOMEN: Soft, nontender. Positive bowel sounds. EXTREMITIES: 2+ peripheral pulses, no lower extremity edema and no calf tenderness. NEUROLOGIC EXAMINATION: Patient is awake, alert and oriented x3. ASSESSMENT Chest pain, appears pleuritic in nature Left lower lobe Pneumonia Persistent atrial fibrillation [id number] score 4, Eliquis held in October due to thrombocytopenia s/p prior AV herbert ablation in 2014 History of inappropriate AICD discharge as a result of A fib with RVR Lung cancer treated with chemoradiation therapy Hodgkin's lymphoma undergone previous bone marrow transplantation Esophageal adenocarcinoma and the patient was treated with a combination of chemoradiation therapy Coronary artery disease and prior stenting of the LAD 2008, Ischemic cardiomyopathy s/p AICD Chronic heart failure with reduced EF Hyperlipidemia Type 2 diabetes mellitus Hyponatremia, evaluated by nephrology likely SIADH, improving Anemia, stable PLAN Patient had a recent echocardiogram in 12/09/2021, revealed an EF of 3540% Hemoglobin is stable, Plts within normal limits. We will continue Eliquis 5mg BID We recommend patient follow up with Dr. Holbrook in regards to restarting Entresto. Pulmonary following No changes at this time from a cardiology perspective. Follow up with Dr. Holbrook in 1-2 weeks. Nurse practitioner note has been reviewed by physician. Signing provider agrees with the documented findings, assessment, and plan of care. Objective - Vital Signs Vital signs: Vital Signs Temp 97.4 F L 01/30/22 09:57 Pulse 70 01/30/22 12:03 Resp 16 01/30/22 09:57 BP 137/68 01/30/22 09:57 Pulse Ox 94 L 01/30/22 09:57 Intake & Output 01/29/22 01/30/22 01/30/22 18:59 06:59 18:59 Intake Total 248 260 720 Output Total 300 300 Balance -52 -40 720 Weight 73.8 kg Intake: IV 10 160 .9@20 160 Invasive Line 1 10 Intake, IV Titration 100 Amount Cefepime 2 gm In Sodium 100 Chloride 0.9% 100 ml @ 25 mls/hr IVPB Q8H [facility] Rx#: [id number] Oral 238 720 Output: Urine 300 300 Other: Voiding Method Urinal # Voids 1 1 # Bowel Movements 1 - Labs CBC & Chem 7: 01/29/22 07:55 01/30/22 06:58 Labs: Abnormal Lab Results - Last 24 Hours (Table) 01/29/22 01/29/22 01/30/22 Range/Units 16:32 20:25 06:01 Sodium (137-145) mmol/L Potassium (3.5-5.1) mmol/L Glucose (74-99) mg/dL POC Glucose (mg/dL) 116 H 202 H 141 H (75-99) mg/dL Magnesium (1.6-2.3) mg/dL 01/30/22 01/30/22 Range/Units 06:58 11:35 Sodium 133 L (137-145) mmol/L Potassium 5.2 H (3.5-5.1) mmol/L Glucose 125 H (74-99) mg/dL POC Glucose (mg/dL) 219 H (75-99) mg/dL Magnesium 1.3 L (1.6-2.3) mg/dL
--- NOTE | 2022-01-30 13:44 | P.PN ---
Subjective Patient is seen for follow-up for hyponatremia. It appears to be mostly SIADH and is currently improved status post tolvaptan. No significant complaints today. Patient is feeling depressed. Sodium improved to 133 today Patient remains off of IV fluids Urine osmolality was 615. Objective - Vital Signs Vital signs: Vital Signs Temp 97.4 F L 01/30/22 12:00 Pulse 70 01/30/22 12:03 Resp 18 01/30/22 12:00 BP 115/59 01/30/22 12:00 Pulse Ox 93 L 01/30/22 12:00 Intake & Output 01/29/22 01/30/22 01/30/22 18:59 06:59 18:59 Intake Total 248 260 960 Output Total 300 300 Balance -52 -40 960 Weight 73.8 kg Intake: IV 10 160 .9@20 160 Invasive Line 1 10 Intake, IV Titration 100 Amount Cefepime 2 gm In Sodium 100 Chloride 0.9% 100 ml @ 25 mls/hr IVPB Q8H [facility] Rx#: [id number] Oral 238 960 Output: Urine 300 300 Other: Voiding Method Urinal # Voids 1 1 1 # Bowel Movements 1 - Exam Patient is comfortable awake not in any acute distress. Examination of the heart S1 and S2 Examination lungs bilateral breath sounds are heard Abdomen is soft nontender No significant lower extremity edema noted. [employer] exam shows patient is moving all 4 extremities - Labs CBC & Chem 7: 01/29/22 07:55 01/30/22 06:58 Labs: Abnormal Lab Results - Last 24 Hours (Table) 01/29/22 01/29/22 01/30/22 Range/Units 16:32 20:25 06:01 Sodium (137-145) mmol/L Potassium (3.5-5.1) mmol/L Glucose (74-99) mg/dL POC Glucose (mg/dL) 116 H 202 H 141 H (75-99) mg/dL Magnesium (1.6-2.3) mg/dL 01/30/22 01/30/22 Range/Units 06:58 11:35 Sodium 133 L (137-145) mmol/L Potassium 5.2 H (3.5-5.1) mmol/L Glucose 125 H (74-99) mg/dL POC Glucose (mg/dL) 219 H (75-99) mg/dL Magnesium 1.3 L (1.6-2.3) mg/dL Assessment and Plan Assessment: 1. Hyponatremia euvolemic secondary to SIADH with high urine osmolality of 6:15 and worsening of serum sodium after saline administration. Status post Samsca. 2. Hypomagnesemia status post replacement 3. History of esophageal cancer status post chemoradiation therapy 4. History of recent left lower lobe pneumonia 5. Hyperkalemia, blood sugars are not significantly elevated. Rule out urine retention. No active GI bleed noted. Serum creatinine remains at 0.8 mg/dL. serum cortisol was ordered which was at 13 which is slightly on the lower side. I will hold off on cosyntropin stimulation test as patient is not significantly hypotensive. Plan: Repeat labs in a.m. Maintain fluid restriction Encourage increased oral intake particularly protein
[2022-01-30 14:16] VITALS: BMI 23.3
[2022-01-30] MEDS ORDERED: MEGESTROL 400 MG/10 ML CUP PO SCH (15:15)
[2022-01-30 16:15] VITALS: BP 134/69; RESP 16; TEMP 97.7
[2022-01-30 16:36] LABS: Glucose,Whole Blood 146 mg/dL (75-99)
[2022-01-30] MEDS ORDERED: INSULIN ASPART (NovoLOG) 100 UNIT/ML VIAL SQ SCH (21:00)
--- NOTE | 2022-01-30 23:05 | P.DS ---
Providers Date of admission: 01/22/22 14:20 Attending physician: Carol Ann Zuniga Consults: 01/22/22 14:20 Consult Physician Routine Consulting Provider: Salina Frazier Consult Reason/Comments: Pneumonia Do you want consulting provider notified?: Yes 01/25/22 10:00 Consult Physician Routine Consulting Provider: Christian Aldridge Consult Reason/Comments: AMS Do you want consulting provider notified?: Yes 01/26/22 11:02 Consult Physician Urgent Consulting Provider: Blank Lopez Consult Reason/Comments: hyponatremia Do you want consulting provider notified?: Yes 01/28/22 08:52 Consult Physician Urgent Consulting Provider: Franco Khan Consult Reason/Comments: chest pressure, h/o a fib ( took off eliquis 2 month ago) Do you want consulting provider notified?: Yes Primary care physician: Maddi Renteria DO Hospital Course: Diagnoses: Bilateral infiltrates possible pneumonia. Resolved and patient finished his treatment. Antibiotics were discontinued upon discharge hyponatremia, most likely secondary to SIADH. Improved upon discharge Chronic atrial fibrillation. Patient not on anticoagulation, he was evaluated by professor of english and Eliquis restarted chronic hypoxic respiratory failure History of esophageal cancer status post radiation Remote history of lung cancer History of Hodgkin's lymphoma status post stem cell transplant. Coronary artery disease history of stent placement Chronic systolic CHF ejection fraction 30 to 35% Diabetes type 2 diet controlled History of MO Previous history of smoking Hospital course: 67-year-old male with a known history of esophageal cancer status post radiation treatment, Hodgkin's lymphoma with history of stem cell transplant in 1997 with remission, diabetes type 2 diet-controlled, history of MO, atrial fibrillation status post ablation, chronic CHF with systolic dysfunction ejection fraction 30 to 35% status post AICD placement in 2014, coronary disease with history of stent placement and previous history of smoking presents to ER with complaints of difficulty breathing started overnight. Chest x-ray showed bilateral pulmonary infiltration most evident in the right lower zone suggestive of pneumonia. CT angiogram of the chest was done showed no evidence of PE. Severe COPD changes with a dilated pulmonary trunk suggestive of pulmonary hypertension. Bilateral pulmonary infiltrates could relate to acute inflammatory/infectious process like pneumonia however underlying neoplastic process cannot be excluded. Patient has been evaluated by division order technician, he was treated with cefepime , he remained stable, on the day of discharge he denies chest pain or dyspnea, she is on room air with oxygen saturation 94%. Today the bedside nurse Dr. Aldridge and he told her patient could be discharged from their perspective as she states. His hospital course complicated with hyponatremia secondary to an ICD edge, sodium went down to 119 received samca x3 and lokelma for hyperkalemia , sodium improved today to 133 potassium came down to 5.5 to 5.2 Also I spoke with the detective bowling alley Dr. Lopez who confirmed to be patient also appeared for discharge. Physical mental status on admission resolved, Restoril was stopped and placed on short course of oral Xanax when necessary 0.25 mg daily. Upon patient and daughter request Patient is awake and alert, he denies any chest pain or dyspnea. No coughing. No abdominal pain or nausea vomiting. He tolerates diet. He's been followed by physical therapist and recommended home with home care which is ordered. Today I discussed the case with both Dr. Blake and later on with Yani, I informed him about the [employer] co-pay of $40.5 and they agreed. Also told me he has some pills at home. Low magnesium replaced. Also I informed them about the Cortef started for his adrenal insufficiency, also he was discharged on insulin sliding scale with glucose expected to cause hyperglycemia. multivitamin tablets is started as well as Megace to help his appetite upon patient and family request with recommendation to follow up as an outpatient Also I called his PCP Dr. Scot Kim and I discussed the case with her in details, she's going to check his NA, potassium, magnesium on his appointment date this coming Saturday 02/03, patient and family aware of the agree. Also patient was instructed to follow up oncologist Dr. Bill and Dr. Yu she is new to [facility] appointment in 1 week Patient was instructed to follow up with his professor of english Dr. Holbrook and told me she has appointment on 02/05. Problems and management plan were discussed with the patient and he verbalized understanding and acceptance Patient was found stable and can be discharged home however he needs follow-up as an outpatient. Patient was instructed to follow up up as an outpatient as above Physical exam Gen: patient is a AAOx3, no distress CVS: S1-S2, RRR, no murmur Lungs: B/L CTA, no wheezing Abdomen: soft, no distention, no tenderness, positive bowel sounds Extremity: no leg edema or induration Time spent more than 35 minutes Plan - Discharge Summary Discharge Rx Participant: No New Discharge Prescriptions: New Apixaban [Eliquis] 5 mg PO BID #60 tab Hydrocortisone [Cortef] 10 mg PO BID #60 tab Melatonin 5 mg PO HS PRN #10 tablet PRN Reason: Insomnia Multivitamins, Thera [Multivitamin (formulary)] 1 each PO DAILY 30 Days #30 tab INSULIN ASPART (NovoLOG) [NovoLOG (formulary)] See Protocol SQ ACHS 30 Days #10 ml ALPRAZolam [Xanax] 0.25 mg PO DAILY PRN 3 Days #3 tab PRN Reason: Anxiety Magnesium Oxide [Mag-Ox] 400 mg PO BID 5 Days #10 tablet Megestrol [Megace] 400 mg PO DAILY 30 Days #150 ml Continue Omeprazole 20 mg PO DAILY Pravastatin Sodium [Pravachol] 40 mg PO HS Spironolactone 25 mg PO DAILY Metoprolol Succinate [Toprol XL] 25 mg PO DAILY Polyethylene Glycol 3350 [Miralax] 17 gm PO DAILY PRN PRN Reason: Constipation Discontinued Aspirin 81 mg PO DAILY Cyclobenzaprine [Flexeril] 10 mg PO HS Sertraline [Zoloft] See Taper PO DAILY Temazepam [Restoril] 15 mg PO HS Discharge Medication List Omeprazole 20 mg PO DAILY 06/30/17 [History] Metoprolol Succinate [Toprol XL] 25 mg PO DAILY 01/22/22 [History] Polyethylene Glycol 3350 [Miralax] 17 gm PO DAILY PRN 01/22/22 [History] Pravastatin Sodium [Pravachol] 40 mg PO HS 01/22/22 [History] Spironolactone 25 mg PO DAILY 01/22/22 [History] ALPRAZolam [Xanax] 0.25 mg PO DAILY PRN 3 Days #3 tab 01/30/22 [Rx] Apixaban [Eliquis] 5 mg PO BID #60 tab 01/30/22 [Rx] Hydrocortisone [Cortef] 10 mg PO BID #60 tab 01/30/22 [Rx] INSULIN ASPART (NovoLOG) [NovoLOG (formulary)] See Protocol SQ ACHS 30 Days #10 ml 01/30/22 [Rx] Magnesium Oxide [Mag-Ox] 400 mg PO BID 5 Days #10 tablet 01/30/22 [Rx] Megestrol [Megace] 400 mg PO DAILY 30 Days #150 ml 01/30/22 [Rx] Melatonin 5 mg PO HS PRN #10 tablet 01/30/22 [Rx] Multivitamins, Thera [Multivitamin (formulary)] 1 each PO DAILY 30 Days #30 tab 01/30/22 [Rx] Follow up Appointment(s)/Referral(s): Ousmane Snyder MD [STAFF PHYSICIAN] - 1 Week (Radiation Oncology - no answer, went to voicemail - please call office to schedule appointment) Blank Lopez MD [STAFF PHYSICIAN] - 02/12/22 9:40 am (kidney and electrolyte doctor ) Sigifredo Aldridge DO [Doctor of Osteopathic Medicine] - 1 Week (no answer - please call the office for an appointment) Michelle Bill DO [REFERRING] - (your commercial estimator oncologist - no answer - please call office to schedule appointment) Maxi Holbrook DO [REFERRING] - 02/05/22 1:15 pm (your professor of english - this appointment was already scheduled - at the [facility]) Maddi Renteria DO [Primary Care Provider] - 02/03/22 10:30 am (phone [phone] address: [address] [place] [address], [phone]) [facility] Visiting Nurse, [NON-STAFF] - Patient Instructions/Handouts: Pneumonia (ED) Activity/Diet/Wound Care/Special Instructions: Patient requires glucometer at discharge to manage insulin dependent diabetes. Patient needs to check cbg 3x/day Heart healthy low carbohydrate 1800 kcal per day Activity is restricted till you see your doctor your new medication ""cortef" is a steroid , which usually drives BP and glucose high we recommend to check your glucose 4 times each day , before each meal and at bed time, keep the results in a log book and bring it to your doctor on your appointment date if your glucose is less than 70 or more than 400 then call 911 and come to emergency room your co-pay for Eliquis is $40.50 per month Discharge Disposition: HOME WITH HOME HEALTH SERVICES
== END 2022-01-30 18:28 | disposition home health service (06) | DRG 177 ==
LOC: EC 10:27 → 3SCARD 14:20
PROVIDERS: ADMIT Internal Medicine; ATTEND Internal Medicine
DX: J69.0 Pneumonitis due to inhalation of food and vomit (principal); J96.21 Acute and chronic respiratory failure with hypoxia; E22.2 Syndrome of inappropriate secretion of antidiuretic hormone; E27.40 Unspecified adrenocortical insufficiency; I48.19 Other persistent atrial fibrillation; I50.22 Chronic systolic (congestive) heart failure; I42.8 Other cardiomyopathies; Z94.84 Stem cells transplant status; Z94.81 Bone marrow transplant status; J44.0 Chronic obstructive pulmonary disease with (acute) lower respiratory infection; Z85.118 Personal history of other malignant neoplasm of bronchus and lung; Z92.21 Personal history of antineoplastic chemotherapy; Z92.3 Personal history of irradiation; Z85.01 Personal history of malignant neoplasm of esophagus; Z85.72 Personal history of non-Hodgkin lymphomas; D64.9 Anemia, unspecified; D69.6 Thrombocytopenia, unspecified; E11.9 Type 2 diabetes mellitus without complications; E78.5 Hyperlipidemia, unspecified; E83.42 Hypomagnesemia; E86.1 Hypovolemia; E87.5 Hyperkalemia; H57.04 Mydriasis; I25.10 Atherosclerotic heart disease of native coronary artery without angina pectoris; I25.2 Old myocardial infarction; I25.5 Ischemic cardiomyopathy; T45.1X5A Adverse effect of antineoplastic and immunosuppressive drugs, initial encounter; Z20.822 Contact with and (suspected) exposure to COVID-19; R41.82 Altered mental status, unspecified; T42.4X5A Adverse effect of benzodiazepines, initial encounter; Y92.230 Patient room in hospital as the place of occurrence of the external cause; Z79.82 Long term (current) use of aspirin; Z79.899 Other long term (current) drug therapy; Z80.0 Family history of malignant neoplasm of digestive organs; Z82.49 Family history of ischemic heart disease and other diseases of the circulatory system; Z87.01 Personal history of pneumonia (recurrent); Z87.891 Personal history of nicotine dependence; Z95.810 Presence of automatic (implantable) cardiac defibrillator; Z99.81 Dependence on supplemental oxygen; Z95.5 Presence of coronary angioplasty implant and graft
CPT/HCPCS: 36415; 36600; 70450; 70496; 70498; 71045; 71046; 71275; 80048; 80053; 82140; 82533; 82607; 82747; 82805; 83036; 83540; 83550; 83605; 83735; 83880; 83930; 83935; 84145; 84295; 84300; 84443; 84484; 85025; 85027; 85379; 85610; 85730; 87040; 87070; 87205; 87635; 93005; 93970; 94640; 94760; 96361; 96365; 96375; 99285

== ENCOUNTER 2022-10-25 12:44 | Inpatient (IN) | payer MEDICARE ==
[2022-10-25] MEDS ORDERED: methylPREDNISolone SOD SUCCI 125 MG/2 ML VIAL IV STA (12:49)
[2022-10-25] MEDS ORDERED: IPRATROPIUM-ALBUTEROL 3 ML NEB INHALATION STA (12:49)
--- NOTE | 2022-10-25 13:21 | ED ---
SOB HPI - General Chief Complaint: Shortness of Breath Stated Complaint: Pneumonia Time Seen by Provider: 10/25/22 12:44 Source: patient, EMS, RN notes reviewed Mode of arrival: EMS Limitations: no limitations - History of Present Illness Initial Comments: 67-year-old male history of COPD CHF ATRIAL fibrillation also a history of metastatic lung cancer to liver who presents with complaints of 2 days of intermittent midsternal chest pain he states she's had a cough for about a week or so. He was at [facility] and left AMA several days ago. Back today by EMS complaints of shortness of breath cough with yellow greenish phlegm he's had chills. Patient states he was diagnosed with pneumonia as last hospital stay but did not get any medications. MD Complaint: shortness of breath, cough - Related Data Home Medications Medication Instructions Recorded Confirmed Pravastatin Sodium [Pravachol] 40 mg PO DAILY 01/22/22 10/25/22 Spironolactone 25 mg PO DAILY 01/22/22 10/25/22 Citalopram Hydrobromide [CeleXA] 20 mg PO DAILY 10/25/22 10/25/22 Lactulose 10 gm PO DAILY 10/25/22 10/25/22 Metoprolol Succinate (ER) [Toprol 50 mg PO DAILY 10/25/22 10/25/22 Xl] Mometasone/Formoterol [Dulera 200 2 puff PO RT-BID 10/25/22 10/25/22 Mcg-5 Mcg Inhaler] modafiniL [Provigil] 200 mg PO DAILY 10/25/22 10/25/22 Previous Rx's Medication Instructions Recorded Apixaban [Eliquis] 5 mg PO BID #60 tab 01/30/22 Allergies Allergy/AdvReac Type Severity Reaction Status Date / Time perflutren [From Definity] AdvReac Anaphylaxis Verified 02/09/22 22:54 piperacillin [From Zosyn] AdvReac Anaphylaxis Verified 02/09/22 22:54 tazobactam [From Zosyn] AdvReac Anaphylaxis Verified 02/09/22 22:54 Review of Systems ROS Statement: Those systems with pertinent positive or pertinent negative responses have been documented in the HPI. ROS Other: All systems not noted in ROS Statement are negative. Past Medical History Past Medical History: Atrial Fibrillation, Cancer, Chest Pain / Angina, COPD, Diabetes Mellitus, Myocardial Infarction (CT) Additional Past Medical History / Comment(s): stent placed 2008, chronic hypoxic respiratory failure on home O2, Hodgkin's lymphoma status post themselves transplant, atrial fibrillation status post AV node ablation, cancer mets to liver Last Myocardial Infarction Date:: 2008 History of Any Multi-Drug Resistant Organisms: MRSA Date of last positivie culture/infection: 2003 MDRO Source:: pulmonary MRSA Past Surgical History: AICD, Pacemaker Additional Past Surgical History / Comment(s): AV node ablation for atrial fibrillation, pacemaker upgraded to AICD 07/2015. 1997 Stem cell transplant, port placement Past Anesthesia/Blood Transfusion Reactions: No Reported Reaction Additional Past Anesthesia/Blood Transfusion Reaction / Comment(s): Pt has received blood without reaction. Type of Cardiac Device: Permanent Pacemaker, AICD Device Placement Date:: 2014 Past Psychological History: No Psychological Hx Reported Smoking Status: Former smoker Past Alcohol Use History: None Reported Past Drug Use History: None Reported - Past Family History Father Family Medical History: Hypertension, Myocardial Infarction (CT), Vascular Disorder Additional Family Medical History / Comment(s): Aortic aneurysm. Mother Family Medical History: Cancer Additional Family Medical History / Comment(s): Pt thinks uterine cancer and colon cancer. General Exam - General Exam Comments Initial Comments: This is a well-developed thin appearing male was awake alert oriented 4 Limitations: no limitations General appearance: alert Head exam: Present: atraumatic, normocephalic, normal inspection Eye exam: Present: normal appearance, PERRL, EOMI. Absent: scleral icterus, conjunctival injection, periorbital swelling ENT exam: Present: mucous membranes dry Neck exam: Present: normal inspection, full ROM, other. Absent: tenderness, meningismus, lymphadenopathy Respiratory exam: Present: rhonchi, decreased breath sounds. Absent: respiratory distress, wheezes, rales, stridor Cardiovascular Exam: Present: regular rate, normal rhythm, normal heart sounds. Absent: systolic murmur, diastolic murmur, rubs, gallop, clicks GI/Abdominal exam: Present: soft, normal bowel sounds. Absent: distended, tenderness, guarding, rebound, rigid Extremities exam: Present: full ROM, normal capillary refill, pedal edema, other (Bilateral lower extremity edema with stasis changes and erythema with no increased localized temperature). Absent: tenderness, joint swelling, calf tenderness Back exam: Present: normal inspection Neurological exam: Present: alert, oriented X3, CN II-XII intact Psychiatric exam: Present: normal affect, normal mood Skin exam: Present: warm, dry, intact, normal color. Absent: rash Course Vital Signs 10/25/22 10/25/22 10/25/22 12:46 12:52 13:50 Pulse Rate 69 Respiratory 18 22 20 Rate Blood Pressure 102/75 94/50 O2 Sat by Pulse 98 97 Oximetry 10/25/22 10/25/22 10/25/22 15:40 16:45 17:10 Pulse Rate 70 70 91 Respiratory 18 18 Rate Blood Pressure 111/67 111/67 O2 Sat by Pulse 96 99 Oximetry 10/25/22 17:30 Pulse Rate 92 Respiratory Rate Blood Pressure O2 Sat by Pulse Oximetry Medical Decision Making - Medical Decision Making I did discuss the findings with the patient he is feeling somewhat improved after nebulizer treatment he does demonstrate evidence of hypomagnesemia also bronchitis no definitive pneumonia. He does have the metastatic cancer to his liver. The current findings also are demonstrate evidence of COPD exacerbation patient will be admitted the case was discussed with David Enriquez who is covering Dr. Odell. - Lab Data Result diagrams: 10/25/22 12:56 10/25/22 12:56 Lab Results 10/25/22 10/25/22 10/25/22 Range/Units 12:56 12:56 12:56 WBC 8.2 (3.8-10.6) k/uL RBC 3.30 L (4.30-5.90) m/uL Hgb 10.9 L (13.0-17.5) gm/dL Hct 33.3 L (39.0-53.0) % MCV 100.8 H (80.0-100.0) fL MCH 32.9 (25.0-35.0) pg MCHC 32.7 (31.0-37.0) g/dL RDW 16.4 H (11.5-15.5) % Plt Count 197 (150-450) k/uL MPV 9.9 Neutrophils % 81 % Lymphocytes % 6 % Monocytes % 7 % Eosinophils % 1 % Basophils % 1 % Neutrophils # 6.6 (1.3-7.7) k/uL Lymphocytes # 0.5 L (1.0-4.8) k/uL Monocytes # 0.6 (0-1.0) k/uL Eosinophils # 0.1 (0-0.7) k/uL Basophils # 0.0 (0-0.2) k/uL Hypochromasia Slight Anisocytosis Slight Macrocytosis Slight PT 12.3 H (9.0-12.0) sec INR 1.2 H (<1.2) APTT 77.9 H (22.0-30.0) sec Sodium 132 L (137-145) mmol/L Potassium 4.4 (3.5-5.1) mmol/L Chloride 104 (98-107) mmol/L Carbon Dioxide 22 (22-30) mmol/L Anion Gap 6 mmol/L BUN 19 (9-20) mg/dL Creatinine 0.52 L (0.66-1.25) mg/dL Est GFR (CKD-EPI)AfAm >90 (>60 ml/min/1.73 sqM) Est GFR (CKD-EPI)NonAf >90 (>60 ml/min/1.73 sqM) Glucose 97 (74-99) mg/dL Plasma Lactic Acid Krystian (0.7-2.0) mmol/L Calcium 8.7 (8.4-10.2) mg/dL Magnesium 1.1 L (1.6-2.3) mg/dL Total Bilirubin 1.7 H (0.2-1.3) mg/dL AST 86 H (17-59) U/L ALT 25 (4-49) U/L Alkaline Phosphatase 450 H (38-126) U/L Troponin I (0.000-0.034) ng/mL Total Protein 5.3 L (6.3-8.2) g/dL Albumin 3.0 L (3.5-5.0) g/dL Coronavirus (PCR) (Not Detectd) Influenza Type A RNA (Not Detectd) Influenza Type B (PCR) (Not Detectd) 10/25/22 10/25/22 10/25/22 Range/Units 12:56 12:56 12:56 WBC (3.8-10.6) k/uL RBC (4.30-5.90) m/uL Hgb (13.0-17.5) gm/dL Hct (39.0-53.0) % MCV (80.0-100.0) fL MCH (25.0-35.0) pg MCHC (31.0-37.0) g/dL RDW (11.5-15.5) % Plt Count (150-450) k/uL MPV Neutrophils % % Lymphocytes % % Monocytes % % Eosinophils % % Basophils % % Neutrophils # (1.3-7.7) k/uL Lymphocytes # (1.0-4.8) k/uL Monocytes # (0-1.0) k/uL Eosinophils # (0-0.7) k/uL Basophils # (0-0.2) k/uL Hypochromasia Anisocytosis Macrocytosis PT (9.0-12.0) sec INR (<1.2) APTT (22.0-30.0) sec Sodium (137-145) mmol/L Potassium (3.5-5.1) mmol/L Chloride (98-107) mmol/L Carbon Dioxide (22-30) mmol/L Anion Gap mmol/L BUN (9-20) mg/dL Creatinine (0.66-1.25) mg/dL Est GFR (CKD-EPI)AfAm (>60 ml/min/1.73 sqM) Est GFR (CKD-EPI)NonAf (>60 ml/min/1.73 sqM) Glucose (74-99) mg/dL Plasma Lactic Acid Krystian 1.3 (0.7-2.0) mmol/L Calcium (8.4-10.2) mg/dL Magnesium (1.6-2.3) mg/dL Total Bilirubin (0.2-1.3) mg/dL AST (17-59) U/L ALT (4-49) U/L Alkaline Phosphatase (38-126) U/L Troponin I <0.012 (0.000-0.034) ng/mL Total Protein (6.3-8.2) g/dL Albumin (3.5-5.0) g/dL Coronavirus (PCR) (Not Detectd) Influenza Type A RNA Not Detected (Not Detectd) Influenza Type B (PCR) Not Detected (Not Detectd) 10/25/22 Range/Units 12:56 WBC (3.8-10.6) k/uL RBC (4.30-5.90) m/uL Hgb (13.0-17.5) gm/dL Hct (39.0-53.0) % MCV (80.0-100.0) fL MCH (25.0-35.0) pg MCHC (31.0-37.0) g/dL RDW (11.5-15.5) % Plt Count (150-450) k/uL MPV Neutrophils % % Lymphocytes % % Monocytes % % Eosinophils % % Basophils % % Neutrophils # (1.3-7.7) k/uL Lymphocytes # (1.0-4.8) k/uL Monocytes # (0-1.0) k/uL Eosinophils # (0-0.7) k/uL Basophils # (0-0.2) k/uL Hypochromasia Anisocytosis Macrocytosis PT (9.0-12.0) sec INR (<1.2) APTT (22.0-30.0) sec Sodium (137-145) mmol/L Potassium (3.5-5.1) mmol/L Chloride (98-107) mmol/L Carbon Dioxide (22-30) mmol/L Anion Gap mmol/L BUN (9-20) mg/dL Creatinine (0.66-1.25) mg/dL Est GFR (CKD-EPI)AfAm (>60 ml/min/1.73 sqM) Est GFR (CKD-EPI)NonAf (>60 ml/min/1.73 sqM) Glucose (74-99) mg/dL Plasma Lactic Acid Krystian (0.7-2.0) mmol/L Calcium (8.4-10.2) mg/dL Magnesium (1.6-2.3) mg/dL Total Bilirubin (0.2-1.3) mg/dL AST (17-59) U/L ALT (4-49) U/L Alkaline Phosphatase (38-126) U/L Troponin I (0.000-0.034) ng/mL Total Protein (6.3-8.2) g/dL Albumin (3.5-5.0) g/dL Coronavirus (PCR) Not Detected (Not Detectd) Influenza Type A RNA (Not Detectd) Influenza Type B (PCR) (Not Detectd) - EKG Data -: EKG Interpreted by Me EKG Comments: Pacemaker rhythm EKG read by me rate 70 QRS duration 146 QT since QTC 451/472 this is compared with EKG dated 01/22/22 showing similar configuration. - Radiology Data Radiology results: image reviewed (I did interpret the imaging no definitive evidence of pneumonia however is some evidence of basilar consolidation) Critical Care Time Critical Care Time: Yes Total Critical Care Time: 31 Critical Care Time: Critical care time includes initial presentation with history physical labs straight discussed with paramedics upon arrival. Reevaluation the patient review of old charting was available discussed with the admitting service admission orders neck mentation the above Disposition Clinical Impression: Acute exacerbation of chronic obstructive pulmonary disease, Acute bronchitis, Metastatic cancer, Hypomagnesemia syndrome, Hyponatremia, Chronic anemia Disposition: ADMITTED IP TO THIS HOSP Condition: Fair Referrals: Maddi Renteria DO [Primary Care Provider] - 1-2 days Decision Date: 10/25/22 Decision Time: 18:00
[2022-10-25 14:08] LABS: Anisocytosis Slight; Basophils % (A) 1 %; Eosinophils # (A) 0.1 k/uL (0-0.7); Eosinophils % (A) 1 %; HCT 33.3 % (39.0-53.0); HGB 10.9 gm/dL (13.0-17.5); Hypochromasia Slight; Lymphocytes # (A) 0.5 k/uL (1.0-4.8); Lymphocytes % (A) 6 %; MCH 32.9 pg (25.0-35.0); MCHC 32.7 g/dL (31.0-37.0); MCV 100.8 fL (80.0-100.0); Macrocytosis Slight; Mean Platelet Volume 9.9; Monocytes # (A) 0.6 k/uL (0-1.0); Monocytes % (A) 7 %; Neutrophils # (A) 6.6 k/uL (1.3-7.7); Neutrophils % (A) 81 %; Platelet Count 197 k/uL (150-450); RDW 16.4 % (11.5-15.5); WBC 8.2 k/uL (3.8-10.6)
--- NOTE | 2022-10-25 14:09 | XR ---
EXAMINATION TYPE: XR chest 2V DATE OF EXAM: 10/25/2022 2:00 PM COMPARISON: Chest radiographs from 01/28/2022 TECHNIQUE: XR chest 2V Frontal and lateral views of the chest. CLINICAL INDICATION:Male, 67 years old with history of difficulty breathing; FINDINGS: Lungs/Pleura: Bibasilar atelectasis. No evidence for pneumothorax pleural effusion or focal consolida tion. Pulmonary vascularity: Unremarkable. Heart/mediastinum: Cardiomediastinal silhouette is enlarged and stable. Three lead cardiac conduction device overlying the left hemithorax with lead tips projecting over the right ventricle, right atriu m and coronary sinus. Musculoskeletal: No acute osseous pathology. IMPRESSION: Bibasilar atelectasis unchanged from 01/28/2022. No definitive acute process.
[2022-10-25 14:20] LABS: INR 1.2 (<1.2); Prothrombin Time 12.3 sec (9.0-12.0)
[2022-10-25 14:31] LABS: Partial Thromboplastin Time 77.9 sec (22.0-30.0)
[2022-10-25 14:49] LABS: ALT 25 U/L (4-49); AST 86 U/L (17-59); African American GFR (CKD) >90 (>60 ml/min/1.73 sqM); Alkaline Phosphatase 450 U/L (38-126); Anion Gap 6 mmol/L; Blood Urea Nitrogen 19 mg/dL (9-20); Calcium 8.7 mg/dL (8.4-10.2); Carbon Dioxide 22 mmol/L (22-30); Chloride 104 mmol/L (98-107); Glucose 97 mg/dL (74-99); Magnesium 1.1 mg/dL (1.6-2.3); Non-African American GFR(CKD) >90 (>60 ml/min/1.73 sqM); Potassium 4.4 mmol/L (3.5-5.1); Sodium 132 mmol/L (137-145); Total Bilirubin 1.7 mg/dL (0.2-1.3); Total Protein 5.3 g/dL (6.3-8.2)
[2022-10-25] MEDS ORDERED: ONDANSETRON 4 MG/2 ML VIAL IVP PRN (18:20)
[2022-10-25] MEDS ORDERED: ACETAMINOPHEN TAB 325 MG TAB PO PRN (18:20)
[2022-10-25] MEDS ORDERED: NALOXONE 0.4 MG/ML 1 ML VIAL IV PRN (18:20)
[2022-10-25] MEDS: SODIUM CHLORIDE 0.9% 1,000 ML IV SCH (18:43)
[2022-10-25] MEDS: LEVOFLOXACIN 750MG-D5W PMX 750 MG in DEXTROSE/WATER 1 150ML.BAG IVPB STA ×2 (18:43→21:05)
[2022-10-25] MEDS: MAGNESIUM SULFATE-D5W PMX 1 GM in DEXTROSE/WATER 1 100ML.BAG IVPB SCH ×2 (18:44→20:13)
[2022-10-25] MEDS: SYMBICORT 160-4.5 MCG INHALER INHALATION SCH (20:11)
[2022-10-25] MEDS: APIXABAN 5 MG TAB PO SCH (20:13)
[2022-10-26] MEDS: SYMBICORT 160-4.5 MCG INHALER INHALATION SCH ×2 (08:03→20:04)
[2022-10-26 08:55] LABS: Basophils # (A) 0 X 10*3/uL (0.00-0.10); Basophils % (A) 0 %; Eosinophils # (A) 0 X 10*3/uL (0.04-0.35); Eosinophils % (A) 0 %; HCT 33.7 % (39.6-50.0); HGB 10.5 g/dL (13.0-17.0); Immature Grans, Automated 0.6 %; Lymphocytes # (A) 0.24 X 10*3/uL (0.90-5.00); Lymphocytes % (A) 3.7 %; MCH 31.8 pg (27.0-32.0); MCHC 31.2 g/dL (32.0-37.0); MCV 102.1 fL (80.0-97.0); Mean Platelet Volume 11.5 fL (9.5-12.2); Monocytes # (A) 0.17 X 10*3/uL (0.20-1.00); Monocytes % (A) 2.6 %; NRBC Per 100 WBC 0 /100 WBCS (0.0-0.0); Neutrophils # (A) 6.06 X 10*3/uL (1.80-7.70); Neutrophils % (A) 93.1 %; Platelet Count 228 X 10*3/uL (140-440); RDW 16.3 % (11.5-14.5); WBC 6.51 X 10*3/uL (4.50-10.00)
[2022-10-26] MEDS: PRAVASTATIN SODIUM 40 MG TAB PO SCH (09:15)
[2022-10-26] MEDS: FAMOTIDINE 20 MG/2 ML VIAL IV SCH ×2 (09:15→20:49)
[2022-10-26] MEDS: SPIRONOLACTONE 25 MG TAB PO SCH (09:15)
[2022-10-26] MEDS: APIXABAN 5 MG TAB PO SCH ×2 (09:15→20:49)
[2022-10-26 09:16] LABS: Albumin 3.5 g/dL (3.8-4.9); Albumin/Globulin Ratio 1.84 (1.60-3.17); Anion Gap 13.7 mmol/L (10.00-18.00); BUN/Creat Ratio 26.29 Ratio (12.00-20.00); Bilirubin, Conjugated 0.95 mg/dL (0.20-0.40); Bilirubin,Unconjugated 0.35 mg/dL (0.20-1.00); Blood Urea Nitrogen 18.4 mg/dL (9.0-27.0); Calcium 9.2 mg/dL (8.7-10.3); Carbon Dioxide 19.3 mmol/L (20.0-27.5); Globulin 1.9 g/dL (1.6-3.3); Magnesium 1.3 mg/dL (1.5-2.4); Non-African American GFR(CKD) 98.3 (60.0-200.0); Potassium 5.1 mmol/L (3.5-5.5); Total Bilirubin 1.3 mg/dL (0.30-1.20); Total Protein 5.4 g/dL (6.2-8.2)
[2022-10-26] MEDS: LACTULOSE 20 GM/30 ML CUP PO SCH (09:16)
[2022-10-26] MEDS: CITALOPRAM HYDROBROMIDE 20 MG TAB PO SCH (09:16)
[2022-10-26] MEDS: METOPROLOL SUCCINATE (ER) 50 MG TAB.ER.24H PO SCH (09:16)
--- NOTE | 2022-10-26 11:28 | P.HPIM ---
History of Present Illness This is a pleasant 67 years old male with multiple medical problems as below. Patient is a known case of COPD, he used to smoke more than 3 packs per day and he quit in 2008. Also has a known case with lung cancer with metastasis to the liver, and he is getting immunotherapy as he states. Presents because of worsening dyspnea and cough of green yellow phlegm. Also he had central chest pain nonradiating over the last 2 days felt like dull with palpitation. Hearing decreased his pain as severe then but now is much better and he does not have significant chest pain today. He is not on oxygen at home. He denies abdominal pain vomiting or diarrhea, he complains from hesitancy in his urination but no dysuria. Headache or weakness or numbness or dizziness. He is currently nonsmoker, no alcohol or illicit drugs as he states. On admission Vitas looks stable, patient is saturating 94% to 97% on 4 L oxygen via nasal cannula Labs showing mild anemia with hemoglobin 10.7, Rest of labs including INR, BMP are unremarkable Low magnesium of 1.1 Bilirubin slightly up 1.7, AST slightly up 86 while normal ALT are 25. Viruses are not detected allen and influenza EKG showing paced rhythm Chest x-ray showing bibasilar An emergency room pressures of steroids and Levaquin 1. Also patient blood culture came back positive for gram-positive cocci Review of Systems Review of systems CONSTITUTIONAL: No fever, no malaise, no fatigue. HEENT: No recent visual problems or hearing problems. Denied any sore throat. CARDIOVASCULAR: No orthopnea, PND, no palpitations, no syncope. PULMONARY: No chest wall tenderness, no hemoptysis. GASTROINTESTINAL: No diarrhea, no nausea, no vomiting, no abdominal pain. Normoactive bowel sounds. NEUROLOGICAL: No headaches, no weakness, no numbness. HEMATOLOGICAL: Denies any bleeding or petechiae. GENITOURINARY: Denies any burning micturition, frequency, or urgency. MUSCULOSKELETAL/RHEUMATOLOGICAL: Denies any joint pain, swelling, or any muscle pain. ENDOCRINE: Denies any polyuria or polydipsia. Past Medical History Past Medical History: Atrial Fibrillation, Cancer, Chest Pain / Angina, COPD, Diabetes Mellitus, Myocardial Infarction ([place]) Additional Past Medical History / Comment(s): stent placed 2008, chronic hypoxic respiratory failure on home O2, Hodgkin's lymphoma status post themselves transplant, atrial fibrillation status post AV node ablation, cancer mets to liver Last Myocardial Infarction Date:: 2008 History of Any Multi-Drug Resistant Organisms: MRSA Date of last positivie culture/infection: 2003 MDRO Source:: pulmonary MRSA Past Surgical History: AICD, Pacemaker Additional Past Surgical History / Comment(s): AV node ablation for atrial fibrillation, pacemaker upgraded to AICD 07/2015. 1998 Stem cell transplant, port placement Past Anesthesia/Blood Transfusion Reactions: No Reported Reaction Additional Past Anesthesia/Blood Transfusion Reaction / Comment(s): Pt has received blood without reaction. Type of Cardiac Device: Permanent Pacemaker, AICD Device Placement Date:: 2014 Past Psychological History: No Psychological Hx Reported Smoking Status: Former smoker Past Alcohol Use History: None Reported Past Drug Use History: None Reported - Past Family History Father Family Medical History: Hypertension, Myocardial Infarction ([place]), Vascular Disorder Additional Family Medical History / Comment(s): Aortic aneurysm. Mother Family Medical History: Cancer Additional Family Medical History / Comment(s): Pt thinks uterine cancer and colon cancer. Medications and Allergies Home Medications Medication Instructions Recorded Confirmed Type Pravastatin Sodium [Pravachol] 40 mg PO DAILY 01/22/22 10/25/22 History Spironolactone 25 mg PO DAILY 01/22/22 10/25/22 History Apixaban [Eliquis] 5 mg PO BID #60 tab 01/30/22 10/25/22 Rx Citalopram Hydrobromide [CeleXA] 20 mg PO DAILY 10/25/22 10/25/22 History Lactulose 10 gm PO DAILY 10/25/22 10/25/22 History Metoprolol Succinate (ER) [Toprol 50 mg PO DAILY 10/25/22 10/25/22 History Xl] Mometasone/Formoterol [Dulera 200 2 puff PO RT-BID 10/25/22 10/25/22 History Mcg-5 Mcg Inhaler] modafiniL [Provigil] 200 mg PO DAILY 10/25/22 10/25/22 History Allergies Allergy/AdvReac Type Severity Reaction Status Date / Time perflutren [From Definity] AdvReac Anaphylaxis Verified 02/09/22 22:54 piperacillin [From Zosyn] AdvReac Anaphylaxis Verified 02/09/22 22:54 tazobactam [From Zosyn] AdvReac Anaphylaxis Verified 02/09/22 22:54 Physical Exam Vitals: Vital Signs Temp Pulse Pulse Resp BP BP Pulse Ox 10/26/22 08:03 97 10/26/22 04:53 98.1 F 70 16 121/68 97 10/25/22 20:04 98.2 F 68 16 94/58 97 10/25/22 19:29 70 20 119/73 93 L 10/25/22 18:40 70 18 112/64 98 10/25/22 17:30 92 10/25/22 17:10 91 10/25/22 16:45 70 18 111/67 99 10/25/22 15:40 70 18 111/67 96 10/25/22 13:50 20 94/50 97 10/25/22 12:52 22 10/25/22 12:46 69 18 102/75 98 Intake and Output 10/25/22 10/26/22 10/26/22 22:59 06:59 14:59 Other: # Voids 1 # Bowel Movements 1 Weight 68.039 kg -GENERAL: The patient is alert and oriented x3, not in any acute distress. Generally weak HEENT: Pupils are round and equally reacting to light. EOMI. No scleral icterus. No conjunctival pallor. Normocephalic, atraumatic. No pharyngeal erythema. No thyromegaly. CARDIOVASCULAR: S1 and S2 present. No murmurs, rubs, or gallops. -PULMONARY: Chest is clear to auscultation, no crackles. Expiratory wheezing with coarse crepitation ABDOMEN: Soft, nontender, nondistended, normoactive bowel sounds. No palpable organomegaly. MUSCULOSKELETAL: No joint swelling or deformity. EXTREMITIES: No cyanosis, clubbing, or pedal edema. NEUROLOGICAL: Gross neurological examination did not reveal any focal deficits. SKIN: No rashes. no petechiae. Results CBC & Chem 7: 10/26/22 05:07 10/26/22 05:07 Labs: Abnormal Lab Results - Last 24 Hours (Table) 10/25/22 10/25/22 10/25/22 Range/Units 12:56 12:56 12:56 RBC 3.30 L (4.30-5.90) m/uL Hgb 10.9 L (13.0-17.5) gm/dL Hct 33.3 L (39.0-53.0) % MCV 100.8 H (80.0-100.0) fL MCHC (32.0-37.0) g/dL RDW 16.4 H (11.5-15.5) % Lymphocytes # 0.5 L (1.0-4.8) k/uL Monocytes # (0.20-1.00) X 10*3/uL Eosinophils # (0.04-0.35) X 10*3/uL PT 12.3 H (9.0-12.0) sec INR 1.2 H (<1.2) APTT 77.9 H (22.0-30.0) sec Sodium 132 L (137-145) mmol/L Carbon Dioxide (20.0-27.5) mmol/L Creatinine 0.52 L (0.66-1.25) mg/dL BUN/Creatinine Ratio (12.00-20.00) Ratio Glucose (70-110) mg/dL Magnesium 1.1 L (1.6-2.3) mg/dL Total Bilirubin 1.7 H (0.2-1.3) mg/dL Conjugated Bilirubin (0.20-0.40) mg/dL AST 86 H (17-59) U/L Alkaline Phosphatase 450 H (38-126) U/L Total Protein 5.3 L (6.3-8.2) g/dL Albumin 3.0 L (3.5-5.0) g/dL Procalcitonin (0.02-0.09) ng/mL 10/26/22 10/26/22 10/26/22 Range/Units 05:07 05:07 05:07 RBC 3.30 L (4.30-5.90) m/uL Hgb 10.5 L (13.0-17.5) gm/dL Hct 33.7 L (39.0-53.0) % MCV 102.1 H (80.0-100.0) fL MCHC 31.2 L (32.0-37.0) g/dL RDW 16.3 H (11.5-15.5) % Lymphocytes # 0.24 L (1.0-4.8) k/uL Monocytes # 0.17 L (0.20-1.00) X 10*3/uL Eosinophils # 0 L (0.04-0.35) X 10*3/uL PT (9.0-12.0) sec INR (<1.2) APTT (22.0-30.0) sec Sodium 132 L (137-145) mmol/L Carbon Dioxide 19.3 L (20.0-27.5) mmol/L Creatinine (0.66-1.25) mg/dL BUN/Creatinine Ratio 26.29 H (12.00-20.00) Ratio Glucose 205 H (70-110) mg/dL Magnesium 1.3 L (1.6-2.3) mg/dL Total Bilirubin 1.30 H (0.2-1.3) mg/dL Conjugated Bilirubin 0.95 H (0.20-0.40) mg/dL AST 79 H (17-59) U/L Alkaline Phosphatase 477 H (38-126) U/L Total Protein 5.4 L (6.3-8.2) g/dL Albumin 3.5 L (3.5-5.0) g/dL Procalcitonin 0.25 H (0.02-0.09) ng/mL Microbiology - Last 24 Hours (Table) 10/25/22 12:56 Blood Culture Gram Stain - Preliminary Blood Blood Culture - Preliminary 10/25/22 12:56 Blood Culture - Final Blood 10/25/22 12:56 Blood Culture Gram Stain - Preliminary Blood Blood Culture - Preliminary 10/25/22 12:56 Blood Culture - Final Blood Thrombosis Risk Factor Assmnt - Choose All That Apply Any of the Below Risk Factors Present?: Yes Each Factor Represents 1 point: Abnormal pulmonary function (COPD) Other Risk Factors: Yes Each Risk Factor Represents 2 Points: Age 61-74 years, Malignancy Other congenital or acquired thrombophilia - If yes, enter type in comment: No Thrombosis Risk Factor Assessment Total Risk Factor Score: 5 Thrombosis Risk Factor Assessment Level: High Risk Assessment and Plan Assessment: Acute COPD exacerbation History of metastatic lung cancer to the liver Chest pain, most likely secondary to above Gram-positive bacteremia Status post AICD and pacemaker generalized weakness and deconditioning History of hyponatremia, most likely secondary to SIADH chronic hypoxic respiratory failure mild caloreis protein malnutrition History of esophageal cancer status post radiation History of Hodgkin's lymphoma status post stem cell transplant. History of Chronic atrial fibrillation. On Eliquis Coronary artery disease history of stent placement Chronic systolic CHF ejection fraction 30 to 35% Diabetes type 2 diet controlled History of [place] Previous history of smoking Severe COPD changes with a dilated pulmonary trunk suggestive of pulmonary hypertension. Plan: Continue with steroids Continue with bronchodilator continue with antibiotic, will give Levaquin Infectious disease consult Pulmonary team consult Labs and medication were reviewed.. Continue same treatment. Continue with symptomatic treatment. Resume home medication. Monitor lytes and vitals. DVT and GI prophylaxis. Further recommendations as per clinical course of the patient DVT prophylaxis: Eliquis GI Prophylaxis: Pepcid PT/OT: Pending Prognosis is guarded
--- NOTE | 2022-10-26 16:29 | P.CNPUL ---
History of Present Illness Consult date: 10/26/22 Requesting physician: Adrianne Odell Reason for consult: dyspnea, abnormal CXR/CT Chief complaint: Shortness of breath, cough, congestion History of present illness: This is a pleasant 67-year-old male patient with a history of chronic obstructive pulmonary disease, former smoker, quit in 2008, chronic atrial fibrillation anticoagulated with Eliquis, hyperlipidemia, diabetes mellitus, coronary disease with previous stent placement, AICD placement for ischemic cardiomyopathy Hodgkin's lymphoma diagnosed originally in 2002 with subsequent recurrence in stem cell transplant. He also was diagnosed with lung cancer in 2017 and undergone 3 rounds of chemotherapy and radiation therapy. He also had undergone esophageal cancer with radiation therapy. Now he states his lung cancer has metastasized to his liver. He follows with a Dr. Etienne Cisneros as his chicken boner in [place]. His PCP is Maddi Renteria out of [place]. He presented here to the emergency room with a 2 day history of intermittent midsternal chest discomfort, cough and congestion and yellow/green phlegm. He had been at [facility] and left [place] several days prior to his arrival here. His x-ray reveals evidence of bibasilar atelectasis but no acute pulmonary process. He is maintaining O2 saturations in the 90s on 4 L/m per nasal cannula. Afebrile. Hemodynamically stable. White count 6.5. Hemoglobin 10.5. Platelets 228. Sodium 132. Potassium 5.1. BUN 18. Creatinine 0.4. Glucose 205. AST 79. ALT 26. Alk phos 477. Troponins were negative 3. ProBNP 2630. Pro calcitonin 0.25. Stock virus and influenza screens negative. He is seen today in consultation on the regular medical floor. Currently sitting up in bed. Awake and alert in no acute distress. Continues with a loose cough. No worsening shortness of breath. No fever chills. No hemoptysis. Review of Systems REVIEW OF SYSTEMS: CONSTITUTIONAL: Denies any recent significant weight loss or weight gain. EYES: Denies change in vision. EARS, NOSE, MOUTH, THROAT: Denies headaches, denies sore throat. CARDIOVASCULAR: Positive for chest pain, no palpitations or syncopal episodes. RESPIRATORY: Positive for shortness of breath, cough, congestion no hemoptysis. GASTROINTESTINAL: Denies change in appetite, denies abdominal pain GENITOURINARY: Denies hematuria, denies infections. MUSKULOSKELETAL: Denies pain, denies swelling. INTEGUMENTARY: Denies rash, denies eczema. NEUROLOGICAL: Denies recent memory loss, no recent seizure activity. PSYCHIATRIC: Denies anxiety, denies depression. HEMATOLOGIC/LYMPHATIC: Denies anemia, denies enlarged lymph nodes. Past Medical History Past Medical History: Atrial Fibrillation, Cancer, Chest Pain / Angina, COPD, Diabetes Mellitus, Myocardial Infarction ([place]) Additional Past Medical History / Comment(s): stent placed 2008, chronic hypoxic respiratory failure on home O2, Hodgkin's lymphoma status post themselves transplant, atrial fibrillation status post AV node ablation, cancer mets to liver Last Myocardial Infarction Date:: 2008 History of Any Multi-Drug Resistant Organisms: MRSA Date of last positivie culture/infection: 2003 MDRO Source:: pulmonary MRSA Past Surgical History: AICD, Pacemaker Additional Past Surgical History / Comment(s): AV node ablation for atrial fibrillation, pacemaker upgraded to AICD 07/2015. 1997 Stem cell transplant, port placement Past Anesthesia/Blood Transfusion Reactions: No Reported Reaction Additional Past Anesthesia/Blood Transfusion Reaction / Comment(s): Pt has received blood without reaction. Type of Cardiac Device: Permanent Pacemaker, AICD Device Placement Date:: 2014 Past Psychological History: No Psychological Hx Reported Smoking Status: Former smoker Past Alcohol Use History: None Reported Past Drug Use History: None Reported - Past Family History Father Family Medical History: Hypertension, Myocardial Infarction ([place]), Vascular Disorder Additional Family Medical History / Comment(s): Aortic aneurysm. Mother Family Medical History: Cancer Additional Family Medical History / Comment(s): Pt thinks uterine cancer and colon cancer. Medications and Allergies Home Medications Medication Instructions Recorded Confirmed Type Pravastatin Sodium [Pravachol] 40 mg PO DAILY 01/22/22 10/25/22 History Spironolactone 25 mg PO DAILY 01/22/22 10/25/22 History Apixaban [Eliquis] 5 mg PO BID #60 tab 01/30/22 10/25/22 Rx Citalopram Hydrobromide [CeleXA] 20 mg PO DAILY 10/25/22 10/25/22 History Lactulose 10 gm PO DAILY 10/25/22 10/25/22 History Metoprolol Succinate (ER) [Toprol 50 mg PO DAILY 10/25/22 10/25/22 History Xl] Mometasone/Formoterol [Dulera 200 2 puff PO RT-BID 10/25/22 10/25/22 History Mcg-5 Mcg Inhaler] modafiniL [Provigil] 200 mg PO DAILY 10/25/22 10/25/22 History Allergies Allergy/AdvReac Type Severity Reaction Status Date / Time perflutren [From Definity] AdvReac Anaphylaxis Verified 02/09/22 22:54 piperacillin [From Zosyn] AdvReac Anaphylaxis Verified 02/09/22 22:54 tazobactam [From Zosyn] AdvReac Anaphylaxis Verified 02/09/22 22:54 Physical Exam Vitals: Vital Signs Temp Pulse Pulse Resp BP BP Pulse Ox 10/26/22 11:22 97.6 F 70 16 105/65 94 L 10/26/22 08:03 97 10/26/22 04:53 98.1 F 70 16 121/68 97 10/25/22 20:04 98.2 F 68 16 94/58 97 10/25/22 19:29 70 20 119/73 93 L 10/25/22 18:40 70 18 112/64 98 10/25/22 17:30 92 10/25/22 17:10 91 10/25/22 16:45 70 18 111/67 99 Intake and Output 10/26/22 10/26/22 10/26/22 06:59 14:59 22:59 Other: # Voids 1 # Bowel Movements 1 GENERAL EXAM: Alert, pleasant 67-year-old male, on 4 L nasal cannula, comfortable in no apparent distress. HEAD: Normocephalic. EYES: Normal reaction of pupils, equal size. NOSE: Clear with pink turbinates. THROAT: No erythema or exudates. NECK: No masses, no JVD. CHEST: No chest wall deformity. LUNGS: Equal air entry with no crackles, wheeze, rhonchi or dullness. Diminished. CVS: S1 and S2 normal with no audible murmur, regular rhythm. ABDOMEN: No hepatosplenomegaly, normal bowel sounds, no guarding or rigidity. SPINE: No scoliosis or deformity SKIN: No rashes CENTRAL NERVOUS SYSTEM: No focal deficits, tone is normal in all 4 extremities. EXTREMITIES: There is no peripheral edema. No clubbing, no cyanosis. Peripheral pulses are intact. Results - Laboratory Findings CBC and BMP: 10/26/22 05:07 10/26/22 05:07 PT/INR, D-dimer PT 12.3 sec (9.0-12.0) H 10/25/22 12:56 INR 1.2 (<1.2) H 10/25/22 12:56 Abnormal lab findings: Abnormal Labs 10/25/22 10/25/22 10/25/22 12:56 12:56 12:56 RBC 3.30 L Hgb 10.9 L Hct 33.3 L MCV 100.8 H MCHC RDW 16.4 H Lymphocytes # 0.5 L Monocytes # Eosinophils # PT 12.3 H INR 1.2 H APTT 77.9 H Sodium 132 L Carbon Dioxide Creatinine 0.52 L BUN/Creatinine Ratio Glucose Magnesium 1.1 L Total Bilirubin 1.7 H Conjugated Bilirubin AST 86 H Alkaline Phosphatase 450 H Total Protein 5.3 L Albumin 3.0 L Procalcitonin 10/26/22 10/26/22 10/26/22 05:07 05:07 05:07 RBC 3.30 L Hgb 10.5 L Hct 33.7 L MCV 102.1 H MCHC 31.2 L RDW 16.3 H Lymphocytes # 0.24 L Monocytes # 0.17 L Eosinophils # 0 L PT INR APTT Sodium 132 L Carbon Dioxide 19.3 L Creatinine BUN/Creatinine Ratio 26.29 H Glucose 205 H Magnesium 1.3 L Total Bilirubin 1.30 H Conjugated Bilirubin 0.95 H AST 79 H Alkaline Phosphatase 477 H Total Protein 5.4 L Albumin 3.5 L Procalcitonin 0.25 H - Diagnostic Findings Chest x-ray: image reviewed Assessment and Plan Assessment: Acute hypoxemic respiratory failure secondary to an acute exacerbation of chronic obstructive pulmonary disease complicated by purulent tracheobronchitis. No clear evidence of pneumonia. Pro-calcitonin 0.25. Currently on Levaquin. Recent hospitalization for similar symptoms at [facility], left AMA Former smoker, quit in 2008 History of lung cancer treated with chemoradiation in 2017 Most recent diagnosis of liver metastasis follows out of [place] History of esophageal cancer treated with chemoradiation History of Hodgkin's lymphoma initially treated in 2002 with systemic chemotherapy, recurrence with subsequent stem cell transplant Coronary artery disease with previous stent placement History of ischemic cardiomyopathy status post AICD placement Chronic atrial fibrillation anticoagulated with all of this Hyperlipidemia Diabetes mellitus Chronic anemia Chronic hyponatremia Plan: The patient was seen and evaluated Chest x-ray, labs, medications reviewed Continue Levaquin for now Continue bronchodilators Titrate the FiO2 as tolerated Anticoagulated with Eliquis We will continue to follow and make further recommendations based on his clinical status I have personally seen and examined the patient, performed the documentation and the assessment and plan as written. Number of minutes spent on the visit: 20.
[2022-10-26] MEDS: SODIUM CHLORIDE 0.9% 1,000 ML IV SCH (20:49)
[2022-10-26] MEDS: LEVOFLOXACIN 500MG-D5W PMX 500 MG in DEXTROSE/WATER 1 100ML.BAG IVPB SCH (20:49)
[2022-10-26] MEDS: ALPRAZolam 0.25 MG TAB PO SCH (20:49)
[2022-10-26] MEDS: MELATONIN 5 MG TABLET PO SCH (20:49)
--- NOTE | 2022-10-26 23:24 | P.CONS ---
History of Present Illness - Reason for Consult Consult date: 10/26/22 Positive blood culture Requesting physician: Chintan E Sheet - Chief Complaint Increasing shortness of breath x few days - History of Present Illness Patient is a 67-year-old male with a past medical history significant for COPD atrial fibrillation did have a history of a skin lymphoma status post stem cell transplant on along with lung cancer diagnosed in 2017 for the patient has received chemoradiation therapy patient to have a right chest wall Mediport for chemotherapy, patient presenting to the ER at [facility] for evaluation of increasing shortness of breath cough and congestion that has been going on for 2 days before presentation hospital patient mentioned has been bringing up some yellow to green sputum and no hemoptysis no pleuritic chest pain patient denies having any nausea and vomiting no choking on the food no abdominal pain or any diarrhea patient denies having a problem with his port, on presentation hospital the patient was afebrile, patient did have a normal white count kidney function has been normal as well as asthma and elevated influenza and cover testing was negative, patient did have blood culture drawn coming back positive with gram-positive cocci that has prompted this infectious disease consultation, patient did have a chest x-ray bibasilar atelectasis unchanged from 01/28/2022 no definite acute process Review of Systems Positive point has been mentioned in the HPI rest of the systems are negative Past Medical History Past Medical History: Atrial Fibrillation, Cancer, Chest Pain / Angina, COPD, Diabetes Mellitus, Myocardial Infarction (OR) Additional Past Medical History / Comment(s): stent placed 2008, chronic hypoxic respiratory failure on home O2, Hodgkin's lymphoma status post themselves transplant, atrial fibrillation status post AV node ablation, cancer mets to liver Last Myocardial Infarction Date:: 2008 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 1998 Stem cell transplant, port placement Past Anesthesia/Blood Transfusion Reactions: No Reported Reaction Additional Past Anesthesia/Blood Transfusion Reaction / Comm: Pt has received blood without reaction. Type of Cardiac Device: Permanent Pacemaker, AICD Device Placement Date:: 2014 Past Psychological History: No Psychological Hx Reported Smoking Status: Former smoker Past Alcohol Use History: None Reported Past Drug Use History: None Reported - Past Family History Father Family Medical History: Hypertension, Myocardial Infarction (OR), Vascular Disorder Additional Family Medical History / Comment(s): Aortic aneurysm. Mother Family Medical History: Cancer Additional Family Medical History / Comment(s): Pt thinks uterine cancer and colon cancer. Medications and Allergies Home Medications Medication Instructions Recorded Confirmed Type Pravastatin Sodium [Pravachol] 40 mg PO DAILY 01/22/22 10/25/22 History Spironolactone 25 mg PO DAILY 01/22/22 10/25/22 History Citalopram Hydrobromide [CeleXA] 20 mg PO DAILY 10/25/22 10/25/22 History Lactulose 10 gm PO DAILY 10/25/22 10/25/22 History Metoprolol Succinate (ER) [Toprol 50 mg PO DAILY 10/25/22 10/25/22 History XL] Mometasone/Formoterol [Dulera 200 2 puff PO RT-BID 10/25/22 10/25/22 History Mcg-5 Mcg Inhaler] modafiniL [Provigil] 200 mg PO DAILY 10/25/22 10/25/22 History Melatonin 5 mg PO HS 10/27/22 10/27/22 History ALPRAZolam [Xanax] 0.25 mg PO HS PRN #0 10/30/22 10/27/22 Rx Acetaminophen Tab [Tylenol] 650 mg PO Q6HR PRN tab 10/30/22 Rx HYDROcodone/APAP 5-325MG [[place] 1 each PO Q6HR PRN #9 tab 10/30/22 Rx 5-325] Levofloxacin [Levaquin] 500 mg PO Q24H 5 Days #5 tab 10/30/22 Rx Allergies Allergy/AdvReac Type Severity Reaction Status Date / Time perflutren [From Definity] AdvReac Anaphylaxis Verified 02/09/22 22:54 piperacillin [From Zosyn] AdvReac Anaphylaxis Verified 02/09/22 22:54 tazobactam [From Zosyn] AdvReac Anaphylaxis Verified 02/09/22 22:54 Physical Exam Vitals: Vital Signs Temp Pulse Pulse Resp BP BP Pulse Ox 10/26/22 08:03 97 10/26/22 04:53 98.1 F 70 16 121/68 97 10/25/22 20:04 98.2 F 68 16 94/58 97 10/25/22 19:29 70 20 119/73 93 L 10/25/22 18:40 70 18 112/64 98 10/25/22 17:30 92 10/25/22 17:10 91 10/25/22 16:45 70 18 111/67 99 10/25/22 15:40 70 18 111/67 96 10/25/22 13:50 20 94/50 97 10/25/22 12:52 22 10/25/22 12:46 69 18 102/75 98 Intake and Output 10/25/22 10/26/22 10/26/22 22:59 06:59 14:59 Other: # Voids 1 # Bowel Movements 1 Weight 68.039 kg GENERAL DESCRIPTION: Elderly male lying in bed, no distress. No tachypnea or accessory muscle of respiration use. HEENT: Shows Pallor , no scleral icterus. Oral mucous membrane is dry. No pharyngeal erythema or thrush NECK: Trachea central, no thyromegaly. LUNGS: Unlabored breathing. Coarse breath sounds bilaterally HEART: S1, S2, regular rate and rhythm. No loud murmur ABDOMEN: Soft, no tenderness , guarding or rigidity, no organomegaly EXTREMITIES: No edema of feet. SKIN: No rash, no masses palpable. NEUROLOGICAL: The patient is awake, alert, oriented x3, mood and affect normal. Results CBC & Chem 7: 10/29/22 07:25 10/29/22 07:25 Labs: Abnormal Lab Results - Last 24 Hours (Table) 10/25/22 10/25/22 10/25/22 Range/Units 12:56 12:56 12:56 RBC 3.30 L (4.30-5.90) m/uL Hgb 10.9 L (13.0-17.5) gm/dL Hct 33.3 L (39.0-53.0) % MCV 100.8 H (80.0-100.0) fL MCHC (32.0-37.0) g/dL RDW 16.4 H (11.5-15.5) % Lymphocytes # 0.5 L (1.0-4.8) k/uL Monocytes # (0.20-1.00) X 10*3/uL Eosinophils # (0.04-0.35) X 10*3/uL PT 12.3 H (9.0-12.0) sec INR 1.2 H (<1.2) APTT 77.9 H (22.0-30.0) sec Sodium 132 L (137-145) mmol/L Carbon Dioxide (20.0-27.5) mmol/L Creatinine 0.52 L (0.66-1.25) mg/dL BUN/Creatinine Ratio (12.00-20.00) Ratio Glucose (70-110) mg/dL Magnesium 1.1 L (1.6-2.3) mg/dL Total Bilirubin 1.7 H (0.2-1.3) mg/dL Conjugated Bilirubin (0.20-0.40) mg/dL AST 86 H (17-59) U/L Alkaline Phosphatase 450 H (38-126) U/L Total Protein 5.3 L (6.3-8.2) g/dL Albumin 3.0 L (3.5-5.0) g/dL Procalcitonin (0.02-0.09) ng/mL 10/26/22 10/26/22 10/26/22 Range/Units 05:07 05:07 05:07 RBC 3.30 L (4.30-5.90) m/uL Hgb 10.5 L (13.0-17.5) gm/dL Hct 33.7 L (39.0-53.0) % MCV 102.1 H (80.0-100.0) fL MCHC 31.2 L (32.0-37.0) g/dL RDW 16.3 H (11.5-15.5) % Lymphocytes # 0.24 L (1.0-4.8) k/uL Monocytes # 0.17 L (0.20-1.00) X 10*3/uL Eosinophils # 0 L (0.04-0.35) X 10*3/uL PT (9.0-12.0) sec INR (<1.2) APTT (22.0-30.0) sec Sodium 132 L (137-145) mmol/L Carbon Dioxide 19.3 L (20.0-27.5) mmol/L Creatinine (0.66-1.25) mg/dL BUN/Creatinine Ratio 26.29 H (12.00-20.00) Ratio Glucose 205 H (70-110) mg/dL Magnesium 1.3 L (1.6-2.3) mg/dL Total Bilirubin 1.30 H (0.2-1.3) mg/dL Conjugated Bilirubin 0.95 H (0.20-0.40) mg/dL AST 79 H (17-59) U/L Alkaline Phosphatase 477 H (38-126) U/L Total Protein 5.4 L (6.3-8.2) g/dL Albumin 3.5 L (3.5-5.0) g/dL Procalcitonin 0.25 H (0.02-0.09) ng/mL Microbiology - Last 24 Hours (Table) 10/25/22 12:56 Blood Culture Gram Stain - Preliminary Blood Blood Culture - Preliminary 10/25/22 12:56 Blood Culture - Final Blood 10/25/22 12:56 Blood Culture Gram Stain - Preliminary Blood Blood Culture - Preliminary 10/25/22 12:56 Blood Culture - Final Blood Assessment and Plan (1) Positive blood cultures Status: Acute Code(s): R78.81 - BACTEREMIA SNOMED Code(s): 377221526 Plan: 1patient with a positive blood culture with gram-positive cocci in this patient presented to hospital with increasing shortness of breath and cough however the patient did not have any fever or elevated white count and chest x-ray was negative for any acute infiltrate could be more likely a skin contaminant however the patient to have a Mediport and will need to rule out Mediport infection 2-blood cultures will be obtained both from the port and peripherally 3-we will hold on adding vancomycin at this point at clinic suspicious low for infection in patient with no fever or elevated white count We will follow on clinical condition and cultures to further adjust medication if needed Thank you for this consultation will follow this patient with you Time with Patient: Greater than 30
[2022-10-27] MEDS: SYMBICORT 160-4.5 MCG INHALER INHALATION SCH ×3 (07:52→21:08)
--- NOTE | 2022-10-27 08:11 | P.PN ---
Subjective Progress Note Date: 10/27/22 This is a pleasant 67-year-old male patient with a history of chronic obstructive pulmonary disease, former smoker, quit in 2008, chronic atrial fibrillation anticoagulated with Eliquis, hyperlipidemia, diabetes mellitus, coronary disease with previous stent placement, AICD placement for ischemic cardiomyopathy Hodgkin's lymphoma diagnosed originally in 2002 with subsequent recurrence in stem cell transplant. He also was diagnosed with lung cancer in 2017 and undergone 3 rounds of chemotherapy and radiation therapy. He also had undergone esophageal cancer with radiation therapy. Now he states his lung cancer has metastasized to his liver. He follows with a Dr. Etienne Cisneros as his pole cutter in [place]. His PCP is Maddi Renteria out of [place]. He presented here to the emergency room with a 2 day history of intermittent midsternal chest discomfort, cough and congestion and yellow/green phlegm. He had been at [facility] and left AMA several days prior to his arrival here. His x-ray reveals evidence of bibasilar atelectasis but no acute pulmonary process. He is maintaining O2 saturations in the 90s on 4 L/m per nasal cannula. Afebrile. Hemodynamically stable. White count 6.5. Hemoglobin 10.5. Platelets 228. Sodium 132. Potassium 5.1. BUN 18. Creatinine 0.4. Glucose 205. AST 79. ALT 26. Alk phos 477. Troponins were negative 3. ProBNP 2630. Pro calcitonin 0.25. Stock virus and influenza screens negative. He is seen today in consultation on the regular medical floor. Currently sitting up in bed. Awake and alert in no acute distress. Continues with a loose cough. No worsening shortness of breath. No fever chills. No hemoptysis. The patient is seen today 10/27/2022 in follow-up on the regular medical floor. He is currently sitting up in bed. Awake and alert in no acute distress. He is maintaining good O2 saturations in the 90s on 2 L/m per nasal cannula. He has normal saline at 20 ML's per hour. His pro calcitonin was borderline at 0.25. He is continued on Levaquin. Initial blood culture positive for Staphylococcus epidermidis. Follow-up blood cultures revealing no growth. Today's labs are pending. He remains on bronchodilators. Anticoagulated with Eliquis. Objective - Vital Signs Vital signs: Vital Signs Temp 97.8 F 10/27/22 06:13 Pulse 70 10/27/22 06:13 Resp 18 10/27/22 06:13 BP 129/72 10/27/22 06:13 Pulse Ox 94 L 10/27/22 06:13 FiO2 Intake & Output 10/26/22 10/27/22 10/27/22 18:59 06:59 18:59 Intake Total 240 420 Output Total 400 Balance 240 20 Intake: Intake, IV Titration 240 300 Amount Levofloxacin 500Mg-D5w 100 Pmx 500 mg In Dextrose/ Water 1 100ml.bag @ 100 mls/hr IVPB Q24H ROSAS Rx#: [id number] Sodium Chloride 0.9% 1, 240 200 000 ml @ 20 mls/hr IV . Q24H ROSAS Rx#:[id number] Oral 120 Output: Urine 400 Other: # Voids 1 # Bowel Movements 1 1 - Exam GENERAL EXAM: Alert, pleasant 67-year-old male, on 2 L nasal cannula, comforta ble in no apparent distress. HEAD: Normocephalic. EYES: Normal reaction of pupils, equal size. NOSE: Clear with pink turbinates. THROAT: No erythema or exudates. NECK: No masses, no JVD. CHEST: No chest wall deformity. LUNGS: Equal air entry with no crackles, wheeze, rhonchi or dullness. Diminished. CVS: S1 and S2 normal with no audible murmur, regular rhythm. ABDOMEN: No hepatosplenomegaly, normal bowel sounds, no guarding or rigidity. SPINE: No scoliosis or deformity SKIN: No rashes CENTRAL NERVOUS SYSTEM: No focal deficits, tone is normal in all 4 extremities. EXTREMITIES: There is no peripheral edema. No clubbing, no cyanosis. Peripheral pulses are intact. - Labs CBC & Chem 7: 10/26/22 05:07 10/26/22 05:07 Labs: Abnormal Lab Results - Last 24 Hours (Table) 10/26/22 10/26/22 10/26/22 Range/Units 05:07 05:07 05:07 RBC 3.30 L (4.40-5.60) X 10*6/uL Hgb 10.5 L (13.0-17.0) g/dL Hct 33.7 L (39.6-50.0) % MCV 102.1 H (80.0-97.0) fL MCHC 31.2 L (32.0-37.0) g/dL RDW 16.3 H (11.5-14.5) % Lymphocytes # 0.24 L (0.90-5.00) X 10*3/uL Monocytes # 0.17 L (0.20-1.00) X 10*3/uL Eosinophils # 0 L (0.04-0.35) X 10*3/uL Sodium 132 L (135-145) mmol/L Carbon Dioxide 19.3 L (20.0-27.5) mmol/L BUN/Creatinine Ratio 26.29 H (12.00-20.00) Ratio Glucose 205 H (70-110) mg/dL Magnesium 1.3 L (1.5-2.4) mg/dL Total Bilirubin 1.30 H (0.30-1.20) mg/dL Conjugated Bilirubin 0.95 H (0.20-0.40) mg/dL AST 79 H (14-35) U/L Alkaline Phosphatase 477 H (41-126) U/L Total Protein 5.4 L (6.2-8.2) g/dL Albumin 3.5 L (3.8-4.9) g/dL Procalcitonin 0.25 H (0.02-0.09) ng/mL Microbiology - Last 24 Hours (Table) 10/26/22 12:11 Blood Culture Gram Stain - Preliminary Blood 10/26/22 12:11 Blood Culture - Final Blood 10/25/22 12:56 Blood Culture Gram Stain - Preliminary Blood Blood Culture - Preliminary Staphylococcus epidermidis 10/25/22 12:56 Blood Culture Gram Stain - Preliminary Blood Blood Culture - Preliminary 10/25/22 12:56 Blood Culture - Final Blood 10/25/22 12:56 Blood Culture - Final Blood Assessment and Plan Assessment: Acute hypoxemic respiratory failure secondary to an acute exacerbation of chronic obstructive pulmonary disease complicated by purulent tracheobronchitis. No clear evidence of pneumonia. Pro-calcitonin 0.25. Currently on Levaquin. Recent hospitalization for similar symptoms at [facility], left AMA Former smoker, quit in 2008 History of lung cancer treated with chemoradiation in 2017 Most recent diagnosis of liver metastasis follows out of [place] History of esophageal cancer treated with chemoradiation History of Hodgkin's lymphoma initially treated in 2002 with systemic chemotherapy, recurrence with subsequent stem cell transplant Coronary artery disease with previous stent placement History of ischemic cardiomyopathy status post AICD placement Chronic atrial fibrillation anticoagulated with all of this Hyperlipidemia Diabetes mellitus Chronic anemia Chronic hyponatremia Plan: The patient was seen and evaluated Medications reviewed Continue Levaquin for now Continue bronchodilators Titrate the FiO2 as tolerated Anticoagulated with Eliquis We will continue to follow I have personally seen and examined the patient, performed the documentation and the assessment and plan as written. Number of minutes spent on the visit: 10.
[2022-10-27 09:17] LABS: Basophils # (A) 0.02 X 10*3/uL (0.00-0.10); Basophils % (A) 0.1 %; Eosinophils # (A) 0 X 10*3/uL (0.04-0.35); Eosinophils % (A) 0 %; HCT 37.3 % (39.6-50.0); HGB 12.1 g/dL (13.0-17.0); Immature Grans, Automated 0.8 %; Lymphocytes # (A) 0.57 X 10*3/uL (0.90-5.00); Lymphocytes % (A) 3.1 %; MCH 33.6 pg (27.0-32.0); MCHC 32.4 g/dL (32.0-37.0); MCV 103.6 fL (80.0-97.0); Mean Platelet Volume 12.1 fL (9.5-12.2); Monocytes # (A) 1.47 X 10*3/uL (0.20-1.00); Monocytes % (A) 8.1 %; NRBC Per 100 WBC 0 /100 WBCS (0.0-0.0); Neutrophils # (A) 15.96 X 10*3/uL (1.80-7.70); Neutrophils % (A) 87.9 %; Platelet Count 276 X 10*3/uL (140-440); RDW 16.6 % (11.5-14.5); WBC 18.16 X 10*3/uL (4.50-10.00)
[2022-10-27] MEDS: FAMOTIDINE 20 MG/2 ML VIAL IV SCH ×2 (09:38→21:28)
[2022-10-27] MEDS: APIXABAN 5 MG TAB PO SCH (09:38)
[2022-10-27] MEDS: CITALOPRAM HYDROBROMIDE 20 MG TAB PO SCH (09:38)
[2022-10-27] MEDS: METOPROLOL SUCCINATE (ER) 50 MG TAB.ER.24H PO SCH (09:38)
[2022-10-27] MEDS: SPIRONOLACTONE 25 MG TAB PO SCH (09:38)
[2022-10-27] MEDS: LACTULOSE 20 GM/30 ML CUP PO SCH (09:38)
[2022-10-27 09:39] LABS: Magnesium 1.4 mg/dL (1.5-2.4)
[2022-10-27] MEDS: PRAVASTATIN SODIUM 40 MG TAB PO SCH (09:44)
[2022-10-27 09:47] LABS: Albumin 3.7 g/dL (3.8-4.9); Albumin/Globulin Ratio 1.68 (1.60-3.17); Anion Gap 15.8 mmol/L (10.00-18.00); BUN/Creat Ratio 23.88 Ratio (12.00-20.00); Bilirubin, Conjugated 0.72 mg/dL (0.20-0.40); Bilirubin,Unconjugated 0.38 mg/dL (0.20-1.00); Blood Urea Nitrogen 19.1 mg/dL (9.0-27.0); Carbon Dioxide 18.2 mmol/L (20.0-27.5); Globulin 2.2 g/dL (1.6-3.3); Potassium 5.7 mmol/L (3.5-5.5); Total Bilirubin 1.1 mg/dL (0.30-1.20); Total Protein 5.9 g/dL (6.2-8.2)
[2022-10-27 09:48] LABS: African American GFR (CKD) 107.9 (60.0-200.0); Calcium 9.5 mg/dL (8.7-10.3); Non-African American GFR(CKD) 93.1 (60.0-200.0)
[2022-10-27] MEDS: HYDROcodone/APAP 5-325MG 1 EACH TAB PO PRN (11:48)
[2022-10-27] MEDS ORDERED: IOPAMIDOL CONTRAST (ORAL USE) VIAL PO PRN (12:40)
[2022-10-27] MEDS ORDERED: Magnesium Replacement Protocol 1 EACH MISC MISCELLANE PRN (12:47)
--- NOTE | 2022-10-27 12:50 | P.PN ---
Subjective This is a pleasant 67 years old male with multiple medical problems as below. Patient is a known case of COPD, he used to smoke more than 3 packs per day and he quit in 2008. Also has a known case with lung cancer with metastasis to the liver, and he is getting immunotherapy as he states. Presents because of worsening dyspnea and cough of green yellow phlegm. Also he had central chest pain nonradiating over the last 2 days felt like dull with palpitation. Hearing decreased his pain as severe then but now is much better and he does not have significant chest pain today. He is not on oxygen at home. He denies abdominal pain vomiting or diarrhea, he complains from hesitancy in his urination but no dysuria. Headache or weakness or numbness or dizziness. He is currently nonsmoker, no alcohol or illicit drugs as he states. On admission Vitas looks stable, patient is saturating 94% to 97% on 4 L oxygen via nasal cannula Labs showing mild anemia with hemoglobin 10.7, Rest of labs including INR, BMP are unremarkable Low magnesium of 1.1 Bilirubin slightly up 1.7, AST slightly up 86 while normal ALT are 25. Viruses are not detected allen and influenza EKG showing paced rhythm Chest x-ray showing bibasilar An emergency room pressures of steroids and Levaquin 1. Also patient blood culture came back positive for gram-positive cocci 09/27/2022 Patient today complaining of from 6-7/10 periumbilical with tenderness, with some loose bowel movement. His dyspnea is better no significant coughing and weakness is better and is still on 2 L oxygen via nasal cannula. He has some leukocytosis of 18,000, hemoglobin 12.1, sodium 133, magnesium 1.4 which is replaced per protocol Check CT of the abdomen with oral contrast only, patient is already on liquids. Also we'll check for C. diff. Patient remains on IV Levaquin. Repeat blood culture from the port is pending. Review of systems CONSTITUTIONAL: No fever, no malaise, no fatigue. HEENT: No recent visual problems or hearing problems. Denied any sore throat. CARDIOVASCULAR: No orthopnea, PND, no palpitations, no syncope. NEUROLOGICAL: No headaches, no weakness, no numbness. HEMATOLOGICAL: Denies any bleeding or petechiae. GENITOURINARY: Denies any burning micturition, frequency, or urgency. MUSCULOSKELETAL/RHEUMATOLOGICAL: Denies any joint pain, swelling, or any muscle pain. ENDOCRINE: Denies any polyuria or polydipsia. Active Medications Generic Name Dose Route Start Last Admin Trade Name Freq PRN Reason Stop Dose Admin Acetaminophen 650 mg 10/25/22 18:20 Acetaminophen Tab 325 Mg Tab PO Q6HR PRN Mild Pain or Fever > 100.5 Hydrocodone Bitart/Acetaminophen 1 each 10/27/22 09:57 10/27/22 11:48 Hydrocodone/Apap 5-325mg 1 Each Tab PO 1 each Q6HR PRN Administration Pain Alprazolam 0.25 mg 10/26/22 21:00 10/26/22 20:49 Alprazolam 0.25 Mg Tab PO 0.25 mg HS ROSAS Administration Apixaban 5 mg 10/25/22 21:00 10/27/22 09:38 Apixaban 5 Mg Tab PO 5 mg BID ROSAS Administration Protocol Budesonide/Formoterol Fumarate 2 puff 10/25/22 20:00 10/27/22 07:52 Symbicort 160-4.5 Mcg Inhaler INHALATION 2 puff RT-BID ROSAS Administration Citalopram Hydrobromide 20 mg 10/26/22 09:00 10/27/22 09:38 Citalopram Hydrobromide 20 Mg Tab PO 20 mg DAILY ROSAS Administration Famotidine 20 mg 10/26/22 09:00 10/27/22 09:38 Famotidine 20 Mg/2 Ml Vial IV 20 mg Q12HR ROSAS Administration Sodium Chloride 1,000 mls @ 20 mls/hr 10/25/22 18:30 10/26/22 20:49 Saline 0.9% IV Not Given .Q24H ROSAS Levofloxacin 500 mg/ IV 100 mls @ 100 mls/hr 10/26/22 21:00 10/26/22 20:49 Solution IVPB 100 mls/hr Q24H ROSAS Administration Protocol Iopamidol 30 ml 10/27/22 12:39 Iopamidol Contrast (Oral Use) Vial PO 10/28/22 12:[address] Scan Iopamidol 30 ml 10/27/22 12:40 Iopamidol Contrast (Oral Use) Vial PO 10/28/22 12:[address] Scan Lactulose 10 gm 10/26/22 09:00 10/27/22 09:38 Lactulose 20 Gm/30 Ml Cup PO Not Given DAILY ROSAS Melatonin 5 mg 10/26/22 21:00 10/26/22 20:49 Melatonin 5 Mg Tablet PO 5 mg HS ROSAS Administration Metoprolol Succinate 50 mg 10/26/22 09:00 10/27/22 09:38 Metoprolol Succinate (Er) 50 Mg Tab.Er.24h PO 50 mg DAILY ROSAS Administration Miscellaneous Information 1 each 10/27/22 12:47 Magnesium Replacement Protocol 1 Each Misc MISCELLANE DAILY PRN Per Protocol Protocol Modafinil 200 mg 10/26/22 09:00 10/27/22 09:38 Modafinil 200 Mg Tab PO 200 mg DAILY ROSAS Administration Naloxone HCl 0.2 mg 10/25/22 18:20 Naloxone 0.4 Mg/Ml 1 Ml Vial IV Q2M PRN Opioid Reversal Pravastatin Sodium 40 mg 10/26/22 09:00 10/27/22 09:44 Pravastatin Sodium 40 Mg Tab PO 40 mg DAILY ROSAS Administration Spironolactone 25 mg 10/26/22 09:00 10/27/22 09:38 Spironolactone 25 Mg Tab PO 25 mg DAILY ROSAS Administration Objective - Vital Signs Vital signs: Vital Signs Temp 97.5 F L 10/27/22 11:18 Pulse 70 10/27/22 11:18 Resp 16 10/27/22 11:18 BP 106/64 10/27/22 11:18 Pulse Ox 98 10/27/22 11:18 FiO2 Intake & Output 10/26/22 10/27/22 10/27/22 18:59 06:59 18:59 Intake Total 240 420 Output Total 400 Balance 240 20 Intake: Intake, IV Titration 240 300 Amount Levofloxacin 500Mg-D5w 100 Pmx 500 mg In Dextrose/ Water 1 100ml.bag @ 100 mls/hr IVPB Q24H ROSAS Rx#: [id number] Sodium Chloride 0.9% 1, 240 200 000 ml @ 20 mls/hr IV . Q24H ROSAS Rx#:[id number] Oral 120 Output: Urine 400 Other: # Voids 1 # Bowel Movements 1 1 - Exam -GENERAL: The patient is alert and oriented x3, not in any acute distress. Generally weak HEENT: Pupils are round and equally reacting to light. EOMI. No scleral icterus. No conjunctival pallor. Normocephalic, atraumatic. No pharyngeal erythema. No thyromegaly. CARDIOVASCULAR: S1 and S2 present. No murmurs, rubs, or gallops. -PULMONARY: Chest is clear to auscultation, no crackles. Expiratory wheezing with coarse crepitation -ABDOMEN: Soft, nondistended,, periumbilical tenderness, no rebound tenderness nondistended, normoactive bowel sounds. No palpable organomegaly. MUSCULOSKELETAL: No joint swelling or deformity. EXTREMITIES: No cyanosis, clubbing, or pedal edema. NEUROLOGICAL: Gross neurological examination did not reveal any focal deficits. SKIN: No rashes. no petechiae. - Labs CBC & Chem 7: 10/27/22 03:43 10/27/22 03:43 Labs: Abnormal Lab Results - Last 24 Hours (Table) 10/27/22 10/27/22 Range/Units 03:43 03:43 WBC 18.16 H (4.50-10.00) X 10*3/uL RBC 3.60 L (4.40-5.60) X 10*6/uL Hgb 12.1 L (13.0-17.0) g/dL Hct 37.3 L (39.6-50.0) % MCV 103.6 H (80.0-97.0) fL MCH 33.6 H (27.0-32.0) pg RDW 16.6 H (11.5-14.5) % Immature Gran # 0.14 H (0.00-0.04) X 10*3/uL Neutrophils # 15.96 H (1.80-7.70) X 10*3/uL Lymphocytes # 0.57 L (0.90-5.00) X 10*3/uL Monocytes # 1.47 H (0.20-1.00) X 10*3/uL Eosinophils # 0 L (0.04-0.35) X 10*3/uL Sodium 133 L (135-145) mmol/L Potassium 5.7 H (3.5-5.5) mmol/L Carbon Dioxide 18.2 L (20.0-27.5) mmol/L BUN/Creatinine Ratio 23.88 H (12.00-20.00) Ratio Magnesium 1.4 L (1.5-2.4) mg/dL Conjugated Bilirubin 0.72 H (0.20-0.40) mg/dL AST 118 H (14-35) U/L Alkaline Phosphatase 464 H (41-126) U/L Total Protein 5.9 L (6.2-8.2) g/dL Albumin 3.7 L (3.8-4.9) g/dL Microbiology - Last 24 Hours (Table) 10/26/22 12:11 Blood Culture Gram Stain - Preliminary Blood 10/26/22 12:11 Blood Culture - Final Blood 10/25/22 12:56 Blood Culture Gram Stain - Preliminary Blood Blood Culture - Preliminary Staphylococcus epidermidis 10/25/22 12:56 Blood Culture Gram Stain - Preliminary Blood Blood Culture - Preliminary 10/25/22 12:56 Blood Culture - Final Blood 10/25/22 12:56 Blood Culture - Final Blood Assessment and Plan Assessment: Acute COPD exacerbation History of metastatic lung cancer to the liver Chest pain, most likely secondary to above Abdominal pain with loose bowel movement Gram-positive bacteremia Status post AICD and pacemaker generalized weakness and deconditioning History of hyponatremia, most likely secondary to SIADH chronic hypoxic respiratory failure mild caloreis protein malnutrition History of esophageal cancer status post radiation History of Hodgkin's lymphoma status post stem cell transplant. History of Chronic atrial fibrillation. On Eliquis Coronary artery disease history of stent placement Chronic systolic CHF ejection fraction 30 to 35% Diabetes type 2 diet controlled History of [place] Previous history of smoking Severe COPD changes with a dilated pulmonary trunk suggestive of pulmonary hypertension. Plan: Order CT of the abdomen and pelvis, check C. diff. Increased pain medication to [place]. Continue with steroids Continue with bronchodilator continue with antibiotic, will give Levaquin Infectious disease consult Pulmonary team consult Labs and medication were reviewed.. Continue same treatment. Continue with symptomatic treatment. Resume home medication. Monitor lytes and vitals. DVT and GI prophylaxis. Further recommendations as per clinical course of the patient DVT prophylaxis: Eliquis GI Prophylaxis: Pepcid PT/OT: Pending Prognosis is guarded
[2022-10-27] MEDS: IOPAMIDOL CONTRAST (ORAL USE) VIAL PO PRN ×2 (14:37→15:35)
--- NOTE | 2022-10-27 16:31 | CT ---
EXAMINATION TYPE: CT abdomen pelvis wo con DATE OF EXAM: 10/27/2022 COMPARISON: None HISTORY: 67-year-old male abdominal pain. History of liver and lung cancer CT DLP: 654 mGycm. Automated exposure control for dose reduction was used. TECHNIQUE: Contiguous axial scanning of the abdomen and pelvis without IV contrast. Coronal and sagit alize reconstructions performed. FINDINGS: Small pericardial effusion measuring 1.1 cm thick. Pacer leads noted. Small left pleural effusion wit h patchy left basilar opacity new from 01/22/2022. Underlying emphysematous change in the visualized lo wer lungs. Small hiatal hernia. Severe metastatic involvement diffusely throughout the liver. Liver measures larger at 21.4 cm. Gallbladder not visualized may be surgically absent. Adrenal glands, right kidney, spleen, and atrophic pancreas show no gross abnormality. Suspect extrar enal pelvis left kidney. Small fatty umbilical hernia. No dilated small bowel or free air. Mild cul-de-sac free fluid. Some presacral edema and mild general ized anasarca changes noted. Nodular soft tissue density measuring 3.3 cm at the junction of the cecum and ascending colon, possib le stool ball. Correlate with direct inspection to exclude neoplasm when patient able. Scattered mild stool elsewhere throughout the colon. Sigmoid diverticulosis. Bladder urine distended. Mild prostatomegaly at 4.3 cm wide. Pelvic phleboliths. No pelvic lymphadeno randi seen. Bones: Mild degenerative change of the hips. Suspect some early infiltrate involving the superior hao ghtbearing aspects of the bilateral femoral heads. Hypertrophic facet arthropathy lower lumbar spine with grade 1 anterolisthesis L5-S1. IMPRESSION: 1. Severe metastatic disease burden onto the liver and secondary hepatomegaly at 21.4 cm. Findings n ew compared to the 01/22/[address] 2. Background COPD, small left pleural effusion, and small pericardial effusion. Mild generalized an asarca change and mild pelvic free fluid. Correlate for third spacing. 3. There is a rounded 3.3 cm soft tissue density area at the junction of the cecum and ascending col on. This may represent a focal stool ball. When patient able, correlate with direct inspection to exc lude neoplasm here. 4. Small hiatal hernia and sigmoid diverticulosis.
[2022-10-27] MEDS: SODIUM CHLORIDE 0.9% 1,000 ML IV SCH (18:03)
--- NOTE | 2022-10-27 19:52 | CT ---
EXAMINATION TYPE: CT brain wo con DATE OF EXAM: 10/27/2022 COMPARISON: 01/25/2022 HISTORY: CONFUSION CT DLP: 1167.0 mGycm Automated exposure control for dose reduction was used. There is cerebral cortical atrophy. There is no mass effect nor midline shift. No sign of intracrania l hemorrhage. There is patchy hypodensity throughout the periventricular white matter. The calvarium is intact. The skull base is intact. IMPRESSION: Moderate atrophy and chronic small vessel ischemia. No acute intracranial abnormality. No change.
[2022-10-27] MEDS: MELATONIN 5 MG TABLET PO SCH (21:28)
[2022-10-27] MEDS: LEVOFLOXACIN 500MG-D5W PMX 500 MG in DEXTROSE/WATER 1 100ML.BAG IVPB SCH (21:28)
[2022-10-27] MEDS: ALPRAZolam 0.25 MG TAB PO SCH (21:28)
[2022-10-27] MEDS ORDERED: LORazepam 2 MG/ML INJ IV STA (22:07)
[2022-10-28] MEDS: SYMBICORT 160-4.5 MCG INHALER INHALATION SCH ×2 (08:01→19:45)
[2022-10-28] MEDS: LACTULOSE 20 GM/30 ML CUP PO SCH (08:52)
[2022-10-28] MEDS: FAMOTIDINE 20 MG/2 ML VIAL IV SCH ×2 (08:52→20:22)
[2022-10-28] MEDS: SPIRONOLACTONE 25 MG TAB PO SCH (08:52)
[2022-10-28] MEDS: PRAVASTATIN SODIUM 40 MG TAB PO SCH (08:52)
[2022-10-28] MEDS: METOPROLOL SUCCINATE (ER) 50 MG TAB.ER.24H PO SCH (08:52)
[2022-10-28] MEDS: CITALOPRAM HYDROBROMIDE 20 MG TAB PO SCH (08:52)
--- NOTE | 2022-10-28 11:29 | P.PN ---
Subjective Progress Note Date: 10/28/22 Principal diagnosis: COPD exacerbation. This is a pleasant 67-year-old male patient with a history of chronic obstructive pulmonary disease, former smoker, quit in 2008, chronic atrial fibrillation anticoagulated with Eliquis, hyperlipidemia, diabetes mellitus, coronary disease with previous stent placement, AICD placement for ischemic cardiomyopathy Hodgkin's lymphoma diagnosed originally in 2002 with subsequent recurrence in stem cell transplant. He also was diagnosed with lung cancer in 2017 and undergone 3 rounds of chemotherapy and radiation therapy. He also had undergone esophageal cancer with radiation therapy. Now he states his lung cancer has metastasized to his liver. He follows with a Dr. 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 His PCP is Maddi Renteria out of [place]. He presented here to the emergency room with a 2 day history of intermittent midsternal chest discomfort, cough and congestion and yellow/green phlegm. He had been at [facility] and left AM several days prior to his arrival here. His x-ray reveals evidence of bibasilar atelectasis but no acute pulmonary process. He is maintaining O2 saturations in the 90s on 4 L/m per nasal cannula. Afebrile. Hemodynamically stable. White count 6.5. Hemoglobin 10.5. Platelets 228. Sodium 132. Potassium 5.1. BUN 18. Creatinine 0.4. Glucose 205. AST 79. ALT 26. Alk phos 477. Troponins were negative 3. ProBNP 2630. Pro calcitonin 0.25. Stock virus and influenza screens negative. He is seen today in consultation on the regular medical floor. Currently sitting up in bed. Awake and alert in no acute distress. Continues with a loose cough. No worsening shortness of breath. No fever chills. No hemoptysis. The patient is seen today 10/27/2022 in follow-up on the regular medical floor. He is currently sitting up in bed. Awake and alert in no acute distress. He is maintaining good O2 saturations in the 90s on 2 L/m per nasal cannula. He has normal saline at 20 ML's per hour. His pro calcitonin was borderline at 0.25. He is continued on Levaquin. Initial blood culture positive for Staphylococcus epidermidis. Follow-up blood cultures revealing no growth. Today's labs are pending. He remains on bronchodilators. Anticoagulated with Eliquis. Progress note dated 10/28/2022. The patient is resting comfortably, in room 524. The patient's getting saline at 20 mL an hour. He's also on oxygen at 2 L. No new labs today. The labs from October 27 are reviewed. Most recent pro-calcitonin level is 0.25. Multiple blood cultures, showing evidence of coagulase negative staph. The patient remains on Levaquin. Objective - Vital Signs Vital signs: Vital Signs Temp 99.3 F 10/28/22 04:45 Pulse 72 10/28/22 08:00 Resp 15 10/28/22 04:45 BP 107/70 10/28/22 08:00 Pulse Ox 95 10/28/22 08:00 FiO2 Intake & Output 10/27/22 10/28/22 10/28/22 18:59 06:59 18:59 Intake Total 240 Output Total 100 Balance 140 Intake: Intake, IV Titration 240 Amount Sodium Chloride 0.9% 1, 240 000 ml @ 20 mls/hr IV . Q24H [facility] Rx#:[id number] Output: Urine 100 Other: # Voids 1 1 # Bowel Movements 1 1 - Exam No acute distress, oriented 3. Currently on 2 L of oxygen. HEENT examination is grossly unremarkable. Neck supple. Full range of motion. No adenopathy thyromegaly or neck vein distention. Cardiovascular examination reveals regular rhythm rate. S1-S2 normal. No S3 or S4. No discernible murmur noted. Heart rate 72 bpm. Lungs reveal scattered bilateral rhonchi. Breath sounds equal. No wheezes. No crackles. Breath sounds are equal bilaterally. Saturations are 95% on oxygen therapy. Abdomen soft bowel sounds are heard. No masses or tenderness. Extremities are intact. No cyanosis clubbing or edema. Skin is without rash or lesion. Neurologic examination is brief but nonfocal. - Labs CBC & Chem 7: 10/27/22 03:43 10/27/22 03:43 Labs: Abnormal Lab Results - Last 24 Hours (Table) 10/28/22 Range/Units 05:24 Magnesium 1.2 L (1.5-2.4) mg/dL Microbiology - Last 24 Hours (Table) 10/26/22 12:11 Blood Culture Gram Stain - Preliminary Blood Blood Culture - Preliminary Coagulase Negative Staph 10/25/22 12:56 Blood Culture Gram Stain - Final Blood Blood Culture - Final Staphylococcus epidermidis Coagulase Negative Staph 10/25/22 12:56 Blood Culture Gram Stain - Final Blood Blood Culture - Final Coagulase Negative Staph Coagulase Negative Staph#2 10/26/22 12:15 Blood Culture - Preliminary Blood No Growth after 24 hours 10/26/22 12:11 Blood Culture - Final Blood Assessment and Plan Assessment: Acute hypoxemic respiratory failure secondary to an acute exacerbation of chronic obstructive pulmonary disease complicated by purulent tracheobronchitis. No clear evidence of pneumonia. Pro-calcitonin 0.25. Currently on Levaquin. Recent hospitalization for similar symptoms at [facility], left AMA. Former smoker, quit in 2008. History of lung cancer treated with chemoradiation in 2017. Most recent diagnosis of liver metastasis follows out of [place]. History of esophageal cancer treated with chemoradiation. History of Hodgkin's lymphoma initially treated in 2002 with systemic chemotherapy, recurrence with subsequent stem cell transplant. Coronary artery disease with previous stent placement. History of ischemic cardiomyopathy, status post AICD placement. Chronic atrial fibrillation. Hyperlipidemia. Diabetes mellitus. Chronic anemia. Chronic hyponatremia. Plan: Plan dated 10/28/2022. The patient continues on oxygen, bronchodilators, and Levaquin. He also continues on a factor X a inhibitor. Apparently he was told by oncology, that he has less than 6 months to live. We will continue to follow make recommendations along the way. Prognosis is certainly poor. Additional recomme ndations and suggestions are forthcoming. Time with Patient: Less than 30
[2022-10-28] MEDS: LEVOFLOXACIN 500MG-D5W PMX 500 MG in DEXTROSE/WATER 1 100ML.BAG IVPB SCH (20:22)
[2022-10-28] MEDS: MELATONIN 5 MG TABLET PO SCH (20:22)
[2022-10-28] MEDS: SODIUM CHLORIDE 0.9% 1,000 ML IV SCH (20:23)
--- NOTE | 2022-10-28 20:53 | P.PN ---
Subjective This is a pleasant 67 years old male with multiple medical problems as below. Patient is a known case of COPD, he used to smoke more than 3 packs per day and he quit in 2008. Also has a known case with lung cancer with metastasis to the liver, and he is getting immunotherapy as he states. Presents because of worsening dyspnea and cough of green yellow phlegm. Also he had central chest pain nonradiating over the last 2 days felt like dull with palpitation. Hearing decreased his pain as severe then but now is much better and he does not have significant chest pain today. He is not on oxygen at home. He denies abdominal pain vomiting or diarrhea, he complains from hesitancy in his urination but no dysuria. Headache or weakness or numbness or dizziness. He is currently nonsmoker, no alcohol or illicit drugs as he states. On admission Vitas looks stable, patient is saturating 94% to 97% on 4 L oxygen via nasal cannula Labs showing mild anemia with hemoglobin 10.7, Rest of labs including INR, BMP are unremarkable Low magnesium of 1.1 Bilirubin slightly up 1.7, AST slightly up 86 while normal ALT are 25. Viruses are not detected allen and influenza EKG showing paced rhythm Chest x-ray showing bibasilar An emergency room pressures of steroids and Levaquin 1. Also patient blood culture came back positive for gram-positive cocci 09/27/2022 Patient today complaining of from 6-7/10 periumbilical with tenderness, with some loose bowel movement. His dyspnea is better no significant coughing and weakness is better and is still on 2 L oxygen via nasal cannula. He has some leukocytosis of 18,000, hemoglobin 12.1, sodium 133, magnesium 1.4 which is replaced per protocol Check CT of the abdomen with oral contrast only, patient is already on liquids. Also we'll check for C. diff. Patient remains on IV Levaquin. Repeat blood culture from the port is pending. 09/28/2022 Patient seen on his recliner today he does not look in distress, he is fully awake and oriented, his mentation at baseline, he denies any specific symptoms to me and he looks breathing quietly. However when asked she still have some abdominal pain but no nausea vomiting and he is on pain medication anyway. No dyspnea, no coughing and his weakness looks better. C. diff is negative CT of the brain is negative which was then yesterday because of confusion Low magnesium replaced per protocol CT of the abdomen and pelvis showing worsening liver metastasis, patient aware of this problem Currently he is on Levaquin 500 mg daily, Eliquis 5 mg as well as metoprolol and Aldactone Also patient was on Eliquis which is a home medication for his A. fib which was held yesterday probably because of confusion. We will check labs tomorrow and if stable we'll consider resuming his Eliquis Objective - Vital Signs Vital signs: Vital Signs Temp 99.3 F 10/28/22 04:45 Pulse 72 10/28/22 08:00 Resp 15 10/28/22 04:45 BP 107/70 10/28/22 08:00 Pulse Ox 95 10/28/22 08:00 FiO2 Intake & Output 10/27/22 10/28/22 10/28/22 18:59 06:59 18:59 Intake Total 240 Output Total 100 Balance 140 Intake: Intake, IV Titration 240 Amount Sodium Chloride 0.9% 1, 240 000 ml @ 20 mls/hr IV . Q24H [facility] Rx#:[id number] Output: Urine 100 Other: # Voids 1 1 # Bowel Movements 1 1 - Exam -GENERAL: The patient is alert and oriented x3, not in any acute distress. Generally weak HEENT: Pupils are round and equally reacting to light. EOMI. No scleral icterus. No conjunctival pallor. Normocephalic, atraumatic. No pharyngeal erythema. No thyromegaly. CARDIOVASCULAR: S1 and S2 present. No murmurs, rubs, or gallops. -PULMONARY: Chest is clear to auscultation, no crackles. Expiratory wheezing with coarse crepitation -ABDOMEN: Soft, nondistended,, periumbilical tenderness, no rebound tenderness nondistended, normoactive bowel sounds. No palpable organomegaly. MUSCULOSKELETAL: No joint swelling or deformity. EXTREMITIES: No cyanosis, clubbing, or pedal edema. NEUROLOGICAL: Gross neurological examination did not reveal any focal deficits. SKIN: No rashes. no petechiae. - Labs CBC & Chem 7: 10/27/22 03:43 10/27/22 03:43 Labs: Abnormal Lab Results - Last 24 Hours (Table) 10/28/22 Range/Units 05:24 Magnesium 1.2 L (1.5-2.4) mg/dL Microbiology - Last 24 Hours (Table) 10/26/22 12:11 Blood Culture Gram Stain - Preliminary Blood Blood Culture - Preliminary Coagulase Negative Staph 10/25/22 12:56 Blood Culture Gram Stain - Final Blood Blood Culture - Final Staphylococcus epidermidis Coagulase Negative Staph 10/25/22 12:56 Blood Culture Gram Stain - Final Blood Blood Culture - Final Coagulase Negative Staph Coagulase Negative Staph#2 10/26/22 12:15 Blood Culture - Preliminary Blood No Growth after 24 hours Assessment and Plan Assessment: Acute COPD exacerbation History of metastatic lung cancer to the liver, CT of the abdomen showing worsening liver metastatic lesion Chest pain, most likely secondary to above Abdominal pain with loose bowel movement Gram-positive bacteremia Status post AICD and pacemaker generalized weakness and deconditioning History of hyponatremia, most likely secondary to SIADH chronic hypoxic respiratory failure mild caloreis protein malnutrition History of esophageal cancer status post radiation History of Hodgkin's lymphoma status post stem cell transplant. History of Chronic atrial fibrillation. On Eliquis Coronary artery disease history of stent placement Chronic systolic CHF ejection fraction 30 to 35% Diabetes type 2 diet controlled History of ME Previous history of smoking Severe COPD changes with a dilated pulmonary trunk suggestive of pulmonary hypertension. Chronic atrial fibrillation was on Eliquis at home Plan: Continue with pain medication [place]. Continue with steroids Continue with bronchodilator continue with antibiotic, will give Levaquin Infectious disease consult Pulmonary team consult Labs and medication were reviewed.. Continue same treatment. Continue with symptomatic treatment. Resume home medication. Monitor lytes and vitals. DVT and GI prophylaxis. Further recommendations as per clinical course of the patient DVT prophylaxis: Eliquis, on hold GI Prophylaxis: Pepcid Prognosis is guarded
[2022-10-29] MEDS ORDERED: IPRATROPIUM-ALBUTEROL 3 ML NEB INHALATION PRN (06:41)
--- NOTE | 2022-10-29 06:41 | P.PN ---
Subjective Progress Note Date: 10/29/22 Principal diagnosis: COPD exacerbation. This is a pleasant 67-year-old male patient with a history of chronic obstructive pulmonary disease, former smoker, quit in 2008, chronic atrial fibrillation anticoagulated with Eliquis, hyperlipidemia, diabetes mellitus, coronary disease with previous stent placement, AICD placement for ischemic cardiomyopathy Hodgkin's lymphoma diagnosed originally in 2002 with subsequent recurrence in stem cell transplant. He also was diagnosed with lung cancer in 2017 and undergone 3 rounds of chemotherapy and radiation therapy. He also had undergone esophageal cancer with radiation therapy. Now he states his lung cancer has metastasized to his liver. He follows with a Dr. 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 His PCP is Maddi Renteria out of [place]. He presented here to the emergency room with a 2 day history of intermittent midsternal chest discomfort, cough and congestion and yellow/green phlegm. He had been at [facility] and left AM several days prior to his arrival here. His x-ray reveals evidence of bibasilar atelectasis but no acute pulmonary process. He is maintaining O2 saturations in the 90s on 4 L/m per nasal cannula. Afebrile. Hemodynamically stable. White count 6.5. Hemoglobin 10.5. Platelets 228. Sodium 132. Potassium 5.1. BUN 18. Creatinine 0.4. Glucose 205. AST 79. ALT 26. Alk phos 477. Troponins were negative 3. ProBNP 2630. Pro calcitonin 0.25. Stock virus and influenza screens negative. He is seen today in consultation on the regular medical floor. Currently sitting up in bed. Awake and alert in no acute distress. Continues with a loose cough. No worsening shortness of breath. No fever chills. No hemoptysis. The patient is seen today 10/27/2022 in follow-up on the regular medical floor. He is currently sitting up in bed. Awake and alert in no acute distress. He is maintaining good O2 saturations in the 90s on 2 L/m per nasal cannula. He has normal saline at 20 ML's per hour. His pro calcitonin was borderline at 0.25. He is continued on Levaquin. Initial blood culture positive for Staphylococcus epidermidis. Follow-up blood cultures revealing no growth. Today's labs are pending. He remains on bronchodilators. Anticoagulated with Eliquis. Progress note dated 10/28/2022. The patient is resting comfortably, in room 524. The patient's getting saline at 20 mL an hour. He's also on oxygen at 2 L. No new labs today. The labs from October 27 are reviewed. Most recent pro-calcitonin level is 0.25. Multiple blood cultures, showing evidence of coagulase negative staph. The patient remains on Levaquin. Progress note dated 10/29/2022. The patient was seen in room 524. 2 L saturation is 98%. The patient without complaint. He remains on Levaquin. No shortness of breath, cough, wheezing, or phlegm production at this time. No new laboratory data. The most recent laboratory data was on October 27. Multiple blood cultures from October 25 fifth show evidence of coagulase negative staph. Objective - Vital Signs Vital signs: Vital Signs Temp 98.6 F 10/29/22 04:57 Pulse 70 10/29/22 04:57 Resp 16 10/29/22 04:57 BP 118/76 10/29/22 04:57 Pulse Ox 98 10/29/22 04:57 FiO2 Intake & Output 10/28/22 10/28/22 10/29/22 06:59 18:59 06:59 Intake Total 240 Output Total 2 Balance 240 -2 Intake: Intake, IV Titration 240 Amount Sodium Chloride 0.9% 1, 240 000 ml @ 20 mls/hr IV . Q24H [facility] Rx#:[id number] Output: Urine 2 Other: # Voids 1 0 # Bowel Movements 1 1 - Exam No acute distress, oriented 3. Currently on 2 L of oxygen. HEENT examination is grossly unremarkable. Neck supple. Full range of motion. No adenopathy thyromegaly or neck vein distention. Cardiovascular examination reveals regular rhythm rate. S1-S2 normal. No S3 or S4. No discernible murmur noted. Heart rate 70 bpm. Lungs reveal scattered bilateral rhonchi. Breath sounds equal. No wheezes. No crackles. Breath sounds are equal bilaterally. Saturations are 98 % on 2 L of oxygen. Abdomen soft bowel sounds are heard. No masses or tenderness. Extremities are intact. No cyanosis clubbing or edema. Skin is without rash or lesion. Neurologic examination is brief but nonfocal. - Labs CBC & Chem 7: 10/27/22 03:43 10/27/22 03:43 Labs: Abnormal Lab Results - Last 24 Hours (Table) 10/28/22 Range/Units 05:24 Magnesium 1.2 L (1.5-2.4) mg/dL Microbiology - Last 24 Hours (Table) 10/26/22 12:15 Blood Culture - Preliminary Blood No Growth after 48 hours 10/26/22 12:11 Blood Culture Gram Stain - Preliminary Blood Blood Culture - Preliminary Coagulase Negative Staph Assessment and Plan Assessment: Acute hypoxemic respiratory failure secondary to an acute exacerbation of chronic obstructive pulmonary disease complicated by purulent tracheobronchitis. No clear evidence of pneumonia. Pro-calcitonin 0.25. Currently on Levaquin. Recent hospitalization for similar symptoms at [facility], left AMA. Former smoker, quit in 2008. History of lung cancer treated with chemoradiation in 2016. Most recent diagnosis of liver metastasis follows out of [place]. History of esophageal cancer treated with chemoradiation. History of Hodgkin's lymphoma initially treated in 2002 with systemic chemotherapy, recurrence with subsequent stem cell transplant. Coronary artery disease with previous stent placement. History of ischemic cardiomyopathy, status post AICD placement. Chronic atrial fibrillation. Hyperlipidemia. Diabetes mellitus. Chronic anemia. Chronic hyponatremia. Plan: Plan dated 10/28/2022. The patient continues on oxygen, bronchodilators, and Levaquin. He also continues on a factor X a inhibitor. Apparently he was told by oncology, that he has less than 6 months to live. We will continue to follow make recommendations along the way. Prognosis is certainly poor. Additional recommendations and suggestions are forthcoming. Plan dated 10/29/2022. From the pulmonary standpoint, the patient continues on Symbicort, breathing treatments, and Levaquin. The patient is stable for discharge in my opinion. No additional recommendations are made. Prognosis is poor. We will continue to follow and make recommendations along the way. Time with Patient: Less than 30
[2022-10-29] MEDS: IPRATROPIUM-ALBUTEROL 3 ML NEB INHALATION SCH ×3 (08:49→20:07)
[2022-10-29] MEDS: SYMBICORT 160-4.5 MCG INHALER INHALATION SCH ×2 (08:49→20:08)
[2022-10-29 10:32] LABS: Basophils # (A) 0.01 X 10*3/uL (0.00-0.10); Basophils % (A) 0.1 %; Eosinophils # (A) 0.02 X 10*3/uL (0.04-0.35); Eosinophils % (A) 0.2 %; HCT 34.4 % (39.6-50.0); HGB 10.9 g/dL (13.0-17.0); Immature Grans, Automated 0.7 %; Lymphocytes # (A) 0.55 X 10*3/uL (0.90-5.00); Lymphocytes % (A) 4.3 %; MCH 32.2 pg (27.0-32.0); MCHC 31.7 g/dL (32.0-37.0); MCV 101.5 fL (80.0-97.0); Mean Platelet Volume 12.5 fL (9.5-12.2); Monocytes # (A) 1.23 X 10*3/uL (0.20-1.00); Monocytes % (A) 9.7 %; NRBC Per 100 WBC 0 /100 WBCS (0.0-0.0); Neutrophils # (A) 10.81 X 10*3/uL (1.80-7.70); Platelet Count 199 X 10*3/uL (140-440); RBC 3.39 X 10*6/uL (4.40-5.60); WBC 12.71 X 10*3/uL (4.50-10.00)
[2022-10-29] MEDS: METOPROLOL SUCCINATE (ER) 50 MG TAB.ER.24H PO SCH (11:01)
[2022-10-29] MEDS: CITALOPRAM HYDROBROMIDE 20 MG TAB PO SCH (11:01)
[2022-10-29] MEDS: FAMOTIDINE 20 MG/2 ML VIAL IV SCH ×2 (11:01→20:35)
[2022-10-29] MEDS: HYDROcodone/APAP 5-325MG 1 EACH TAB PO PRN (11:02)
[2022-10-29] MEDS: SPIRONOLACTONE 25 MG TAB PO SCH (11:02)
[2022-10-29] MEDS: LACTULOSE 20 GM/30 ML CUP PO SCH (11:03)
[2022-10-29 11:04] LABS: African American GFR (CKD) 114.8 (60.0-200.0); BUN/Creat Ratio 23.98 Ratio (12.00-20.00); Blood Urea Nitrogen 16.5 mg/dL (9.0-27.0); Calcium 8.8 mg/dL (8.7-10.3); Carbon Dioxide 22.4 mmol/L (20.0-27.5); Magnesium 1.3 mg/dL (1.5-2.4); Potassium 4.9 mmol/L (3.5-5.5)
[2022-10-29] MEDS: PRAVASTATIN SODIUM 40 MG TAB PO SCH (11:05)
[2022-10-29] MEDS ORDERED: METOCLOPRAMIDE 5 MG/ML 2 ML VIAL IVP PRN (14:09)
[2022-10-29 14:14] LABS: Appearance,Urine Clear (Clear); Bilirubin,Urine 1+ (Negative); Blood,Urine Negative (Negative); Color,Urine Yellow; Glucose,Urine (UA) Negative (Negative); Ketones,Urine 1+ (Negative); Leukocyte Esterase,Urine Negative (Negative); Nitrite,Urine Negative (Negative); Protein,Urine Trace (Negative); Specific Gravity,Urine 1.023 (1.001-1.035)
[2022-10-29] MEDS ORDERED: LEVOFLOXACIN 500 MG TAB PO SCH (20:00)
[2022-10-29] MEDS: MELATONIN 5 MG TABLET PO SCH (20:35)
[2022-10-29] MEDS: SODIUM CHLORIDE 0.9% 1,000 ML IV SCH (20:35)
--- NOTE | 2022-10-30 06:43 | P.PN ---
Subjective Progress Note Date: 10/30/22 Principal diagnosis: COPD exacerbation. This is a pleasant 67-year-old male patient with a history of chronic obstructive pulmonary disease, former smoker, quit in 2008, chronic atrial fibrillation anticoagulated with Eliquis, hyperlipidemia, diabetes mellitus, coronary disease with previous stent placement, AICD placement for ischemic cardiomyopathy Hodgkin's lymphoma diagnosed originally in 2002 with subsequent recurrence in stem cell transplant. He also was diagnosed with lung cancer in 2017 and undergone 3 rounds of chemotherapy and radiation therapy. He also had undergone esophageal cancer with radiation therapy. Now he states his lung cancer has metastasized to his liver. He follows with a Dr. 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 His PCP is Maddi Renteria out of [place]. He presented here to the emergency room with a 2 day history of intermittent midsternal chest discomfort, cough and congestion and yellow/green phlegm. He had been at [facility] and left AM several days prior to his arrival here. His x-ray reveals evidence of bibasilar atelectasis but no acute pulmonary process. He is maintaining O2 saturations in the 90s on 4 L/m per nasal cannula. Afebrile. Hemodynamically stable. White count 6.5. Hemoglobin 10.5. Platelets 228. Sodium 132. Potassium 5.1. BUN 18. Creatinine 0.4. Glucose 205. AST 79. ALT 26. Alk phos 477. Troponins were negative 3. ProBNP 2630. Pro calcitonin 0.25. Stock virus and influenza screens negative. He is seen today in consultation on the regular medical floor. Currently sitting up in bed. Awake and alert in no acute distress. Continues with a loose cough. No worsening shortness of breath. No fever chills. No hemoptysis. The patient is seen today 10/27/2022 in follow-up on the regular medical floor. He is currently sitting up in bed. Awake and alert in no acute distress. He is maintaining good O2 saturations in the 90s on 2 L/m per nasal cannula. He has normal saline at 20 ML's per hour. His pro calcitonin was borderline at 0.25. He is continued on Levaquin. Initial blood culture positive for Staphylococcus epidermidis. Follow-up blood cultures revealing no growth. Today's labs are pending. He remains on bronchodilators. Anticoagulated with Eliquis. Progress note dated 10/28/2022. The patient is resting comfortably, in room 524. The patient's getting saline at 20 mL an hour. He's also on oxygen at 2 L. No new labs today. The labs from October 27 are reviewed. Most recent pro-calcitonin level is 0.25. Multiple blood cultures, showing evidence of coagulase negative staph. The patient remains on Levaquin. Progress note dated 10/29/2022. The patient was seen in room 524. 2 L saturation is 98%. The patient without complaint. He remains on Levaquin. No shortness of breath, cough, wheezing, or phlegm production at this time. No new laboratory data. The most recent laboratory data was on October 27. Multiple blood cultures from October 25 fifth show evidence of coagulase negative staph. Progress note dated 10/30/2022. The patient is seen again today in room 524. The patient continues on 2 L of ox ygen. Saturations 99%. Temperature normal, and blood pressure is 113/60. No new labs today. From October 29, white count 12.7, hemoglobin 10.9, hematocrit 34.4, and platelet count was normal. Electrolyte profile is essentially normal. The patient has no new complaints today. He is resting comfortably. Levaquin was switched to oral. Objective - Vital Signs Vital signs: Vital Signs Temp 98.0 F 10/30/22 05:00 Pulse 70 10/30/22 05:00 Resp 16 10/30/22 05:00 BP 113/60 10/30/22 05:00 Pulse Ox 99 10/30/22 05:00 FiO2 Intake & Output 10/29/22 10/29/22 10/30/22 06:59 18:59 06:59 Intake Total 590 Output Total 2 Balance -2 590 Intake: Oral 590 Output: Urine 2 Other: # Voids 0 1 2 # Bowel Movements 1 1 - Exam No acute distress, oriented 3. Currently on 2 L of oxygen. HEENT examination is grossly unremarkable. Neck supple. Full range of motion. No adenopathy thyromegaly or neck vein distention. Cardiovascular examination reveals regular rhythm rate. S1-S2 normal. No S3 or S4. No discernible murmur noted. Heart rate 74 bpm. Lungs reveal scattered bilateral rhonchi. Breath sounds equal. No wheezes. No crackles. Breath sounds are equal bilaterally. Saturations are 99 % on 2 L of oxygen. Abdomen soft bowel sounds are heard. No masses or tenderness. Extremities are intact. No cyanosis clubbing or edema. Skin is without rash or lesion. Neurologic examination is brief but nonfocal. - Labs CBC & Chem 7: 10/29/22 07:25 10/29/22 07:25 Labs: Abnormal Lab Results - Last 24 Hours (Table) 10/28/22 10/29/22 10/29/22 Range/Units 14:11 07:25 07:25 WBC 12.71 H (4.50-10.00) X 10*3/uL RBC 3.39 L (4.40-5.60) X 10*6/uL Hgb 10.9 L (13.0-17.0) g/dL Hct 34.4 L (39.6-50.0) % MCV 101.5 H (80.0-97.0) fL MCH 32.2 H (27.0-32.0) pg MCHC 31.7 L (32.0-37.0) g/dL RDW 16.0 H (11.5-14.5) % MPV 12.5 H (9.5-12.2) fL Immature Gran # 0.09 H (0.00-0.04) X 10*3/uL Neutrophils # 10.81 H (1.80-7.70) X 10*3/uL Lymphocytes # 0.55 L (0.90-5.00) X 10*3/uL Monocytes # 1.23 H (0.20-1.00) X 10*3/uL Eosinophils # 0.02 L (0.04-0.35) X 10*3/uL Sodium 132 L (135-145) mmol/L BUN/Creatinine Ratio 23.98 H (12.00-20.00) Ratio Magnesium 1.3 L (1.5-2.4) mg/dL Urine Protein Trace H (Negative) Urine Ketones 1+ H (Negative) Urine Bilirubin 1+ H (Negative) Microbiology - Last 24 Hours (Table) 10/26/22 12:11 Blood Culture Gram Stain - Final Blood Blood Culture - Final Coagulase Negative Staph Coagulase Negative Staph#2 10/26/22 12:15 Blood Culture - Preliminary Blood No Growth after 72 hours Assessment and Plan Assessment: Acute hypoxemic respiratory failure secondary to an acute exacerbation of chronic obstructive pulmonary disease complicated by purulent tracheobronchitis. No clear evidence of pneumonia. Pro-calcitonin 0.25. Currently on Levaquin. Recent hospitalization for similar symptoms at [facility], left AMA. Former smoker, quit in 2008. History of lung cancer treated with chemoradiation in 2017. Most recent diagnosis of liver metastasis follows out of [place]. History of esophageal cancer treated with chemoradiation. History of Hodgkin's lymphoma initially treated in 2002 with systemic chemotherapy, recurrence with subsequent stem cell transplant. Coronary artery disease with previous stent placement. History of ischemic cardiomyopathy, status post AICD placement. Chronic atrial fibrillation. Hyperlipidemia. Diabetes mellitus. Chronic anemia. Chronic hyponatremia. Plan: Plan dated 10/28/2022. The patient continues on oxygen, bronchodilators, and Levaquin. He also continues on a factor X a inhibitor. Apparently he was told by oncology, that he has less than 6 months to live. We will continue to follow make recommendations along the way. Prognosis is certainly poor. Additional recommendations and suggestions are forthcoming. Plan dated 10/29/2022. From the pulmonary standpoint, the patient continues on Symbicort, breathing treatments, and Levaquin. The patient is stable for discharge in my opinion. No additional recommendations are made. Prognosis is poor. We will continue to follow and make recommendations along the way. Plan dated 10/30/2022. The patient is stable from the pulmonary standpoint. He continues on Symbicort, breathing treatments, and oral Levaquin. From the pulmonary standpoint, the patient could be considered for possible discharge. His 2 L saturation is 99%. Lab work from yesterday appears relatively normal. The patient's vital signs are stable. Prognosis is poor. Time with Patient: Less than 30
[2022-10-30] MEDS: SYMBICORT 160-4.5 MCG INHALER INHALATION SCH (08:11)
[2022-10-30] MEDS: IPRATROPIUM-ALBUTEROL 3 ML NEB INHALATION SCH ×2 (08:11→11:26)
[2022-10-30] MEDS: FAMOTIDINE 20 MG/2 ML VIAL IV SCH (10:11)
[2022-10-30] MEDS: CITALOPRAM HYDROBROMIDE 20 MG TAB PO SCH (10:11)
[2022-10-30] MEDS: METOPROLOL SUCCINATE (ER) 50 MG TAB.ER.24H PO SCH (10:12)
[2022-10-30] MEDS: LACTULOSE 20 GM/30 ML CUP PO SCH (10:12)
[2022-10-30] MEDS: PRAVASTATIN SODIUM 40 MG TAB PO SCH (10:22)
[2022-10-30] MEDS: SPIRONOLACTONE 25 MG TAB PO SCH (10:22)
--- NOTE | 2022-10-30 11:45 | P.PN ---
Subjective This is a pleasant 67 years old male with multiple medical problems as below. Patient is a known case of COPD, he used to smoke more than 3 packs per day and he quit in 2008. Also has a known case with lung cancer with metastasis to the liver, and he is getting immunotherapy as he states. Presents because of worsening dyspnea and cough of green yellow phlegm. Also he had central chest pain nonradiating over the last 2 days felt like dull with palpitation. Hearing decreased his pain as severe then but now is much better and he does not have significant chest pain today. He is not on oxygen at home. He denies abdominal pain vomiting or diarrhea, he complains from hesitancy in his urination but no dysuria. Headache or weakness or numbness or dizziness. He is currently nonsmoker, no alcohol or illicit drugs as he states. On admission Vitas looks stable, patient is saturating 94% to 97% on 4 L oxygen via nasal cannula Labs showing mild anemia with hemoglobin 10.7, Rest of labs including INR, BMP are unremarkable Low magnesium of 1.1 Bilirubin slightly up 1.7, AST slightly up 86 while normal ALT are 25. Viruses are not detected allen and influenza EKG showing paced rhythm Chest x-ray showing bibasilar An emergency room pressures of steroids and Levaquin 1. Also patient blood culture came back positive for gram-positive cocci 09/27/2022 Patient today complaining of from 6-7/10 periumbilical with tenderness, with some loose bowel movement. His dyspnea is better no significant coughing and weakness is better and is still on 2 L oxygen via nasal cannula. He has some leukocytosis of 18,000, hemoglobin 12.1, sodium 133, magnesium 1.4 which is replaced per protocol Check CT of the abdomen with oral contrast only, patient is already on liquids. Also we'll check for C. diff. Patient remains on IV Levaquin. Repeat blood culture from the port is pending. 10/28/2022 Patient seen on his recliner today he does not look in distress, he is fully awake and oriented, his mentation at baseline, he denies any specific symptoms to me and he looks breathing quietly. However when asked she still have some abdominal pain but no nausea vomiting and he is on pain medication anyway. No dyspnea, no coughing and his weakness looks better. C. diff is negative CT of the brain is negative which was then yesterday because of confusion Low magnesium replaced per protocol CT of the abdomen and pelvis showing worsening liver metastasis, patient aware of this problem Currently he is on Levaquin 500 mg daily, Eliquis 5 mg as well as metoprolol and Aldactone Also patient was on Eliquis which is a home medication for his A. fib which was held yesterday probably because of confusion. We will check labs tomorrow and if stable we'll consider resuming his Eliquis 10/29/2022 Patient today is looks very tired and lethargic barely can raise his head off the bed but he knows in the hospital and he is in insight into his illness. He does not have worsening abdominal pain. However overall his condition is declining and is getting confusion at times although when I saw him he looks oriented. I discussed the case with his daughter Lou up and family request and after patient gave because verbal consent. I discussed the case with her and management plan and all her questions were answered to her satisfaction. It looks like prognosis is very poor. As per my discussion with her it looks like were all the patient's condition is declining and given his complex and multiple medical problems including but not limited to advanced metastatic cancer disease worsening despite treatment makes his prognosis even worse. Especially patient infection is controlled now but no much improvement in his strength or overall health condition. As per daughter his oncologist give him 3-4 months to live and that was last August therefore the daughter told me she is going to discussed with the family and they are going to decide up for possible hospice tomorrow. CODE STATUS also discussed with the patient and family. We will discuss it and give final decision tomorrow Objective - Vital Signs Vital signs: Vital Signs Temp 98.6 F 10/29/22 04:57 Pulse 70 10/29/22 04:57 Resp 16 10/29/22 04:57 BP 118/76 10/29/22 04:57 Pulse Ox 98 10/29/22 04:57 FiO2 Intake & Output 10/28/22 10/29/22 10/29/22 18:59 06:59 18:59 Intake Total 240 Output Total 2 Balance 240 -2 Intake: Intake, IV Titration 240 Amount Sodium Chloride 0.9% 1, 240 000 ml @ 20 mls/hr IV . Q24H ROSAS Rx#:[id number] Output: Urine 2 Other: # Voids 0 1 # Bowel Movements 1 1 - Exam -GENERAL: The patient is alert and oriented but very lethargic and drowsy and tired, not in any acute distress. Generally weak, HEENT: Pupils are round and equally reacting to light. EOMI. No scleral icterus. No conjunctival pallor. Normocephalic, atraumatic. No pharyngeal erythema. No thyromegaly. CARDIOVASCULAR: S1 and S2 present. No murmurs, rubs, or gallops. -PULMONARY: Chest is clear to auscultation, no crackles. Expiratory wheezing with coarse crepitation -ABDOMEN: Soft, right upper quadrant tenderness, no rebound tenderness,, periumbilical tenderness, no rebound tenderness nondistended, normoactive bowel sounds. No palpable organomegaly. MUSCULOSKELETAL: No joint swelling or deformity. EXTREMITIES: No cyanosis, clubbing, or pedal edema. NEUROLOGICAL: Gross neurological examination did not reveal any focal deficits. SKIN: No rashes. no petechiae. - Labs CBC & Chem 7: 10/29/22 07:25 10/29/22 07:25 Labs: Abnormal Lab Results - Last 24 Hours (Table) 10/29/22 Range/Units 07:25 WBC 12.71 H (4.50-10.00) X 10*3/uL RBC 3.39 L (4.40-5.60) X 10*6/uL Hgb 10.9 L (13.0-17.0) g/dL Hct 34.4 L (39.6-50.0) % MCV 101.5 H (80.0-97.0) fL MCH 32.2 H (27.0-32.0) pg MCHC 31.7 L (32.0-37.0) g/dL RDW 16.0 H (11.5-14.5) % MPV 12.5 H (9.5-12.2) fL Immature Gran # 0.09 H (0.00-0.04) X 10*3/uL Neutrophils # 10.81 H (1.80-7.70) X 10*3/uL Lymphocytes # 0.55 L (0.90-5.00) X 10*3/uL Monocytes # 1.23 H (0.20-1.00) X 10*3/uL Eosinophils # 0.02 L (0.04-0.35) X 10*3/uL Microbiology - Last 24 Hours (Table) 10/26/22 12:15 Blood Culture - Preliminary Blood No Growth after 48 hours 10/26/22 12:11 Blood Culture Gram Stain - Preliminary Blood Blood Culture - Preliminary Coagulase Negative Staph Assessment and Plan Assessment: Acute COPD exacerbation History of metastatic lung cancer to the liver, CT of the abdomen showing worsening liver metastatic lesion, Chest pain, most likely secondary to above Abdominal pain with loose bowel movement Gram-positive bacteremia Status post AICD and pacemaker generalized weakness and deconditioning History of hyponatremia, most likely secondary to SIADH chronic hypoxic respiratory failure mild caloreis protein malnutrition History of esophageal cancer status post radiation History of Hodgkin's lymphoma status post stem cell transplant. History of Chronic atrial fibrillation. On Eliquis Coronary artery disease history of stent placement Chronic systolic CHF ejection fraction 30 to 35% Diabetes type 2 diet controlled History of [place] Previous history of smoking Severe COPD changes with a dilated pulmonary trunk suggestive of pulmonary hypertension. Chronic atrial fibrillation was on Eliquis at home Plan: Continue with pain medication Louin. Continue with steroids Continue with bronchodilator continue with antibiotic, continue with Levaquin Infectious disease consult Pulmonary team consult Discussed the case with family and Dr. Blake, family considering hospice care. Labs and medication were reviewed.. Continue same treatment. Continue with symptomatic treatment. Resume home medication. Monitor lytes and vitals. DVT and GI prophylaxis. Further recommendations as per clinical course of the patient DVT prophylaxis: Eliquis, on hold GI Prophylaxis: Pepcid Prognosis is extremely poor Updated plan discussed with staff and bedside nurse
[2022-10-30 13:16] VITALS: BP 105/68; PULSE 68; RESP 18; TEMP 99
--- NOTE | 2022-11-01 16:02 | P.DS ---
Providers Date of admission: 10/25/22 18:26 Expected date of discharge: 10/30/22 Attending physician: Adrianen Odell Consults: 10/26/22 11:23 Consult Physician Urgent Consulting Provider: Sigifredo Aldridge Consult Reason/Comments: dyspnea Do you want consulting provider notified?: Yes 10/27/22 12:36 Consult Physician Routine Consulting Provider: Lucero Caba Consult Reason/Comments: + BL CULTURE Do you want consulting provider notified?: Already Contacted Primary care physician: Maddi Renteria DO Hospital Course: Final diagnosis Acute COPD exacerbation History of metastatic lung cancer to the liver, CT of the abdomen showing worsening liver metastatic lesion Chest pain, most likely secondary to above Abdominal pain with loose bowel movement Gram-positive bacteremia Status post AICD and pacemaker generalized weakness and deconditioning History of hyponatremia, most likely secondary to SIADH chronic hypoxic respiratory failure mild calorie protein malnutrition History of esophageal cancer status post radiation History of Hodgkin's lymphoma status post stem cell transplant. History of Chronic atrial fibrillation. On Eliquis Coronary artery disease history of stent placement Chronic systolic CHF ejection fraction 30 to 35% Diabetes type 2 diet controlled History of [place] Previous history of smoking Severe COPD changes with a dilated pulmonary trunk suggestive of pulmonary hypertension. Chronic atrial fibrillation was on Eliquis at home Discharge disposition Patient is being discharged in a stable condition with guarded prognosis to home with visiting service hospice services . Patient will follow-up with Dr. Renteria and his oncologist in the outpatient setting upon discharge. Patient is to continue a short course of levaquin. Total time taken is greater than 35 minutes. Hospital course This is a 67-year-old male who was recently admitted with shortness of breath and copd exacerbation. Patient who follows with oncology out of [place] with lung CA. Patient overall condition continue to worsen and family would like to go home with visiting nurses hospice services. Patient to follow up outpatient with pcp. Multiple medical issues noted and overall prognosis is poor and guarded. Mentation is improved today although waxes and wains. Currently no reports of chest pain, worsening shortness of breath, or palpitations. Patient is afebrile. No reports of nausea or vomiting and patient is tolerating diet. Patient will be discharged home today. Overall poor and guarded prognosis. Physical exam: Gen: This is a 67 year old male who is awake, alert and oriented x2, thin built, ill appearing. HEENT: Head is atraumatic, normocephalic. Pupils equal, round. Sclerae is anicteric. NECK: Supple. No JVD. No lymphadenopathy. No thyromegaly. LUNGS: diminished breath sounds bilaterally. No wheezes with scattered rhonchi and some crackles noted at the bases. No intercostal retractions. HEART: Regular rate and rhythm. No murmur. ABDOMEN: Soft. Bowel sounds are present. No masses. No tenderness. EXTREMITIES: No pedal edema. No calf tenderness. NEUROLOGICAL: Patient is awake, alert and oriented x2. diffusely weak. Please refer to medication reconciliation sheet for a list of medications. The impression and plan of care has been dictated by Brooklynn Odom, Nurse Practitioner as directed. Dr. Nadia MD I have performed a history and examination and MDM of this patient, discussed the same with the dictator, and agree with the dictator's assessment and plan as written ,documented as a scribe. Based on total visit time, I have performed more than 50% of the visit. Patient Condition at Discharge: Fair Plan - Discharge Summary New Discharge Prescriptions: New Levofloxacin [Levaquin] 500 mg PO Q24H 5 Days #5 tab HYDROcodone/APAP 5-325MG [Barrington 5-325] 1 each PO Q6HR PRN #9 tab PRN Reason: Pain Acetaminophen Tab [Tylenol] 650 mg PO Q6HR PRN tab PRN Reason: Mild Pain Or Fever > 100.5 Continue Pravastatin Sodium [Pravachol] 40 mg PO DAILY Spironolactone 25 mg PO DAILY Metoprolol Succinate (ER) [Toprol XL] 50 mg PO DAILY Lactulose 10 gm PO DAILY Citalopram Hydrobromide [CeleXA] 20 mg PO DAILY modafiniL [Provigil] 200 mg PO DAILY Mometasone/Formoterol [Dulera 200 Mcg-5 Mcg Inhaler] 2 puff PO RT-BID Melatonin 5 mg PO HS Changed ALPRAZolam [Xanax] 0.25 mg PO HS PRN #0 PRN Reason: Anxiety Discontinued Apixaban [Eliquis] 5 mg PO BID #60 tab Discharge Medication List Pravastatin Sodium [Pravachol] 40 mg PO DAILY 01/22/22 [History] Spironolactone 25 mg PO DAILY 01/22/22 [History] Citalopram Hydrobromide [CeleXA] 20 mg PO DAILY 10/25/22 [History] Lactulose 10 gm PO DAILY 10/25/22 [History] Metoprolol Succinate (ER) [Toprol XL] 50 mg PO DAILY 10/25/22 [History] Mometasone/Formoterol [Dulera 200 Mcg-5 Mcg Inhaler] 2 puff PO RT-BID 10/25/22 [History] modafiniL [Provigil] 200 mg PO DAILY 10/25/22 [History] Melatonin 5 mg PO HS 10/27/22 [History] ALPRAZolam [Xanax] 0.25 mg PO HS PRN #0 10/30/22 [Rx] Acetaminophen Tab [Tylenol] 650 mg PO Q6HR PRN tab 10/30/22 [Rx] HYDROcodone/APAP 5-325MG [Barrington 5-325] 1 each PO Q6HR PRN #9 tab 10/30/22 [Rx] Levofloxacin [Levaquin] 500 mg PO Q24H 5 Days #5 tab 10/30/22 [Rx] Follow up Appointment(s)/Referral(s): [facility] [REFERRING] - 1 Week Maddi Renteria DO [Primary Care Provider] - 1-2 days Patient Instructions/Handouts: Hydrocodone/Acetaminophen (By mouth), Levofloxacin (By mouth), Hospice ([facility]) Activity/Diet/Wound Care/Special Instructions: Patient is going home with visiting nurses hospice Recommend follow-up outpatient Continue taking medications as prescribed Continue heart healthy diet Complete short course of antibiotics on discharge Discharge Disposition: HOME WITH HOSPICE
--- NOTE | 2022-11-03 09:37 | CDI ---
Documentation Clarification Form Date: 11/03/2022 09:27:00 AM From: Elizabeth Knapp Admit Date: 10/25/2022 06:26:00 PM Patient Name: Robby Crowder Visit Number: [id number] Discharge Date: 10/30/2022 01:43:00 PM ATTENTION: The Clinical Documentation Specialists (CDI) and [facility] Coding Staff appreciate your assistance in clarifying documentation. Please respond to the clarification below the line at the bottom and electronically sign. The CDI & [facility] Coding staff will review the response and follow-up if needed. Please note: Queries are made part of the Legal Health Record. If you have any questions, please contact the author of this message via ITS. Dr. Woodson E Sheet Conflicting documentation has been found in the medical record. As attending physician, please provide clarification. Per DCS, H and P and your progress notes patient has chronic hypoxic respiratory failure Per Pulmonary consult and progress notes patient has acute and chronic hypoxic respiratory failure History/Risk Factors: Patient with lung CA, COPD exacerbation and history of tobacco. Clinical Indicators: On admit patient was 98% on RA later in day dropped to 93% on RA Treatment: 2, 3 and 4 L NC O2 Please clarify which diagnosis is most appropriate: [ ] Chronic hypoxic respiratory failure [ ] Acute and chronic hypoxic respiratory failure [ ] Other (please specify) [ ] Unable to determine Unable to determine MTDD
== END 2022-10-30 13:43 | disposition hospice, home (50) | DRG 191 ==
LOC: EC 12:44 → 5NMEDONC 18:26
PROVIDERS: ADMIT Hospitalist; ATTEND Hospitalist
DX: J44.1 Chronic obstructive pulmonary disease with (acute) exacerbation (principal); C15.9 Malignant neoplasm of esophagus, unspecified; C34.90 Malignant neoplasm of unspecified part of unspecified bronchus or lung; C78.7 Secondary malignant neoplasm of liver and intrahepatic bile duct; E44.1 Mild protein-calorie malnutrition; E22.2 Syndrome of inappropriate secretion of antidiuretic hormone; I48.20 Chronic atrial fibrillation, unspecified; I50.22 Chronic systolic (congestive) heart failure; J96.11 Chronic respiratory failure with hypoxia; J98.11 Atelectasis; R78.81 Bacteremia; Z94.84 Stem cells transplant status; J44.0 Chronic obstructive pulmonary disease with (acute) lower respiratory infection; Z51.5 Encounter for palliative care; Z66 Do not resuscitate; E11.9 Type 2 diabetes mellitus without complications; Z68.21 Body mass index [BMI] 21.0-21.9, adult; I25.10 Atherosclerotic heart disease of native coronary artery without angina pectoris; I25.2 Old myocardial infarction; I25.5 Ischemic cardiomyopathy; Z20.822 Contact with and (suspected) exposure to COVID-19; Z99.81 Dependence on supplemental oxygen; D64.9 Anemia, unspecified; J20.9 Acute bronchitis, unspecified; E83.42 Hypomagnesemia; E78.5 Hyperlipidemia, unspecified; Z79.01 Long term (current) use of anticoagulants; B96.89 Other specified bacterial agents as the cause of diseases classified elsewhere; Z79.51 Long term (current) use of inhaled steroids; Z87.891 Personal history of nicotine dependence; Z79.899 Other long term (current) drug therapy; Z80.0 Family history of malignant neoplasm of digestive organs; Z82.49 Family history of ischemic heart disease and other diseases of the circulatory system; Z85.01 Personal history of malignant neoplasm of esophagus; Z85.71 Personal history of Hodgkin lymphoma; Z85.72 Personal history of non-Hodgkin lymphomas; Z92.21 Personal history of antineoplastic chemotherapy; Z92.3 Personal history of irradiation; Z95.5 Presence of coronary angioplasty implant and graft; Z95.810 Presence of automatic (implantable) cardiac defibrillator; Z28.311 Partially vaccinated for COVID-19; Z28.21 Immunization not carried out because of patient refusal; Z88.0 Allergy status to penicillin; Z86.14 Personal history of Methicillin resistant Staphylococcus aureus infection
CPT/HCPCS: 36415; 70450; 71046; 74176; 80048; 80053; 80076; 81003; 82140; 83605; 83735; 83880; 84145; 84484; 85025; 85610; 85730; 87040; 87324; 87502; 87635; 93005; 94640; 94760; 96365; 96375; 99291